=== PATIENT | female | born 1950 | race Caucasian/White ===

== ENCOUNTER 2016-06-13 15:45 | Inpatient (IN) | payer MEDICARE, MEDICAID ==
[2016-06-13] VITALS (18 sets, daily range): BP systolic 90–147; BP diastolic 51–71; PULSE 51–62; RESP 16; TEMP 95.7–96.6; O2SAT 35–100
[~2016-06-13] VITALS: Ht 154.9 cm; Wt 128.0 kg
[~2016-06-13 15:45] MED LIST: DOK100TA PO; DUONI NEB; HUMSS; LANTUS2P SC; META28.3 PO; MULT1TAB46 PO
[2016-06-13] MEDS ORDERED: VANCOMYCIN INJ 1,000 MG in SODIUM CHLOR 0.9% 250 ML INJ 250 ML IV STA (15:58)
[2016-06-13] MEDS ORDERED: AZTREONAM INJ 2,000 MG in SODIUM CHLORIDE 0.9% INJ 100 ML IV STA (15:58)
[2016-06-13] MEDS ORDERED: metroNIDAZOLE 500 MG INJ 100 ML IV STA (15:58)
[2016-06-13 16:21] LABS: BLOOD GAS BASE EXCESS -2.6 mmol/L (-2-2); BLOOD GAS CARBOXYHEMOGLOBIN 2.1 % (0-4); BLOOD GAS HCO3 24 mmol/L (22-26); BLOOD GAS METHEMOGLOBIN 0.8 % (0-2); BLOOD GAS O2 HGB SATURATION 96 % (90-100); BLOOD GAS OXYGEN CONTENT 10.6 Vol % (12.0-20.0); BLOOD GAS PCO2 57 mmHg (38-42); BLOOD GAS PO2 118 mmHG (61-120); BLOOD GAS TOTAL HGB 7.7 G/DL (12.0-16.0); TEMP CORR TO 98.6
--- NOTE | 2016-06-13 16:21 | RADRPT ---
EXAM DATE/TIME: 06/13/2016 16:03 [place] COMPARISON: No previous studies available for comparison. INDICATIONS : Short of breath. MEDICAL HISTORY : Congestive heart failure. SURGICAL HISTORY : None. ENCOUNTER: Initial ACUITY: 1 day PAIN SCORE: Non-responsive. LOCATION: Bilateral chest FINDINGS: There is an [id number] in place from the right subclavian approach. The cardiac silho uette is enlarged. The lungs demonstrate diffuse increased interstitial markings. In addition there is a more focal increased density in the left upper lung, left perihilar region, and inferior right u pper lobe. CONCLUSION: Cardiomegaly with diffuse increased interstitial markings likely representing edema. There is some focal consolidation or mass seen in the left upper lung, right upper lung, and left pe rihilar regions. The patient is scheduled for a CT pulmonary angiogram. Chris Colin MD on June 13, 2016 at 16:16 Board Certified Radiologist. This report was verified electronically.
[2016-06-13 16:22] LABS: CRITICAL VALUE YES; DRAW SITE RT BRACHIAL; LITER FLOW 4 L/M; NUMBER OF ARTERIAL PUNCTURES 1; OXYGEN DEVICE NASAL CANNULA; STAT YES
[2016-06-13 17:10] LABS: AUTOMATED NEUTROPHIL # 6.3 TH/MM3 (1.8-7.7); BASOPHIL # 0.1 TH/MM3 (0-0.2); BASOPHIL % 0.7 % (0.0-2.0); EOSINOPHIL # 0.2 TH/MM3 (0-0.4); EOSINOPHIL % 2.5 % (0.0-4.0); HEMATOCRIT 23.8 % (35.0-46.0); HEMO FLAGS DIFF FINAL; LYMPH % 13.9 % (9.0-44.0); LYMPHOCYTE # 1.2 TH/MM3 (1.0-4.8); MEAN CELL VOLUME 92.9 FL (80.0-100.0); MEAN CORPUSCULAR HGB CONC 33.3 % (32.0-36.0); MONO % 7.9 % (0.0-8.0); PLATELET COUNT 242 TH/MM3 (150-450); RED BLOOD COUNT 2.56 MIL/MM3 (4.00-5.30); RED CELL DISTRIBUTION WIDTH 20.1 % (11.6-17.2); WHITE BLOOD COUNT 8.4 TH/MM3 (4.0-11.0)
[2016-06-13 17:15] LABS: BACTERIA, URINE FEW /hpf; BLOOD, URINE MOD (NEG); GLUCOSE,URINE NEG (NEG); KETONE, URINE NEG (NEG); NITRITE,URINE NEG (NEG); PH, URINE 5.5 (5.0-8.5); SQUAMOUS EPITHELIAL CELL URINE 1 /hpf (0-5); URINE COLOR YELLOW (YELLW/STRAW)
[2016-06-13 17:16] LABS: APTT (PATIENT) 31.5 SEC (24.3-30.1); COMMENT (UR) CATH-CULTURE IND; CULTURE IF INDICATED CATH CULTURE IND; INTERNATIONAL NORMALIZED RATIO 1.1 RATIO; PROTHROMBIN TIME - PATIENT 11.9 SEC (9.8-11.6)
[2016-06-13 17:41] LABS: ANION GAP 6 MEQ/L (5-15); AST (GOT) 13 U/L (15-37); BICARBONATE 27.5 MEQ/L (21.0-32.0); BLOOD UREA NITROGEN 40 MG/DL (7-18); CHLORIDE 109 MEQ/L (98-107); GLOMERULAR FILTRATION RATE 24 ML/MIN (>89); POTASSIUM 6.1 MEQ/L (3.5-5.1); SODIUM (NA) 142 MEQ/L (136-145)
[2016-06-13 17:46] LABS: ALKALINE PHOSPHATASE 112 U/L (45-117); ALT (GPT) 11 U/L (10-53); TOTAL BILIRUBIN ADULT 0.2 MG/DL (0.2-1.0)
[2016-06-13] MEDS ORDERED: ALPR0.25 PO (17:56)
[2016-06-13] MEDS ORDERED: ALLO100T PO (17:56)
[2016-06-13] MEDS ORDERED: ASPI81TA5 PO (17:56)
[2016-06-13] MEDS ORDERED: BETH10TA2 PO (17:56)
[2016-06-13] MEDS ORDERED: CARV25TA PO (17:57)
[2016-06-13] MEDS ORDERED: CETI10 PO (17:57)
[2016-06-13] MEDS ORDERED: CALCIUM GLUCONATE 10% 1 GM/10 ML VIAL SLOW IVP ONE (18:00)
[2016-06-13] MEDS ORDERED: FERR325T PO (18:00)
[2016-06-13] MEDS ORDERED: DEXTROSE 50% IN WATER 50 ML VIAL(D50) IV PUSH ONE (18:00)
[2016-06-13] MEDS ORDERED: FLUC200T2 PO (18:00)
[2016-06-13] MEDS ORDERED: SODIUM BICARBONATE 8.4% SOLN 50 MEQ/50 ML VIAL SLOW IVP ONE (18:00)
[2016-06-13] MEDS ORDERED: IPRASOL INH (18:00)
[2016-06-13] MEDS ORDERED: FURO1TAB60 PO (18:02)
[2016-06-13] MEDS ORDERED: FLUO1TAB3 PO (18:02)
[2016-06-13 18:08] LABS: BLOOD GAS BASE EXCESS -2.2 mmol/L (-2-2); BLOOD GAS HCO3 24 mmol/L (22-26); BLOOD GAS METHEMOGLOBIN 0.6 % (0-2); BLOOD GAS O2 HGB SATURATION 97 % (90-100); BLOOD GAS OXYGEN CONTENT 11.3 Vol % (12.0-20.0); BLOOD GAS PCO2 58 mmHg (38-42); BLOOD GAS PO2 127 mmHG (61-120); BLOOD GAS TOTAL HGB 8.2 G/DL (12.0-16.0); CRITICAL VALUE YES; OXYGEN DEVICE BiPAP; TEMP CORR TO 98.6
[2016-06-13] MEDS ORDERED: GABA100C4 PO (18:08)
[2016-06-13] MEDS ORDERED: GLUC0.8I2 SQ (18:08)
[2016-06-13] MEDS ORDERED: HUMALOG SQ ×2 (18:08)
[2016-06-13 18:09] LABS: DRAW SITE RT RADIAL; FIO2 35 %; NUMBER OF ARTERIAL PUNCTURES 1; STAT YES; ULNAR PULSE PRESENT
[2016-06-13] MEDS ORDERED: INSULIN HUMAN REGULAR 1,000 UNITS/10 ML VIAL IV PUSH ONE (18:15)
[2016-06-13] MEDS ORDERED: ISOS30TA3 PO (18:21)
[2016-06-13] MEDS ORDERED: MELA1TAB PO (18:21)
[2016-06-13] MEDS ORDERED: POTA-245 PO (18:21)
[2016-06-13] MEDS ORDERED: MINO100 PO (18:21)
[2016-06-13] MEDS ORDERED: LANTUS2P SQ (18:21)
[2016-06-13] MEDS ORDERED: NYST1POW16 TOP (18:24)
[2016-06-13] MEDS ORDERED: MIRA33504 PO (18:24)
[2016-06-13] MEDS ORDERED: THERTAB17 PO (18:24)
[2016-06-13] MEDS ORDERED: DRIS50002 PO (18:28)
[2016-06-13] MEDS ORDERED: SUCR1TAB PO (18:28)
[2016-06-13] MEDS ORDERED: PANT40TA3 PO (18:28)
[2016-06-13] MEDS ORDERED: KETAMINE HCL 500 MG/5 ML VIAL IV PUSH ONE (18:30)
[2016-06-13] MEDS ORDERED: ROCURONIUM INJ 100 MG/10 ML VIAL IV ONE (18:30)
[2016-06-13] MEDS ORDERED: ROCURONIUM INJ 50 MG/5 ML VIAL ONE (18:46)
[2016-06-13] MEDS ORDERED: PROPOFOL 1000 MG/100 ML INJ 100 ML IV SCH (19:00)
--- NOTE | 2016-06-13 19:09 | PD ---
HPI Chief Complaint: Altered Mental Status Time Seen by Provider: 15:58 Travel History International Travel<30 days: No Contact w/Intl Traveler<30days: No Traveled to known affect area: No History of Present Illness HPI Patient is a 65-year-old female with History of breast/lung cancer, CHF, A. fib , renal dysfunction, and other long-standing history of multiple medical comorbidities to since the first of the year has been hospitalized at [facility] for the better part of 2 months. She was discharged from there to [facility] approximately one week ago. Over the course of the day today she apparently became more and more short of breath and altered. Has increasing edema to the upper and lower extremities and was reportedly given 40 mg of Lasix IM. Patient is lethargic and not able to provide history. Per facility patient is full code. Remainder of the history is limited. PFSH Past Medical History Cancer: Yes (LEFT BREAST ADENOCARCINOMA) Chemotherapy: Yes (LAST TREATMENT DEC 2013) Diabetes: Yes Patient Takes Glucophage: Yes Gastrointestinal Disorders: Yes (GASTROPARESIS) Genitourinary: Yes (RECURRENT UTI'S, URINARY RETENTION) Hypertension: Yes Radiation Therapy: No Past Surgical History Abdominal Surgery: Yes (GASTRIC BYPASS) Cholecystectomy: Yes Genitourinary Surgery: Yes (LITHOTRIPSY) Other Surgery: Yes (LEFT BREAST LUMPECTOMY, PORT A CATH PLACEMENT, LYMPHNODE BIOPSY.) Social History Alcohol Use: No Tobacco Use: No Substance Use: No Allergies-Medications (Allergen,Severity, Reaction): Coded Allergies: Percocet (Unverified Allergy, Severe, Nausea/Vomiting, 06/13/16) Codeine (Unverified Allergy, Mild, Nausea/Vomiting, 06/13/16) Lortab (Unverified Allergy, Mild, Nausea/Vomiting, 06/13/16) Bactrim (Unverified Allergy, Unknown, 06/13/16) Ciprofloxacin (Unverified Allergy, Unknown, 06/13/16) Hydrocodone (Unverified Allergy, Unknown, 06/13/16) Levaquin (Unverified Allergy, Unknown, 06/13/16) Penicillin (Unverified Allergy, Unknown, 06/13/16) Quinolones (Unverified Allergy, Unknown, 06/13/16) Sulfa (Unverified Allergy, Unknown, 06/13/16) Reported Meds & Prescriptions Reported Meds & Active Scripts Active Reported Drisdol (Ergocalciferol) 50,000 Unit Cap 50,000 Units PO WEEKLY ON SUNDAYS Sucralfate 1 Gm Tab 1 Gm PO ACHS on empty stomach Pantoprazole (Pantoprazole Sodium) 40 Mg Tab 40 Mg PO DAILY Nystatin Topical 100,000 Unit/Gm Pow 1 Applic TOP Q8HR PRN Thera-M (Multiple Vitamins W/ Minerals) 1 Tab 1 Tab PO DAILY Miralax Powder (Polyethylene Glycol 3350 Powder) 17 Gm Powd 17 Gm PO DAILY Mix and dissolve one measuring cap-ful (17 grams) in water or juice. Minocycline (Minocycline HCl) 100 Mg Cap 100 Mg PO BID Melatonin 1 Mg Tab 1 Mg PO HS PRN Lantus Inj (Insulin Glargine) 1,000 Unit/10 Ml Vial 50 Units SQ HS Klor-Con M20 (Potassium Chloride Microencaps) 20 Meq Tab 20 Meq PO DAILY Isosorbide Mononitrate ER (Isosorbide Mononitrate) 30 Mg Thomas 30 Mg PO DAILY Humalog Inj (Insulin Human Lispro) 1,000 Unit/10 Ml Vial 2-10 Units SQ ACHS If sugars 0-69,(0)units;give 120ml OJ & glucagom 1 mg im per protocol and recheck in one hour; sugars 70-149 = (0)150-199,(2)units; sugars 200-249,(4)units; sugars 250-299,(6)units;sugars 300-349,(8)units; sugars 350-399,(10)units; 400 + give 10 units and call Humalog Inj (Insulin Human Lispro) 1,000 Unit/10 Ml Vial 10 Units SQ TIDAC Max dose at bedtime:( )units; sugars< 70,(0)units; sugars 150-199,(1)unit; sugars 200-249,(3)units; sugars 250-299,(5)units; sugars 300-349,(7)units; sugars more than 349,(9)units. Glucagon Inj 1 Mg/Ml Inj 1 Mg SQ ONCE PRN Gabapentin 100 Mg Cap 200 Mg PO Q8HR Lasix (Furosemide) 40 Mg Tab 40 Mg PO DAILY Fluoxetine (Fluoxetine HCl) 20 Mg Tab 20 Mg PO DAILY Fluconazole 200 Mg Tab 200 Mg PO DAILY Ferrous Sulfate 325 Mg Tab 325 Mg PO BID Duoneb (Ipratropium-Albuterol Neb) 0.5-2.5 Mg/3 Ml Neb 1 Nebule INH Q8HR NEB PRN Cetirizine (Cetirizine HCl) 10 Mg Tab 10 Mg PO DAILY PRN Carvedilol 25 Mg Tab 25 Mg PO TID Bethanechol 10 Mg Tab 10 Mg PO DAILY Aspirin DR (Aspirin) 81 Mg Tabdr 81 Mg PO DAILY Alprazolam 0.25 Mg Tab 0.25 Mg PO Q6H Allopurinol 100 Mg Tab 100 Mg PO DAILY Review of Systems ROS Limitations: Clinical Condition, Altered Mental Status Physical Exam Exam Limitations: Clinical Condition, Altered Mental Status Narrative GENERAL: Super morbidly obese female in moderate respiratory distress SKIN: Warm and dry. Purplish you to the sacrum but no open wounds. Excoriations along the torso and extremities. HEAD: Normocephalic. EYES: Pupils equal and round. 3 mm. No scleral icterus. No injection or drainage. ENT: No nasal bleeding or discharge. Mucous membranes pink and moist. NECK: Supple, obese CARDIOVASCULAR: Bradycardic with heart rate in the 50s, regular rhythm. No murmur appreciated. RESPIRATORY: Moderate respiratory distress with tachypnea, poor respiratory effort and decreased breath sounds throughout. I'm only able to hear breath sounds in the left upper lobe of the lung GASTROINTESTINAL: Abdomen soft, super morbidly obese. Patient complains of left -sided tenderness to palpation of the abdomen. No rebound or guarding. Exam is limited due to morbid obesity MUSCULOSKELETAL: 2+ edema throughout, anasarca NEUROLOGICAL: Drowsy/lethargic. Patient needs constant physical/verbal stimulation in order to stay awake. Moves all extremities. Oriented 3 when awakened. Speech clear. PSYCHIATRIC: Deferred given mental status Data Data Last Documented VS Vital Signs Date Time Temp Pulse Resp B/P Pulse Ox O2 Delivery O2 Flow Rate FiO2 06/13/16 19:04 100 100 06/13/16 19:00 96.4 59 16 134/59 Ventilator 06/13/16 15:45 3 Orders Electrocardiogram (06/13/16 15:58) Complete Blood Count With Diff (06/13/16 15:58) Comprehensive Metabolic Panel (06/13/16 15:58) Prothrombin Time / Inr (Pt) (06/13/16 15:58) Act Partial Throm Time (Ptt) (06/13/16 15:58) Lactic Acid Sepsis Protocol (06/13/16 15:58) Lipase (06/13/16 15:58) Troponin I (06/13/16 15:58) Urinalysis - C+S If Indicated (06/13/16 15:58) Blood Culture (06/13/16 15:58) Chest, Single Ap (06/13/16 15:58) Arterial Blood Gas (Abg) (06/13/16 15:58) Blood Glucose (06/13/16 15:58) Ecg Monitoring (06/13/16 15:58) Iv Access Insert/Monitor (06/13/16 15:58) Oximetry (06/13/16 15:58) Oxygen Administration (06/13/16 15:58) Urinary Catheter Insert/Apply (06/13/16 15:58) Vancomycin Inj (Vancomycin Inj) (06/13/16 15:58) Aztreonam Inj (Azactam Inj) (06/13/16 15:58) Metronidazole 500 Mg Inj (Flagyl 500 Mg (06/13/16 15:58) Urine Culture (06/13/16 16:50) Ventilation & Perfusion Scan (06/13/16 17:46) Ct Abd/Pel W/O Iv Contrast (06/13/16 17:46) Arterial Blood Gas (Abg) (06/13/16 ) Potassium, Serum (K) (06/13/16 21:00) Calcium Gluconate Inj (Calcium Gluconate (06/13/16 18:00) Insulin Human Regular Inj (Novolin R Inj (06/13/16 18:15) Dextrose 50% In [place] (Vial) Inj (D50w (Vi (06/13/16 18:00) Sodium Bicarbonate 8.4% Inj (Sodium Bica (06/13/16 18:00) Ketamine Inj (Ketalar Inj) (06/13/16 18:30) Rocuronium Inj (Zemuron Inj) (06/13/16 18:30) Rocuronium Inj (Zemuron Inj) (06/13/16 18:46) Chest, Single Ap (06/13/16 18:51) Ng Gastric Tube Insert/Monitor (06/13/16 18:51) Restraints Non-Violent JAMES.Q3H (06/13/16 18:51) Propofol 1000 Mg/100 Ml Inj (Diprivan 10 (06/13/16 19:00) ^ Infusion (06/13/16 18:57) RASS (06/13/16 18:57) Neurological Rass Scale JAMES.Q2H (06/13/16 18:57) Admit Order (Ed Use Only) (06/13/16 19:15) Consult Palliative Care (06/13/16 ) Labs Laboratory Tests Test 06/13/16 06/13/16 06/13/16 16:13 16:50 17:58 Blood Gas Puncture Site RT BRACHIAL RT RADIAL Blood Gas Patient Temperature 98.6 98.6 Blood Gas HCO3 24 mmol/L 24 mmol/L Blood Gas Base Excess -2.6 mmol/L -2.2 mmol/L Blood Gas Oxygen Saturation 96 % 97 % Arterial Blood pH 7.24 7.25 Arterial Blood Partial 57 mmHg 58 mmHg Pressure CO2 Arterial Blood Partial 118 mmHG 127 mmHG Pressure O2 Arterial Blood Oxygen Content 10.6 Vol % 11.3 Vol % Arterial Blood 2.1 % 2.0 % Carboxyhemoglobin Arterial Blood Methemoglobin 0.8 % 0.6 % Blood Gas Hemoglobin 7.7 G/DL 8.2 G/DL Oxygen Delivery Device NASAL CANNULA BiPAP Blood Gas Liter Flow 4 L/M White Blood Count 8.4 TH/MM3 Red Blood Count 2.56 MIL/MM3 Hemoglobin 7.9 GM/DL Hematocrit 23.8 % Mean Corpuscular Volume 92.9 FL Mean Corpuscular Hemoglobin 31.0 PG Mean Corpuscular Hemoglobin 33.3 % Concent Red Cell Distribution Width 20.1 % Platelet Count 242 TH/MM3 Mean Platelet Volume 7.7 FL Neutrophils (%) (Auto) 75.0 % Lymphocytes (%) (Auto) 13.9 % Monocytes (%) (Auto) 7.9 % Eosinophils (%) (Auto) 2.5 % Basophils (%) (Auto) 0.7 % Neutrophils # (Auto) 6.3 TH/MM3 Lymphocytes # (Auto) 1.2 TH/MM3 Monocytes # (Auto) 0.7 TH/MM3 Eosinophils # (Auto) 0.2 TH/MM3 Basophils # (Auto) 0.1 TH/MM3 CBC Comment DIFF FINAL Differential Comment Prothrombin Time 11.9 SEC Prothromb Time International 1.1 RATIO Ratio Activated Partial 31.5 SEC Thromboplast Time Urine Color YELLOW Urine Turbidity CLOUDY Urine pH 5.5 Urine Specific [place] 1.012 Urine Protein 100 mg/dL Urine Glucose (UA) NEG mg/dL Urine Ketones NEG mg/dL Urine Occult Blood MOD Urine Nitrite NEG Urine Bilirubin NEG Urine Urobilinogen LESS THAN 2.0 MG/DL Urine Leukocyte Esterase LARGE Urine RBC 19 /hpf Urine WBC /hpf Urine WBC Clumps MANY Urine Squamous Epithelial 1 /hpf Cells Urine Bacteria FEW /hpf Microscopic Urinalysis Comment CATH-CULTURE IND Sodium Level 142 MEQ/L Potassium Level 6.1 MEQ/L Chloride Level 109 MEQ/L Carbon Dioxide Level 27.5 MEQ/L Anion Gap 6 MEQ/L Blood Urea Nitrogen 40 MG/DL Creatinine 2.07 MG/DL Estimat Glomerular Filtration 24 ML/MIN Rate Random Glucose 72 MG/DL Lactic Acid Level 0.5 mmol/L Calcium Level 8.2 MG/DL Total Bilirubin 0.2 MG/DL Aspartate Amino Transf 13 U/L (AST/SGOT) Alanine Aminotransferase 11 U/L (ALT/SGPT) Alkaline Phosphatase 112 U/L Troponin I LESS THAN 0.02 NG/ML Total Protein 6.8 GM/DL Albumin 2.0 GM/DL Lipase 77 U/L Blood Gas Ventilator Setting 12/5 Blood Gas Inspired Oxygen 35 % MDM Medical Decision Making Medical Screen Exam Complete: Yes Emergency Medical Condition: Yes Medical Record Reviewed: Yes Differential Diagnosis 65-year-old female with multiple underlying medical comorbidities here with altered mental status, respiratory distress. Differential includes acute hypercapnic, hypoxic respiratory failure, pneumonia, CHF exacerbation, pulmonary embolism, UTI, intra-abdominal pathology, sepsis, bacteremia, port infection, arrhythmia, ACS Narrative Course Patient placed on monitor, port accessed and blood obtained. Patient was placed on supplemental oxygen and ABG was obtained showing respiratory acidosis with pH 7.24, PCO2 57, bicarbonate 24, PO2 118. Patient was placed on BiPAP therapy for respiratory acidosis. Portable chest x-ray was obtained showing cardiomegaly with diffuse increased interstitial markings likely representing edema. Focal consolidation versus mass in the left upper lung, right upper lung , left perihilar regions. Known history of lung, breast cancer. Patient empirically treated with vancomycin, Zosyn, Azactam. Later we found out that she does have a history of ESBL. Given concerns for pulmonary edema she was not aggressively fluid resuscitated. Laboratory workup notable for hemoglobin 7.9, chronic for patient. BUN 40, creatinine 2.07 which is baseline for patient. Hyperkalemia 6.1. She was treated with calcium, insulin glucose and bicarbonate. Urine grossly positive for UTI. I would like to obtain a CT pulmonary angiogram but unfortunately her BUN and creatinine cannot tolerate this and therefore VQ scan was ordered. Results of this remain pending at the time this dictation. Given patient's left-sided abdominal tenderness a CT abdomen and pelvis was ordered. This too remains pending. After approximately 1.5 hours on BiPAP he ABG was repeated and is entirely unchanged. Her mental status has not improved. I spoke with patient's sister, who is her power of estate planning attorney. States that patient is full code and would want "everything done and less she is brain ". Patient was intubated by myself, please see procedure note. OG, Christianson were placed and postintubation chest x-ray obtained. Patient will be admitted to intensive care medicine, Dr. Gallardo with palliative care consult. Critical Care Narrative Aggregate critical care time was 80 minutes. Time to perform other separately billable procedures was not included in the critical care time. My time did not include minutes spent treating any other patients simultaneously or on activities that did not directly contribute to the patient's treatment. The services I provided to this patient were to treat and/or prevent clinically significant deterioration that could result in: Cardiopulmonary decompensation, , disability I provided critical care services requiring my management, as noted below: Chart data review, documentation time, medication orders and management, vital sign assessments/reviewing monitor data, ordering and reviewing lab tests, ordering and interpreting/reviewing x-rays and diagnostic studies, care of the patient and discussion of the patient with the admitting physicians. Procedures Procedure Narrative Risks and benefits discussed with patient sister, patient altered and not able to consent: INTUBATION: The patient was put in optimal position for the procedure. Rapid sequence intubation was initiated by me using 300 milligrams of ketamine IV. The patient was intubated with a 7-5 cuffed endotracheal tube. Tube placement was confirmed by visualization of the tube and balloon passing through the cords , capnometry and subsequent chest x-ray. Breath sounds were equal and well aerated bilaterally postintubation. No breath sounds over stomach. Patient tolerated procedure well. Post intubation once endotracheal tube was secured patient was given 150 mg rocuronium. Diagnosis Primary Impression: Hypercapnic respiratory failure Qualified Code: J96.22 - Acute on chronic respiratory failure with hypercapnia Additional Impressions: Urinary tract infection Qualified Code: N30.00 - Acute cystitis without hematuria Sepsis Qualified Code: A41.9 - Sepsis, due to unspecified organism Anemia Qualified Code: D64.9 - Anemia, unspecified type Renal insufficiency Hyperkalemia Morbid obesity with BMI of 60.0-69.9, adult Admitting Information Admitting Physician Requests: Admit Arlyn Petty MD Jun 13, 2016 19:09
--- NOTE | 2016-06-13 19:29 | HHI.HP ---
HPI Service Critical Care Medicine Primary Care Physician Marvin Nielson MD Admission Diagnosis acute respiratory failure, UTI, possible pneumonia Diagnosis: Travel History International Travel<30 Days: No Contact w/Intl Traveler <30 Da: No Traveled to Known Affected Are: No History of Present Illness 65-year-old female with past medical history of hypertension, diabetes , morbid obesity with obesity hypoventilation syndrome, COPD, chronic systolic heart failure, chronic kidney disease stage III, adenocarcinoma of breast metastatic to lung who presents to [facility] emergency department from [facility] with respiratory distress and lethargy. She was found to be in hypercapnic respiratory failure with pH 7.24/PaCO2 57/PA O2 of 118/bicarbonate 24 on 4 L nasal cannula. She was placed on BiPAP 12 over 5 with 35%. Repeat ABG demonstrated no significant improvement. Dr. Carl discussed with patient' s sister who stated patient was full code and so she was intubated in the emergency department with Grade III/IV view with Glidescope following sedation with ketamine and rocuronium. Chest x-ray demonstrated bilateral vascular congestion. There is also a right lower lobe opacity, right upper lobe opacity , and left upper lobe opacity. She was treated empirically in the emergency department with aztreonam, Flagyl, vancomycin. Urinalysis was remarkable for a UTI. She had a potassium of 6.1. She was treated with I called 50 mEq, calcium gluconate 2 g, insulin 10 units IV and dextrose. Apparently patient also had some left-sided abdominal pain for which Dr. Carl has ordered CT abdomen. VQ scan has also been ordered. Patient's sister states that April has a history of left breast adenocarcinoma which she underwent lumpectomy and lymph node resections. She states she underwent chemotherapy at that time which was poorly tolerated and that she was admitted after chemo every time because "all of her systems would shut down". She states that about 6-8 months ago she was found to have multiple lung mets. She states that chemotherapy was initiated but she was not able to tolerate and therefore she discontinued chemotherapy in February of 2016. She was under the care of Dr. Som Cam at [facility]. She states that for 2-3 years she has been having recurrent urinary tract infections. She states that she has been in and out of the hospital "every other week" in March 2016 due to recurrent urinary tract infections. There has been a history of MDRO and her chart indicates that she has a history of UTI positive for ESBL. Patient was reportedly was admitted to [facility] from April 02 to April 29. During this time she was treated for urinary tract infection. She also had altered mental status and respiratory failure requiring mechanical ventilation for approximately 4 days. She was discharged back to [facility] where she resided for 2-3 weeks until she was again hospitalized for CHF, pneumonia, urinary tract infection. She did not require mechanical ventilation on this admission. Her sister states she has been back at [facility] for about a week. Past Family Social History Allergies: Coded Allergies: Percocet (Unverified Allergy, Severe, Nausea/Vomiting, 06/13/16) Codeine (Unverified Allergy, Mild, Nausea/Vomiting, 06/13/16) Lortab (Unverified Allergy, Mild, Nausea/Vomiting, 06/13/16) Bactrim (Unverified Allergy, Unknown, 06/13/16) Ciprofloxacin (Unverified Allergy, Unknown, 06/13/16) Hydrocodone (Unverified Allergy, Unknown, 06/13/16) Levaquin (Unverified Allergy, Unknown, 06/13/16) Penicillin (Unverified Allergy, Unknown, 06/13/16) Quinolones (Unverified Allergy, Unknown, 06/13/16) Sulfa (Unverified Allergy, Unknown, 06/13/16) Past Medical History HTN COPD DM Diabetic peripheral neuropathy chronic kidney disease stage III/IV Obesity hypoventilation syndrome Morbid obesity Gout Paroxysmal atrial fibrillation Recurrent UTI Recurrent pneumonia h/o ESBL Anxiety DVT R peroneal vein 06/06/14 History of fall Dysphagia (noted on nectar thickened liquids diet according to note from 06/09/16 ) Chronic urinary incontinence Allergic rhinitis Left breast adenocarcinoma. Last chemotherapy February 2016 ? 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 CT brain negative. Unable to obtain MRI due to body habitus Past Surgical History Lithotripsy Gastric bypass Left breast lumpectomy and lymph node biopsy Open cholecystectomy Reported Medications Cetirizine 10 mg by mouth daily as needed for allergies Gabapentin 200 mg by mouth every 8 hours Fluoxetine 20 mg by mouth daily Nystatin every 8 hours when necessary rash Allopurinol 100 mg by mouth daily Fluconazole 200 mg by mouth daily Xanax 0.25 mg by mouth every 6 hours when necessary anxiety DuoNeb every 8 hours as needed for shortness of breath Coreg 25 mg by mouth 3 times a day MiraLAX 17 g by mouth daily Glucagon 1 mg subcutaneous as needed for hyperglycemia Lantus 50 units subcutaneous daily at bedtime Humalog 10 units subcutaneous to light 3 times a day Insulin sliding scale Ferrous sulfate 325 mg by mouth twice a day Lasix 40 mg by mouth daily Multivitamin one by mouth daily Isosorbide mononitrate ER 30 mg by mouth daily Aspirin 81 mg daily Melatonin 1 mg at bedtime Bethanechol 10 mg by mouth daily Carafate 1 g by mouth before meals at bedtime Pantoprazole 40 mg by mouth daily Potassium chloride 20 mEq by mouth daily Minocycline 100 mg by mouth twice a day for back serial infection Ergocalciferol 50,000 units by mouth weekly on Sunday Family History Father and mother both had CAD. Father age 60 of [place]. Mother in late 70s when it is believed she of a stroke. Social History Previously smoked about 2 years. Quit about 4 years ago. Rare EtOH use. Not . Sister Amparo Kathleen says she is patients healthcare surrogate. Her sister states She has resided in [facility] since May 2014 Physical Exam Vital Signs Vital Signs Date Time Temp Pulse Resp B/P Pulse Ox O2 Delivery O2 Flow Rate FiO2 06/13/16 19:04 100 100 06/13/16 19:00 96.4 59 16 134/59 100 Ventilator 100 06/13/16 18:50 96.6 61 16 90/54 100 Ventilator 100 06/13/16 18:45 96.6 62 16 95/51 100 BiPAP 35 06/13/16 18:00 96.4 58 16 132/71 100 BiPAP 35 06/13/16 17:45 96.3 06/13/16 17:15 96.3 57 16 122/58 100 BiPAP 35 06/13/16 16:49 96 BiPAP 35 06/13/16 16:49 97 35 06/13/16 15:45 97 Nasal Cannula 3 06/13/16 15:45 57 16 123/61 100 06/13/16 15:45 12 100 Nasal Cannula 3 Physical Exam Pulse 62 blood pressure 170/76 sats 100% on mechanical ventilation GENERAL: Morbidly obese female who is orotracheally intubated. She has just received sedation and paralysis in the emergency department SKIN: Warm and dry. There is skin break down inferior aspect of right side of pannus and iodoform gauze dressing has been applied there. HEAD: Atraumatic. Normocephalic. EYES: Right pupil 4 mm and reactive. Left pupil 3 mm and reactive.. No scleral icterus. No injection or drainage. ENT: No nasal bleeding or discharge. Mucous membranes pink and moist. NECK: Trachea midline. No noted JVD, but may be limited due to body habitus. CARDIOVASCULAR: Regular rate and rhythm, sinus rhythm on monitor with rate 60. No murmurs rubs or gallops. RESPIRATORY: On mechanical ventilation. Diminished breath sounds on the right. Clear to auscultation. GASTROINTESTINAL: Abdomen morbidly obese with large pannus. She has received sedation and paralytic in ED and therefore unable to assess tenderness currently. Bowel sounds are present. There is pitting abdominal wall edema throughout right flank. No crepitus, no erythema or warmth. Skin breakdown as per above. : Christianson in place. MUSCULOSKELETAL: Extremities without clubbing, cyanosis. There is 2+ edema BLE. NEUROLOGICAL: Sedated, has received paralytic rocuronium 150 mg IV in the ED. Pupils as per above. Laboratory Laboratory Tests Test 06/13/16 06/13/16 06/13/16 16:13 16:50 17:58 Blood Gas Puncture Site RT BRACHIAL RT RADIAL Blood Gas Patient Temperature 98.6 98.6 Blood Gas HCO3 24 24 Blood Gas Base Excess -2.6 -2.2 Blood Gas Oxygen Saturation 96 97 Arterial Blood pH 7.24 7.25 Arterial Blood Partial 57 58 Pressure CO2 Arterial Blood Partial 118 127 Pressure O2 Arterial Blood Oxygen Content 10.6 11.3 Arterial Blood 2.1 2.0 Carboxyhemoglobin Arterial Blood Methemoglobin 0.8 0.6 Blood Gas Hemoglobin 7.7 8.2 Oxygen Delivery Device NASAL CANNULA BiPAP Blood Gas Liter Flow 4 White Blood Count 8.4 Red Blood Count 2.56 Hemoglobin 7.9 Hematocrit 23.8 Mean Corpuscular Volume 92.9 Mean Corpuscular Hemoglobin 31.0 Mean Corpuscular Hemoglobin 33.3 Concent Red Cell Distribution Width 20.1 Platelet Count 242 Mean Platelet Volume 7.7 Neutrophils (%) (Auto) 75.0 Lymphocytes (%) (Auto) 13.9 Monocytes (%) (Auto) 7.9 Eosinophils (%) (Auto) 2.5 Basophils (%) (Auto) 0.7 Neutrophils # (Auto) 6.3 Lymphocytes # (Auto) 1.2 Monocytes # (Auto) 0.7 Eosinophils # (Auto) 0.2 Basophils # (Auto) 0.1 CBC Comment DIFF FINAL Differential Comment Prothrombin Time 11.9 Prothromb Time International 1.1 Ratio Activated Partial 31.5 Thromboplast Time Urine Color YELLOW Urine Turbidity CLOUDY Urine pH 5.5 Urine Specific [place] 1.012 Urine Protein 100 Urine Glucose (UA) NEG Urine Ketones NEG Urine Occult Blood MOD Urine Nitrite NEG Urine Bilirubin NEG Urine Urobilinogen LESS THAN 2.0 Urine Leukocyte Esterase LARGE Urine RBC 19 Urine WBC Urine WBC Clumps MANY Urine Squamous Epithelial 1 Cells Urine Bacteria FEW Microscopic Urinalysis Comment CATH-CULTURE IND Sodium Level 142 Potassium Level 6.1 Chloride Level 109 Carbon Dioxide Level 27.5 Anion Gap 6 Blood Urea Nitrogen 40 Creatinine 2.07 Estimat Glomerular Filtration 24 Rate Random Glucose 72 Lactic Acid Level 0.5 Calcium Level 8.2 Total Bilirubin 0.2 Aspartate Amino Transf 13 (AST/SGOT) Alanine Aminotransferase 11 (ALT/SGPT) Alkaline Phosphatase 112 Troponin I LESS THAN 0.02 Total Protein 6.8 Albumin 2.0 Lipase 77 Blood Gas Ventilator Setting 12/5 Blood Gas Inspired Oxygen 35 Date/Time Procedure Status Source Growth 06/13/16 16:55 Aerobic Blood Culture Received Blood Peripheral Pending 06/13/16 16:55 Anaerobic Blood Culture Received Blood Peripheral Pending 06/13/16 16:50 Urine Culture Received Urine Catheterized Urine Pending Result Diagram: 06/13/16 1650 06/13/16 1650 Assessment and Plan Assessment and Plan NEURO: Acute encephalopathy secondary to hypercapnia Peripheral neuropathy Anxiety Propofol for sedation. Daily sedation vacation Neurontin 100 mg every 8 hours (home dose 200 every 8) Hold SSRI for now. Hold xanax 0.25 mg po q6 hours prn anxiety. Continue melatonin 1 mg per tube qhs once she wakes up RESP: Acute hypercapnic and hypoxemic respiratory failure Obesity hypoventilation syndrome Lung metastases from breast cancer primary Intubated in ED with Glidescope with Grade III/IV Cormack Lehane. Follow-up VQ scan DuoNeb every 6 hours Albuterol every 2 hours as needed Received Solumedrol 125 mg IV in the ED. Lasix 40 mg IV x1 now to address pulmonary edema. Abx as per below CV: Hypertension Chronic systolic heart failure History of paroxysmal atrial fibrillation (not on chronic anticoagulation, currently in sinus rhythm) Obtain 2-D echo Troponin negative. Followup serial cardiac markers and EKG. Lactic acid normal Continue Coreg 25 mg by mouth 3 times a day with hold orders Continue aspirin 81 mg daily Lasix as per above. GI: Morbid obesity Moderate protein energy malnutrition Abdominal pain Orogastric tube in place to low intermittent wall suction. Reportedly had left-sided abdominal tenderness in the emergency department. CT abdomen and pelvis pending Continue multivitamin FEN/RENAL: Chronic kidney disease stage III Hyperkalemia Potassium 6.1 in the emergency department. Was treated with calcium, glucose, insulin, bicarbonate. Will repeat BMP. Lasix 40 mg IV now as per above. Will hold chronic potassium replacement Christianson in place. Monitor intake and output. Monitor electrolytes and replace as needed ID: HCAP vs post obstructive pneumonia Urinary tract infection Wound lower aspect of right pannus Covered empirically with aztreonam, Flagyl, vancomycin in the emergency department. It was later determined the patient has a history of UTI positive for ESBL. Continued on meropenem 1 g IV every 12 hours adjusted for creatinine clearance 40. Continue vancomycin with pharmacy dosing. Send sputum culture. Follow-up urine culture. Follow blood culture. Previously on minocycline 100 mg by mouth twice a day. Will obtain records from [facility]. Infectious disease consult Continue Diflucan 200 mg daily from long-term. Follow-up cultures. F/u CT abd/pelvis HEME: Adenocarcinoma left breast, multiple lung metastases Chronic iron deficiency anemia h/o nonocclusive DVT peroneal vein 06/06/14 Continue ferrous sulfate 325 mg twice a day F/u VQ and BLE u/s. ENDO: Type 2 diabetes mellitus with complications Medium dose insulin sliding scale at bedside glucose every 4 hours. Hold Lantus 50 units subcutaneous daily at bedtime PROPH: Protonix 40 mg IV daily for stress ulcer prophylaxis. Lovenox started empirically 150 units subcut pending workup for indeterminate VQ scan. ACCESS: Right chest port accessed. 18 gauge PIV's x2. Patient is full code. Palliative care medicine consult has been placed by ED physician. Patient's sister, Philomena Kathleen, states she is healthcare surrogate. She states that her sister does not have an advanced directive but had previously stated that she wished to be FULL CODE "unless she was in a vegetative state". Philomena Roberts asks me about her sister's prognosis. I discussed that she will likely be extubated and that it would be reasonable to expect her to survive this hospital stay. However, her recent clinical course suggests significant decline in her health and quality of life and that she is approaching end of life given metastatic lung cancer with poor tolerance to therapy, recurrent respiratory failure, recurrent MDRO UTI, multiple recent hospitalizations. She states she appreciates all healthcare providers being honest and tiara with her about her sister's condition. She is aware palliative care medicine has been consulted and that they will be contacting her over the coming days. Discussed with Dr. Arlyn Carl. Critical care time 60 minutes exclusive of separately billable procedures. Jolanta Gallardo MD Jun 13, 2016 19:29
--- NOTE | 2016-06-13 19:57 | RADRPT ---
EXAM DATE/TIME: 06/13/2016 19:23 [facility] COMPARISON: CHEST SINGLE AP, June 13, 2016, 16:03. INDICATIONS : Endotracheal tube placement. MEDICAL HISTORY : None given. SURGICAL HISTORY : Infuse a port placement. ENCOUNTER: Initial ACUITY: 1 day PAIN SCORE: Non-responsive. LOCATION: Bilateral chest FINDINGS: A single AP supine portable view of the chest was obtained and demonstrates interval placement of an endotracheal tube with the tip just above the level of the darrius. A nasogastric tube has been placed and is seen coursing through the esophagus. The distal tip is not well-visualized. There is dense co nsolidation now noted at the right lung base and right perihilar region. The left costophrenic angle is mildly blunted with hazy opacity. The patient is mildly rotated and the heart size appears enlarge d. There is hazy opacity also noted in the right upper lobe. There is a right subclavian implantable port catheter in place. CONCLUSION: 1. Interval intubation with the endotracheal tube tip just above the level the darrius. 2. Placement of nasogastric tube seen coursing through the esophagus. The distal tip is not well-visu alized. 3. Dense consolidation at the right lung base and right perihilar region. 4. Cardiomegaly and left effusion. 5. Suboptimal rotated exam. Adolfo Daniels MD on June 13, 2016 at 19:53 Board Certified Radiologist. This report was verified electronically.
[2016-06-13] MEDS ORDERED: GLUCAGON 1 MG/ML VIAL OTHER PRN (20:00)
[2016-06-13] MEDS ORDERED: SODIUM CHLORIDE 0.9% FLUSH 5 ML FLUSH IV FLUSH PRN (20:00)
[2016-06-13] MEDS ORDERED: MISCELLANEOUS NURSING INFORMATION XX SCH (20:00)
[2016-06-13] MEDS ORDERED: CHLORHEXIDINE GLUCONATE 2 % 1 PACK (2 CLOTHS) TOP PRN (20:00)
[2016-06-13] MEDS ORDERED: RESP: ALBUTEROL 2.5 MG/3 ML NEB (PRN) INH (20:00)
[2016-06-13] MEDS ORDERED: FUROSEMIDE 40 MG/4 ML VIAL IV PUSH ONE (20:15)
[2016-06-13] MEDS ORDERED: MISCELLANEOUS PHARMACY INFORMATION XX PRN (20:45)
[2016-06-13] MEDS ORDERED: ASP: Documented allergy to Penicillins or Cephalosporins XX PRN (20:45)
[2016-06-13] MEDS ORDERED: ASP: Documented ESBL, MDR A baumannii or P. aeruginosa XX PRN (20:45)
[2016-06-13] MEDS ORDERED: ASP: ID consult, note reason in consult order XX PRN (20:45)
--- NOTE | 2016-06-13 21:35 | RADRPT ---
EXAM DATE/TIME: 06/13/2016 20:49 [facility] COMPARISON: CHEST SINGLE AP, June 13, 2016, 16:03. CHEST SINGLE AP, June 13, 2016, 19:23. INDICATIONS : Respiratory distress. Deep venous thrombosis. DOSE: 8.5 mCi Tc99m MAA IV 0.85 mCi Tc99m DTPA aerosol MEDICAL HISTORY : Hypertension. Carcinoma, breast. Diabetes mellitus type 2. SURGICAL HISTORY : Cholecystectomy. Gastric bypass. Lumpectomy. ENCOUNTER: Initial ACUITY: 1 day PAIN SCALE: 0/10 LOCATION: Chest. TECHNIQUE: Following five minutes of tidal breathing of DTPA aerosol, planar images of the lungs were performed in eight projections. The patient was then injected with MAA, and eight-view perfusion scan was perf ormed. FINDINGS: There is a homogeneous pattern of aerosol delivery to the periphery of both lungs. There is a focal l arge ventilatory defect involving the right lung base. There is central deposition of the radiopharma ceutical. The perfusion lung scan demonstrates a mildly inhomogeneous pattern of uptake in both lungs. There is a large matched perfusion defect involving the right lung base corresponding to abnormal opacity at the right lung base seen on the chest x-ray exam. CONCLUSION: Indeterminant probability for pulmonary embolism with Large matched perfusion and ventilatory defect corresponding to radiographic abnormality in the right lung base. Adolfo Daniels MD on June 13, 2016 at 21:30 Board Certified Radiologist. This report was verified electronically.
[2016-06-13] MEDS: RESP: ALBUTEROL 2.5 MG/IPRATROPIUM 0.5 MG NEB (SCH) INH (21:38)
[2016-06-13] MEDS: PANTOPRAZOLE SODIUM 40 MG VIAL IV SCH (21:54)
[2016-06-13] MEDS: DOCUSATE SODIUM 100 MG/10 ML UDC TUBE SCH (21:55)
[2016-06-13] MEDS: SODIUM CHLORIDE 0.9% FLUSH 5 ML FLUSH IV FLUSH SCH (21:55)
[2016-06-13] MEDS ORDERED: MEROPENEM INJ 500 MG in SODIUM CHLORIDE 0.9% INJ 100 ML IV SCH (22:00)
[2016-06-13] MEDS ORDERED: HEPARIN SODIUM - SQ 10,000 UNITS/ML VIAL SQ SCH (22:00)
[2016-06-13 22:17] LABS: BLOOD GAS BASE EXCESS -0.3 mmol/L (-2-2); BLOOD GAS CARBOXYHEMOGLOBIN 1.8 % (0-4); BLOOD GAS HCO3 25 mmol/L (22-26); BLOOD GAS METHEMOGLOBIN 0.4 % (0-2); BLOOD GAS O2 HGB SATURATION 98 % (90-100); BLOOD GAS OXYGEN CONTENT 11.3 Vol % (12.0-20.0); BLOOD GAS PCO2 48 mmHg (38-42); BLOOD GAS PO2 324 mmHG (61-120); BLOOD GAS TOTAL HGB 7.6 G/DL (12.0-16.0); TEMP CORR TO 98.6
[2016-06-13 22:18] LABS: CRITICAL VALUE NO; DRAW SITE RT BRACHIAL; FIO2 100 %; NUMBER OF ARTERIAL PUNCTURES 1; OXYGEN DEVICE VENTILATOR; STAT YES; VENT SETTINGS AC/16/500/PEEP 5
[2016-06-14] VITALS (20 sets, daily range): BP systolic 116–167; BP diastolic 55–76; PULSE 52–74; RESP 18–22; TEMP 94.6–98.9; O2SAT 98–100
[2016-06-14] MEDS ORDERED: Vancomycin Consult Pharmacy 1 EA OTHER SCH
[2016-06-14] MEDS ORDERED: VANCOMYCIN 1,500 MG/NS 500 ML IV ONE ×2 (00:30)
--- NOTE | 2016-06-14 01:06 | RADRPT ---
EXAM DATE/TIME: 06/14/2016 00:05 [facility] COMPARISON: CHEST SINGLE AP, June 13, 2016, 19:23. INDICATIONS : Lethargic, general weakness with diffuse abdominal pain. ORAL CONTRAST: No oral contrast ingested. RADIATION DOSE: 30.78 CTDIvol (mGy) MEDICAL HISTORY : Diabetes mellitus type 2. Carcinoma, lung. Carcinoma, breast. SURGICAL HISTORY : Cholecystectomy. Gastric bypass. Lithotripsy. ENCOUNTER: Initial ACUITY: 1 day PAIN SCALE: Non-responsive LOCATION: Bilateral abdomen TECHNIQUE: Volumetric scanning of the abdomen and pelvis was performed. Using automated exposure control and ad justment of the mA and/or kV according to patient size, radiation dose was kept as low as reasonably achievable to obtain optimal diagnostic quality images. FINDINGS: LOWER LUNGS: Prominent right lower lung consolidation. Small bilateral pleural effusions. LIVER: Cholecystectomy clips. Liver grossly within normal limits. SPLEEN: 4.6 x 2.4 cm ovoid hypodensity in the anterior spleen. Spleen is within normal limits in size. Postsu rgical findings in the splenic hilum. PANCREAS: Within normal limits. KIDNEYS: Diffuse deformity and lobulation of the right kidney. Bilateral perinephric stranding right greater t leung left. Mild right hydronephrosis and hydroureter. No calculi identified. ADRENAL GLANDS: Within normal limits. VASCULAR: Abdominal aorta diameter within normal limits. BOWEL/MESENTERY: Postsurgical findings in the region of the stomach. No evidence of bowel dilatation. No free air or f ree fluid. Appendix not identified. ABDOMINAL WALL: Marked edema in the region of the right breast. Marked edema in the superficial soft tissues of the f lanks bilaterally indicating anasarca. No evidence of hernia. RETROPERITONEUM: Multiple mildly prominent para-aortic lymph nodes the largest measuring 2.1 x 1.6 cm and the left par a-aortic region on image #43. BLADDER: Diffuse urinary bladder wall thickening. REPRODUCTIVE: Within normal limits. INGUINAL: There is no lymphadenopathy or hernia. MUSCULOSKELETAL: Severe degenerative findings of the lower lumbar spine. CONCLUSION: 1. Right lower lung consolidation and bilateral pleural effusions. 2. Superficial soft tissue edema suggesting anasarca. 3. Perinephric stranding and diffuse urinary bladder wall thickening. Question urinary tract infectio n. Mild right hydronephrosis. No calculi identified. 4. Nonspecific oval 4.6 cm mass in the spleen. 5. Retroperitoneal lymphadenopathy. Dimitrios Mccartney MD on June 14, 2016 at 0:54 Board Certified Radiologist. This report was verified electronically.
[2016-06-14 01:09] LABS: BLOOD GAS BASE EXCESS -1.3 mmol/L (-2-2); BLOOD GAS HCO3 23 mmol/L (22-26); BLOOD GAS METHEMOGLOBIN 1.4 % (0-2); BLOOD GAS O2 HGB SATURATION 96 % (90-100); BLOOD GAS OXYGEN CONTENT 9.8 Vol % (12.0-20.0); BLOOD GAS PCO2 39 mmHg (38-42); BLOOD GAS PO2 138 mmHg (61-120); BLOOD GAS TOTAL HGB 7.1 G/DL (12.0-16.0); TEMP CORR TO 98.6
[2016-06-14 01:10] LABS: CRITICAL VALUE NO; OXYGEN DEVICE VENTILATOR
[2016-06-14 01:11] LABS: DRAW SITE RT BRACHIAL; FIO2 50 %; NUMBER OF ARTERIAL PUNCTURES 1; STAT YES; ULNAR PULSE PRESENT; VENT SETTINGS PRVC/AC
[2016-06-14] MEDS: DEXTROSE 50% IN WATER 50 ML VIAL(D50) IV PUSH PRN ×4 (01:20→06:35)
--- NOTE | 2016-06-14 01:28 | RADRPT ---
EXAM DATE/TIME: 06/14/2016 00:24 [facility] COMPARISON: No previous studies available for comparison. INDICATIONS : Bilateral leg swelling; thrombosis. MEDICAL HISTORY : Hypertension. Carcinoma, breast. Carcinoma, lung. Afib. CHF. Chemotherapy. Diabetic. SURGICAL HISTORY : Cholecystectomy.Mastectomy, left. Lithotripsy. Gastic bypass. ENCOUNTER: Initial ACUITY: 1 day PAIN SCORE: Non-responsive LOCATION: Bilateral leg. TECHNIQUE: Venous ultrasound of the left and right leg was performed from the inguinal ligament to the proximal calf. Real-time, color Doppler and spectral tracing, compression and augmentation techniques were us ed. FINDINGS: RIGHT LEG: There is normal compressibility of the deep venous system from the inguinal region to the proximal ca lf. No echogenic clot is seen in the lumen of the common femoral, femoral, popliteal, and posterior tibial veins. There is a normal response of the venous system to proximal and distal augmentation an d respiration. LEFT LEG: There is normal compressibility of the deep venous system from the inguinal region to the proximal ca lf. No echogenic clot is seen in the lumen of the common femoral, femoral, popliteal, and posterior tibial veins. There is a normal response of the venous system to proximal and distal augmentation an d respiration. CONCLUSION: No evidence of lower extremity DVT on the right or left. Dimitrios Mccartney MD on June 14, 2016 at 1:26 Board Certified Radiologist. This report was verified electronically.
[2016-06-14] MEDS: RESP: ALBUTEROL 2.5 MG/IPRATROPIUM 0.5 MG NEB (SCH) INH ×4 (02:13→21:15)
--- NOTE | 2016-06-14 03:10 | RADRPT ---
EXAM DATE/TIME: 06/14/2016 02:48 [facility] COMPARISON: No previous studies available for comparison. INDICATIONS : Altered mental status,low blood sugar. RADIATION DOSE: 51.55 CTDIvol (mGy) MEDICAL HISTORY : Hypertension. Gastroparesis. Carcinoma, breast. SURGICAL HISTORY : Cholecystectomy. Port placement ENCOUNTER: Initial ACUITY: 1 day PAIN SCALE: 0/10 LOCATION: cranial TECHNIQUE: Multiple contiguous axial images were obtained of the head. Using automated exposure control and adj ustment of the mA and/or kV according to patient size, radiation dose was kept as low as reasonably a chievable to obtain optimal diagnostic quality images. FINDINGS: CEREBRUM: The ventricles are normal for age. No evidence of midline shift, mass lesion, hemorrhage or acute in farction. No extra-axial fluid collections are seen. POSTERIOR FOSSA: The cerebellum and brainstem are intact. The 4th ventricle is midline. The cerebellopontine angle i s unremarkable. EXTRACRANIAL: Bilateral maxillary sinus and ethmoid sinus the coastal thickening. Air-fluid levels in the maxillary ethmoid sphenoid and frontal sinuses. SKULL: The calvaria is intact. No evidence of skull fracture. CONCLUSION: 1. No acute intracranial findings. 2. Pansinusitis with diffuse air fluid levels indicating acute sinusitis. Dimitrios Mccartney MD on June 14, 2016 at 3:06 Board Certified Radiologist. This report was verified electronically.
--- NOTE | 2016-06-14 03:20 | RADRPT ---
EXAM DATE/TIME: 06/14/2016 02:51 [facility] COMPARISON: CT ABDOMEN & PELVIS W/O CONTRAST, June 14, 2016, 0:05. CT BRAIN W/O CONTRAST, June 14, 2016, 2:48. INDICATIONS : Respiratory distress,evaluate for mass RADIATION DOSE: 23.09 CTDIvol (mGy) MEDICAL HISTORY : Hypertension. Gastroparesis. Diabetes mellitus type 2. Left breast Carcinoma SURGICAL HISTORY : Cholecystectomy. Port placement ENCOUNTER: Initial ACUITY: 1 day PAIN SCALE: 0/10 LOCATION: chest TECHNIQUE: Volumetric scanning of the chest was performed. Using automated exposure control and adjustment of t he mA and/or kV according to patient size, radiation dose was kept as low as reasonably achievable to obtain optimal diagnostic quality images. FINDINGS: LUNGS: Moderate sized area of pulmonary consolidation extensive air bronchograms on the at the dependent por tion of the right lower lung. Mild consolidation at the dependent portion of the left lung. Rounded c ontour of the consolidation in the left upper lung. 2 cm pulmonary nodule in the anterior left midlun g on image #22. 8mm nodule more posteriorly in the left midlung. PLEURAE: Small bilateral pleural effusions left greater than right. MEDIASTINUM: Endotracheal tube and nasogastric tube in place. 2.5 x 1.5 cm right paratracheal lymph node. Pulmonar y arteries are diffusely enlarged. Aorta is normal diameter. AXILLAE: Within normal limits. No lymphadenopathy. MUSCULOSKELETAL: Degenerative findings of the thoracic spine. MISCELLANEOUS: Abdomen is fully described on abdomen CT report. CONCLUSION: 1. Large area of right lower lung consolidation with air bronchograms. 2. Mild left lung consolidation versus atelectasis with rounded masslike anterior contour in the uppe r lung. 2 additional left-sided nodules are identified in the mid lung. 3. Small bilateral pleural effusions. 4. Enlarged right paratracheal lymph node. Dimitrios Mccartney MD on June 14, 2016 at 3:09 Board Certified Radiologist. This report was verified electronically.
[2016-06-14] MEDS: PROPOFOL 1000 MG/100 ML INJ 100 ML IV SCH ×5 (03:51→23:33)
[2016-06-14] MEDS: IMIPENEM/CILASTATIN INJ 250 MG in SODIUM CHLORIDE 0.9% INJ 100 ML IV SCH ×4 (03:51→20:59)
[2016-06-14] MEDS: CARVEDILOL 12.5 MG TAB PO SCH ×4 (03:51→17:24)
[2016-06-14] MEDS: CHLORHEXIDINE GLUCONATE 2 % 1 PACK (2 CLOTHS) TOP SCH (03:59)
[2016-06-14] MEDS ORDERED: INSULIN ASPART SUPPLEMENTAL SCALE SQ SCH ×2 (04:00)
[2016-06-14] MEDS ORDERED: ENOXAPARIN SODIUM 150 MG/ML SYRINGE SQ ONE ×2 (04:30)
[2016-06-14] MEDS: DEXTROSE 10% INJ 500 ML IV SCH ×2 (05:34→15:14)
[2016-06-14 05:39] LABS: AUTOMATED NEUTROPHIL # 5.5 TH/MM3 (1.8-7.7); BASOPHIL % 0.6 % (0.0-2.0); EOSINOPHIL # 0.2 TH/MM3 (0-0.4); EOSINOPHIL % 2.8 % (0.0-4.0); HEMO FLAGS DIFF FINAL; LYMPHOCYTE # 1.2 TH/MM3 (1.0-4.8); MEAN CELL VOLUME 91.7 FL (80.0-100.0); MEAN CORPUSCULAR HEMOGLOBIN 30.5 PG (27.0-34.0); MEAN CORPUSCULAR HGB CONC 33.2 % (32.0-36.0); MONO % 5.3 % (0.0-8.0); NEUT % 75.3 % (16.0-70.0); PLATELET COUNT 222 TH/MM3 (150-450); RED BLOOD COUNT 2.39 MIL/MM3 (4.00-5.30); RED CELL DISTRIBUTION WIDTH 20.2 % (11.6-17.2); WHITE BLOOD COUNT 7.3 TH/MM3 (4.0-11.0)
--- NOTE | 2016-06-14 05:52 | RADRPT ---
EXAM DATE/TIME: 06/14/2016 04:00 [facility] COMPARISON: CT THORAX W/O CONTRAST, June 14, 2016, 2:51. CHEST SINGLE AP, June 13, 2016, 19:23. INDICATIONS : Respiratory failure. MEDICAL HISTORY : None. SURGICAL HISTORY : None. ENCOUNTER: Subsequent ACUITY: 3 days PAIN SCORE: Non-responsive. LOCATION: Bilateral chest FINDINGS: Single AP view of the chest. Endotracheal tube, nasogastric tube, right sided [id number] remain in place. Right lower lung consolidation unchanged. Left pleural effusion and left lung consolidation v ersus atelectasis unchanged. No evidence of pneumothorax. CONCLUSION: Persistent bilateral pulmonary opacity with right lower lobe consolidation, left lower lung atelectas is versus consolidation and left pleural effusion. Dimitrios Mccartney MD on June 14, 2016 at 5:48 Board Certified Radiologist. This report was verified electronically.
[2016-06-14 05:57] LABS: ALKALINE PHOSPHATASE 96 U/L (45-117); ALT (GPT) 10 U/L (10-53); ANION GAP 8 MEQ/L (5-15); AST (GOT) 12 U/L (15-37); BICARBONATE 26.5 MEQ/L (21.0-32.0); BLOOD UREA NITROGEN 40 MG/DL (7-18); CHLORIDE 110 MEQ/L (98-107); GLOMERULAR FILTRATION RATE 26 ML/MIN (>89); MAGNESIUM 1.6 MG/DL (1.5-2.5); POTASSIUM 4.6 MEQ/L (3.5-5.1); SODIUM (NA) 144 MEQ/L (136-145); TOTAL BILIRUBIN ADULT 0.2 MG/DL (0.2-1.0)
[2016-06-14] MEDS: CHLORHEXIDINE 0.12% (ORAL KIT) 15 ML CUP MT SCH ×2 (08:46→21:00)
[2016-06-14] MEDS: PANTOPRAZOLE SODIUM 40 MG VIAL IV SCH (08:49)
[2016-06-14] MEDS: FLUCONAZOLE 200 MG TAB PO SCH (08:50)
[2016-06-14] MEDS: SODIUM CHLORIDE 0.9% FLUSH 5 ML FLUSH IV FLUSH SCH ×2 (08:50→20:59)
[2016-06-14] MEDS: POLYETHYLENE GLYCOL 17 GM PKG PO SCH (08:51)
[2016-06-14] MEDS: GABAPENTIN 250 MG/5 ML UDC TUBE SCH ×3 (08:52→17:23)
[2016-06-14] MEDS: MULTIVITAMINS/MINERALS THERAPEUTIC TAB PO SCH (08:52)
[2016-06-14] MEDS: BETHANECHOL CHL 10 MG TAB PO SCH (08:52)
[2016-06-14] MEDS: DOCUSATE SODIUM 100 MG/10 ML UDC TUBE SCH ×2 (08:52→20:59)
[2016-06-14] MEDS: ALLOPURINOL 100 MG TAB PO SCH (08:52)
[2016-06-14] MEDS ORDERED: ASPIRIN EC 81 MG TABEC PO SCH (09:00)
[2016-06-14] MEDS ORDERED: FERROUS SULFATE 325 MG (65 MG ELEMENTAL IRON) TAB PO SCH (09:00)
--- NOTE | 2016-06-14 11:07 | PD.CONS ---
Consult Service Palliative Care Consult Requested By Siddhartha Primary Care Physician Marvin Nielson MD / [facility] Reason for Consultation a. To assist with evaluation and management of symptoms including: dyspnea, pain, b. To assist medical decision maker(s) with: better understanding of current medical conditions; weighing benefits/burdens of medical treatment options; making medical treatment decisions. (Arabella Mcpherson) HPI History of Present Illness This is a 65-year-old female with past medical history of hypertension , diabetes, and super morbid obesity with obesity hypoventilation syndrome, COPD , systolic heart failure, CKD stage IV, as well as adenocarcinoma of the breast metastatic to the lung who presented to the emergency department on 06/13/16 from [facility] with respiratory distress and lethargy. She value failed BiPAP and was subsequently intubated. Urinalysis was remarkable for UTI. On admission she was found to be hyperkalemic nose treated accordingly. Chest x-ray identified. Bilateral vascular congestion with opacity in the right lower lobe , right upper lobe and left upper lobe. Antibiotics were initiated. She was also noted to have dense anasarca Patient has a history of left breast adenocarcinoma and underwent lumpectomy and lymph node resection. She underwent chemotherapy at the time, but poorly tolerated it. 6-8 months ago, she was found to have multiple lung metastasis. She again trialed chemotherapy but was unable to tolerate it and it was discontinued in February 2016. Patient was hospitalized at [facility] from April 02 through April 29. During this time she was treated for urinary tract infection. During this hospitalization, she had altered mental status as well as respiratory failure requiring mechanical ventilation for 4 days. She discharged back to [facility], but was rehospitalized 2 -3 weeks later for CHF, pneumonia, and UTI. At the time of this admission, she had been back at [facility] roughly 1 week. She has had multiple urinary tract infections in the past with history of MDRO / + ESBL. For the last 2-3 years, she has been having recurrent UTIs and has been in and out of the hospital. Patient is seen and examined at the bedside. She is slightly's sedated on Diprivan. However, she is able to make contact. She will attempt to talk and will nod yes or no to questions. She does not appear to be in any distress at this time. (Arabella Mcpherson) Review of Systems ROS Limitations: Clinical Condition, Intubated Constitutional: COMPLAINS OF: Generalized weakness Respiratory: COMPLAINS OF: Apneas, Shortness of breath Cardiovascular: COMPLAINS OF: Dyspnea on Exertion, Lower Extremity Edema, Orthopnea Gastrointestinal: DENIES: Abdominal pain, Constipation, Diarrhea Genitourinary: COMPLAINS OF: Dysuria Musculoskeletal: COMPLAINS OF: Joint pain, Muscle aches, Back pain Neurologic: COMPLAINS OF: Paresthesias Psychiatric: COMPLAINS OF: Anxiety, Confusion, Depression Other ROS: This patient is intubated and unable to provide any meaningful review of systems. Information is obtained through discussion with her sister will review clinical chart (Arabella Mcpherson) Past Family Social History Coded Allergies: Percocet (Unverified Allergy, Severe, Nausea/Vomiting, 06/13/16) Codeine (Unverified Allergy, Mild, Nausea/Vomiting, 06/13/16) Lortab (Unverified Allergy, Mild, Nausea/Vomiting, 06/13/16) Bactrim (Unverified Allergy, Unknown, 06/13/16) Ciprofloxacin (Unverified Allergy, Unknown, 06/13/16) Hydrocodone (Unverified Allergy, Unknown, 06/13/16) Levaquin (Unverified Allergy, Unknown, 06/13/16) Penicillin (Verified Allergy, Unknown, rash, 06/14/16) Has taken Keflex in past with no problem Quinolones (Unverified Allergy, Unknown, 06/13/16) Sulfa (Unverified Allergy, Unknown, 06/13/16) *MDRO Multi-Drug Resistant Organism (Verified Adverse Reaction, Unknown, ) MRSA (sputum)-06/14/16 Past Medical History HTN COPD DM Diabetic peripheral neuropathy chronic kidney disease stage III/IV Obesity hypoventilation syndrome Morbid obesity Gout Paroxysmal atrial fibrillation Recurrent UTI Recurrent pneumonia h/o ESBL Anxiety DVT R peroneal vein 06/06/14 History of fall Dysphagia (noted on nectar thickened liquids diet according to note from 06/09/16 ) Chronic urinary incontinence Allergic rhinitis Left breast adenocarcinoma. Last chemotherapy February 2016 ? 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 CT brain negative. Unable to obtain MRI due to body habitus Past Surgical History Lithotripsy Orly-en-Y Gastric bypass 20+years ago Left breast lumpectomy and lymph node biopsy Open cholecystectomy Reported Medications Reported Drisdol (Ergocalciferol) 50,000 Unit Cap 50,000 Units PO WEEKLY ON SUNDAYS Sucralfate 1 Gm Tab 1 Gm PO ACHS Pantoprazole (Pantoprazole Sodium) 40 Mg Tab 40 Mg PO DAILY Nystatin Topical 100,000 Unit/Gm Pow 1 Applic TOP Q8HR PRN Thera-M (Multiple Vitamins W/ Minerals) 1 Tab 1 Tab PO DAILY Miralax Powder (Polyethylene Glycol 3350 Powder) 17 Gm Powd 17 Gm PO DAILY Minocycline (Minocycline HCl) 100 Mg Cap 100 Mg PO BID Melatonin 1 Mg Tab 1 Mg PO HS PRN Lantus Inj (Insulin Glargine) 1,000 Unit/10 Ml Vial 50 Units SQ HS Klor-Con M20 (Potassium Chloride Microencaps) 20 Meq Tab 20 Meq PO DAILY Isosorbide Mononitrate ER (Isosorbide Mononitrate) 30 Mg Thomas 30 Mg PO DAILY Humalog Inj (Insulin Human Lispro) 1,000 Unit/10 Ml Vial 2-10 Units SQ ACHS If sugars 0-69,(0)units;give 120ml OJ & glucagom 1 mg im per protocol and recheck in one hour; sugars 70-149 = (0) 150-199,(2)units ; 200-249,(4)units; 250-299,(6)units; 300-349,(8)units; 350-399,(10)units; 400 + give 10 units and call Humalog Inj (Insulin Human Lispro) 1,000 Unit/10 Ml Vial 10 Units SQ TIDAC Max dose at bedtime:( )units; sugars< 70,(0)units; sugars 150-199,(1)unit; sugars 200-249,(3)units; sugars 250-299,(5)units; sugars 300-349,(7)units; sugars more than 349,(9)units. Glucagon Inj 1 Mg/Ml Inj 1 Mg SQ ONCE PRN Gabapentin 100 Mg Cap 200 Mg PO Q8HR Lasix (Furosemide) 40 Mg Tab 40 Mg PO DAILY Fluoxetine (Fluoxetine HCl) 20 Mg Tab 20 Mg PO DAILY Fluconazole 200 Mg Tab 200 Mg PO DAILY Ferrous Sulfate 325 Mg Tab 325 Mg PO BID Duoneb (Ipratropium-Albuterol Neb) 0.5-2.5 Mg/3 Ml Neb 1 Nebule INH Q8HR NEB PRN Cetirizine (Cetirizine HCl) 10 Mg Tab 10 Mg PO DAILY PRN Carvedilol 25 Mg Tab 25 Mg PO TID Bethanechol 10 Mg Tab 10 Mg PO DAILY Aspirin DR (Aspirin) 81 Mg Tabdr 81 Mg PO DAILY Alprazolam 0.25 Mg Tab 0.25 Mg PO Q6H Allopurinol 100 Mg Tab 100 Mg PO DAILY Current Medications Medications (Trade) Dose Ordered Sig/Libby Route Start Time Stop Time Status Last Admin (NS Flush) 2 ml UNSCH PRN IV FLUSH 06/13/16 20:00 (NS Flush) 2 ml BID IV FLUSH 06/13/16 21:00 06/14/16 08:50 (fentaNYL INJ) 50 mcg Q1H PRN IV PUSH 06/13/16 20:00 (Protonix Inj) 40 mg DAILY IV 06/13/16 20:00 06/14/16 08:49 (Zofran Inj) 4 mg Q6H PRN IV 06/13/16 20:00 (Colace Liq) 100 mg BID TUBE 06/13/16 21:00 06/14/16 08:52 Miscellaneous Information 1 Q361D XX 06/13/16 20:00 (Chlorhexidine 2% Cloth) 3 pack Taper DAILY@04 TOP 06/14/16 04:00 06/10/17 03:59 06/14/16 03:59 Chlorhexidine Gluconate 3 pack 3 pack UNSCH PRN TOP 06/13/16 20:00 (Diprivan 1000 Mg/100ml Inj) 100 ml @ 0 mls/hr TITRATE IV 06/13/16 20:00 06/14/16 05:33 (D50w (Vial) Inj) 25 ml UNSCH PRN IV PUSH 06/13/16 20:00 06/14/16 06:35 (Glucagon Inj) 1 mg UNSCH PRN OTHER 06/13/16 20:00 Chlorhexidine Gluconate 15 ml 15 ml BID@08,20 MT 06/14/16 08:00 06/14/16 08:46 Pharmacy Profile Note 0 ml @ 0 mls/hr UNSCH OTHER 06/14/16 00:00 (Primaxin Inj/NS Inj) 100 ml @ 200 mls/hr Q6H IV 06/14/16 04:00 06/14/16 03:51 (Coreg) 25 mg Q8H PO 06/14/16 00:45 06/14/16 08:48 (Neurontin Liq) 100 mg TID TUBE 06/14/16 09:00 06/14/16 08:52 (Zyloprim) 100 mg DAILY PO 06/14/16 09:00 06/14/16 08:52 (Urecholine) 10 mg DAILY PO 06/14/16 09:00 06/14/16 08:52 (Ferrous Sulfate) 325 mg BID PO 06/14/16 09:00 (Diflucan) 200 mg DAILY PO 06/14/16 09:00 06/14/16 08:50 (Theragran M Tab) 1 tab DAILY PO 06/14/16 09:00 06/14/16 08:52 (Mycostatin Powder) 1 applic Q8HR PRN TOP 06/14/16 00:45 (Miralax) 17 gm DAILY PO 06/14/16 09:00 06/14/16 08:51 Insulin Aspart 1 1 Q4H SQ 06/14/16 04:00 Hold (D10w Inj) 500 ml @ 50 mls/hr Q10H IV 06/14/16 04:30 06/14/16 05:34 Family History Father and mother both had CAD. Father age 60 of [place]. Mother in late 70s when it is believed she of a stroke. Substance Use Tobacco:Previously smoked about 2 years. Quit about 4 years ago Alcohol: Denies Prescription med abuse: Denies Illicits: Denies . Psychosocial History Never , no children. She has 4 surviving siblings, 1 has passed Fern her health care surrogate is the youngest in the family. 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 She has been a resident of the alf facility in the last 2 years Spiritual/Cultural Factors No yazidism affiliation (Arabella Mcpherson) Health Care Surrogate: Completed, but not made available Health Care Surrogate(s): Philomena Kathleen, sister, home phone [phone], cell phone [phone], lives in [facility]. States the document is at the trade mark attorney's office and will have it faxed to the fifth floor tomorrow Documented care wishes: Per her sister, April indicated last month that she wished to be a full code until "she was in a vegetative state." She had no prior conversations with her sister regarding hospice Family/friends goals: Philomena Velazquez would ideally like to be able to talk with her sister April regarding goals of care. However, at this point, patient is an intubated with propofol and comments she might make may not be reliable nor a true reflection of what she would want. At this point in time, there are no changes in goals of care Ethical and Legal Issues None evident (Arabella Mcpherson) Physical Exam Vital Signs Date Time Temp Pulse Resp B/P Pulse Ox O2 Delivery O2 Flow Rate FiO2 06/14/16 08:09 98 30 06/14/16 06:00 60 06/14/16 04:27 100 30 06/14/16 04:00 53 06/14/16 04:00 97.3 52 22 167/76 100 06/14/16 02:35 100 100 06/14/16 02:00 56 06/14/16 01:20 100 40 06/14/16 00:40 97.3 52 22 138/67 100 06/14/16 00:20 100 50 06/13/16 23:55 100 100 06/13/16 22:46 95.7 51 16 121/60 100 Auto-Vent 100 06/13/16 21:58 95.9 51 16 147/70 100 Ventilator 100 06/13/16 21:41 100 100 06/13/16 21:00 95.9 53 16 141/66 100 Ventilator 100 06/13/16 20:30 100 100 06/13/16 20:00 95.9 51 16 136/67 100 Ventilator 100 06/13/16 19:43 97 100 06/13/16 19:04 100 100 06/13/16 19:00 96.4 59 16 134/59 100 Ventilator 100 06/13/16 18:50 96.6 61 16 90/54 100 Ventilator 100 06/13/16 18:45 96.6 62 16 95/51 100 BiPAP 35 06/13/16 18:00 96.4 58 16 132/71 100 BiPAP 35 06/13/16 17:45 96.3 06/13/16 17:15 96.3 57 16 122/58 100 BiPAP 35 06/13/16 16:49 96 BiPAP 35 06/13/16 16:49 97 35 06/13/16 15:45 97 Nasal Cannula 3 06/13/16 15:45 97 Nasal Cannula 3.00 06/13/16 15:45 57 16 123/61 100 06/13/16 15:45 12 100 Nasal Cannula 3 06/13/16 06/14/16 19:00 07:00 Intake Total 428 ml Output Total 4250 ml Balance -3822 ml Intake IV Total 428 ml Output Urine Total 4250 ml # Voids 0 # Bowel Movements 0 Exam CONSTITUTIONAL/GENERAL: This is super morbidly obese woman, in no apparent distress. Lightly sedated with propofol. Will awake and will follow commands TUBES/LINES/DRAINS: PT and OT, Christianson, IV lines SKIN: No jaundice, rashes, or lesions. Ecchymoses on upper extremities. No wounds seen anteriorly. Skin temperature appropriate. Not diaphoretic. HEAD: Atraumatic. Normocephalic. EYES: Pupils equal and round and reactive. Extraocular motions intact. No scleral icterus. No injection or drainage. ENT: Hearing grossly normal. Nose without bleeding or purulent drainage. NECK: Trachea midline. Unable to assess JVD due to body habitus CARDIOVASCULAR: Regular rate and rhythm with murmurs. . Peripheral pulses symmetric. RESPIRATORY/CHEST: Symmetric, unlabored respirations on vent. Diminished breath sounds on right, otherwise clear. GASTROINTESTINAL: Abdomen obese, soft, large pannus, bowel sounds present. Pitting edema throughout abdominal wall and right flank GENITOURINARY: Without palpable bladder distension. Christianson catheter in place. MUSCULOSKELETAL: 2 plus edema from feet through thigh, . . No mottling or clubbing. LYMPHATICS: No palpable cervical or supraclavicular adenopathy. NEUROLOGICAL: Awake and lightly sedated, on propofol; follows commands PSYCHIATRIC: Unable to assess (Arabella Mcpherson) Diagnostic Tests Laboratory Laboratory Tests Test 06/13/16 06/13/16 06/13/16 06/13/16 16:13 16:50 17:58 20:25 Blood Gas Puncture Site RT BRACHIAL RT RADIAL RT BRACHIAL Blood Gas Patient Temperature 98.6 98.6 98.6 Blood Gas HCO3 24 mmol/L 24 mmol/L 25 mmol/L (22-26) (22-26) (22-26) Blood Gas Base Excess -2.6 mmol/L -2.2 mmol/L -0.3 mmol/L (-2-2) (-2-2) (-2-2) Blood Gas Oxygen Saturation 96 % (90-100) 97 % (90-100) 98 % (90-100) Arterial Blood pH 7.24 7.25 7.34 (7.380-7.420) (7.380-7.420) (7.380-7.420) Arterial Blood Partial 57 mmHg (38-42) 58 mmHg (38-42) 48 mmHg (38-42) Pressure CO2 Arterial Blood Partial 118 mmHG 127 mmHG 324 mmHG Pressure O2 (61-120) (61-120) (61-120) Arterial Blood Oxygen Content 10.6 Vol % 11.3 Vol % 11.3 Vol % (12.0-20.0) (12.0-20.0) (12.0-20.0) Arterial Blood 2.1 % (0-4) 2.0 % (0-4) 1.8 % (0-4) Carboxyhemoglobin Arterial Blood Methemoglobin 0.8 % (0-2) 0.6 % (0-2) 0.4 % (0-2) Blood Gas Hemoglobin 7.7 G/DL 8.2 G/DL 7.6 G/DL (12.0-16.0) (12.0-16.0) (12.0-16.0) Oxygen Delivery Device NASAL CANNULA BiPAP VENTILATOR Blood Gas Liter Flow 4 L/M White Blood Count 8.4 TH/MM3 (4.0-11.0) Red Blood Count 2.56 MIL/MM3 (4.00-5.30) Hemoglobin 7.9 GM/DL (11.6-15.3) Hematocrit 23.8 % (35.0-46.0) Mean Corpuscular Volume 92.9 FL (80.0-100.0) Mean Corpuscular Hemoglobin 31.0 PG (27.0-34.0) Mean Corpuscular Hemoglobin 33.3 % Concent (32.0-36.0) Red Cell Distribution Width 20.1 % (11.6-17.2) Platelet Count 242 TH/MM3 (150-450) Mean Platelet Volume 7.7 FL (7.0-11.0) Neutrophils (%) (Auto) 75.0 % (16.0-70.0) Lymphocytes (%) (Auto) 13.9 % (9.0-44.0) Monocytes (%) (Auto) 7.9 % (0.0-8.0) Eosinophils (%) (Auto) 2.5 % (0.0-4.0) Basophils (%) (Auto) 0.7 % (0.0-2.0) Neutrophils # (Auto) 6.3 TH/MM3 (1.8-7.7) Lymphocytes # (Auto) 1.2 TH/MM3 (1.0-4.8) Monocytes # (Auto) 0.7 TH/MM3 (0-0.9) Eosinophils # (Auto) 0.2 TH/MM3 (0-0.4) Basophils # (Auto) 0.1 TH/MM3 (0-0.2) CBC Comment DIFF FINAL Differential Comment Prothrombin Time 11.9 SEC (9.8-11.6) Prothromb Time International 1.1 RATIO Ratio Activated Partial 31.5 SEC Thromboplast Time (24.3-30.1) Urine Color YELLOW (YELLW/STRAW) Urine Turbidity CLOUDY (CLEAR) Urine pH 5.5 (5.0-8.5) Urine Specific Parker 1.012 (1.002-1.035) Urine Protein 100 mg/dL (NEG-TRACE) Urine Glucose (UA) NEG mg/dL (NEG) Urine Ketones NEG mg/dL (NEG) Urine Occult Blood MOD (NEG) Urine Nitrite NEG (NEG) Urine Bilirubin NEG (NEG) Urine Urobilinogen LESS THAN 2.0 MG/DL (LESS THAN 2.0) Urine Leukocyte Esterase LARGE (NEG) Urine RBC 19 /hpf (0-3) Urine WBC /hpf (0-5) Urine WBC Clumps MANY (NONE) Urine Squamous Epithelial 1 /hpf (0-5) Cells Urine Bacteria FEW /hpf (NONE) Microscopic Urinalysis Comment CATH-CULTURE IND Sodium Level 142 MEQ/L (136-145) Potassium Level 6.1 MEQ/L (3.5-5.1) Chloride Level 109 MEQ/L (98-107) Carbon Dioxide Level 27.5 MEQ/L (21.0-32.0) Anion Gap 6 MEQ/L (5-15) Blood Urea Nitrogen 40 MG/DL (7-18) Creatinine 2.07 MG/DL (0.50-1.00) Estimat Glomerular Filtration 24 ML/MIN (>89) Rate Random Glucose 72 MG/DL (74-106) Lactic Acid Level 0.5 mmol/L (0.4-2.0) Calcium Level 8.2 MG/DL (8.5-10.1) Total Bilirubin 0.2 MG/DL (0.2-1.0) Aspartate Amino Transf 13 U/L (15-37) (AST/SGOT) Alanine Aminotransferase 11 U/L (10-53) (ALT/SGPT) Alkaline Phosphatase 112 U/L (45-117) Troponin I LESS THAN 0.02 NG/ML (0.02-0.05) B-Type Natriuretic Peptide 272 PG/ML (0-100) Total Protein 6.8 GM/DL (6.4-8.2) Albumin 2.0 GM/DL (3.4-5.0) Lipase 77 U/L (73-393) Blood Gas Ventilator Setting 12/ AC/16/500/PEEP 5 Blood Gas Inspired Oxygen 35 % 100 % Test 06/13/16 06/14/16 06/14/16 06/14/16 21:45 00:30 01:00 01:49 Potassium Level 5.4 MEQ/L (3.5-5.1) Troponin I LESS THAN 0.02 NG/ML (0.02-0.05) Nasal Screen MRSA (PCR) NEGATIVE (NEGATIVE) Blood Gas Puncture Site RT BRACHIAL Blood Gas Patient Temperature 98.6 Blood Gas HCO3 23 mmol/L (22-26) Blood Gas Base Excess -1.3 mmol/L (-2-2) Blood Gas Oxygen Saturation 96 % (90-100) Arterial Blood pH 7.39 (7.380-7.420) Arterial Blood Partial 39 mmHg (38-42) Pressure CO2 Arterial Blood Partial 138 mmHg Pressure O2 (61-120) Arterial Blood Oxygen Content 9.8 Vol % (12.0-20.0) Arterial Blood 2.0 % (0-4) Carboxyhemoglobin Arterial Blood Methemoglobin 1.4 % (0-2) Blood Gas Hemoglobin 7.1 G/DL (12.0-16.0) Oxygen Delivery Device VENTILATOR Blood Gas Ventilator Setting [facility]/AC Blood Gas Inspired Oxygen 50 % D-Dimer Quantitative (PE/DVT) 6.95 MG/L FEU (0.00-0.50) Test 06/14/16 04:00 White Blood Count 7.3 TH/MM3 (4.0-11.0) Red Blood Count 2.39 MIL/MM3 (4.00-5.30) Hemoglobin 7.3 GM/DL (11.6-15.3) Hematocrit 22.0 % (35.0-46.0) Mean Corpuscular Volume 91.7 FL (80.0-100.0) Mean Corpuscular Hemoglobin 30.5 PG (27.0-34.0) Mean Corpuscular Hemoglobin 33.2 % Concent (32.0-36.0) Red Cell Distribution Width 20.2 % (11.6-17.2) Platelet Count 222 TH/MM3 (150-450) Mean Platelet Volume 8.1 FL (7.0-11.0) Neutrophils (%) (Auto) 75.3 % (16.0-70.0) Lymphocytes (%) (Auto) 16.0 % (9.0-44.0) Monocytes (%) (Auto) 5.3 % (0.0-8.0) Eosinophils (%) (Auto) 2.8 % (0.0-4.0) Basophils (%) (Auto) 0.6 % (0.0-2.0) Neutrophils # (Auto) 5.5 TH/MM3 (1.8-7.7) Lymphocytes # (Auto) 1.2 TH/MM3 (1.0-4.8) Monocytes # (Auto) 0.4 TH/MM3 (0-0.9) Eosinophils # (Auto) 0.2 TH/MM3 (0-0.4) Basophils # (Auto) 0.0 TH/MM3 (0-0.2) CBC Comment DIFF FINAL Differential Comment Sodium Level 144 MEQ/L (136-145) Potassium Level 4.6 MEQ/L (3.5-5.1) Chloride Level 110 MEQ/L (98-107) Carbon Dioxide Level 26.5 MEQ/L (21.0-32.0) Anion Gap 8 MEQ/L (5-15) Blood Urea Nitrogen 40 MG/DL (7-18) Creatinine 1.92 MG/DL (0.50-1.00) Estimat Glomerular Filtration 26 ML/MIN (>89) Rate Random Glucose 95 MG/DL (74-106) Calcium Level 8.4 MG/DL (8.5-10.1) Phosphorus Level 3.3 MG/DL (2.5-4.9) Magnesium Level 1.6 MG/DL (1.5-2.5) Total Bilirubin 0.2 MG/DL (0.2-1.0) Aspartate Amino Transf 12 U/L (15-37) (AST/SGOT) Alanine Aminotransferase 10 U/L (10-53) (ALT/SGPT) Alkaline Phosphatase 96 U/L (45-117) Troponin I LESS THAN 0.02 NG/ML (0.02-0.05) Total Protein 6.0 GM/DL (6.4-8.2) Albumin 1.8 GM/DL (3.4-5.0) (Arabella Mcpherson) Result Diagram: 06/14/16 0400 06/14/16 0400 Microbiology Microbiology Date/Time Procedure Status Source Growth 06/13/16 16:50 Aerobic Blood Culture Received Blood Peripheral Pending 06/13/16 16:50 Anaerobic Blood Culture Received Blood Peripheral Pending 06/13/16 16:50 Urine Culture Received Urine Catheterized Urine Pending 06/13/16 16:55 Aerobic Blood Culture Received Blood Peripheral Pending 06/13/16 16:55 Anaerobic Blood Culture Received Blood Peripheral Pending Imaging Last 72 hours Impressions Chest X-Ray 06/14/16 0600 Signed Impressions: Service Date/Time: Tuesday, June 14, 2016 04:00 - CONCLUSION: Persistent bilateral pulmonary opacity with right lower lobe consolidation, left lower lung atelectasis versus consolidation and left pleural effusion. Dimitrios Mccartney MD Head CT 06/14/16 0000 Signed Impressions: Service Date/Time: Tuesday, June 14, 2016 02:48 - CONCLUSION: 1. No acute intracranial findings. 2. Pansinusitis with diffuse air fluid levels indicating acute sinusitis. Dimitrios Mccartney MD Chest CT 06/14/16 0000 Signed Impressions: Service Date/Time: Tuesday, June 14, 2016 02:51 - CONCLUSION: 1. Large area of right lower lung consolidation with air bronchograms. 2. Mild left lung consolidation versus atelectasis with rounded masslike anterior contour in the upper lung. 2 additional left-sided nodules are identified in the mid lung. 3. Small bilateral pleural effusions. 4. Enlarged right paratracheal lymph node. Dimitrios Mccartney MD Chest X-Ray 06/13/16 [id number] Signed Impressions: Service Date/Time: Monday, June 13, 2016 19:23 - CONCLUSION: 1. Interval intubation with the endotracheal tube tip just above the level the darrius. 2. Placement of nasogastric tube seen coursing through the esophagus. The distal tip is not well-visualized. 3. Dense consolidation at the right lung base and right perihilar region. 4. Cardiomegaly and left effusion. 5. Suboptimal rotated exam. Adolfo Daniels MD Lung Scan-V Nuclear Medicine [id number] Signed Impressions: Service Date/Time: Monday, June 13, 2016 20:49 - CONCLUSION: Indeterminant probability for pulmonary embolism with Large matched perfusion and ventilatory defect corresponding to radiographic abnormality in the right lung base. Adolfo Daniels MD Abdomen/Pelvis CT [id number] Signed Impressions: Service Date/Time: Tuesday, June 14, 2016 00:05 - CONCLUSION: 1. Right lower lung consolidation and bilateral pleural effusions. 2. Superficial soft tissue edema suggesting anasarca. 3. Perinephric stranding and diffuse urinary bladder wall thickening. Question urinary tract infection. Mild right hydronephrosis. No calculi identified. 4. Nonspecific oval 4.6 cm mass in the spleen. 5. Retroperitoneal lymphadenopathy. Dimitrios Mcacrtney MD Chest X-Ray 06/13/16 [id number] Signed Impressions: Service Date/Time: Monday, June 13, 2016 16:03 - CONCLUSION: Cardiomegaly with diffuse increased interstitial markings likely representing edema. There is some focal consolidation or mass seen in the left upper lung, right upper lung, and left perihilar regions. The patient is scheduled for a CT pulmonary angiogram. Chris Colin MD Lower Extremity Ultrasound 06/13/16 0000 Signed Impressions: Service Date/Time: Tuesday, June 14, 2016 00:24 - CONCLUSION: No evidence of lower extremity DVT on the right or left. Dimitrios Mccartney MD Procedures Intubated, 06/13/2016 (Arabella Mcpherson) Patient/Family Conference Present at Family Conference: Philomena Kathleen, sister Family Conference Time (mins): 65 (4:10-5:15pm ) Family Conference Location: Consult Room Issues Discussed: * Palliative care role, purpose, approach * Additional medical, psychosocial, and spiritual history * Patients general health, functional status, and cognitive changes in the months leading up to the current hospitalization * Patient/family understanding of the current medical problems * Patient/family understanding of prognosis * Patients goals of care as best understood from advance directives and/or conversations and/or values * Current medical treatment options and benefits/burdens of those options * Likely scenarios comparing ongoing aggressive care with a transition to comfort measures only * Questions answered to the best of my ability * Palliative care contact information provided (Arabella Mcpherson) Assessment and Plan Disease Oriented Problem List: (1) Hypercapnic respiratory failure (2) Sepsis (3) Anemia (4) Urinary tract infection (5) Morbid obesity with BMI of 60.0-69.9, adult (6) Diabetes mellitus type 2, insulin dependent (7) Chronic renal disease, stage IV Symptom Scale: (1) Pain 0-10 Scale: Unable to quantify Comment: Multiple sources of pain/discomfort due to bedbound state, body habitus, clinical history (2) Dyspnea 0-10 Scale: Unable to quantify Comment: Currently intubated Pertinent Non-Medical Issues Psychosocial: Single female, no children, has been disabled for 2 years. Spiritual: No yazidism affiliation Legal: None identified at this time Ethical issues impacting care: Her sister reports that gabapentin will cause her thinking to be skewed. At that she does better and is of clearer mind without the gabapentin. She currently is lightly sedated on propofol. The opportunity for her to be able to direct her own plan of care would be best served with discontinuation of the gabapentin. Neuropathic pain can be managed to other resources. Important Contacts Philomena Kathleen, healthcare surrogate, sister, home phone [phone], cell phone [phone] Prognosis Prognosis is poor. 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 There is also question of abdominal metastasis with retro-peritoneal lymphadenopathy also identified on recent imaging. She essentially has been in the hospital since March of last year Code Status: Full Code Plan Decision Maker:Philomena Kathleen, sister, home phone [phone], cell phone [phone], Code Status: Full code Family Discussion: Patient's clinical history is reviewed. She has been is disabled since for the last 2 years and a resident of a [place] [facility]. She has had repeated hospital admissions due to recurrent urinary tract infections as well as respiratory distress. She has history of cancer of the breast with metastasis. She was unable to tolerate chemotherapy in 2 separate occasions. Her urinary tract infections have become resistant to many antibiotics. Her sister has noted an ongoing decline in her physical health over the last several months. Patient has expressed desire to be full code. "Until she is in a vegetative state." And has been no prior discussion of hospice. Discussed with Amparo that in light of her clinical state any hospitalization could easily be her last period the ability to wean her from the event becomes more challenging with each occurrence. Amparo is hopeful that she can talk with her sister to get guidance to her wishes. However, she may not be able to have that opportunity and will need to make a decision to the best of her ability with the information provided. Overall, her prognosis is greatly challenged. Symptoms: Dyspnea, pain Palliative care phone number provided - will follow during hospital stay. ( Arabella Mcpherson) Thank you for the opportunity to participate in the care of Ms. Vargas. (Arabella Mcpherson) Attestation To help prompt me to consider important information that might be impacting today's encounter and assessment, information from prior notes written by myself or my colleagues may have been "brought forward" into today's note. My signature on this note, however, is an attestation that I personally performed the exam, history, and/or decision-making noted today, and, unless otherwise indicated, the interactions with patient, family, and staff as well as the review of records all occurred today. I also attest that the listed assessment and stated plan reflect my best clinical judgment today based on the combination of historical information, prior notes, and today's exam/ interactions. When time spent is documented, it refers only to time spent today by the signer, or if indicated, combined time spent today by collaborating physician/nurse practitioner. (Arabella Mcpherson) Collaborating MD Comments Chart reviewed. Case discussed with palliative care PAINT STRIPPER. Above PAINT STRIPPER note reviewed and I concur. . (Marty Strickland MD) Arabella Mcpherson Jun 14, 2016 11:07 Marty Strickland MD Jun 21, 2016 12:26
--- NOTE | 2016-06-14 11:40 | HHI.CCPN ---
Subjective Remarks/Hospital Course 65-year-old female with past medical history of hypertension, diabetes , morbid obesity with obesity hypoventilation syndrome, COPD, chronic systolic heart failure, chronic kidney disease stage III, adenocarcinoma of breast metastatic to lung who presents to [facility] emergency department from [facility] with respiratory distress and lethargy. She was found to be in hypercapnic respiratory failure with pH 7.24/PaCO2 57/PA O2 of 118/bicarbonate 24 on 4 L nasal cannula. She was placed on BiPAP 12 over 5 with 35%. Repeat ABG demonstrated no significant improvement. Dr. Carl discussed with patient' s sister who stated patient was full code and so she was intubated in the emergency department with Grade III/IV view with Glidescope following sedation with ketamine and rocuronium. Chest x-ray demonstrated bilateral vascular congestion. There is also a right lower lobe opacity, right upper lobe opacity , and left upper lobe opacity. She was treated empirically in the emergency department with aztreonam, Flagyl, vancomycin. Urinalysis was remarkable for a UTI. She had a potassium of 6.1. She was treated with I called 50 mEq, calcium gluconate 2 g, insulin 10 units IV and dextrose. Apparently patient also had some left-sided abdominal pain for which Dr. Carl has ordered CT abdomen. VQ scan has also been ordered. Patient's sister states that April has a history of left breast adenocarcinoma which she underwent lumpectomy and lymph node resections. She states she underwent chemotherapy at that time which was poorly tolerated and that she was admitted after chemo every time because "all of her systems would shut down". She states that about 6-8 months ago she was found to have multiple lung mets. She states that chemotherapy was initiated but she was not able to tolerate and therefore she discontinued chemotherapy in February of 2016. She was under the care of Dr. Som Cam at [facility]. She states that for 2-3 years she has been having recurrent urinary tract infections. She states that she has been in and out of the hospital "every other week" in March 2016 due to recurrent urinary tract infections. There has been a history of MDRO and her chart indicates that she has a history of UTI positive for ESBL. Patient was reportedly was admitted to [facility] from April 02 to April 29. During this time she was treated for urinary tract infection. She also had altered mental status and respiratory failure requiring mechanical ventilation for approximately 4 days. She was discharged back to [facility] where she resided for 2-3 weeks until she was again hospitalized for CHF, pneumonia, urinary tract infection. She did not require mechanical ventilation on this admission. Her sister states she has been back at [facility] for about a week. Subjective: 06/14: Patient was noted to be hypoglycemic throughout the night and required D10 infusion. Patient is on hourly glucose monitoring. The sodium the patient was placed on Glucerna tube feeds, glucose levels have improved. The patient is currently on CPAP GCS 11 T denies pain. The patient was noted to have an indeterminate VQ scan and has been placed on therapeutic Lovenox twice a day. Plans for palliative care having consult to discuss with patient's family, goals of care. Objective Vital Signs Date Time Temp Pulse Resp B/P Pulse Ox O2 Delivery O2 Flow Rate FiO2 06/14/16 08:09 98 30 06/14/16 06:00 60 06/14/16 04:00 97.3 22 167/76 06/13/16 22:46 Auto-Vent 06/13/16 15:45 3 Intake and Output 06/13/16 06/13/16 06/14/16 08:00 16:00 00:00 Output Total 1500 ml Balance -1500 ml Result Diagram: 06/14/16 0400 06/14/16 0400 Other Results Laboratory Tests Test 06/13/16 06/13/16 06/13/16 06/14/16 16:13 17:58 20:25 01:00 Blood Gas Puncture Site RT BRACHIAL RT RADIAL RT BRACHIAL RT BRACHIAL Blood Gas Patient Temperature 98.6 98.6 98.6 98.6 Blood Gas HCO3 24 mmol/L 24 mmol/L 25 mmol/L 23 mmol/L (22-26) (22-26) (22-26) (22-26) Blood Gas Base Excess -2.6 mmol/L -2.2 mmol/L -0.3 mmol/L -1.3 mmol/L (-2-2) (-2-2) (-2-2) (-2-2) Blood Gas Oxygen Saturation 96 % (90-100) 97 % (90-100) 98 % (90-100) 96 % (90- 100) Arterial Blood pH 7.24 7.25 7.34 7.39 (7.380-7.420) (7.380-7.420) (7.380-7.420) (7.380-7.420) Arterial Blood Partial 57 mmHg (38-42) 58 mmHg (38-42) 48 mmHg (38-42) 39 mmHg ( 38-42) Pressure CO2 Arterial Blood Partial 118 mmHG 127 mmHG 324 mmHG 138 mmHg Pressure O2 (61-120) (61-120) (61-120) (61-120) Arterial Blood Oxygen Content 10.6 Vol % 11.3 Vol % 11.3 Vol % 9.8 Vol % (12.0-20.0) (12.0-20.0) (12.0-20.0) (12.0-20.0) Arterial Blood 2.1 % (0-4) 2.0 % (0-4) 1.8 % (0-4) 2.0 % (0-4) Carboxyhemoglobin Arterial Blood Methemoglobin 0.8 % (0-2) 0.6 % (0-2) 0.4 % (0-2) 1.4 % (0-2) Blood Gas Hemoglobin 7.7 G/DL 8.2 G/DL 7.6 G/DL 7.1 G/DL (12.0-16.0) (12.0-16.0) (12.0-16.0) (12.0-16.0) Oxygen Delivery Device NASAL CANNULA BiPAP VENTILATOR VENTILATOR Blood Gas Liter Flow 4 L/M Blood Gas Ventilator Setting 12/5 AC/16/500/PEEP PRVC/AC 5 Blood Gas Inspired Oxygen 35 % 100 % 50 % Imaging Last Impressions Chest X-Ray 06/14/16 0600 Signed Impressions: Service Date/Time: Tuesday, June 14, 2016 04:00 - CONCLUSION: Persistent bilateral pulmonary opacity with right lower lobe consolidation, left lower lung atelectasis versus consolidation and left pleural effusion. Dimitrios Mccartney MD Head CT 06/14/16 0000 Signed Impressions: Service Date/Time: Tuesday, June 14, 2016 02:48 - CONCLUSION: 1. No acute intracranial findings. 2. Pansinusitis with diffuse air fluid levels indicating acute sinusitis. Dimitrios Mccartney MD Chest CT 06/14/16 0000 Signed Impressions: Service Date/Time: Tuesday, June 14, 2016 02:51 - CONCLUSION: 1. Large area of right lower lung consolidation with air bronchograms. 2. Mild left lung consolidation versus atelectasis with rounded masslike anterior contour in the upper lung. 2 additional left-sided nodules are identified in the mid lung. 3. Small bilateral pleural effusions. 4. Enlarged right paratracheal lymph node. Dimitrios Mccartney MD Lung Scan-V Nuclear Medicine [id number]/13/[id number] Signed Impressions: Service Date/Time: Monday, June 13, 2016 20:49 - CONCLUSION: Indeterminant probability for pulmonary embolism with Large matched perfusion and ventilatory defect corresponding to radiographic abnormality in the right lung base. Adolfo Daniels MD Abdomen/Pelvis CT [id number]/13/161745 Signed Impressions: Service Date/Time: Tuesday, June 14, 2016 00:05 - CONCLUSION: 1. Right lower lung consolidation and bilateral pleural effusions. 2. Superficial soft tissue edema suggesting anasarca. 3. Perinephric stranding and diffuse urinary bladder wall thickening. Question urinary tract infection. Mild right hydronephrosis. No calculi identified. 4. Nonspecific oval 4.6 cm mass in the spleen. 5. Retroperitoneal lymphadenopathy. Dimitrios Mccartney MD Lower Extremity Ultrasound 06/13/16 0000 Signed Impressions: Service Date/Time: Tuesday, June 14, 2016 00:24 - CONCLUSION: No evidence of lower extremity DVT on the right or left. Dimitrios Mccartney MD Objective Remarks GENERAL: Morbidly obese female who is orotracheally intubated. Awake , responsive squeezing my hands SKIN: Warm and dry. Pannus reddened area right inferior HEAD: Atraumatic. Normocephalic. EYES: Pupils equal and reactive. No scleral icterus. No injection or drainage. ENT: No nasal bleeding or discharge. Mucous membranes pink and moist. NECK: Trachea midline. Unable to assess JVD, secondary to to body habitus. CARDIOVASCULAR: Regular rate and rhythm, sinus rhythm . No murmurs rubs or gallops. RESPIRATORY: On mechanical ventilation. Diminished breath sounds on the right. Clear to auscultation. GASTROINTESTINAL: Abdomen morbidly obese with large pannus. No tenderness to palpation. Bowel sounds are present. There is pitting abdominal wall edema throughout right flank. No crepitus, no erythema or warmth. Skin breakdown as per above. : Christianson in place. MUSCULOSKELETAL: Extremities without clubbing, cyanosis. There is 2+ edema BLE. NEUROLOGICAL: GCS 11 T, awake and responding to commands currently on CPAP. Urinary Catheter: Yes Christianson insert reason: Measure Accurate Output A/P Assessment and Plan NEURO: Acute encephalopathy secondary to hypercapnia Peripheral neuropathy Anxiety Propofol for sedation. Daily sedation vacation Neurontin 100 mg every 8 hours (home dose 200 every 8) Hold SSRI for now. Hold xanax 0.25 mg po q6 hours prn anxiety. Melatonin 1 mg per tube qhs RESP: Acute hypercapnic and hypoxemic respiratory failure Obesity hypoventilation syndrome Lung metastases from breast cancer primary Intubated in ED with Glidescope with Grade III/IV Cormack Lehane. 06/13 VQ scan-indeterminate, patient started on therapeutic Lovenox 06/14 DuoNeb every 6 hours CPAP trials as tolerated Albuterol every 2 hours as needed Received Solumedrol 125 mg IV in the ED. Abx as per below CV: Hypertension Chronic systolic heart failure History of paroxysmal atrial fibrillation (not on chronic anticoagulation, currently in sinus rhythm) F/U 2-D echo Troponin negative. Followup serial cardiac markers and EKG. Lactic acid normal Continue Coreg 25 mg by mouth 3 times a day with hold orders Continue aspirin 81 mg daily GI: Morbid obesity Moderate protein energy malnutrition Abdominal pain Orogastric tube in place to low intermittent wall suction. Reportedly had left-sided abdominal tenderness in the emergency department. CT abdomen and pelvis 06/13-anasarca abdomen, right lower lung consolidation, bilateral pleural effusions. Questionable UTI. Mild right hydronephrosis. Retroperitoneal lymphadenopathy. 6 cm mass in spleen. Continue multivitamin FEN/RENAL: Chronic kidney disease stage III Hyperkalemia-resolved Potassium 6.1 in ED 06/13. Was treated with calcium, glucose, insulin, bicarbonate. Potassium 4.6, continue to monitor Christianson in place. Monitor intake and output. Monitor electrolytes and replace as needed ID: HCAP vs post obstructive pneumonia Urinary tract infection Wound lower aspect of right pannus Covered empirically with aztreonam, Flagyl, vancomycin in the emergency department. It was later determined the patient has a history of UTI positive for ESBL. Continued on meropenem 1 g IV every 12 hours adjusted for creatinine clearance 40. Continue vancomycin with pharmacy dosing. F/U sputum culture, urine culture, blood culture. Previously on minocycline 100 mg by mouth twice a day. Will obtain records from [facility]. Infectious disease consult-appreciate recommendations Continue Diflucan 200 mg daily from [facility]. Follow-up cultures. HEME: Adenocarcinoma left breast, multiple lung metastases Chronic iron deficiency anemia h/o nonocclusive DVT peroneal vein 06/06/14 Continue ferrous sulfate 325 mg twice a day VQ indeterminate-therapeutic Lovenox initiated F/U B/L lower extremity ultrasound ENDO: Type 2 diabetes mellitus with complications Hypoglycemia Medium dose insulin sliding scale at bedside glucose every 4 hours. Hold Lantus 50 units subcutaneous daily at bedtime Currently on D10, will begin tube feedings, unstable every 6 hours glucose monitoring per ICU protocol PROPH: Protonix 40 mg IV daily for stress ulcer prophylaxis. Lovenox started empirically 150 units subcut pending workup for indeterminate VQ scan. ACCESS: Right chest port accessed. 18 gauge PIV's x2. This patient remains critically ill with one or more organ systems which are or may become a threat to life. I have spent in excess of 47 minutes discontinuously in the care and management of this patient. This time is exclusive of procedures, and includes, but is not limited to, evaluation of the patient, review of the medical record, discussions with family, consultants, nursing staff, or respiratory therapy, and documentation in the medical record. Patient is full code. Palliative care medicine consult has been placed by ED physician. Per Dr. Gallardo, the patient's sister, Philomena Kathleen, states she is healthcare surrogate. She states that her sister does not have an advanced directive but had previously stated that she wished to be FULL CODE "unless she was in a vegetative state". Philomena Roberts asks me about her sister's prognosis. I discussed that she will likely be extubated and that it would be reasonable to expect her to survive this hospital stay. However, her recent clinical course suggests significant decline in her health and quality of life and that she is approaching end of life given metastatic lung cancer with poor tolerance to therapy, recurrent respiratory failure, recurrent MDRO UTI, multiple recent hospitalizations. She states she appreciates all healthcare providers being honest and tiara with her about her sister's condition. She is aware palliative care medicine has been consulted and that they will be contacting her over the coming days. Discussed with Dr. Gallardo, and palliative care. Physician Madonna Santos MD Jun 14, 2016 11:40
--- NOTE | 2016-06-14 13:44 | PD.CONS ---
History of Present Illness Service Infectious disease Consult Requested By Dr Gallardo Reason for Consult Eval patient with UTI, Hx ESBL+ Primary Care Physician Marvin Nielson MD Diagnoses: History of Present Illness Patient seen and examined. Records reviewed. Patient is a 65 -year-old obese female, has been in a prison, brought into the hospital after she was noted to be very short of breath and was becoming lethargic. She required intubation in the emergency room. Her chest x -ray has shown consolidation in the right and some infiltrates in the left lung. Patient has known COPD, CHF, and has had chronic kidney disease. She apparently has had problem with UTI, and was at [facility] in April treated for gram-negative UTI. Mentioned that she had ESBL positive organism. We are currently awaiting records. Patient currently is intubated. She is afebrile. WBC is normal. Her urinalysis did show significant pyuria. She came in and did not have any Christianson catheter in place. He was inserted in the ED, and has very cloudy urine. Blood culture currently are negative, urine culture is negative. CT of the abdomen and pelvis was done from the consolidation. There is some mild right hydronephrosis but no stones seen. There was also mention of some mass in the spleen. Patient has multiple antibiotic allergies. Infectious disease consultation is requested to evaluate the patient. Review of Systems ROS Limitations: Clinical Condition, Intubated Past Family Social History Allergies: Coded Allergies: Percocet (Unverified Allergy, Severe, Nausea/Vomiting, 06/13/16) Codeine (Unverified Allergy, Mild, Nausea/Vomiting, 06/13/16) Lortab (Unverified Allergy, Mild, Nausea/Vomiting, 06/13/16) Bactrim (Unverified Allergy, Unknown, 06/13/16) Ciprofloxacin (Unverified Allergy, Unknown, 06/13/16) Hydrocodone (Unverified Allergy, Unknown, 06/13/16) Levaquin (Unverified Allergy, Unknown, 06/13/16) Penicillin (Unverified Allergy, Unknown, 06/13/16) Quinolones (Unverified Allergy, Unknown, 06/13/16) Sulfa (Unverified Allergy, Unknown, 06/13/16) Past Medical History HTN COPD DM Diabetic peripheral neuropathy chronic kidney disease stage III/IV Obesity hypoventilation syndrome Morbid obesity Gout Paroxysmal atrial fibrillation Recurrent UTI Recurrent pneumonia h/o ESBL Anxiety DVT R peroneal vein 06/06/14 History of fall Dysphagia (noted on nectar thickened liquids diet according to note from 06/09/16 ) Chronic urinary incontinence Allergic rhinitis Left breast adenocarcinoma. Last chemotherapy February 2016 ? 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 CT brain negative. Past Surgical History Lithotripsy Gastric bypass Left breast lumpectomy and lymph node biopsy Open cholecystectomy Active Ordered Medications Albuterol Allopurinol Urecholine Coreg Colace Fentanyl Ferrous sulfate Diflucan Neurontin Primaxin MVI Melatonin Zofran MiraLAX Protonix Social History Previously smoked about 2 years. Quit about 4 years ago. Rare EtOH use. Not . She has resided in [facility] since May 2014 Physical Exam Vital Signs Vital Signs Date Time Temp Pulse Resp B/P Pulse Ox O2 Delivery O2 Flow Rate FiO2 06/14/16 11:39 100 30 06/14/16 08:09 98 30 06/14/16 06:00 60 06/14/16 04:27 100 30 06/14/16 04:00 53 06/14/16 04:00 97.3 52 22 167/76 100 06/14/16 02:35 100 100 06/14/16 02:00 56 06/14/16 01:20 100 40 06/14/16 00:40 97.3 52 22 138/67 100 06/14/16 00:20 100 50 06/13/16 23:55 100 100 06/13/16 22:46 95.7 51 16 121/60 100 Auto-Vent 100 06/13/16 21:58 95.9 51 16 147/70 100 Ventilator 100 06/13/16 21:41 100 100 06/13/16 21:00 95.9 53 16 141/66 100 Ventilator 100 06/13/16 20:30 100 100 06/13/16 20:00 95.9 51 16 136/67 100 Ventilator 100 06/13/16 19:43 97 100 06/13/16 19:04 100 100 06/13/16 19:00 96.4 59 16 134/59 100 Ventilator 100 06/13/16 18:50 96.6 61 16 90/54 100 Ventilator 100 06/13/16 18:45 96.6 62 16 95/51 100 BiPAP 35 06/13/16 18:00 96.4 58 16 132/71 100 BiPAP 35 06/13/16 17:45 96.3 06/13/16 17:15 96.3 57 16 122/58 100 BiPAP 35 06/13/16 16:49 96 BiPAP 35 06/13/16 16:49 97 35 06/13/16 15:45 97 Nasal Cannula 3 06/13/16 15:45 97 Nasal Cannula 3.00 06/13/16 15:45 57 16 123/61 100 06/13/16 15:45 12 100 Nasal Cannula 3 Physical Exam GENERAL: This is a morbidly obese, well-developed female, awake and alert, on the vent, not in respiratory distress. SKIN: Cool and dry. No generalized rash or ecchymosis. HEAD: Atraumatic. Normocephalic. No temporal or scalp tenderness. EYES: Pupils equal round and reactive. No petechia or hemorrhage. Extraocular motions intact. No scleral icterus. No injection or drainage. ENT: Nose without bleeding, or purulent drainage. Endotracheal tube is in the mouth. Moist oral mucosa. NECK: Trachea midline. No JVD or lymphadenopathy. Supple, nontender, no meningeal signs. Short and obese. CARDIOVASCULAR: Regular rate and rhythm without murmurs, gallops, or rubs. RESPIRATORY: Equal breath sounds bilaterally. Has diffuse rhonchi. Has mild hal infection under both breasts GASTROINTESTINAL: Abdomen soft, obese , non-tender, nondistended. No guarding. Bowel sounds are present. Has large abdominal apron with no redness noted at the fold. MUSCULOSKELETAL: Extremities without clubbing, cyanosis, or edema. No joint tenderness, effusion, or edema noted. No calf tenderness. Negative Homans sign bilaterally. NEUROLOGICAL: Awake and alert. No Babinski. PSYCH: Unable to assess LINE: Port right upper chest with no evidence of infection : Christianson catheter in place, urine looks clear currently Laboratory Laboratory Tests Test 06/13/16 06/13/16 06/13/16 06/13/16 16:13 16:50 17:58 20:25 Blood Gas Puncture Site RT BRACHIAL RT RADIAL RT BRACHIAL Blood Gas Patient Temperature 98.6 98.6 98.6 Blood Gas HCO3 24 24 25 Blood Gas Base Excess -2.6 -2.2 -0.3 Blood Gas Oxygen Saturation 96 97 98 Arterial Blood pH 7.24 7.25 7.34 Arterial Blood Partial 57 58 48 Pressure CO2 Arterial Blood Partial 118 127 324 Pressure O2 Arterial Blood Oxygen Content 10.6 11.3 11.3 Arterial Blood 2.1 2.0 1.8 Carboxyhemoglobin Arterial Blood Methemoglobin 0.8 0.6 0.4 Blood Gas Hemoglobin 7.7 8.2 7.6 Oxygen Delivery Device NASAL CANNULA BiPAP VENTILATOR Blood Gas Liter Flow 4 White Blood Count 8.4 Red Blood Count 2.56 Hemoglobin 7.9 Hematocrit 23.8 Mean Corpuscular Volume 92.9 Mean Corpuscular Hemoglobin 31.0 Mean Corpuscular Hemoglobin 33.3 Concent Red Cell Distribution Width 20.1 Platelet Count 242 Mean Platelet Volume 7.7 Neutrophils (%) (Auto) 75.0 Lymphocytes (%) (Auto) 13.9 Monocytes (%) (Auto) 7.9 Eosinophils (%) (Auto) 2.5 Basophils (%) (Auto) 0.7 Neutrophils # (Auto) 6.3 Lymphocytes # (Auto) 1.2 Monocytes # (Auto) 0.7 Eosinophils # (Auto) 0.2 Basophils # (Auto) 0.1 CBC Comment DIFF FINAL Differential Comment Prothrombin Time 11.9 Prothromb Time International 1.1 Ratio Activated Partial 31.5 Thromboplast Time Urine Color YELLOW Urine Turbidity CLOUDY Urine pH 5.5 Urine Specific [place] 1.012 Urine Protein 100 Urine Glucose (UA) NEG Urine Ketones NEG Urine Occult Blood MOD Urine Nitrite NEG Urine Bilirubin NEG Urine Urobilinogen LESS THAN 2.0 Urine Leukocyte Esterase LARGE Urine RBC 19 Urine WBC Urine WBC Clumps MANY Urine Squamous Epithelial 1 Cells Urine Bacteria FEW Microscopic Urinalysis Comment CATH-CULTURE IND Sodium Level 142 Potassium Level 6.1 Chloride Level 109 Carbon Dioxide Level 27.5 Anion Gap 6 Blood Urea Nitrogen 40 Creatinine 2.07 Estimat Glomerular Filtration 24 Rate Random Glucose 72 Lactic Acid Level 0.5 Calcium Level 8.2 Total Bilirubin 0.2 Aspartate Amino Transf 13 (AST/SGOT) Alanine Aminotransferase 11 (ALT/SGPT) Alkaline Phosphatase 112 Troponin I LESS THAN 0.02 B-Type Natriuretic Peptide 272 Total Protein 6.8 Albumin 2.0 Lipase 77 Blood Gas Ventilator Setting 12/5 AC/16/500/PEEP 5 Blood Gas Inspired Oxygen 35 100 Test 06/13/16 06/14/16 06/14/16 06/14/16 21:45 00:30 01:00 01:49 Potassium Level 5.4 Troponin I LESS THAN 0.02 Nasal Screen MRSA (PCR) NEGATIVE Blood Gas Puncture Site RT BRACHIAL Blood Gas Patient Temperature 98.6 Blood Gas HCO3 23 Blood Gas Base Excess -1.3 Blood Gas Oxygen Saturation 96 Arterial Blood pH 7.39 Arterial Blood Partial 39 Pressure CO2 Arterial Blood Partial 138 Pressure O2 Arterial Blood Oxygen Content 9.8 Arterial Blood 2.0 Carboxyhemoglobin Arterial Blood Methemoglobin 1.4 Blood Gas Hemoglobin 7.1 Oxygen Delivery Device VENTILATOR Blood Gas Ventilator Setting PRVC/AC Blood Gas Inspired Oxygen 50 D-Dimer Quantitative (PE/DVT) 6.95 Test 06/14/16 04:00 White Blood Count 7.3 Red Blood Count 2.39 Hemoglobin 7.3 Hematocrit 22.0 Mean Corpuscular Volume 91.7 Mean Corpuscular Hemoglobin 30.5 Mean Corpuscular Hemoglobin 33.2 Concent Red Cell Distribution Width 20.2 Platelet Count 222 Mean Platelet Volume 8.1 Neutrophils (%) (Auto) 75.3 Lymphocytes (%) (Auto) 16.0 Monocytes (%) (Auto) 5.3 Eosinophils (%) (Auto) 2.8 Basophils (%) (Auto) 0.6 Neutrophils # (Auto) 5.5 Lymphocytes # (Auto) 1.2 Monocytes # (Auto) 0.4 Eosinophils # (Auto) 0.2 Basophils # (Auto) 0.0 CBC Comment DIFF FINAL Differential Comment Sodium Level 144 Potassium Level 4.6 Chloride Level 110 Carbon Dioxide Level 26.5 Anion Gap 8 Blood Urea Nitrogen 40 Creatinine 1.92 Estimat Glomerular Filtration 26 Rate Random Glucose 95 Calcium Level 8.4 Phosphorus Level 3.3 Magnesium Level 1.6 Total Bilirubin 0.2 Aspartate Amino Transf 12 (AST/SGOT) Alanine Aminotransferase 10 (ALT/SGPT) Alkaline Phosphatase 96 Troponin I LESS THAN 0.02 Total Protein 6.0 Albumin 1.8 Date/Time Procedure Status Source Growth 06/13/16 16:55 Aerobic Blood Culture - Preliminary Resulted Blood Peripheral NO GROWTH IN 1 DAY 06/13/16 16:55 Anaerobic Blood Culture - Preliminary Resulted Blood Peripheral NO GROWTH IN 1 DAY 06/13/16 16:50 Urine Culture - Preliminary Resulted Urine Catheterized Urine NO GROWTH IN 24 HOURS. Result Diagram: 06/14/16 0400 06/14/16 0400 Imaging RADIOLOGY STUDIES/FILMS REVIEWED Chest X-Ray 06/14/16 0600 Signed Impressions: Service Date/Time: Tuesday, June 14, 2016 04:00 - CONCLUSION: Persistent bilateral pulmonary opacity with right lower lobe consolidation, left lower lung atelectasis versus consolidation and left pleural effusion. Dimitrios Mccartney MD Head CT 06/14/16 Signed Impressions: Service Date/Time: Tuesday, June 14, 2016 02:48 - CONCLUSION: 1. No acute intracranial findings. 2. Pansinusitis with diffuse air fluid levels indicating acute sinusitis. Dimitrios Mccartney MD Chest CT 06/14/16 Signed Impressions: Service Date/Time: Tuesday, June 14, 2016 02:51 - CONCLUSION: 1. Large area of right lower lung consolidation with air bronchograms. 2. Mild left lung consolidation versus atelectasis with rounded masslike anterior contour in the upper lung. 2 additional left-sided nodules are identified in the mid lung. 3. Small bilateral pleural effusions. 4. Enlarged right paratracheal lymph node. Dimitrios Mccartney MD Lung Scan- Nuclear Medicine [id number] Signed Impressions: Service Date/Time: Monday, June 13, 2016 20:49 - CONCLUSION: Indeterminant probability for pulmonary embolism with Large matched perfusion and ventilatory defect corresponding to radiographic abnormality in the right lung base. Adolfo Daniels MD Abdomen/Pelvis CT [id number]/13/[id number] Signed Impressions: Service Date/Time: Tuesday, June 14, 2016 00:05 - CONCLUSION: 1. Right lower lung consolidation and bilateral pleural effusions. 2. Superficial soft tissue edema suggesting anasarca. 3. Perinephric stranding and diffuse urinary bladder wall thickening. Question urinary tract infection. Mild right hydronephrosis. No calculi identified. 4. Nonspecific oval 4.6 cm mass in the spleen. 5. Retroperitoneal lymphadenopathy. Dimitrios Mccartney MD Lower Extremity Ultrasound 06/13/16 Signed Impressions: Service Date/Time: Tuesday, June 14, 2016 00:24 - CONCLUSION: No evidence of lower extremity DVT on the right or left. Dimitrios Mccartney MD Assessment and Plan Assessment and Plan IMPRESSION Respiratory failure, HCAP UTI, prior Hx UTI and ESBL(+) infections Morbid obesity COPD, likely has KING Multiple Abx allergy - PCN - has taken Keflex without any problem CKD RECOMMENDATION Continue Meropenem Add Zyvox for HCAP, MRSA coverage Follow C/S Monitor progress Will determine course of Abx once workup is completed I will follow along with you Thank you for this consultation Discussed Condition With D/W Melody Sebastian MD Jun 14, 2016 13:44
[2016-06-14] MEDS: ENOXAPARIN SODIUM 150 MG/ML SYRINGE SQ SCH ×2 (14:39→23:34)
[2016-06-14] MEDS: LINEZOLID 600 MG PREMIX 300 ML IV SCH (14:41)
--- NOTE | 2016-06-14 17:18 | EC ---
Study Study Date:06/14/2016 STUDY CONCLUSIONS SUMMARY LEFT VENTRICLE: The cavity size was normal. Wall thickness was increased in a pattern of moderate LVH. Systolic function was normal. The estimated ejection fraction was 60%. Wall motion was normal; there were no regional wall motion abnormalities. If LV function is below 40, please consider prescribing an ACEI or ARB or document rationale for non-use. PROCEDURE DATA STUDY STATUS: Elective. Procedure: Transthoracic echocardiography. Image quality was good. Scanning was performed from the parasternal, apical, and subcostal acoustic windows. Study completion: The patient tolerated the procedure well. Transthoracic echocardiography. M-mode, complete 2D, complete spectral Doppler, and color Doppler. Height: Height: 61in. Weight: Weight: 323.3lb. Body mass index: BMI: 61.2kg/m^2. Body surface area: BSA: 2.32m^2. Patient status: Inpatient. CARDIAC ANATOMY LEFT VENTRICLE: The cavity size was normal. Wall thickness was increased in a pattern of moderate LVH. Systolic function was normal. The estimated ejection fraction was 60%. Wall motion was normal; there were no regional wall motion abnormalities. AORTIC VALVE: Trileaflet; normal thickness leaflets. Doppler: Transvalvular velocity was within the normal range. There was no stenosis. No regurgitation. Valve area: 3.4cm^2 (Vmax). Indexed valve area: 1.47cm^2/m^2 (Vmax). Peak gradient: 17mm Hg (S). AORTA: Aortic root: The aortic root was normal in size. MITRAL VALVE: Structurally normal valve. Doppler: Transvalvular velocity was within the normal range. There was no evidence for stenosis. Trace regurgitation. Valve area by pressure half-time: 2.65cm^2. Indexed valve area by pressure half-time: 1.14cm^2/m^2. Peak gradient: 7mm Hg (D). LEFT ATRIUM: The atrium was normal in size. RIGHT VENTRICLE: The cavity size was normal. Wall thickness was normal. PULMONIC VALVE: Doppler: Transvalvular velocity was within the normal range. There was no evidence for stenosis. No regurgitation. TRICUSPID VALVE: Structurally normal valve. Doppler: Transvalvular velocity was within the normal range. No regurgitation. PULMONARY ARTERY: The main pulmonary artery was normal-sized. Systolic pressure was within the normal range. RIGHT ATRIUM: The atrium was normal in size. PERICARDIUM: There was no pericardial effusion. SYSTEMIC VEINS: Inferior vena cava: The vessel was normal in size. Patient weight: 323.3lb _Ejection fraction:_ 65-75% _Fractional shortening:_ 32% up to 5Kg 5-11.5Kg 11.6-22.9Kg 23-45Kg 45-57Kg Aortic Root 7-13 <17 13-22 17-27 17-27 LA diam 6-13 <23 24-38 33-47 37-40 RVID 10-17 7-15 7-15 7-18 8-17 LVIDd 12-22 <32 24-38 33-47 37-40 LVPW 2-4 3-6 5-7 6-8 7-8 IVS 2-4 3-6 5-7 6-8 7-8 BASIC MEASUREMENTS ADULT NORMAL Left ventricle LV internal dimension, ED, chordal *37.5 mm 43-52 level, PLAX LV internal dimension, ES, chordal 26.2 mm 23-38 level, PLAX Fractional shortening, chordal level, 30 % >29 PLAX LV posterior wall thickness, ED 16.4 mm IVS/LVPW ratio, ED 0.99 <1.3 Ventricular septum Septal thickness, ED 16.3 mm Aortic valve Leaflet separation *14 mm 15-26 BASIC MEASUREMENTS ADULT NORMAL Aortic valve Leaflet separation *14 mm 15-26 Aorta Root diameter, ED 29 mm 20-37 DOPPLER MEASUREMENTS ADULT NORMAL Aortic valve Peak velocity, S 208 cm/s Peak gradient, S 17 mm Hg Valve area, Vmax 3.4 cm^2 Valve area index, Vmax 1.47 cm^2/m^2 Mitral valve Peak E-wave velocity 130 cm/s Peak A-wave velocity 131 cm/s Pressure half-time 83 ms Peak gradient, D 7 mm Hg Peak E/A ratio 1 Valve area, pressure half-time 2.65 cm^2 Valve area index, pressure half-time 1.14 cm^2/m^2 Pulmonic valve Peak velocity, S 102 cm/s LEGEND: Mean values are shown as u=mean value. Asterisk (*) romo values outside specified normal range. Prepared and signed by Lincoln Delatorre [id number]
--- NOTE | 2016-06-14 20:13 | EKG ---
Date Performed: 06/13/2016 Time Performed: 16:23:40 PTAGE: 65 years EKG: SINUS BRADYCARDIA BORDERLINE ECG NO PREVIOUS TRACING DOCTOR: Lincoln Delatorre Interpretating Date/Time 06/14/2016 20:13:14
[2016-06-14] MEDS ORDERED: DEXTROSE 50% IN WATER 50 ML VIAL(D50) IV PUSH PRN (20:15)
[2016-06-14] MEDS ORDERED: GLUCAGON 1 MG/ML VIAL OTHER PRN (20:15)
[2016-06-14] MEDS: INSULIN NovoLIN REGULAR SUPPLEMENTAL SCALE SQ SCH (20:59)
[2016-06-14] MEDS: MELATONIN 5 MG TAB PO SCH (20:59)
[2016-06-14] MEDS ORDERED: PILL SPLITTER OTHER PRN (21:00)
[2016-06-15] VITALS (20 sets, daily range): BP systolic 127–163; BP diastolic 58–71; PULSE 64–79; RESP 19–22; TEMP 98.4–98.9; O2SAT 97–100
[2016-06-15] MEDS: IMIPENEM/CILASTATIN INJ 250 MG in SODIUM CHLORIDE 0.9% INJ 100 ML IV SCH ×4 (03:25→22:34)
[2016-06-15] MEDS: LINEZOLID 600 MG PREMIX 300 ML IV SCH ×2 (03:25→14:18)
[2016-06-15] MEDS: PROPOFOL 1000 MG/100 ML INJ 100 ML IV SCH ×4 (03:25→19:08)
[2016-06-15] MEDS: RESP: ALBUTEROL 2.5 MG/IPRATROPIUM 0.5 MG NEB (SCH) INH ×4 (03:35→21:38)
[2016-06-15] MEDS: CHLORHEXIDINE GLUCONATE 2 % 1 PACK (2 CLOTHS) TOP SCH (04:00)
[2016-06-15 05:36] LABS: HEMATOCRIT 21.8 % (35.0-46.0); MEAN CELL VOLUME 91.9 FL (80.0-100.0); MEAN CORPUSCULAR HEMOGLOBIN 30.9 PG (27.0-34.0); MEAN CORPUSCULAR HGB CONC 33.6 % (32.0-36.0); PLATELET COUNT 254 TH/MM3 (150-450); RED BLOOD COUNT 2.38 MIL/MM3 (4.00-5.30); RED CELL DISTRIBUTION WIDTH 20.4 % (11.6-17.2); REVIEW FLAG FINAL; WHITE BLOOD COUNT 8.8 TH/MM3 (4.0-11.0)
--- NOTE | 2016-06-15 05:45 | RADRPT ---
EXAM DATE/TIME: 06/15/2016 03:49 [place] COMPARISON: CHEST SINGLE AP, June 14, 2016, 4:00. INDICATIONS : Shortness of breath, possible pulmonary disease. MEDICAL HISTORY : Hypertension. Diabetes mellitus type II. Carcinoma, breast. Gastroparesis SURGICAL HISTORY : Cholecystectomy. ENCOUNTER: Subsequent ACUITY: 3 days PAIN SCORE: Non-responsive. LOCATION: Bilateral chest FINDINGS: Single AP view of the chest. Endotracheal tube, nasogastric tube, right subclavian [id number] ayaka in in place. There is apparent looping of the nasogastric tube in the esophagus. The tip of the nasog astric tube is in the stomach. Severe bilateral pulmonary opacity with lower lung zone predominance, increased from the prior study. Small bilateral pleural effusions new. CONCLUSION: 1. Increased bilateral symmetric pulmonary opacity likely representing pulmonary edema. Pulmonary con solidation is seen bilaterally in the lower lobes. Masslike density again seen in the left upper lobe . 2. New bilateral pleural effusions. Dimitrios Mccartney MD on June 15, 2016 at 5:41 Board Certified Radiologist. This report was verified electronically.
[2016-06-15 06:02] LABS: BLOOD GAS CARBOXYHEMOGLOBIN 2.1 % (0-4); BLOOD GAS HCO3 23 mmol/L (22-26); BLOOD GAS METHEMOGLOBIN 1.2 % (0-2); BLOOD GAS O2 HGB SATURATION 95 % (90-100); BLOOD GAS OXYGEN CONTENT 12.9 Vol % (12.0-20.0); BLOOD GAS PCO2 36 mmHg (38-42); BLOOD GAS PO2 100 mmHg (61-120); BLOOD GAS TOTAL HGB 9.6 G/DL (12.0-16.0); CRITICAL VALUE NO; OXYGEN DEVICE VENTILATOR; TEMP CORR TO 98.6
[2016-06-15 06:03] LABS: DRAW SITE RT RADIAL; FIO2 30 %; NUMBER OF ARTERIAL PUNCTURES 1; STAT NO; ULNAR PULSE PRESENT; VENT SETTINGS PRVC/AC
[2016-06-15 06:11] LABS: BICARBONATE 25.9 MEQ/L (21.0-32.0); MAGNESIUM 1.5 MG/DL (1.5-2.5); POTASSIUM 4.9 MEQ/L (3.5-5.1)
[2016-06-15] MEDS: INSULIN NovoLIN REGULAR SUPPLEMENTAL SCALE SQ SCH ×4 (06:29→20:50)
[2016-06-15] MEDS: FERROUS SULFATE 300 MG /5ML UDC PO SCH ×2 (08:28→20:50)
[2016-06-15] MEDS: DOCUSATE SODIUM 100 MG/10 ML UDC TUBE SCH ×2 (08:28→20:50)
[2016-06-15] MEDS: CARVEDILOL 12.5 MG TAB PO SCH ×2 (08:29→16:16)
[2016-06-15] MEDS: BETHANECHOL CHL 10 MG TAB PO SCH (08:29)
[2016-06-15] MEDS: CHLORHEXIDINE 0.12% (ORAL KIT) 15 ML CUP MT SCH ×2 (08:29→20:49)
[2016-06-15] MEDS: MULTIVITAMINS/MINERALS THERAPEUTIC TAB PO SCH (08:29)
[2016-06-15] MEDS: FLUCONAZOLE 200 MG TAB PO SCH (08:29)
[2016-06-15] MEDS: PANTOPRAZOLE SODIUM 40 MG VIAL IV SCH (08:29)
[2016-06-15] MEDS: POLYETHYLENE GLYCOL 17 GM PKG PO SCH (08:29)
[2016-06-15] MEDS: NYSTATIN 100,000 U/GM PWD 15 GM BTL TOP PRN (08:29)
[2016-06-15] MEDS: ALLOPURINOL 100 MG TAB PO SCH (08:29)
[2016-06-15] MEDS: SODIUM CHLORIDE 0.9% FLUSH 5 ML FLUSH IV FLUSH SCH ×2 (08:43→20:49)
[2016-06-15] MEDS: ENOXAPARIN SODIUM 150 MG/ML SYRINGE SQ SCH (13:00)
--- NOTE | 2016-06-15 13:46 | HHI.IDPN ---
Subjective Subjective Remarks Notes reviewed Temps ok On the vent On CPAP since this morning UC yeast Sputum C/S pending BC negative CXR increased opacity Echo good LV function Antibiotics Primaxin Zyvox Past Medical History HTN COPD DM Diabetic peripheral neuropathy chronic kidney disease stage III/IV Obesity hypoventilation syndrome Morbid obesity Gout Paroxysmal atrial fibrillation Recurrent UTI Recurrent pneumonia h/o ESBL Anxiety DVT R peroneal vein 06/06/14 History of fall Dysphagia (noted on nectar thickened liquids diet according to note from 06/09/16 ) Chronic urinary incontinence Allergic rhinitis Left breast adenocarcinoma. Last chemotherapy February 2016 ? 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 CT brain negative. Past Surgical History Lithotripsy Gastric bypass Left breast lumpectomy and lymph node biopsy Open cholecystectomy Allergies: Coded Allergies: Percocet (Unverified Allergy, Severe, Nausea/Vomiting, 06/13/16) Codeine (Unverified Allergy, Mild, Nausea/Vomiting, 06/13/16) Lortab (Unverified Allergy, Mild, Nausea/Vomiting, 06/13/16) Bactrim (Unverified Allergy, Unknown, 06/13/16) Ciprofloxacin (Unverified Allergy, Unknown, 06/13/16) Hydrocodone (Unverified Allergy, Unknown, 06/13/16) Levaquin (Unverified Allergy, Unknown, 06/13/16) Penicillin (Verified Allergy, Unknown, rash, 06/14/16) Has taken Keflex in past with no problem Quinolones (Unverified Allergy, Unknown, 06/13/16) Sulfa (Unverified Allergy, Unknown, 06/13/16) Objective . Vital Signs Date Time Temp Pulse Resp B/P Pulse Ox O2 Delivery O2 Flow Rate FiO2 06/15/16 12:37 99 30 06/15/16 12:00 71 06/15/16 12:00 98.9 70 19 127/58 97 06/15/16 12:00 30 06/15/16 10:00 77 06/15/16 08:46 100 30 06/15/16 08:46 30 06/15/16 08:00 64 06/15/16 08:00 30 06/15/16 08:00 98.7 68 22 163/61 99 06/15/16 06:00 67 06/15/16 04:09 99 30 06/15/16 04:00 98.6 79 22 127/62 100 06/15/16 04:00 30 06/15/16 04:00 79 06/15/16 02:00 71 06/15/16 01:32 98 30 06/15/16 00:00 98.7 75 22 132/58 100 06/15/16 00:00 78 06/15/16 00:00 30 06/14/16 22:00 74 06/14/16 21:14 100 30 06/14/16 20:00 71 06/14/16 20:00 98.9 71 22 120/58 100 06/14/16 18:00 71 06/14/16 16:00 67 06/14/16 16:00 98.3 69 18 140/63 100 06/14/16 14:55 100 30 06/14/16 14:00 66 06/14/16 06/14/16 06/15/16 15:00 23:00 07:00 Intake Total 1487 ml 1035 ml 848 ml Output Total 800 ml 500 ml 650 ml Balance 687 ml 535 ml 198 ml Intake IV Total 1193 ml 693 ml 575 ml Tube Feeding 174 ml 242 ml 153 ml Other 120 ml 100 ml 120 ml Output Urine Total 800 ml 500 ml 650 ml # Bowel Movements 1 0 1 . Laboratory Tests Test 06/13/16 06/14/16 06/15/16 16:50 04:00 05:00 White Blood Count 8.4 TH/MM3 7.3 TH/MM3 8.8 TH/MM3 Red Blood Count 2.56 MIL/MM3 2.39 MIL/MM3 2.38 MIL/MM3 Hemoglobin 7.9 GM/DL 7.3 GM/DL 7.3 GM/DL Hematocrit 23.8 % 22.0 % 21.8 % Mean Corpuscular Volume 92.9 FL 91.7 FL 91.9 FL Mean Corpuscular Hemoglobin 31.0 PG 30.5 PG 30.9 PG Mean Corpuscular Hemoglobin 33.3 % 33.2 % 33.6 % Concent Red Cell Distribution Width 20.1 % 20.2 % 20.4 % Platelet Count 242 TH/MM3 222 TH/MM3 254 TH/MM3 Mean Platelet Volume 7.7 FL 8.1 FL 8.3 FL Neutrophils (%) (Auto) 75.0 % 75.3 % Lymphocytes (%) (Auto) 13.9 % 16.0 % Monocytes (%) (Auto) 7.9 % 5.3 % Eosinophils (%) (Auto) 2.5 % 2.8 % Basophils (%) (Auto) 0.7 % 0.6 % Neutrophils # (Auto) 6.3 TH/MM3 5.5 TH/MM3 Lymphocytes # (Auto) 1.2 TH/MM3 1.2 TH/MM3 Monocytes # (Auto) 0.7 TH/MM3 0.4 TH/MM3 Eosinophils # (Auto) 0.2 TH/MM3 0.2 TH/MM3 Basophils # (Auto) 0.1 TH/MM3 0.0 TH/MM3 CBC Comment DIFF FINAL DIFF FINAL Differential Comment Laboratory Tests Test 06/13/16 06/13/16 06/14/16 06/15/16 16:50 21:45 04:00 05:00 Sodium Level 142 MEQ/L 144 MEQ/L 143 MEQ/L Potassium Level 6.1 MEQ/L 5.4 MEQ/L 4.6 MEQ/L 4.9 MEQ/L Chloride Level 109 MEQ/L 110 MEQ/L 109 MEQ/L Carbon Dioxide Level 27.5 MEQ/L 26.5 MEQ/L 25.9 MEQ/L Anion Gap 6 MEQ/L 8 MEQ/L 8 MEQ/L Blood Urea Nitrogen 40 MG/DL 40 MG/DL 33 MG/DL Creatinine 2.07 MG/DL 1.92 MG/DL 1.82 MG/DL Estimat Glomerular Filtration 24 ML/MIN 26 ML/MIN 28 ML/MIN Rate Random Glucose 72 MG/DL 95 MG/DL 87 MG/DL Lactic Acid Level 0.5 mmol/L Calcium Level 8.2 MG/DL 8.4 MG/DL 8.1 MG/DL Total Bilirubin 0.2 MG/DL 0.2 MG/DL Aspartate Amino Transf 13 U/L 12 U/L (AST/SGOT) Alanine Aminotransferase 11 U/L 10 U/L (ALT/SGPT) Alkaline Phosphatase 112 U/L 96 U/L Troponin I LESS THAN 0.02 LESS THAN 0.02 LESS THAN 0.02 NG/ML NG/ML NG/ML B-Type Natriuretic Peptide 272 PG/ML Total Protein 6.8 GM/DL 6.0 GM/DL Albumin 2.0 GM/DL 1.8 GM/DL Lipase 77 U/L Phosphorus Level 3.3 MG/DL 2.8 MG/DL Magnesium Level 1.6 MG/DL 1.5 MG/DL Microbiology Date/Time Procedure Status Source Growth 06/13/16 16:50 Aerobic Blood Culture - Preliminary Resulted Blood Peripheral NO GROWTH IN 2 DAYS 06/13/16 16:50 Anaerobic Blood Culture - Preliminary Resulted Blood Peripheral NO GROWTH IN 2 DAYS 06/13/16 16:50 Urine Culture - Preliminary Resulted Urine Catheterized Urine Yeast-Id To Follow 06/13/16 16:55 Aerobic Blood Culture - Preliminary Resulted Blood Peripheral NO GROWTH IN 2 DAYS 06/13/16 16:55 Anaerobic Blood Culture - Preliminary Resulted Blood Peripheral NO GROWTH IN 2 DAYS 06/14/16 13:58 Gram Stain - Final Resulted Sputum Endotracheal 06/14/16 13:58 Sputum Culture - Preliminary Resulted Sputum Endotracheal IMMATURE GROWTH - REINCUBATE Imaging Last Impressions Chest X-Ray 06/15/16 0600 Signed Impressions: Service Date/Time: May 03:49 - CONCLUSION: 1. Increased bilateral symmetric pulmonary opacity likely representing pulmonary edema. Pulmonary consolidation is seen bilaterally in the lower lobes. Masslike density again seen in the left upper lobe. 2. New bilateral pleural effusions. Dimitrios Mccartney MD Head CT 06/14/16 0000 Signed Impressions: Service Date/Time: Tuesday, June 14, 2016 02:48 - CONCLUSION: 1. No acute intracranial findings. 2. Pansinusitis with diffuse air fluid levels indicating acute sinusitis. Dimitrios Mccartney MD Chest CT 06/14/16 0000 Signed Impressions: Service Date/Time: Tuesday, June 14, 2016 02:51 - CONCLUSION: 1. Large area of right lower lung consolidation with air bronchograms. 2. Mild left lung consolidation versus atelectasis with rounded masslike anterior contour in the upper lung. 2 additional left-sided nodules are identified in the mid lung. 3. Small bilateral pleural effusions. 4. Enlarged right paratracheal lymph node. Dimitrios Mccartney MD Lung Scan- Nuclear Medicine 06/13/166 Signed Impressions: Service Date/Time: Monday, June 13, 2016 20:49 - CONCLUSION: Indeterminant probability for pulmonary embolism with Large matched perfusion and ventilatory defect corresponding to radiographic abnormality in the right lung base. Adolfo Daniels MD Abdomen/Pelvis CT 06/13/166 Signed Impressions: Service Date/Time: Tuesday, June 14, 2016 00:05 - CONCLUSION: 1. Right lower lung consolidation and bilateral pleural effusions. 2. Superficial soft tissue edema suggesting anasarca. 3. Perinephric stranding and diffuse urinary bladder wall thickening. Question urinary tract infection. Mild right hydronephrosis. No calculi identified. 4. Nonspecific oval 4.6 cm mass in the spleen. 5. Retroperitoneal lymphadenopathy. Dimitrios Mccartney MD Lower Extremity Ultrasound 06/13/16 0000 Signed Impressions: Service Date/Time: Tuesday, June 14, 2016 00:24 - CONCLUSION: No evidence of lower extremity DVT on the right or left. Dimitrios Mccartney MD Physical Exam GENERAL: awake and alert, on CPAP, not in respiratory distress. SKIN: Cool and dry. No generalized rash or ecchymosis. HEENT: Pupils equal round and reactive. No scleral icterus. No injection or drainage. Endotracheal tube is in the mouth. NECK: Supple, nontender, no meningeal signs. Short and obese. CARDIOVASCULAR: Regular rate and rhythm without murmurs, gallops, or rubs. RESPIRATORY: Equal breath sounds bilaterally. Has diffuse rhonchi. Has mild hal infection under both breasts GASTROINTESTINAL: Abdomen soft, obese , non-tender, nondistended. No guarding. Bowel sounds are present. Has large abdominal apron with no redness noted at the fold. MUSCULOSKELETAL: Extremities without clubbing, cyanosis, or edema. No joint tenderness, effusion, or edema noted. No calf tenderness. Negative Homans sign bilaterally. NEUROLOGICAL: Awake and alert. No Babinski. PSYCH: Unable to assess LINE: Port right upper chest with no evidence of infection : Christianson catheter in place, urine looks clear currently Assessment & Plan Remarks IMPRESSION Respiratory failure, HCAP, with ?pulmonary edema UTI, prior Hx UTI and ESBL(+) infections - now has low colony count yeast Morbid obesity COPD, likely has KING Multiple Abx allergy - PCN - has taken Keflex without any problem CKD RECOMMENDATION Continue Meropenem Continue Zyvox for HCAP, MRSA coverage Follow C/S Monitor progress Weaning per CCM Melody Morales MD Jun 15, 2016 13:46
--- NOTE | 2016-06-15 14:38 | HHI.CCPN ---
Subjective Remarks/Hospital Course 65-year-old female with past medical history of hypertension, diabetes , morbid obesity with obesity hypoventilation syndrome, COPD, chronic systolic heart failure, chronic kidney disease stage III, adenocarcinoma of breast metastatic to lung who presents to [facility] emergency department from [facility] with respiratory distress and lethargy. She was found to be in hypercapnic respiratory failure with pH 7.24/PaCO2 57/PA O2 of 118/bicarbonate 24 on 4 L nasal cannula. She was placed on BiPAP 12 over 5 with 35%. Repeat ABG demonstrated no significant improvement. Dr. Carl discussed with patient' s sister who stated patient was full code and so she was intubated in the emergency department with Grade III/IV view with Glidescope following sedation with ketamine and rocuronium. Chest x-ray demonstrated bilateral vascular congestion. There is also a right lower lobe opacity, right upper lobe opacity , and left upper lobe opacity. She was treated empirically in the emergency department with aztreonam, Flagyl, vancomycin. Urinalysis was remarkable for a UTI. She had a potassium of 6.1. She was treated with I called 50 mEq, calcium gluconate 2 g, insulin 10 units IV and dextrose. Apparently patient also had some left-sided abdominal pain for which Dr. Carl has ordered CT abdomen. VQ scan has also been ordered. Patient's sister states that April has a history of left breast adenocarcinoma which she underwent lumpectomy and lymph node resections. She states she underwent chemotherapy at that time which was poorly tolerated and that she was admitted after chemo every time because "all of her systems would shut down". She states that about 6-8 months ago she was found to have multiple lung mets. She states that chemotherapy was initiated but she was not able to tolerate and therefore she discontinued chemotherapy in February of 2016. She was under the care of Dr. Som Cam at [facility]. She states that for 2-3 years she has been having recurrent urinary tract infections. She states that she has been in and out of the hospital "every other week" in March 2016 due to recurrent urinary tract infections. There has been a history of MDRO and her chart indicates that she has a history of UTI positive for ESBL. Patient was reportedly was admitted to [facility] from April 02 to April 29. During this time she was treated for urinary tract infection. She also had altered mental status and respiratory failure requiring mechanical ventilation for approximately 4 days. She was discharged back to [facility] where she resided for 2-3 weeks until she was again hospitalized for CHF, pneumonia, urinary tract infection. She did not require mechanical ventilation on this admission. Her sister states she has been back at [facility] for about a week. Subjective: 06/14: Patient was noted to be hypoglycemic throughout the night and required D10 infusion. Patient is on hourly glucose monitoring. The sodium the patient was placed on Glucerna tube feeds, glucose levels have improved. The patient is currently on CPAP GCS 11 T denies pain. The patient was noted to have an indeterminate VQ scan and has been placed on therapeutic Lovenox twice a day. Plans for palliative care having consult to discuss with patient's family, goals of care. 3:16: Afebrile. The patient tolerated CPAP trials approximately 15 minutes yesterday. Currently the patient is tolerating CPAP trials for greater than 2 hours. The patient is awake and responsive. Palliative care team met with family yesterday the patient and family would like aggressive measures to continue. The patient's tolerating tube feeds, D10 has been discontinued, her glucose levels have normalized. Objective Vital Signs Date Time Temp Pulse Resp B/P Pulse Ox O2 Delivery O2 Flow Rate FiO2 06/15/16 12:37 99 30 06/15/16 12:00 71 06/15/16 12:00 98.9 19 127/58 06/13/16 22:46 Auto-Vent 06/13/16 15:45 3 Intake and Output 06/14/16 06/14/16 06/15/16 08:00 16:00 00:00 Intake Total 428 ml 1487 ml 1035 ml Output Total 2750 ml 800 ml 500 ml Balance -2322 ml 687 ml 535 ml Result Diagram: 06/15/16 0500 06/15/16 0500 Other Results Laboratory Tests Test 06/15/16 05:49 Blood Gas Puncture Site RT RADIAL Blood Gas Patient Temperature 98.6 Blood Gas HCO3 23 mmol/L (22-26) Blood Gas Base Excess -1.0 mmol/L (-2-2) Blood Gas Oxygen Saturation 95 % (90-100) Arterial Blood pH 7.42 (7.380-7.420) Arterial Blood Partial 36 mmHg (38-42) Pressure CO2 Arterial Blood Partial 100 mmHg Pressure O2 (61-120) Arterial Blood Oxygen Content 12.9 Vol % (12.0-20.0) Arterial Blood 2.1 % (0-4) Carboxyhemoglobin Arterial Blood Methemoglobin 1.2 % (0-2) Blood Gas Hemoglobin 9.6 G/DL (12.0-16.0) Oxygen Delivery Device VENTILATOR Blood Gas Ventilator Setting PRVC/AC Blood Gas Inspired Oxygen 30 % Imaging Last Impressions Chest X-Ray 06/14/16 0600 Signed Impressions: Service Date/Time: Tuesday, June 14, 2016 04:00 - CONCLUSION: Persistent bilateral pulmonary opacity with right lower lobe consolidation, left lower lung atelectasis versus consolidation and left pleural effusion. Dimitrios Mccartney MD Head CT 06/14/16 0000 Signed Impressions: Service Date/Time: Tuesday, June 14, 2016 02:48 - CONCLUSION: 1. No acute intracranial findings. 2. Pansinusitis with diffuse air fluid levels indicating acute sinusitis. Dimitrios Mccartney MD Chest CT 06/14/16 0000 Signed Impressions: Service Date/Time: Tuesday, June 14, 2016 02:51 - CONCLUSION: 1. Large area of right lower lung consolidation with air bronchograms. 2. Mild left lung consolidation versus atelectasis with rounded masslike anterior contour in the upper lung. 2 additional left-sided nodules are identified in the mid lung. 3. Small bilateral pleural effusions. 4. Enlarged right paratracheal lymph node. Dimitrios Mccartney MD Lung Scan- Nuclear Medicine 06/13/16 1746 Signed Impressions: Service Date/Time: Monday, June 13, 2016 20:49 - CONCLUSION: Indeterminant probability for pulmonary embolism with Large matched perfusion and ventilatory defect corresponding to radiographic abnormality in the right lung base. Adolfo Daniels MD Abdomen/Pelvis CT 06/13/16 1746 Signed Impressions: Service Date/Time: Tuesday, June 14, 2016 00:05 - CONCLUSION: 1. Right lower lung consolidation and bilateral pleural effusions. 2. Superficial soft tissue edema suggesting anasarca. 3. Perinephric stranding and diffuse urinary bladder wall thickening. Question urinary tract infection. Mild right hydronephrosis. No calculi identified. 4. Nonspecific oval 4.6 cm mass in the spleen. 5. Retroperitoneal lymphadenopathy. Dimitrios Mccartney MD Lower Extremity Ultrasound 06/13/16 0000 Signed Impressions: Service Date/Time: Tuesday, June 14, 2016 00:24 - CONCLUSION: No evidence of lower extremity DVT on the right or left. Dimitrios Mccartney MD Objective Remarks GENERAL: Morbidly obese female who is orotracheally intubated. Awake , responsive squeezing my hands SKIN: Warm and dry. Pannus reddened area right inferior HEAD: Atraumatic. Normocephalic. EYES: Pupils equal and reactive. No scleral icterus. No injection or drainage. ENT: No nasal bleeding or discharge. Mucous membranes pink and moist. NECK: Trachea midline. Unable to assess JVD, secondary to to body habitus. CARDIOVASCULAR: Regular rate and rhythm, sinus rhythm . No murmurs rubs or gallops. RESPIRATORY: On mechanical ventilation. Diminished breath sounds on the right. Clear to auscultation. GASTROINTESTINAL: Abdomen morbidly obese with large pannus. No tenderness to palpation. Bowel sounds are present. There is pitting abdominal wall edema throughout right flank. No crepitus, no erythema or warmth. Skin breakdown as per above. : Christianson in place. MUSCULOSKELETAL: Extremities without clubbing, cyanosis. There is 2+ edema BLE. NEUROLOGICAL: GCS 11 T, awake and responding to commands currently on CPAP. Urinary Catheter: Yes Christianson insert reason: Measure Accurate Output Date of Insertion: Jun 13, 2016 A/P Assessment and Plan NEURO: Acute encephalopathy secondary to hypercapnia Peripheral neuropathy Anxiety Propofol for sedation. Daily sedation vacation Neurontin 100 mg every 8 hours (home dose 200 every 8) SSRI on hold Hold xanax 0.25 mg po q6 hours prn anxiety. Melatonin 2.5 mg per tube qhs RESP: Acute hypercapnic and hypoxemic respiratory failure Obesity hypoventilation syndrome Lung metastases from breast cancer primary Intubated in ED with Glidescope with Grade III/IV Cormack Lehane. 06/13 VQ scan-indeterminate, patient started on therapeutic Lovenox 06/14 DuoNeb every 6 hours CPAP trials as tolerated Albuterol every 2 hours as needed 06/13 Solumedrol 125 mg IV in the ED. Abx as per below CV: Hypertension Chronic systolic heart failure History of paroxysmal atrial fibrillation (not on chronic anticoagulation, currently in sinus rhythm) 06/14 2-D echo-ejection fraction 60%, no RWMA Troponin negative. Lactic acid normal Continue Coreg 25 mg by mouth 3 times a day with hold orders Continue aspirin 81 mg daily GI: Morbid obesity Moderate protein energy malnutrition Abdominal pain Orogastric tube in place tube feeds at goal Glucerna 1.5 at 55 cc/hour Reportedly had left-sided abdominal tenderness in the emergency department. CT abdomen and pelvis 06/13-anasarca abdomen, right lower lung consolidation, bilateral pleural effusions. Questionable UTI. Mild right hydronephrosis. Retroperitoneal lymphadenopathy. 6 cm mass in spleen. Continue multivitamin FEN/RENAL: Chronic kidney disease stage III Hyperkalemia-resolved Potassium 6.1 in ED 06/13. Treatment included calcium, glucose, insulin, bicarbonate. Continue to monitor BMP Christianson in place. Monitor intake and output. Monitor electrolytes and replace as needed ID: HCAP vs post obstructive pneumonia Urinary tract infection Wound lower aspect of right pannus Covered empirically with aztreonam, Flagyl, vancomycin in the emergency department. It was later determined the patient has a history of UTI positive for ESBL. Continued on meropenem 1 g IV every 12 hours adjusted for creatinine clearance 40. Continue vancomycin with pharmacy dosing. F/U sputum culture, urine culture, blood culture. Previously on minocycline 100 mg by mouth twice a day. Awaiting records from [facility]. Infectious disease consult-follow up recommendation Continue Diflucan 200 mg daily from half-way. 06/14 Urine culture- yeast HEME: Adenocarcinoma left breast, multiple lung metastases Chronic iron deficiency anemia h/o nonocclusive DVT peroneal vein 06/06/14 Continue ferrous sulfate 325 mg twice a day VQ indeterminate-therapeutic Lovenox initiated B/L lower extremity ultrasound -negative ENDO: Type 2 diabetes mellitus with complications Hypoglycemia Medium dose insulin sliding scale at bedside glucose every 4 hours. Hold Lantus 50 units subcutaneous daily at bedtime Glucose monitoring per ICU protocol PROPH: Protonix 40 mg IV daily for stress ulcer prophylaxis. Lovenox started empirically 150 units BID ACCESS: Right chest port accessed. 18 gauge PIV's x2. This patient remains critically ill with one or more organ systems which are or may become a threat to life. I have spent in excess of 45 minutes discontinuously in the care and management of this patient. This time is exclusive of procedures, and includes, but is not limited to, evaluation of the patient, review of the medical record, discussions with family, consultants, nursing staff, or respiratory therapy, and documentation in the medical record. Palliative care medicine is on board. Family and patient requests aggressive treatment measures be continued at this time. Physician Madonna Santos MD Jun 15, 2016 14:38
--- NOTE | 2016-06-15 18:17 | HHI.HCPN ---
Reason for visit a. To assist with evaluation and management of symptoms including: dyspnea, pain, b. To assist medical decision maker(s) with: better understanding of current medical conditions; weighing benefits/burdens of medical treatment options; making medical treatment decisions. (Arabella Mcpherson) Subjective/Interval History Ms. Vargas is seen today. She remains on CPAP with ET tube. She opens her eyes to call of name. However, she is clearly more sedated today than when I saw her yesterday afternoon. She is unable to follow commands for me, nor shake her head to questions. Chest x-ray today identified increasing bilateral pulmonary opacity representing pulmonary edema as well as pulmonary consolidation in the bilateral lower lobes. There are also new bilateral pleural effusions. She remains with a low hemoglobin of 7.3, and iron supplementation has been started. Renal function is stable. D-dimer came back at 6.95. She is also noted to have dense anasarca. Today, her sister did provide for DURABLE POWER OF MIS DIRECTOR over healthcare. He was placed in the chart (Arabella Mcpherson) Advance Directives Health Care Surrogate: Copy in medical record (Arabella Mcpherson) Advance Directive Specifics Health Care Surrogate(s): Philomena Kathleen, sister, home phone [phone], cell phone [phone], lives in [facility]. Documented care wishes: Per her sister, April indicated last month that she wished to be a full code until "she was in a vegetative state." She had no prior conversations with her sister regarding hospice (Arabella Mcpherson) Objective Vital Signs Date Time Temp Pulse Resp B/P Pulse Ox O2 Delivery O2 Flow Rate FiO2 06/15/16 16:00 30 06/15/16 16:00 98.4 71 22 163/71 100 06/15/16 16:00 71 06/15/16 15:39 100 30 06/15/16 14:00 69 06/15/16 12:37 99 30 06/15/16 12:00 71 06/15/16 12:00 98.9 70 19 127/58 97 06/15/16 12:00 30 06/15/16 10:00 77 06/15/16 08:46 100 30 06/15/16 08:46 30 06/15/16 08:00 64 06/15/16 08:00 30 06/15/16 08:00 98.7 68 22 163/61 99 06/15/16 06:00 67 06/15/16 04:09 99 30 06/15/16 04:00 98.6 79 22 127/62 100 06/15/16 04:00 30 06/15/16 04:00 79 06/15/16 02:00 71 06/15/16 01:32 98 30 06/15/16 00:00 98.7 75 22 132/58 100 06/15/16 00:00 78 06/15/16 00:00 30 06/14/16 22:00 74 06/14/16 21:14 100 30 06/14/16 20:00 71 06/14/16 20:00 98.9 71 22 120/58 100 Intake & Output 06/15/16 06/15/16 07:00 19:00 Intake Total 1883 ml 1104 ml Output Total 1150 ml 550 ml Balance 733 ml 554 ml Intake IV Total 1268 ml 487 ml Tube Feeding 395 ml 377 ml Other 220 ml 240 ml Output Urine Total 1150 ml 550 ml # Bowel Movements 1 3 Physical Exam CONSTITUTIONAL/GENERAL: This is super morbidly obese woman, in no apparent distress. Lightly sedated with propofol. Will awake and will follow commands TUBES/LINES/DRAINS: ET and OT, Christianson, IV lines SKIN: No jaundice, rashes, or lesions. Ecchymoses on upper extremities. No wounds seen anteriorly. Skin temperature appropriate. Not diaphoretic. HEAD: Atraumatic. Normocephalic. EYES: Pupils equal and round and reactive. Extraocular motions intact. No scleral icterus. No injection or drainage. ENT: Hearing grossly normal. Nose without bleeding or purulent drainage. NECK: Trachea midline. Unable to assess JVD due to body habitus CARDIOVASCULAR: Regular rate and rhythm with murmurs. . Peripheral pulses symmetric. RESPIRATORY/CHEST: Symmetric, unlabored respirations on vent. Diminished breath sounds on right, otherwise clear. GASTROINTESTINAL: Abdomen obese, soft, large pannus, bowel sounds present. Pitting edema throughout abdominal wall and right flank GENITOURINARY: Without palpable bladder distension. Christianson catheter in place. MUSCULOSKELETAL: 2 plus edema from feet through thigh, . . No mottling or clubbing. LYMPHATICS: No palpable cervical or supraclavicular adenopathy. NEUROLOGICAL: Awake and lightly sedated, on propofol; follows commands PSYCHIATRIC: Unable to assess (Arabella Mcpherson) Diagnostic Tests Laboratory Laboratory Tests Test 06/13/16 06/13/16 06/13/16 06/13/16 16:13 16:50 17:58 20:25 Blood Gas Puncture Site RT BRACHIAL RT RADIAL RT BRACHIAL Blood Gas Patient Temperature 98.6 98.6 98.6 Blood Gas HCO3 24 mmol/L 24 mmol/L 25 mmol/L (22-26) (22-26) (22-26) Blood Gas Base Excess -2.6 mmol/L -2.2 mmol/L -0.3 mmol/L (-2-2) (-2-2) (-2-2) Blood Gas Oxygen Saturation 96 % (90-100) 97 % (90-100) 98 % (90-100) Arterial Blood pH 7.24 7.25 7.34 (7.380-7.420) (7.380-7.420) (7.380-7.420) Arterial Blood Partial 57 mmHg (38-42) 58 mmHg (38-42) 48 mmHg (38-42) Pressure CO2 Arterial Blood Partial 118 mmHG 127 mmHG 324 mmHG Pressure O2 (61-120) (61-120) (61-120) Arterial Blood Oxygen Content 10.6 Vol % 11.3 Vol % 11.3 Vol % (12.0-20.0) (12.0-20.0) (12.0-20.0) Arterial Blood 2.1 % (0-4) 2.0 % (0-4) 1.8 % (0-4) Carboxyhemoglobin Arterial Blood Methemoglobin 0.8 % (0-2) 0.6 % (0-2) 0.4 % (0-2) Blood Gas Hemoglobin 7.7 G/DL 8.2 G/DL 7.6 G/DL (12.0-16.0) (12.0-16.0) (12.0-16.0) Oxygen Delivery Device NASAL CANNULA BiPAP VENTILATOR Blood Gas Liter Flow 4 L/M White Blood Count 8.4 TH/MM3 (4.0-11.0) Red Blood Count 2.56 MIL/MM3 (4.00-5.30) Hemoglobin 7.9 GM/DL (11.6-15.3) Hematocrit 23.8 % (35.0-46.0) Mean Corpuscular Volume 92.9 FL (80.0-100.0) Mean Corpuscular Hemoglobin 31.0 PG (27.0-34.0) Mean Corpuscular Hemoglobin 33.3 % Concent (32.0-36.0) Red Cell Distribution Width 20.1 % (11.6-17.2) Platelet Count 242 TH/MM3 (150-450) Mean Platelet Volume 7.7 FL (7.0-11.0) Neutrophils (%) (Auto) 75.0 % (16.0-70.0) Lymphocytes (%) (Auto) 13.9 % (9.0-44.0) Monocytes (%) (Auto) 7.9 % (0.0-8.0) Eosinophils (%) (Auto) 2.5 % (0.0-4.0) Basophils (%) (Auto) 0.7 % (0.0-2.0) Neutrophils # (Auto) 6.3 TH/MM3 (1.8-7.7) Lymphocytes # (Auto) 1.2 TH/MM3 (1.0-4.8) Monocytes # (Auto) 0.7 TH/MM3 (0-0.9) Eosinophils # (Auto) 0.2 TH/MM3 (0-0.4) Basophils # (Auto) 0.1 TH/MM3 (0-0.2) CBC Comment DIFF FINAL Differential Comment Prothrombin Time 11.9 SEC (9.8-11.6) Prothromb Time International 1.1 RATIO Ratio Activated Partial 31.5 SEC Thromboplast Time (24.3-30.1) Urine Color YELLOW (YELLW/STRAW) Urine Turbidity CLOUDY (CLEAR) Urine pH 5.5 (5.0-8.5) Urine Specific [place] 1.012 (1.002-1.035) Urine Protein 100 mg/dL (NEG-TRACE) Urine Glucose (UA) NEG mg/dL (NEG) Urine Ketones NEG mg/dL (NEG) Urine Occult Blood MOD (NEG) Urine Nitrite NEG (NEG) Urine Bilirubin NEG (NEG) Urine Urobilinogen LESS THAN 2.0 MG/DL (LESS THAN 2.0) Urine Leukocyte Esterase LARGE (NEG) Urine RBC 19 /hpf (0-3) Urine WBC /hpf (0-5) Urine WBC Clumps MANY (NONE) Urine Squamous Epithelial 1 /hpf (0-5) Cells Urine Bacteria FEW /hpf (NONE) Microscopic Urinalysis Comment CATH-CULTURE IND Sodium Level 142 MEQ/L (136-145) Potassium Level 6.1 MEQ/L (3.5-5.1) Chloride Level 109 MEQ/L (98-107) Carbon Dioxide Level 27.5 MEQ/L (21.0-32.0) Anion Gap 6 MEQ/L (5-15) Blood Urea Nitrogen 40 MG/DL (7-18) Creatinine 2.07 MG/DL (0.50-1.00) Estimat Glomerular Filtration 24 ML/MIN (>89) Rate Random Glucose 72 MG/DL (74-106) Lactic Acid Level 0.5 mmol/L (0.4-2.0) Calcium Level 8.2 MG/DL (8.5-10.1) Total Bilirubin 0.2 MG/DL (0.2-1.0) Aspartate Amino Transf 13 U/L (15-37) (AST/SGOT) Alanine Aminotransferase 11 U/L (10-53) (ALT/SGPT) Alkaline Phosphatase 112 U/L (45-117) Troponin I LESS THAN 0.02 NG/ML (0.02-0.05) B-Type Natriuretic Peptide 272 PG/ML (0-100) Total Protein 6.8 GM/DL (6.4-8.2) Albumin 2.0 GM/DL (3.4-5.0) Lipase 77 U/L (73-393) Blood Gas Ventilator Setting 12 AC/16/500/PEEP 5 Blood Gas Inspired Oxygen 35 % 100 % Test 06/13/16 06/14/16 06/14/16 06/14/16 21:45 00:30 01:00 01:49 Potassium Level 5.4 MEQ/L (3.5-5.1) Troponin I LESS THAN 0.02 NG/ML (0.02-0.05) Nasal Screen MRSA (PCR) NEGATIVE (NEGATIVE) Blood Gas Puncture Site RT BRACHIAL Blood Gas Patient Temperature 98.6 Blood Gas HCO3 23 mmol/L (22-26) Blood Gas Base Excess -1.3 mmol/L (-2-2) Blood Gas Oxygen Saturation 96 % (90-100) Arterial Blood pH 7.39 (7.380-7.420) Arterial Blood Partial 39 mmHg (38-42) Pressure CO2 Arterial Blood Partial 138 mmHg Pressure O2 (61-120) Arterial Blood Oxygen Content 9.8 Vol % (12.0-20.0) Arterial Blood 2.0 % (0-4) Carboxyhemoglobin Arterial Blood Methemoglobin 1.4 % (0-2) Blood Gas Hemoglobin 7.1 G/DL (12.0-16.0) Oxygen Delivery Device VENTILATOR Blood Gas Ventilator Setting PRVC/AC Blood Gas Inspired Oxygen 50 % D-Dimer Quantitative (PE/DVT) 6.95 MG/L FEU (0.00-0.50) Test 06/14/16 06/15/16 06/15/16 04:00 05:00 05:49 White Blood Count 7.3 TH/MM3 8.8 TH/MM3 (4.0-11.0) (4.0-11.0) Red Blood Count 2.39 MIL/MM3 2.38 MIL/MM3 (4.00-5.30) (4.00-5.30) Hemoglobin 7.3 GM/DL 7.3 GM/DL (11.6-15.3) (11.6-15.3) Hematocrit 22.0 % 21.8 % (35.0-46.0) (35.0-46.0) Mean Corpuscular Volume 91.7 FL 91.9 FL (80.0-100.0) (80.0-100.0) Mean Corpuscular Hemoglobin 30.5 PG 30.9 PG (27.0-34.0) (27.0-34.0) Mean Corpuscular Hemoglobin 33.2 % 33.6 % Concent (32.0-36.0) (32.0-36.0) Red Cell Distribution Width 20.2 % 20.4 % (11.6-17.2) (11.6-17.2) Platelet Count 222 TH/MM3 254 TH/MM3 (150-450) (150-450) Mean Platelet Volume 8.1 FL 8.3 FL (7.0-11.0) (7.0-11.0) Neutrophils (%) (Auto) 75.3 % (16.0-70.0) Lymphocytes (%) (Auto) 16.0 % (9.0-44.0) Monocytes (%) (Auto) 5.3 % (0.0-8.0) Eosinophils (%) (Auto) 2.8 % (0.0-4.0) Basophils (%) (Auto) 0.6 % (0.0-2.0) Neutrophils # (Auto) 5.5 TH/MM3 (1.8-7.7) Lymphocytes # (Auto) 1.2 TH/MM3 (1.0-4.8) Monocytes # (Auto) 0.4 TH/MM3 (0-0.9) Eosinophils # (Auto) 0.2 TH/MM3 (0-0.4) Basophils # (Auto) 0.0 TH/MM3 (0-0.2) CBC Comment DIFF FINAL Differential Comment Sodium Level 144 MEQ/L 143 MEQ/L (136-145) (136-145) Potassium Level 4.6 MEQ/L 4.9 MEQ/L (3.5-5.1) (3.5-5.1) Chloride Level 110 MEQ/L 109 MEQ/L (98-107) (98-107) Carbon Dioxide Level 26.5 MEQ/L 25.9 MEQ/L (21.0-32.0) (21.0-32.0) Anion Gap 8 MEQ/L (5-15) 8 MEQ/L (5-15) Blood Urea Nitrogen 40 MG/DL (7-18) 33 MG/DL (7-18) Creatinine 1.92 MG/DL 1.82 MG/DL (0.50-1.00) (0.50-1.00) Estimat Glomerular Filtration 26 ML/MIN (>89) 28 ML/MIN (>89) Rate Random Glucose 95 MG/DL 87 MG/DL (74-106) (74-106) Calcium Level 8.4 MG/DL 8.1 MG/DL (8.5-10.1) (8.5-10.1) Phosphorus Level 3.3 MG/DL 2.8 MG/DL (2.5-4.9) (2.5-4.9) Magnesium Level 1.6 MG/DL 1.5 MG/DL (1.5-2.5) (1.5-2.5) Total Bilirubin 0.2 MG/DL (0.2-1.0) Aspartate Amino Transf 12 U/L (15-37) (AST/SGOT) Alanine Aminotransferase 10 U/L (10-53) (ALT/SGPT) Alkaline Phosphatase 96 U/L (45-117) Troponin I LESS THAN 0.02 NG/ML (0.02-0.05) Total Protein 6.0 GM/DL (6.4-8.2) Albumin 1.8 GM/DL (3.4-5.0) Random Vancomycin Level 18.2 COMMENT Blood Gas Puncture Site RT RADIAL Blood Gas Patient Temperature 98.6 Blood Gas HCO3 23 mmol/L (22-26) Blood Gas Base Excess -1.0 mmol/L (-2-2) Blood Gas Oxygen Saturation 95 % (90-100) Arterial Blood pH 7.42 (7.380-7.420) Arterial Blood Partial 36 mmHg (38-42) Pressure CO2 Arterial Blood Partial 100 mmHg Pressure O2 (61-120) Arterial Blood Oxygen Content 12.9 Vol % (12.0-20.0) Arterial Blood 2.1 % (0-4) Carboxyhemoglobin Arterial Blood Methemoglobin 1.2 % (0-2) Blood Gas Hemoglobin 9.6 G/DL (12.0-16.0) Oxygen Delivery Device VENTILATOR Blood Gas Ventilator Setting PRVC/AC Blood Gas Inspired Oxygen 30 % (Arabella Mcpherson) Result Diagram: 06/15/16 0500 06/15/16 0500 Microbiology Microbiology Date/Time Procedure Status Source Growth 06/13/16 16:50 Aerobic Blood Culture - Preliminary Resulted Blood Peripheral NO GROWTH IN 2 DAYS 06/13/16 16:50 Anaerobic Blood Culture - Preliminary Resulted Blood Peripheral NO GROWTH IN 2 DAYS 06/13/16 16:50 Urine Culture - Preliminary Resulted Urine Catheterized Urine Yeast-Id To Follow 06/13/16 16:55 Aerobic Blood Culture - Preliminary Resulted Blood Peripheral NO GROWTH IN 2 DAYS 06/13/16 16:55 Anaerobic Blood Culture - Preliminary Resulted Blood Peripheral NO GROWTH IN 2 DAYS 06/14/16 13:58 Gram Stain - Final Resulted Sputum Endotracheal 06/14/16 13:58 Sputum Culture - Preliminary Resulted Sputum Endotracheal IMMATURE GROWTH - REINCUBATE Imaging Last 72 hours Impressions Chest X-Ray 06/15/16 0600 Signed Impressions: Service Date/Time: May 03:49 - CONCLUSION: 1. Increased bilateral symmetric pulmonary opacity likely representing pulmonary edema. Pulmonary consolidation is seen bilaterally in the lower lobes. Masslike density again seen in the left upper lobe. 2. New bilateral pleural effusions. Dimitrios Mccartney MD Chest X-Ray 06/14/16 0600 Signed Impressions: Service Date/Time: Tuesday, June 14, 2016 04:00 - CONCLUSION: Persistent bilateral pulmonary opacity with right lower lobe consolidation, left lower lung atelectasis versus consolidation and left pleural effusion. Dimitrios Mccartney MD Head CT 06/14/16 0000 Signed Impressions: Service Date/Time: Tuesday, June 14, 2016 02:48 - CONCLUSION: 1. No acute intracranial findings. 2. Pansinusitis with diffuse air fluid levels indicating acute sinusitis. Dimitrios Mccartney MD Chest CT 06/14/16 0000 Signed Impressions: Service Date/Time: Tuesday, June 14, 2016 02:51 - CONCLUSION: 1. Large area of right lower lung consolidation with air bronchograms. 2. Mild left lung consolidation versus atelectasis with rounded masslike anterior contour in the upper lung. 2 additional left-sided nodules are identified in the mid lung. 3. Small bilateral pleural effusions. 4. Enlarged right paratracheal lymph node. Dimitrios Mccartney MD Chest X-Ray 06/13/16 1851 Signed Impressions: Service Date/Time: Monday, June 13, 2016 19:23 - CONCLUSION: 1. Interval intubation with the endotracheal tube tip just above the level the darrius. 2. Placement of nasogastric tube seen coursing through the esophagus. The distal tip is not well-visualized. 3. Dense consolidation at the right lung base and right perihilar region. 4. Cardiomegaly and left effusion. 5. Suboptimal rotated exam. Adolfo Daniels MD Lung Scan-V Nuclear Medicine 06/13/16 0239 Signed Impressions: Service Date/Time: Monday, June 13, 2016 20:49 - CONCLUSION: Indeterminant probability for pulmonary embolism with Large matched perfusion and ventilatory defect corresponding to radiographic abnormality in the right lung base. Adolfo Daniels MD Abdomen/Pelvis CT 06/13/16 1746 Signed Impressions: Service Date/Time: Tuesday, June 14, 2016 00:05 - CONCLUSION: 1. Right lower lung consolidation and bilateral pleural effusions. 2. Superficial soft tissue edema suggesting anasarca. 3. Perinephric stranding and diffuse urinary bladder wall thickening. Question urinary tract infection. Mild right hydronephrosis. No calculi identified. 4. Nonspecific oval 4.6 cm mass in the spleen. 5. Retroperitoneal lymphadenopathy. Dimitrios Mccartney MD Chest X-Ray 06/13/16 1558 Signed Impressions: Service Date/Time: Monday, June 13, 2016 16:03 - CONCLUSION: Cardiomegaly with diffuse increased interstitial markings likely representing edema. There is some focal consolidation or mass seen in the left upper lung, right upper lung, and left perihilar regions. The patient is scheduled for a CT pulmonary angiogram. Chris Colin MD Lower Extremity Ultrasound 06/13/16 0000 Signed Impressions: Service Date/Time: Tuesday, June 14, 2016 00:24 - CONCLUSION: No evidence of lower extremity DVT on the right or left. Dimitrios Mccartney MD Procedures Intubated, 06/13/2016 (Arabella Mcpherson) Assessment and Plan Disease Oriented Problem List: (1) Hypercapnic respiratory failure (2) Sepsis (3) Anemia (4) Urinary tract infection (5) Morbid obesity with BMI of 60.0-69.9, adult (6) Diabetes mellitus type 2, insulin dependent (7) Chronic renal disease, stage IV Symptom Scale: (1) Pain 0-10 Scale: Unable to quantify Comment: Multiple sources of pain/discomfort due to bedbound state, body habitus, clinical history (2) Dyspnea 0-10 Scale: Unable to quantify Comment: Currently intubated Pertinent Non-Medical Issues Psychosocial: Single female, no children, has been disabled for 2 years. Spiritual: No congregational affiliation Legal: None identified at this time Ethical issues impacting care: Her sister reports that gabapentin will cause her thinking to be skewed. At that she does better and is of clearer mind without the gabapentin. Gabapentin has been discontinued that in the event she is able to provide direction into her care. She would have an opportunity Important Contacts Philomena Kathleen, healthcare surrogate, sister, home phone [phone], cell phone [phone] Prognosis Prognosis is poor. 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 There is also question of abdominal metastasis with retro-peritoneal lymphadenopathy also identified on recent imaging. She essentially has been in the hospital since March of last year Code Status: Full Code Plan Decision Maker:Philomena Kathleen, sister, home phone [phone], cell phone [phone], Code Status: Full code Family Discussion: On 06/15/15 Patient's clinical history is reviewed. She has been is disabled since for the last 2 years and a resident [facility]. She has had repeated hospital admissions due to recurrent urinary tract infections as well as respiratory distress. She has history of cancer of the breast with metastasis. She was unable to tolerate chemotherapy in 2 separate occasions. Her urinary tract infections have become resistant to many antibiotics. Her sister has noted an ongoing decline in her physical health over the last several months. Patient has expressed desire to be full code. "Until she is in a vegetative state." And has been no prior discussion of hospice. Discussed with Amparo that in light of her clinical state any hospitalization could easily be her last period the ability to wean her from the event becomes more challenging with each occurrence. Amparo is hopeful that she can talk with her sister to get guidance to her wishes. However, she may not be able to have that opportunity and will need to make a decision to the best of her ability with the information provided. Overall, her prognosis is greatly challenged. Symptoms: Dyspnea, pain Palliative care phone number provided - will follow during hospital stay. ( Arabella Mcpherson) Attestation To help prompt me to consider important information that might be impacting today's encounter and assessment, information from prior notes written by myself or my colleagues may have been "brought forward" into today's note. My signature on this note, however, is an attestation that I personally performed the exam, history, and/or decision-making noted today, and, unless otherwise indicated, the interactions with patient, family, and staff as well as the review of records all occurred today. I also attest that the listed assessment and stated plan reflect my best clinical judgment today based on the combination of historical information, prior notes, and today's exam/ interactions. When time spent is documented, it refers only to time spent today by the signer, or if indicated, combined time spent today by collaborating physician/nurse practitioner. (Arabella Mcpherson) Collaborating MD Comments Chart reviewed. Cased discussed with palliative care RESORT KEEPER. Above RESORT KEEPER note reviewed and I concur. . (Marty Strickland MD) Arabella Mcpherson Jun 15, 2016 18:17 Marty Strickland MD August 28, 2016 13:23
[2016-06-15] MEDS: MELATONIN 5 MG TAB PO SCH (20:49)
[2016-06-16] VITALS (21 sets, daily range): BP systolic 118–137; BP diastolic 56–63; PULSE 63–80; RESP 19–24; TEMP 98.4–99.4; O2SAT 97–100
[2016-06-16] MEDS: ENOXAPARIN SODIUM 150 MG/ML SYRINGE SQ SCH ×2 (01:00→13:54)
[2016-06-16] MEDS: CARVEDILOL 12.5 MG TAB PO SCH ×3 (01:36→16:27)
[2016-06-16] MEDS: LINEZOLID 600 MG PREMIX 300 ML IV SCH ×2 (02:24→14:03)
[2016-06-16] MEDS: PROPOFOL 1000 MG/100 ML INJ 100 ML IV SCH ×6 (02:24→21:02)
[2016-06-16] MEDS: RESP: ALBUTEROL 2.5 MG/IPRATROPIUM 0.5 MG NEB (SCH) INH ×4 (03:57→19:52)
[2016-06-16] MEDS: CHLORHEXIDINE GLUCONATE 2 % 1 PACK (2 CLOTHS) TOP SCH (04:00)
[2016-06-16] MEDS: IMIPENEM/CILASTATIN INJ 250 MG in SODIUM CHLORIDE 0.9% INJ 100 ML IV SCH ×4 (05:05→21:02)
[2016-06-16] MEDS: INSULIN NovoLIN REGULAR SUPPLEMENTAL SCALE SQ SCH ×4 (06:24→20:14)
[2016-06-16] MEDS: PANTOPRAZOLE SODIUM 40 MG VIAL IV SCH (08:57)
[2016-06-16] MEDS: DOCUSATE SODIUM 100 MG/10 ML UDC TUBE SCH (08:58)
[2016-06-16] MEDS: MULTIVITAMINS/MINERALS THERAPEUTIC TAB PO SCH (08:58)
[2016-06-16] MEDS: FERROUS SULFATE 300 MG /5ML UDC PO SCH ×2 (08:58→20:14)
[2016-06-16] MEDS: FLUCONAZOLE 200 MG TAB PO SCH (08:58)
[2016-06-16] MEDS: NYSTATIN 100,000 U/GM PWD 15 GM BTL TOP PRN (08:58)
[2016-06-16] MEDS: ALLOPURINOL 100 MG TAB PO SCH (08:58)
[2016-06-16] MEDS: BETHANECHOL CHL 10 MG TAB PO SCH (08:59)
[2016-06-16] MEDS: POLYETHYLENE GLYCOL 17 GM PKG PO SCH (08:59)
[2016-06-16] MEDS: CHLORHEXIDINE 0.12% (ORAL KIT) 15 ML CUP MT SCH ×2 (08:59→20:13)
[2016-06-16] MEDS: SODIUM CHLORIDE 0.9% FLUSH 5 ML FLUSH IV FLUSH SCH ×2 (08:59→20:13)
--- NOTE | 2016-06-16 10:25 | HHI.IDPN ---
Subjective Subjective Remarks Notes reviewed Temps ok On the vent On CPAP since this morning UC yeast Sputum C/S pending BC negative CXR increased opacity Echo good LV function Antibiotics Primaxin Zyvox Past Medical History HTN COPD DM Diabetic peripheral neuropathy chronic kidney disease stage III/IV Obesity hypoventilation syndrome Morbid obesity Gout Paroxysmal atrial fibrillation Recurrent UTI Recurrent pneumonia h/o ESBL Anxiety DVT R peroneal vein 06/06/14 History of fall Dysphagia (noted on nectar thickened liquids diet according to note from 06/09/16 ) Chronic urinary incontinence Allergic rhinitis Left breast adenocarcinoma. Last chemotherapy February 2016 ? 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 CT brain negative. Past Surgical History Lithotripsy Gastric bypass Left breast lumpectomy and lymph node biopsy Open cholecystectomy Allergies: Coded Allergies: Percocet (Unverified Allergy, Severe, Nausea/Vomiting, 06/13/16) Codeine (Unverified Allergy, Mild, Nausea/Vomiting, 06/13/16) Lortab (Unverified Allergy, Mild, Nausea/Vomiting, 06/13/16) Bactrim (Unverified Allergy, Unknown, 06/13/16) Ciprofloxacin (Unverified Allergy, Unknown, 06/13/16) Hydrocodone (Unverified Allergy, Unknown, 06/13/16) Levaquin (Unverified Allergy, Unknown, 06/13/16) Penicillin (Verified Allergy, Unknown, rash, 06/14/16) Has taken Keflex in past with no problem Quinolones (Unverified Allergy, Unknown, 06/13/16) Sulfa (Unverified Allergy, Unknown, 06/13/16) Objective . Vital Signs Date Time Temp Pulse Resp B/P Pulse Ox O2 Delivery O2 Flow Rate FiO2 06/16/16 08:20 100 30 06/16/16 07:00 30 06/16/16 06:00 65 06/16/16 04:12 100 30 06/16/16 04:00 65 06/16/16 04:00 30 06/16/16 04:00 98.7 65 22 127/60 99 06/16/16 02:00 67 06/16/16 01:12 100 30 06/16/16 00:00 30 06/16/16 00:00 98.4 63 22 118/56 99 06/16/16 00:00 63 3/16/17 23:13 100 30 06/15/16 22:00 69 06/15/16 21:38 99 30 06/15/16 20:00 68 06/15/16 20:00 30 06/15/16 20:00 98.6 68 22 136/63 99 06/15/16 19:40 100 30 06/15/16 18:00 66 06/15/16 16:00 30 06/15/16 16:00 98.4 71 22 163/71 100 06/15/16 16:00 71 06/15/16 15:39 100 30 06/15/16 14:00 69 06/15/16 12:37 99 30 06/15/16 12:00 71 06/15/16 12:00 98.9 70 19 127/58 97 06/15/16 12:00 30 06/15/16 06/15/16 06/16/16 15:00 23:00 07:00 Intake Total 1104 ml 1277 ml 1206 ml Output Total 550 ml 1600 ml 975 ml Balance 554 ml -323 ml 231 ml Intake IV Total 487 ml 631 ml 745 ml Tube Feeding 377 ml 526 ml 341 ml Other 240 ml 120 ml 120 ml Output Urine Total 550 ml 1100 ml 675 ml Stool Total 500 ml 300 ml # Bowel Movements 3 . Laboratory Tests Test 06/15/16 05:00 White Blood Count 8.8 TH/MM3 Red Blood Count 2.38 MIL/MM3 Hemoglobin 7.3 GM/DL Hematocrit 21.8 % Mean Corpuscular Volume 91.9 FL Mean Corpuscular Hemoglobin 30.9 PG Mean Corpuscular Hemoglobin 33.6 % Concent Red Cell Distribution Width 20.4 % Platelet Count 254 TH/MM3 Mean Platelet Volume 8.3 FL Laboratory Tests Test 06/15/16 05:00 Sodium Level 143 MEQ/L Potassium Level 4.9 MEQ/L Chloride Level 109 MEQ/L Carbon Dioxide Level 25.9 MEQ/L Anion Gap 8 MEQ/L Blood Urea Nitrogen 33 MG/DL Creatinine 1.82 MG/DL Estimat Glomerular Filtration 28 ML/MIN Rate Random Glucose 87 MG/DL Calcium Level 8.1 MG/DL Phosphorus Level 2.8 MG/DL Magnesium Level 1.5 MG/DL Microbiology Date/Time Procedure Status Source Growth 06/13/16 16:50 Aerobic Blood Culture - Preliminary Resulted Blood Peripheral NO GROWTH IN 2 DAYS 06/13/16 16:50 Anaerobic Blood Culture - Preliminary Resulted Blood Peripheral NO GROWTH IN 2 DAYS 06/13/16 16:50 Urine Culture - Final Complete Urine Catheterized Urine Halima Glabrata 06/13/16 16:55 Aerobic Blood Culture - Preliminary Resulted Blood Peripheral NO GROWTH IN 2 DAYS 06/13/16 16:55 Anaerobic Blood Culture - Preliminary Resulted Blood Peripheral NO GROWTH IN 2 DAYS 06/14/16 13:58 Gram Stain - Final Resulted Sputum Endotracheal 06/14/16 13:58 Sputum Culture - Preliminary Resulted Sputum Endotracheal IMMATURE GROWTH - REINCUBATE Imaging Last Impressions Chest X-Ray 06/15/16 0600 Signed Impressions: Service Date/Time: May 03:49 - CONCLUSION: 1. Increased bilateral symmetric pulmonary opacity likely representing pulmonary edema. Pulmonary consolidation is seen bilaterally in the lower lobes. Masslike density again seen in the left upper lobe. 2. New bilateral pleural effusions. Dimitrios Mccartney MD Head CT 06/14/16 0000 Signed Impressions: Service Date/Time: Tuesday, June 14, 2016 02:48 - CONCLUSION: 1. No acute intracranial findings. 2. Pansinusitis with diffuse air fluid levels indicating acute sinusitis. Dimitrios Mccartney MD Chest CT 06/14/16 0000 Signed Impressions: Service Date/Time: Tuesday, June 14, 2016 02:51 - CONCLUSION: 1. Large area of right lower lung consolidation with air bronchograms. 2. Mild left lung consolidation versus atelectasis with rounded masslike anterior contour in the upper lung. 2 additional left-sided nodules are identified in the mid lung. 3. Small bilateral pleural effusions. 4. Enlarged right paratracheal lymph node. Dimitrios Mccartney MD Lung Scan- Nuclear Medicine [id number] Signed Impressions: Service Date/Time: Monday, June 13, 2016 20:49 - CONCLUSION: Indeterminant probability for pulmonary embolism with Large matched perfusion and ventilatory defect corresponding to radiographic abnormality in the right lung base. Adolfo Daniels MD Abdomen/Pelvis CT [id number] Signed Impressions: Service Date/Time: Tuesday, June 14, 2016 00:05 - CONCLUSION: 1. Right lower lung consolidation and bilateral pleural effusions. 2. Superficial soft tissue edema suggesting anasarca. 3. Perinephric stranding and diffuse urinary bladder wall thickening. Question urinary tract infection. Mild right hydronephrosis. No calculi identified. 4. Nonspecific oval 4.6 cm mass in the spleen. 5. Retroperitoneal lymphadenopathy. Dimitrios Mccartney MD Lower Extremity Ultrasound 06/13/16 0000 Signed Impressions: Service Date/Time: Tuesday, June 14, 2016 00:24 - CONCLUSION: No evidence of lower extremity DVT on the right or left. Dimitrios Mccartney MD Physical Exam GENERAL: sedated, on CPAP, not in respiratory distress. SKIN: Cool and dry. No generalized rash or ecchymosis. HEENT: Pupils equal round and reactive. No scleral icterus. No injection or drainage. Endotracheal tube is in the mouth. NECK: Supple, nontender, no meningeal signs. Short and obese. CARDIOVASCULAR: Regular rate and rhythm without murmurs, gallops, or rubs. RESPIRATORY: Decreased BS at bases GASTROINTESTINAL: Abdomen soft, obese , non-tender, nondistended. No guarding. Bowel sounds are present. Has large abdominal apron with no redness noted at the fold. MUSCULOSKELETAL: Extremities without clubbing, cyanosis, or edema. or edema noted. No calf tenderness. NEUROLOGICAL: Awake and alert. No Babinski. PSYCH: Unable to assess LINE: Port right upper chest with no evidence of infection : Christianson catheter in place, urine looks clear currently Assessment & Plan Remarks IMPRESSION Respiratory failure, HCAP, with ?pulmonary edema UTI, prior Hx UTI and ESBL(+) infections - now has low colony count yeast Morbid obesity COPD, likely has KING Multiple Abx allergy - PCN - has taken Keflex without any problem CKD RECOMMENDATION Continue Primaxin Continue Zyvox for HCAP, MRSA coverage Follow C/S, deescalate once C/S finalized Repeat UA and C/S Monitor progress Weaning per CCM D/W Melody Sebastian MD Jun 16, 2016 10:25
[2016-06-16 11:46] LABS: BACTERIA, URINE FEW /hpf; BLOOD, URINE SMALL (NEG); COMMENT (UR) CATH-CULTURE IND; CULTURE IF INDICATED CATH CULTURE IND; GLUCOSE,URINE TRACE mg/dL (NEG); KETONE, URINE NEG (NEG); MUCUS URINE FEW /lpf (OCC); NITRITE,URINE NEG (NEG); PH, URINE 6.5 (5.0-8.5); SQUAMOUS EPITHELIAL CELL URINE 4 /hpf (0-5); TRANSITIONAL EPI CELLS, URINE 1 /hpf; URINE COLOR LIGHT-YELLOW (YELLW/STRAW)
[2016-06-16 12:55] LABS: BICARBONATE 27.3 MEQ/L (21.0-32.0); POTASSIUM 4.6 MEQ/L (3.5-5.1)
[2016-06-16] MEDS ORDERED: FUROSEMIDE 40 MG/4 ML VIAL IV PUSH ONE (14:45)
--- NOTE | 2016-06-16 15:46 | HHI.HCPN ---
Reason for visit a. To assist with evaluation and management of symptoms including: dyspnea, pain, b. To assist medical decision maker(s) with: better understanding of current medical conditions; weighing benefits/burdens of medical treatment options; making medical treatment decisions. (Arabella Mcpherson) Subjective/Interval History Ms Vargas is sleeping more deeply on sedation today. She does not awaken to call of name or touch. She appears comfortable. She remains on CPAP/ PRVC-AC with adequate saturation. She remains on tube feeding as well. She appears to be less edematous today with good urinary output. Vital signs are stable with no evidence of temperature abnormalities. Renal function appears to be slightly improving. Also noted that albumin level is low (1.8) based on labs of 06/14/16. She continues on antibiotics. Urine was positive for Halima and sputum is now positive for MRSA. Urine culture is pending. She notes allergies to multiple antibiotics in the past has had an issue MDRO / +ESBL. (Arabella Mcpherson) Advance Directives Health Care Surrogate: Copy in medical record (Arabella Mcpherson) Advance Directive Specifics Health Care Surrogate(s): Philomena Kathleen, sister, home phone [phone], cell phone [phone], lives in [facility]. Documented care wishes: Per her sister, April indicated last month that she wished to be a full code until "she was in a vegetative state." She had no prior conversations with her sister regarding hospice (Arabella Mcpherson) Objective Vital Signs Date Time Temp Pulse Resp B/P Pulse Ox O2 Delivery O2 Flow Rate FiO2 06/16/16 14:13 66 06/16/16 12:50 97 30 06/16/16 12:00 98.9 71 24 129/60 100 06/16/16 12:00 71 06/16/16 12:00 30 06/16/16 11:43 100 30 06/16/16 10:00 80 06/16/16 08:20 100 30 06/16/16 08:00 98.4 69 19 127/59 99 06/16/16 08:00 69 06/16/16 08:00 30 06/16/16 07:00 30 06/16/16 06:00 65 06/16/16 04:12 100 30 06/16/16 04:00 65 06/16/16 04:00 30 06/16/16 04:00 98.7 65 22 127/60 99 06/16/16 02:00 67 06/16/16 01:12 100 30 06/16/16 00:00 30 06/16/16 00:00 98.4 63 22 118/56 99 06/16/16 00:00 63 06/15/16 23:13 100 30 06/15/16 22:00 69 06/15/16 21:38 99 30 06/15/16 20:00 68 06/15/16 20:00 30 06/15/16 20:00 98.6 68 22 136/63 99 06/15/16 19:40 100 30 06/15/16 18:00 66 06/15/16 16:00 30 06/15/16 16:00 98.4 71 22 163/71 100 06/15/16 16:00 71 06/15/16 15:39 100 30 Intake & Output 06/16/16 06/16/16 07:00 19:00 Intake Total 2483 ml Output Total 2575 ml Balance -92 ml Intake IV Total 1376 ml Tube Feeding 867 ml Other 240 ml Output Urine Total 1775 ml Stool Total 800 ml Physical Exam CONSTITUTIONAL/GENERAL: This is super morbidly obese woman, in no apparent distress. Lightly sedated with propofol. Does not awaken time of my visit TUBES/LINES/DRAINS: ET and OT, Christianson, IV lines SKIN: No jaundice, rashes, or lesions. Ecchymoses on upper extremities. No wounds seen anteriorly. Skin temperature appropriate. Not diaphoretic. HEAD: Atraumatic. Normocephalic. EYES: Eyes closed, did not force open ENT: Unable to assess hearing Nose without bleeding or purulent drainage. NECK: Trachea midline. Unable to assess JVD due to body habitus CARDIOVASCULAR: Regular rate and rhythm with murmurs. . Peripheral pulses symmetric. RESPIRATORY/CHEST: Symmetric, unlabored respirations on vent. Diminished breath sounds on right, otherwise clear. GASTROINTESTINAL: Abdomen obese, soft, large pannus, bowel sounds present. Pitting edema throughout abdominal wall and right flank GENITOURINARY: Without palpable bladder distension. Christianson catheter in place. MUSCULOSKELETAL: 2 plus edema from feet through thigh, . . No mottling or clubbing. LYMPHATICS: No palpable cervical or supraclavicular adenopathy. NEUROLOGICAL: Does not awaken today sedated on propofol PSYCHIATRIC: Unable to assess (Arabella Mcpherson) Diagnostic Tests Laboratory Laboratory Tests Test 06/13/16 06/13/16 06/13/16 06/13/16 16:13 16:50 17:58 20:25 Blood Gas Puncture Site RT BRACHIAL RT RADIAL RT BRACHIAL Blood Gas Patient Temperature 98.6 98.6 98.6 Blood Gas HCO3 24 mmol/L 24 mmol/L 25 mmol/L (22-26) (22-26) (22-26) Blood Gas Base Excess -2.6 mmol/L -2.2 mmol/L -0.3 mmol/L (-2-2) (-2-2) (-2-2) Blood Gas Oxygen Saturation 96 % (90-100) 97 % (90-100) 98 % (90-100) Arterial Blood pH 7.24 7.25 7.34 (7.380-7.420) (7.380-7.420) (7.380-7.420) Arterial Blood Partial 57 mmHg (38-42) 58 mmHg (38-42) 48 mmHg (38-42) Pressure CO2 Arterial Blood Partial 118 mmHG 127 mmHG 324 mmHG Pressure O2 (61-120) (61-120) (61-120) Arterial Blood Oxygen Content 10.6 Vol % 11.3 Vol % 11.3 Vol % (12.0-20.0) (12.0-20.0) (12.0-20.0) Arterial Blood 2.1 % (0-4) 2.0 % (0-4) 1.8 % (0-4) Carboxyhemoglobin Arterial Blood Methemoglobin 0.8 % (0-2) 0.6 % (0-2) 0.4 % (0-2) Blood Gas Hemoglobin 7.7 G/DL 8.2 G/DL 7.6 G/DL (12.0-16.0) (12.0-16.0) (12.0-16.0) Oxygen Delivery Device NASAL CANNULA BiPAP VENTILATOR Blood Gas Liter Flow 4 L/M White Blood Count 8.4 TH/MM3 (4.0-11.0) Red Blood Count 2.56 MIL/MM3 (4.00-5.30) Hemoglobin 7.9 GM/DL (11.6-15.3) Hematocrit 23.8 % (35.0-46.0) Mean Corpuscular Volume 92.9 FL (80.0-100.0) Mean Corpuscular Hemoglobin 31.0 PG (27.0-34.0) Mean Corpuscular Hemoglobin 33.3 % Concent (32.0-36.0) Red Cell Distribution Width 20.1 % (11.6-17.2) Platelet Count 242 TH/MM3 (150-450) Mean Platelet Volume 7.7 FL (7.0-11.0) Neutrophils (%) (Auto) 75.0 % (16.0-70.0) Lymphocytes (%) (Auto) 13.9 % (9.0-44.0) Monocytes (%) (Auto) 7.9 % (0.0-8.0) Eosinophils (%) (Auto) 2.5 % (0.0-4.0) Basophils (%) (Auto) 0.7 % (0.0-2.0) Neutrophils # (Auto) 6.3 TH/MM3 (1.8-7.7) Lymphocytes # (Auto) 1.2 TH/MM3 (1.0-4.8) Monocytes # (Auto) 0.7 TH/MM3 (0-0.9) Eosinophils # (Auto) 0.2 TH/MM3 (0-0.4) Basophils # (Auto) 0.1 TH/MM3 (0-0.2) CBC Comment DIFF FINAL Differential Comment Prothrombin Time 11.9 SEC (9.8-11.6) Prothromb Time International 1.1 RATIO Ratio Activated Partial 31.5 SEC Thromboplast Time (24.3-30.1) Urine Color YELLOW (YELLW/STRAW) Urine Turbidity CLOUDY (CLEAR) Urine pH 5.5 (5.0-8.5) Urine Specific [place] 1.012 (1.002-1.035) Urine Protein 100 mg/dL (NEG-TRACE) Urine Glucose (UA) NEG mg/dL (NEG) Urine Ketones NEG mg/dL (NEG) Urine Occult Blood MOD (NEG) Urine Nitrite NEG (NEG) Urine Bilirubin NEG (NEG) Urine Urobilinogen LESS THAN 2.0 MG/DL (LESS THAN 2.0) Urine Leukocyte Esterase LARGE (NEG) Urine RBC 19 /hpf (0-3) Urine WBC /hpf (0-5) Urine WBC Clumps MANY (NONE) Urine Squamous Epithelial 1 /hpf (0-5) Cells Urine Bacteria FEW /hpf (NONE) Microscopic Urinalysis Comment CATH-CULTURE IND Sodium Level 142 MEQ/L (136-145) Potassium Level 6.1 MEQ/L (3.5-5.1) Chloride Level 109 MEQ/L (98-107) Carbon Dioxide Level 27.5 MEQ/L (21.0-32.0) Anion Gap 6 MEQ/L (5-15) Blood Urea Nitrogen 40 MG/DL (7-18) Creatinine 2.07 MG/DL (0.50-1.00) Estimat Glomerular Filtration 24 ML/MIN (>89) Rate Random Glucose 72 MG/DL (74-106) Lactic Acid Level 0.5 mmol/L (0.4-2.0) Calcium Level 8.2 MG/DL (8.5-10.1) Total Bilirubin 0.2 MG/DL (0.2-1.0) Aspartate Amino Transf 13 U/L (15-37) (AST/SGOT) Alanine Aminotransferase 11 U/L (10-53) (ALT/SGPT) Alkaline Phosphatase 112 U/L (45-117) Troponin I LESS THAN 0.02 NG/ML (0.02-0.05) B-Type Natriuretic Peptide 272 PG/ML (0-100) Total Protein 6.8 GM/DL (6.4-8.2) Albumin 2.0 GM/DL (3.4-5.0) Lipase 77 U/L (73-393) Blood Gas Ventilator Setting 12 AC/16/500/PEEP 5 Blood Gas Inspired Oxygen 35 % 100 % Test 06/13/16 06/14/16 06/14/16 06/14/16 21:45 00:30 01:00 01:49 Potassium Level 5.4 MEQ/L (3.5-5.1) Troponin I LESS THAN 0.02 NG/ML (0.02-0.05) Nasal Screen MRSA (PCR) NEGATIVE (NEGATIVE) Blood Gas Puncture Site RT BRACHIAL Blood Gas Patient Temperature 98.6 Blood Gas HCO3 23 mmol/L (22-26) Blood Gas Base Excess -1.3 mmol/L (-2-2) Blood Gas Oxygen Saturation 96 % (90-100) Arterial Blood pH 7.39 (7.380-7.420) Arterial Blood Partial 39 mmHg (38-42) Pressure CO2 Arterial Blood Partial 138 mmHg Pressure O2 (61-120) Arterial Blood Oxygen Content 9.8 Vol % (12.0-20.0) Arterial Blood 2.0 % (0-4) Carboxyhemoglobin Arterial Blood Methemoglobin 1.4 % (0-2) Blood Gas Hemoglobin 7.1 G/DL (12.0-16.0) Oxygen Delivery Device VENTILATOR Blood Gas Ventilator Setting PRVC/AC Blood Gas Inspired Oxygen 50 % D-Dimer Quantitative (PE/DVT) 6.95 MG/L FEU (0.00-0.50) Test 06/14/16 06/15/16 06/15/16 06/16/16 04:00 05:00 05:49 10:30 White Blood Count 7.3 TH/MM3 8.8 TH/MM3 (4.0-11.0) (4.0-11.0) Red Blood Count 2.39 MIL/MM3 2.38 MIL/MM3 (4.00-5.30) (4.00-5.30) Hemoglobin 7.3 GM/DL 7.3 GM/DL (11.6-15.3) (11.6-15.3) Hematocrit 22.0 % 21.8 % (35.0-46.0) (35.0-46.0) Mean Corpuscular Volume 91.7 FL 91.9 FL (80.0-100.0) (80.0-100.0) Mean Corpuscular Hemoglobin 30.5 PG 30.9 PG (27.0-34.0) (27.0-34.0) Mean Corpuscular Hemoglobin 33.2 % 33.6 % Concent (32.0-36.0) (32.0-36.0) Red Cell Distribution Width 20.2 % 20.4 % (11.6-17.2) (11.6-17.2) Platelet Count 222 TH/MM3 254 TH/MM3 (150-450) (150-450) Mean Platelet Volume 8.1 FL 8.3 FL (7.0-11.0) (7.0-11.0) Neutrophils (%) (Auto) 75.3 % (16.0-70.0) Lymphocytes (%) (Auto) 16.0 % (9.0-44.0) Monocytes (%) (Auto) 5.3 % (0.0-8.0) Eosinophils (%) (Auto) 2.8 % (0.0-4.0) Basophils (%) (Auto) 0.6 % (0.0-2.0) Neutrophils # (Auto) 5.5 TH/MM3 (1.8-7.7) Lymphocytes # (Auto) 1.2 TH/MM3 (1.0-4.8) Monocytes # (Auto) 0.4 TH/MM3 (0-0.9) Eosinophils # (Auto) 0.2 TH/MM3 (0-0.4) Basophils # (Auto) 0.0 TH/MM3 (0-0.2) CBC Comment DIFF FINAL Differential Comment Sodium Level 144 MEQ/L 143 MEQ/L (136-145) (136-145) Potassium Level 4.6 MEQ/L 4.9 MEQ/L (3.5-5.1) (3.5-5.1) Chloride Level 110 MEQ/L 109 MEQ/L (98-107) (98-107) Carbon Dioxide Level 26.5 MEQ/L 25.9 MEQ/L (21.0-32.0) (21.0-32.0) Anion Gap 8 MEQ/L (5-15) 8 MEQ/L (5-15) Blood Urea Nitrogen 40 MG/DL (7-18) 33 MG/DL (7-18) Creatinine 1.92 MG/DL 1.82 MG/DL (0.50-1.00) (0.50-1.00) Estimat Glomerular Filtration 26 ML/MIN (>89) 28 ML/MIN (>89) Rate Random Glucose 95 MG/DL 87 MG/DL (74-106) (74-106) Calcium Level 8.4 MG/DL 8.1 MG/DL (8.5-10.1) (8.5-10.1) Phosphorus Level 3.3 MG/DL 2.8 MG/DL (2.5-4.9) (2.5-4.9) Magnesium Level 1.6 MG/DL 1.5 MG/DL (1.5-2.5) (1.5-2.5) Total Bilirubin 0.2 MG/DL (0.2-1.0) Aspartate Amino Transf 12 U/L (15-37) (AST/SGOT) Alanine Aminotransferase 10 U/L (10-53) (ALT/SGPT) Alkaline Phosphatase 96 U/L (45-117) Troponin I LESS THAN 0.02 NG/ML (0.02-0.05) Total Protein 6.0 GM/DL (6.4-8.2) Albumin 1.8 GM/DL (3.4-5.0) Random Vancomycin Level 18.2 COMMENT Blood Gas Puncture Site RT RADIAL Blood Gas Patient Temperature 98.6 Blood Gas HCO3 23 mmol/L (22-26) Blood Gas Base Excess -1.0 mmol/L (-2-2) Blood Gas Oxygen Saturation 95 % (90-100) Arterial Blood pH 7.42 (7.380-7.420) Arterial Blood Partial 36 mmHg (38-42) Pressure CO2 Arterial Blood Partial 100 mmHg Pressure O2 (61-120) Arterial Blood Oxygen Content 12.9 Vol % (12.0-20.0) Arterial Blood 2.1 % (0-4) Carboxyhemoglobin Arterial Blood Methemoglobin 1.2 % (0-2) Blood Gas Hemoglobin 9.6 G/DL (12.0-16.0) Oxygen Delivery Device VENTILATOR Blood Gas Ventilator Setting PRVC/AC Blood Gas Inspired Oxygen 30 % Urine Color LIGHT-YELLOW (YELLW/STRAW) Urine Turbidity HAZY (CLEAR) Urine pH 6.5 (5.0-8.5) Urine Specific [place] 1.010 (1.002-1.035) Urine Protein 100 mg/dL (NEG-TRACE) Urine Glucose (UA) TRACE mg/dL (NEG) Urine Ketones NEG mg/dL (NEG) Urine Occult Blood SMALL (NEG) Urine Nitrite NEG (NEG) Urine Bilirubin NEG (NEG) Urine Urobilinogen 2.0 MG/DL (LESS THAN 2.0) Urine Leukocyte Esterase LARGE (NEG) Urine RBC 10 /hpf (0-3) Urine WBC /hpf (0-5) Urine WBC Clumps MOD (NONE) Urine Squamous Epithelial 4 /hpf (0-5) Cells Urine Transitional Epithelial 1 /hpf (NONE) Cells Urine Bacteria FEW /hpf (NONE) Urine Mucus FEW /lpf (OCC) Microscopic Urinalysis Comment CATH-CULTURE IND Test 06/16/16 12:20 Sodium Level 144 MEQ/L (136-145) Potassium Level 4.6 MEQ/L (3.5-5.1) Chloride Level 110 MEQ/L (98-107) Carbon Dioxide Level 27.3 MEQ/L (21.0-32.0) Anion Gap 7 MEQ/L (5-15) Blood Urea Nitrogen 29 MG/DL (7-18) Creatinine 1.59 MG/DL (0.50-1.00) Estimat Glomerular Filtration 33 ML/MIN (>89) Rate Random Glucose 162 MG/DL (74-106) Calcium Level 7.8 MG/DL (8.5-10.1) Phosphorus Level 2.8 MG/DL (2.5-4.9) (Arabella Mcpherson) Result Diagram: 06/15/16 0500 06/16/16 1220 Microbiology Microbiology Date/Time Procedure Status Source Growth 06/13/16 16:50 Aerobic Blood Culture - Preliminary Resulted Blood Peripheral NO GROWTH IN 3 DAYS 06/13/16 16:50 Anaerobic Blood Culture - Preliminary Resulted Blood Peripheral NO GROWTH IN 3 DAYS 06/13/16 16:50 Urine Culture - Final Complete Urine Catheterized Urine Halima [place] 06/13/16 16:55 Aerobic Blood Culture - Preliminary Resulted Blood Peripheral NO GROWTH IN 3 DAYS 06/13/16 16:55 Anaerobic Blood Culture - Preliminary Resulted Blood Peripheral NO GROWTH IN 3 DAYS 06/14/16 13:58 Gram Stain - Final Complete Sputum Endotracheal 06/14/16 13:58 Sputum Culture - Final Complete S. Aureus Mrsa 06/16/16 10:30 Urine Culture Received Urine Catheterized Urine Pending Imaging Last 72 hours Impressions Chest X-Ray 06/15/16 0600 Signed Impressions: Service Date/Time: May 03:49 - CONCLUSION: 1. Increased bilateral symmetric pulmonary opacity likely representing pulmonary edema. Pulmonary consolidation is seen bilaterally in the lower lobes. Masslike density again seen in the left upper lobe. 2. New bilateral pleural effusions. Dimitrios Mccartney MD Chest X-Ray 06/14/16 0600 Signed Impressions: Service Date/Time: Tuesday, June 14, 2016 04:00 - CONCLUSION: Persistent bilateral pulmonary opacity with right lower lobe consolidation, left lower lung atelectasis versus consolidation and left pleural effusion. Dimitrios Mccartney MD Head CT 06/14/16 0000 Signed Impressions: Service Date/Time: Tuesday, June 14, 2016 02:48 - CONCLUSION: 1. No acute intracranial findings. 2. Pansinusitis with diffuse air fluid levels indicating acute sinusitis. Dimitrios Mccartney MD Chest CT 06/14/16 0000 Signed Impressions: Service Date/Time: Tuesday, June 14, 2016 02:51 - CONCLUSION: 1. Large area of right lower lung consolidation with air bronchograms. 2. Mild left lung consolidation versus atelectasis with rounded masslike anterior contour in the upper lung. 2 additional left-sided nodules are identified in the mid lung. 3. Small bilateral pleural effusions. 4. Enlarged right paratracheal lymph node. Dimitrios Mccartney MD Chest X-Ray 06/13/16 1851 Signed Impressions: Service Date/Time: Monday, June 13, 2016 19:23 - CONCLUSION: 1. Interval intubation with the endotracheal tube tip just above the level the darrius. 2. Placement of nasogastric tube seen coursing through the esophagus. The distal tip is not well-visualized. 3. Dense consolidation at the right lung base and right perihilar region. 4. Cardiomegaly and left effusion. 5. Suboptimal rotated exam. Adolfo Daniels MD Lung Scan-V Nuclear Medicine 06/13/16 1746 Signed Impressions: Service Date/Time: Monday, June 13, 2016 20:49 - CONCLUSION: Indeterminant probability for pulmonary embolism with Large matched perfusion and ventilatory defect corresponding to radiographic abnormality in the right lung base. Adolfo Daniels MD Abdomen/Pelvis CT 06/13/16 4234 Signed Impressions: Service Date/Time: Tuesday, June 14, 2016 00:05 - CONCLUSION: 1. Right lower lung consolidation and bilateral pleural effusions. 2. Superficial soft tissue edema suggesting anasarca. 3. Perinephric stranding and diffuse urinary bladder wall thickening. Question urinary tract infection. Mild right hydronephrosis. No calculi identified. 4. Nonspecific oval 4.6 cm mass in the spleen. 5. Retroperitoneal lymphadenopathy. Dimitrios Mccartney MD Chest X-Ray 06/13/16 1558 Signed Impressions: Service Date/Time: Monday, June 13, 2016 16:03 - CONCLUSION: Cardiomegaly with diffuse increased interstitial markings likely representing edema. There is some focal consolidation or mass seen in the left upper lung, right upper lung, and left perihilar regions. The patient is scheduled for a CT pulmonary angiogram. Chris Colin MD Procedures Intubated, 06/13/2016 (Arabella Mcpherson) Assessment and Plan Disease Oriented Problem List: (1) Hypercapnic respiratory failure (2) Sepsis (3) Anemia (4) Urinary tract infection (5) Morbid obesity with BMI of 60.0-69.9, adult (6) Diabetes mellitus type 2, insulin dependent (7) Chronic renal disease, stage IV Symptom Scale: (1) Pain 0-10 Scale: Unable to quantify Comment: Multiple sources of pain/discomfort due to bedbound state, body habitus, clinical history (2) Dyspnea 0-10 Scale: Unable to quantify Comment: Currently intubated Pertinent Non-Medical Issues Psychosocial: Single female, no children, has been disabled for 2 years. Spiritual: No baptism affiliation Legal: None identified at this time Ethical issues impacting care: Her sister reports that gabapentin will cause her thinking to be skewed. At that she does better and is of clearer mind without the gabapentin. Gabapentin has been discontinued that in the event she is able to provide direction into her care, she would have the opportunity Important Contacts Philomena Kathleen, healthcare surrogate, sister, home phone [phone], cell phone [phone] Prognosis Prognosis is poor. 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 There is also question of abdominal metastasis with retro-peritoneal lymphadenopathy also identified on recent imaging. She essentially has been in the hospital since March of last year Code Status: Full Code Plan Decision Maker:Philomena [place], sister, home phone [phone], cell phone [phone], Code Status: Full code Family Discussion: On 06/15/15 Patient's clinical history is reviewed. She has been is disabled since for the last 2 years and a resident [facility]. She has had repeated hospital admissions due to recurrent urinary tract infections as well as respiratory distress. She has history of cancer of the breast with metastasis. She was unable to tolerate chemotherapy in 2 separate occasions. Her urinary tract infections have become resistant to many antibiotics. Her sister has noted an ongoing decline in her physical health over the last several months. Patient has expressed desire to be full code. "Until she is in a vegetative state." And there has been no prior discussion of hospice. Discussed with Amparo that in light of her clinical state any hospitalization could easily be her last. The ability to wean her from the event becomes more challenging with each occurrence. Amparo is hopeful that she can talk with her sister to get guidance to her wishes. However, she may not be able to have that opportunity and will need to make a decision to the best of her ability with the information provided. Overall, her prognosis is greatly challenged. Symptoms: Dyspnea, pain Palliative care phone number provided - will follow during hospital stay. ( Arabella Mcpherson) Attestation To help prompt me to consider important information that might be impacting today's encounter and assessment, information from prior notes written by myself or my colleagues may have been "brought forward" into today's note. My signature on this note, however, is an attestation that I personally performed the exam, history, and/or decision-making noted today, and, unless otherwise indicated, the interactions with patient, family, and staff as well as the review of records all occurred today. I also attest that the listed assessment and stated plan reflect my best clinical judgment today based on the combination of historical information, prior notes, and today's exam/ interactions. When time spent is documented, it refers only to time spent today by the signer, or if indicated, combined time spent today by collaborating physician/nurse practitioner. (Arabella Mcpherson) Collaborating MD Comments Chart reviewed. Cased discussed with palliative care CARD FOLDER. Above CARD FOLDER note reviewed and I concur. . (Marty Strickland MD) Arabella Mcpherson Jun 16, 2016 15:45 Marty Strickland MD August 28, 2016 13:32
--- NOTE | 2016-06-16 16:02 | HHI.CCPN ---
Subjective Remarks/Hospital Course 65-year-old female with past medical history of hypertension, diabetes , morbid obesity with obesity hypoventilation syndrome, COPD, chronic systolic heart failure, chronic kidney disease stage III, adenocarcinoma of breast metastatic to lung who presents to [facility] emergency department from [facility] with respiratory distress and lethargy. She was found to be in hypercapnic respiratory failure with pH 7.24/PaCO2 57/PA O2 of 118/bicarbonate 24 on 4 L nasal cannula. She was placed on BiPAP 12 over 5 with 35%. Repeat ABG demonstrated no significant improvement. Dr. Carl discussed with patient' s sister who stated patient was full code and so she was intubated in the emergency department with Grade III/IV view with Glidescope following sedation with ketamine and rocuronium. Chest x-ray demonstrated bilateral vascular congestion. There is also a right lower lobe opacity, right upper lobe opacity , and left upper lobe opacity. She was treated empirically in the emergency department with aztreonam, Flagyl, vancomycin. Urinalysis was remarkable for a UTI. She had a potassium of 6.1. She was treated with I called 50 mEq, calcium gluconate 2 g, insulin 10 units IV and dextrose. Apparently patient also had some left-sided abdominal pain for which Dr. Carl has ordered CT abdomen. VQ scan has also been ordered. Patient's sister states that April has a history of left breast adenocarcinoma which she underwent lumpectomy and lymph node resections. She states she underwent chemotherapy at that time which was poorly tolerated and that she was admitted after chemo every time because "all of her systems would shut down". She states that about 6-8 months ago she was found to have multiple lung mets. She states that chemotherapy was initiated but she was not able to tolerate and therefore she discontinued chemotherapy in February of 2016. She was under the care of Dr. Som Cam at [facility]. She states that for 2-3 years she has been having recurrent urinary tract infections. She states that she has been in and out of the hospital "every other week" in March 2016 due to recurrent urinary tract infections. There has been a history of MDRO and her chart indicates that she has a history of UTI positive for ESBL. Patient was reportedly was admitted to [facility] from April 02 to April 29. During this time she was treated for urinary tract infection. She also had altered mental status and respiratory failure requiring mechanical ventilation for approximately 4 days. She was discharged back to [facility] where she resided for 2-3 weeks until she was again hospitalized for CHF, pneumonia, urinary tract infection. She did not require mechanical ventilation on this admission. Her sister states she has been back at [facility] for about a week. Subjective: 06/14: Patient was noted to be hypoglycemic throughout the night and required D10 infusion. Patient is on hourly glucose monitoring. The sodium the patient was placed on Glucerna tube feeds, glucose levels have improved. The patient is currently on CPAP GCS 11 T denies pain. The patient was noted to have an indeterminate VQ scan and has been placed on therapeutic Lovenox twice a day. Plans for palliative care having consult to discuss with patient's family, goals of care. 06/15: Afebrile. The patient tolerated CPAP trials approximately 15 minutes yesterday. Currently the patient is tolerating CPAP trials for greater than 2 hours. The patient is awake and responsive. Palliative care team met with family yesterday the patient and family would like aggressive measures to continue. The patient's tolerating tube feeds, D10 has been discontinued, her glucose levels have normalized. 06/16: Afebrile. GCS 11T, interacting with sister and family yesterday. Patient was noted to have voluminous bowel movements all bowel regimen is on hold, fecal incontinence apparatus applied. Peripheral edema noted , Lasix 40 mg IV 1 dose. ID consulted, Dr. Morales repeat urine culture obtained today. Objective Vital Signs Date Time Temp Pulse Resp B/P Pulse Ox O2 Delivery O2 Flow Rate FiO2 06/16/16 14:13 66 06/16/16 12:50 97 30 06/16/16 12:00 98.9 24 129/60 06/13/16 22:46 Auto-Vent 06/13/16 15:45 3 Intake and Output 06/15/16 06/15/16 06/16/16 08:00 16:00 00:00 Intake Total 848 ml 1104 ml 1277 ml Output Total 650 ml 550 ml 1600 ml Balance 198 ml 554 ml -323 ml Result Diagram: 06/15/16 0500 06/16/16 1220 Other Results Microbiology Date/Time Procedure Status Source Growth 06/13/16 16:50 Urine Culture - Final Complete Urine Catheterized Urine Halima Glabrata 06/14/16 13:58 Gram Stain - Final Complete Sputum Endotracheal 06/14/16 13:58 Sputum Culture - Final Complete S. Aureus Mrsa Imaging Last Impressions Chest X-Ray 06/14/16 0600 Signed Impressions: Service Date/Time: Tuesday, June 14, 2016 04:00 - CONCLUSION: Persistent bilateral pulmonary opacity with right lower lobe consolidation, left lower lung atelectasis versus consolidation and left pleural effusion. Dimitrios Mccartney MD Head CT 06/14/16 0000 Signed Impressions: Service Date/Time: Tuesday, June 14, 2016 02:48 - CONCLUSION: 1. No acute intracranial findings. 2. Pansinusitis with diffuse air fluid levels indicating acute sinusitis. Dimitrios Mccartney MD Chest CT 06/14/16 0000 Signed Impressions: Service Date/Time: Tuesday, June 14, 2016 02:51 - CONCLUSION: 1. Large area of right lower lung consolidation with air bronchograms. 2. Mild left lung consolidation versus atelectasis with rounded masslike anterior contour in the upper lung. 2 additional left-sided nodules are identified in the mid lung. 3. Small bilateral pleural effusions. 4. Enlarged right paratracheal lymph node. Dimitrios Mccartney MD Lung Scan- Nuclear Medicine [id number]/13/[id number] Signed Impressions: Service Date/Time: Monday, June 13, 2016 20:49 - CONCLUSION: Indeterminant probability for pulmonary embolism with Large matched perfusion and ventilatory defect corresponding to radiographic abnormality in the right lung base. Adolfo Daniels MD Abdomen/Pelvis CT [id number]/13/[id number] Signed Impressions: Service Date/Time: Tuesday, June 14, 2016 00:05 - CONCLUSION: 1. Right lower lung consolidation and bilateral pleural effusions. 2. Superficial soft tissue edema suggesting anasarca. 3. Perinephric stranding and diffuse urinary bladder wall thickening. Question urinary tract infection. Mild right hydronephrosis. No calculi identified. 4. Nonspecific oval 4.6 cm mass in the spleen. 5. Retroperitoneal lymphadenopathy. Dimitrios Mccartney MD Lower Extremity Ultrasound 06/13/16 0000 Signed Impressions: Service Date/Time: Tuesday, June 14, 2016 00:24 - CONCLUSION: No evidence of lower extremity DVT on the right or left. Dimitrios Mccartney MD Objective Remarks GENERAL: Morbidly obese female who is orotracheally intubated. Awake , and alert responding to yes and no questions SKIN: Warm and dry. Intertriginous areas with fungal excoriation - breasts, groin and pannus HEAD: Atraumatic. Normocephalic. EYES: Pupils equal and reactive. No scleral icterus. No injection or drainage. ENT: No nasal bleeding or discharge. Mucous membranes pink and moist. NECK: Trachea midline. Unable to assess JVD, secondary to to body habitus. CARDIOVASCULAR: Regular rate and rhythm, sinus rhythm . No murmurs rubs or gallops. RESPIRATORY: On mechanical ventilation. Diminished breath sounds on the right. Clear to auscultation. GASTROINTESTINAL: Abdomen morbidly obese with large pannus. No tenderness to palpation. Bowel sounds are present. There is pitting abdominal wall edema throughout right flank. No crepitus, no erythema or warmth. Skin breakdown as per above. : Christianson in place. MUSCULOSKELETAL: Extremities without clubbing, cyanosis. There is 2+ edema BLE. NEUROLOGICAL: GCS 11 T, awake and responding to commands currently on CPAP. Date of Insertion: Jun 13, 2016 A/P Assessment and Plan NEURO: Acute encephalopathy secondary to hypercapnia Peripheral neuropathy Anxiety Propofol for sedation. Daily sedation vacation Neurontin 100 mg every 8 hours (home dose 200 every 8) SSRI on hold Hold xanax 0.25 mg po q6 hours prn anxiety. Melatonin 2.5 mg per tube qhs RESP: Acute hypercapnic and hypoxemic respiratory failure Obesity hypoventilation syndrome Lung metastases from breast cancer primary Intubated in ED with Glidescope with Grade III/IV Cormack Lehane. 06/13 VQ scan-indeterminate, patient started on therapeutic Lovenox 06/14 DuoNeb every 6 hours CPAP trials as tolerated Albuterol every 2 hours as needed 06/13 Solumedrol 125 mg IV in the ED. Abx as per below CV: Hypertension Chronic systolic heart failure History of paroxysmal atrial fibrillation (not on chronic anticoagulation, currently in sinus rhythm) 06/14 2-D echo-ejection fraction 60%, no RWMA Troponin negative. Lactic acid normal Continue Coreg 25 mg by mouth 3 times a day with hold orders Continue aspirin 81 mg daily GI: Morbid obesity Moderate protein energy malnutrition Abdominal pain Orogastric tube in place tube feeds at goal Glucerna 1.5 at 55 cc/hour Reportedly had left-sided abdominal tenderness in the emergency department. CT abdomen and pelvis 06/13-anasarca abdomen, right lower lung consolidation, bilateral pleural effusions. Questionable UTI. Mild right hydronephrosis. Retroperitoneal lymphadenopathy. 6 cm mass in spleen. Continue multivitamin FEN/RENAL: Chronic kidney disease stage III Hyperkalemia-resolved Potassium 6.1 in ED 06/13. Treatment included calcium, glucose, insulin, bicarbonate. Continue to monitor BMP Christianson in place. Monitor intake and output. Monitor electrolytes and replace as needed ID: HCAP vs post obstructive pneumonia Urinary tract infection Wound lower aspect of right pannus Covered empirically with aztreonam, Flagyl, vancomycin in the emergency department. It was later determined the patient has a history of UTI positive for ESBL. Continued on meropenem 1 g IV every 12 hours adjusted for creatinine clearance 40. Continue vancomycin with pharmacy dosing. F/U sputum culture, urine culture, blood culture. Previously on minocycline 100 mg by mouth twice a day. Awaiting records from [facility]. Infectious disease consult-follow up recommendation Continue Diflucan 200 mg daily from detention. 06/14 Urine culture- yeast HEME: Adenocarcinoma left breast, multiple lung metastases Chronic iron deficiency anemia h/o nonocclusive DVT peroneal vein 06/06/14 Continue ferrous sulfate 325 mg twice a day VQ indeterminate-therapeutic Lovenox initiated B/L lower extremity ultrasound -negative ENDO: Type 2 diabetes mellitus with complications Hypoglycemia Medium dose insulin sliding scale at bedside glucose every 4 hours. Hold Lantus 50 units subcutaneous daily at bedtime Glucose monitoring per ICU protocol PROPH: Protonix 40 mg IV daily for stress ulcer prophylaxis. Lovenox started empirically 150 units BID ACCESS: Right chest port accessed. 18 gauge PIV's x 2. This patient remains critically ill with one or more organ systems which are or may become a threat to life. I have spent in excess of 35 minutes discontinuously in the care and management of this patient. This time is exclusive of procedures, and includes, but is not limited to, evaluation of the patient, review of the medical record, discussions with family, consultants, nursing staff, or respiratory therapy, and documentation in the medical record. Palliative care medicine is on board. Family and patient requests aggressive treatment measures be continued at this time. Physician Madonna Santos MD Jun 16, 2016 16:02
[2016-06-16] MEDS: GABAPENTIN 250 MG/5 ML UDC TUBE SCH (18:00)
[2016-06-16] MEDS: FUROSEMIDE 20 MG/2 ML VIAL IV PUSH SCH (20:13)
[2016-06-16] MEDS: MELATONIN 5 MG TAB PO SCH (20:13)
[2016-06-16] MEDS: POTASSIUM CHLORIDE 25 MEQ EFFERVESCENT TAB PO SCH (20:14)
[2016-06-16] MEDS ORDERED: FUROSEMIDE 20 MG/2 ML VIAL IV PUSH SCH (21:00)
[2016-06-17] VITALS (17 sets, daily range): BP systolic 136–159; BP diastolic 60–69; PULSE 63–81; RESP 21–27; TEMP 99–99.7; O2SAT 94–100
[2016-06-17] MEDS: CARVEDILOL 12.5 MG TAB PO SCH ×4 (00:10→23:38)
[2016-06-17] MEDS: ENOXAPARIN SODIUM 150 MG/ML SYRINGE SQ SCH ×2 (00:10→12:20)
[2016-06-17] MEDS: PROPOFOL 1000 MG/100 ML INJ 100 ML IV SCH ×7 (00:10→20:11)
[2016-06-17] MEDS: RESP: ALBUTEROL 2.5 MG/IPRATROPIUM 0.5 MG NEB (SCH) INH ×4 (02:44→19:53)
[2016-06-17] MEDS: IMIPENEM/CILASTATIN INJ 250 MG in SODIUM CHLORIDE 0.9% INJ 100 ML IV SCH ×2 (03:07→10:27)
[2016-06-17] MEDS: CHLORHEXIDINE GLUCONATE 2 % 1 PACK (2 CLOTHS) TOP SCH (03:07)
[2016-06-17] MEDS: LINEZOLID 600 MG PREMIX 300 ML IV SCH ×2 (03:07→14:01)
[2016-06-17 03:51] LABS: HEMATOCRIT 23.1 % (35.0-46.0); MEAN CORPUSCULAR HGB CONC 33.4 % (32.0-36.0); PLATELET COUNT 244 TH/MM3 (150-450); RED BLOOD COUNT 2.49 MIL/MM3 (4.00-5.30); RED CELL DISTRIBUTION WIDTH 20.8 % (11.6-17.2); WHITE BLOOD COUNT 9.5 TH/MM3 (4.0-11.0)
[2016-06-17 03:57] LABS: REVIEW FLAG FINAL
[2016-06-17 04:07] LABS: BICARBONATE 26.8 MEQ/L (21.0-32.0); MAGNESIUM 1.6 MG/DL (1.5-2.5); POTASSIUM 4.8 MEQ/L (3.5-5.1)
[2016-06-17 05:16] LABS: BLOOD GAS BASE EXCESS 0.1 mmol/L (-2-2); BLOOD GAS CARBOXYHEMOGLOBIN 2.2 % (0-4); BLOOD GAS HCO3 24 mmol/L (22-26); BLOOD GAS METHEMOGLOBIN 1.5 % (0-2); BLOOD GAS O2 HGB SATURATION 93 % (90-100); BLOOD GAS OXYGEN CONTENT 10.7 Vol % (12.0-20.0); BLOOD GAS PCO2 40 mmHg (38-42); BLOOD GAS PO2 88 mmHg (61-120); TEMP CORR TO 98.6
[2016-06-17 05:17] LABS: CRITICAL VALUE NO; OXYGEN DEVICE VENTILATOR; VENT SETTINGS PRVC/AC
[2016-06-17 05:18] LABS: DRAW SITE RT RADIAL; FIO2 30 %; NUMBER OF ARTERIAL PUNCTURES 1; STAT NO; ULNAR PULSE Y
[2016-06-17] MEDS: INSULIN NovoLIN REGULAR SUPPLEMENTAL SCALE SQ SCH ×4 (06:21→20:10)
[2016-06-17] MEDS: CHLORHEXIDINE 0.12% (ORAL KIT) 15 ML CUP MT SCH ×2 (08:07→20:09)
[2016-06-17] MEDS: POLYETHYLENE GLYCOL 17 GM PKG PO SCH (09:00)
[2016-06-17] MEDS: PANTOPRAZOLE SODIUM 40 MG VIAL IV SCH (09:06)
[2016-06-17] MEDS: BETHANECHOL CHL 10 MG TAB PO SCH (09:07)
[2016-06-17] MEDS: GABAPENTIN 250 MG/5 ML UDC TUBE SCH ×3 (09:07→17:28)
[2016-06-17] MEDS: ALLOPURINOL 100 MG TAB PO SCH (09:07)
[2016-06-17] MEDS: FLUCONAZOLE 200 MG TAB PO SCH (09:07)
[2016-06-17] MEDS: MULTIVITAMINS/MINERALS THERAPEUTIC TAB PO SCH (09:07)
[2016-06-17] MEDS: FERROUS SULFATE 300 MG /5ML UDC PO SCH ×2 (09:07→20:09)
[2016-06-17] MEDS: FUROSEMIDE 20 MG/2 ML VIAL IV PUSH SCH ×2 (09:08→20:10)
[2016-06-17] MEDS: SODIUM CHLORIDE 0.9% FLUSH 5 ML FLUSH IV FLUSH SCH ×2 (09:09→20:09)
[2016-06-17] MEDS: POTASSIUM CHLORIDE 25 MEQ EFFERVESCENT TAB PO SCH ×2 (09:10→20:10)
[2016-06-17] MEDS: NYSTATIN 100,000 U/GM PWD 15 GM BTL TOP PRN (10:42)
--- NOTE | 2016-06-17 13:52 | HHI.IDPN ---
Subjective Subjective Remarks Notes reviewed Temps ok On the vent UC C glabrata Repeat UC neg so far Sputum with MRSA BC negative CXR increased opacity Echo good LV function Antibiotics Primaxin Zyvox Past Medical History HTN COPD DM Diabetic peripheral neuropathy chronic kidney disease stage III/IV Obesity hypoventilation syndrome Morbid obesity Gout Paroxysmal atrial fibrillation Recurrent UTI Recurrent pneumonia h/o ESBL Anxiety DVT R peroneal vein 06/06/14 History of fall Dysphagia (noted on nectar thickened liquids diet according to note from 06/09/16 ) Chronic urinary incontinence Allergic rhinitis Left breast adenocarcinoma. Last chemotherapy February 2016 ? 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 CT brain negative. Past Surgical History Lithotripsy Gastric bypass Left breast lumpectomy and lymph node biopsy Open cholecystectomy Allergies: Coded Allergies: Percocet (Unverified Allergy, Severe, Nausea/Vomiting, 06/13/16) Codeine (Unverified Allergy, Mild, Nausea/Vomiting, 06/13/16) Lortab (Unverified Allergy, Mild, Nausea/Vomiting, 06/13/16) Bactrim (Unverified Allergy, Unknown, 06/13/16) Ciprofloxacin (Unverified Allergy, Unknown, 06/13/16) Hydrocodone (Unverified Allergy, Unknown, 06/13/16) Levaquin (Unverified Allergy, Unknown, 06/13/16) Penicillin (Verified Allergy, Unknown, rash, 06/14/16) Has taken Keflex in past with no problem Quinolones (Unverified Allergy, Unknown, 06/13/16) Sulfa (Unverified Allergy, Unknown, 06/13/16) Objective . Vital Signs Date Time Temp Pulse Resp B/P Pulse Ox O2 Delivery O2 Flow Rate FiO2 06/17/16 12:08 30 06/17/16 12:00 72 06/17/16 12:00 99.5 75 27 146/65 99 06/17/16 11:30 97 30 06/17/16 10:04 80 06/17/16 08:10 99 30 06/17/16 08:00 76 06/17/16 08:00 30 06/17/16 08:00 99.3 76 23 136/63 99 06/17/16 06:00 78 06/17/16 04:24 98 30 06/17/16 04:00 81 06/17/16 04:00 30 06/17/16 04:00 99.4 81 26 155/67 94 06/17/16 02:00 72 06/17/16 00:55 98 30 06/17/16 00:00 30 06/17/16 00:00 67 06/17/16 00:00 99.7 67 22 137/60 99 06/16/16 22:07 100 30 06/16/16 22:00 77 06/16/16 20:00 71 06/16/16 20:00 30 06/16/16 20:00 99.4 71 22 136/63 100 06/16/16 19:55 99 30 06/16/16 18:08 79 06/16/16 16:20 75 06/16/16 16:13 100 30 06/16/16 16:00 98.5 71 22 137/63 100 06/16/16 16:00 30 06/16/16 14:13 66 06/16/16 06/16/16 06/17/16 15:00 23:00 07:00 Intake Total 1048 ml 1202 ml 1275 ml Output Total 1400 ml 3175 ml 1550 ml Balance -352 ml -1973 ml -275 ml Intake IV Total 409 ml 593 ml 726 ml Tube Feeding 399 ml 409 ml 449 ml Other 240 ml 200 ml 100 ml Output Urine Total 825 ml 2975 ml 1550 ml Stool Total 575 ml 200 ml # Bowel Movements 2 . Laboratory Tests Test 06/17/16 03:06 White Blood Count 9.5 TH/MM3 Red Blood Count 2.49 MIL/MM3 Hemoglobin 7.7 GM/DL Hematocrit 23.1 % Mean Corpuscular Volume 93.0 FL Mean Corpuscular Hemoglobin 31.0 PG Mean Corpuscular Hemoglobin 33.4 % Concent Red Cell Distribution Width 20.8 % Platelet Count 244 TH/MM3 Mean Platelet Volume 8.4 FL Laboratory Tests Test 06/16/16 06/17/16 12:20 03:06 Sodium Level 144 MEQ/L 142 MEQ/L Potassium Level 4.6 MEQ/L 4.8 MEQ/L Chloride Level 110 MEQ/L 107 MEQ/L Carbon Dioxide Level 27.3 MEQ/L 26.8 MEQ/L Anion Gap 7 MEQ/L 8 MEQ/L Blood Urea Nitrogen 29 MG/DL 28 MG/DL Creatinine 1.59 MG/DL 1.59 MG/DL Estimat Glomerular Filtration 33 ML/MIN 33 ML/MIN Rate Random Glucose 162 MG/DL 179 MG/DL Calcium Level 7.8 MG/DL 7.9 MG/DL Phosphorus Level 2.8 MG/DL 2.5 MG/DL Magnesium Level 1.6 MG/DL Microbiology Date/Time Procedure Status Source Growth 06/14/16 13:58 Gram Stain - Final Complete Sputum Endotracheal 06/14/16 13:58 Sputum Culture - Final Complete S. Aureus Mrsa 06/16/16 10:30 Urine Culture - Preliminary Resulted Urine Catheterized Urine NO GROWTH IN 24 HOURS. Imaging Last Impressions Chest X-Ray 06/15/16 0600 Signed Impressions: Service Date/Time: May 03:49 - CONCLUSION: 1. Increased bilateral symmetric pulmonary opacity likely representing pulmonary edema. Pulmonary consolidation is seen bilaterally in the lower lobes. Masslike density again seen in the left upper lobe. 2. New bilateral pleural effusions. Dimitrios Mccartney MD Head CT 06/14/16 0000 Signed Impressions: Service Date/Time: Tuesday, June 14, 2016 02:48 - CONCLUSION: 1. No acute intracranial findings. 2. Pansinusitis with diffuse air fluid levels indicating acute sinusitis. Dimitrios Mccartney MD Chest CT 06/14/16 0000 Signed Impressions: Service Date/Time: Tuesday, June 14, 2016 02:51 - CONCLUSION: 1. Large area of right lower lung consolidation with air bronchograms. 2. Mild left lung consolidation versus atelectasis with rounded masslike anterior contour in the upper lung. 2 additional left-sided nodules are identified in the mid lung. 3. Small bilateral pleural effusions. 4. Enlarged right paratracheal lymph node. Dimitrios Mccartney MD Lung Scan- Nuclear Medicine [id number]/13/161745 Signed Impressions: Service Date/Time: Monday, June 13, 2016 20:49 - CONCLUSION: Indeterminant probability for pulmonary embolism with Large matched perfusion and ventilatory defect corresponding to radiographic abnormality in the right lung base. Adolfo Daniels MD Abdomen/Pelvis CT 06/13/161745 Signed Impressions: Service Date/Time: Tuesday, June 14, 2016 00:05 - CONCLUSION: 1. Right lower lung consolidation and bilateral pleural effusions. 2. Superficial soft tissue edema suggesting anasarca. 3. Perinephric stranding and diffuse urinary bladder wall thickening. Question urinary tract infection. Mild right hydronephrosis. No calculi identified. 4. Nonspecific oval 4.6 cm mass in the spleen. 5. Retroperitoneal lymphadenopathy. Dimitrios Mccartney MD Lower Extremity Ultrasound 06/13/16 0000 Signed Impressions: Service Date/Time: Tuesday, June 14, 2016 00:24 - CONCLUSION: No evidence of lower extremity DVT on the right or left. Dimitrios Mccartney MD Physical Exam GENERAL: Restless, not in respiratory distress. SKIN: Cool and dry. No generalized rash or ecchymosis. HEENT: [place] conjunctiva. No scleral icterus. No injection or drainage. Endotracheal tube is in the mouth. NECK: Supple, nontender, no meningeal signs. Short and obese. CARDIOVASCULAR: Regular rate and rhythm without murmurs, gallops, or rubs. RESPIRATORY: Decreased BS at bases GASTROINTESTINAL: Abdomen soft, obese , non-tender, nondistended. No guarding. Bowel sounds are present. MUSCULOSKELETAL: Extremities without clubbing, cyanosis, or edema. or edema noted. No calf tenderness. NEUROLOGICAL: Awake and alert. No Babinski. PSYCH: Unable to assess LINE: Port right upper chest with no evidence of infection : Christianson catheter in place, urine looks clear currently Assessment & Plan Remarks IMPRESSION Respiratory failure, HCAP, with ?pulmonary edema MRSA PNA UTI, prior Hx UTI and ESBL(+) infections - now has low colony count yeast Morbid obesity COPD, likely has KING Multiple Abx allergy - PCN - has taken Keflex without any problem CKD RECOMMENDATION Stop Primaxin Continue Zyvox for HCAP, MRSA coverage Continue Diflucan Follow C/S Monitor progress Weaning per CCM D/W Melody Sebastian MD Jun 17, 2016 13:52
--- NOTE | 2016-06-17 16:22 | HHI.CCPN ---
Subjective Remarks/Hospital Course 65-year-old female with past medical history of hypertension, diabetes , morbid obesity with obesity hypoventilation syndrome, COPD, chronic systolic heart failure, chronic kidney disease stage III, adenocarcinoma of breast metastatic to lung who presents to [facility] emergency department from [facility] with respiratory distress and lethargy. She was found to be in hypercapnic respiratory failure with pH 7.24/PaCO2 57/PA O2 of 118/bicarbonate 24 on 4 L nasal cannula. She was placed on BiPAP 12 over 5 with 35%. Repeat ABG demonstrated no significant improvement. Dr. Carl discussed with patient' s sister who stated patient was full code and so she was intubated in the emergency department with Grade III/IV view with Glidescope following sedation with ketamine and rocuronium. Chest x-ray demonstrated bilateral vascular congestion. There is also a right lower lobe opacity, right upper lobe opacity , and left upper lobe opacity. She was treated empirically in the emergency department with aztreonam, Flagyl, vancomycin. Urinalysis was remarkable for a UTI. She had a potassium of 6.1. She was treated with I called 50 mEq, calcium gluconate 2 g, insulin 10 units IV and dextrose. Apparently patient also had some left-sided abdominal pain for which Dr. Carl has ordered CT abdomen. VQ scan has also been ordered. Patient's sister states that April has a history of left breast adenocarcinoma which she underwent lumpectomy and lymph node resections. She states she underwent chemotherapy at that time which was poorly tolerated and that she was admitted after chemo every time because "all of her systems would shut down". She states that about 6-8 months ago she was found to have multiple lung mets. She states that chemotherapy was initiated but she was not able to tolerate and therefore she discontinued chemotherapy in February of 2016. She was under the care of Dr. Som Cam at [facility]. She states that for 2-3 years she has been having recurrent urinary tract infections. She states that she has been in and out of the hospital "every other week" in March 2016 due to recurrent urinary tract infections. There has been a history of MDRO and her chart indicates that she has a history of UTI positive for ESBL. Patient was reportedly was admitted to [facility] from April 02 to April 29. During this time she was treated for urinary tract infection. She also had altered mental status and respiratory failure requiring mechanical ventilation for approximately 4 days. She was discharged back to [facility] where she resided for 2-3 weeks until she was again hospitalized for CHF, pneumonia, urinary tract infection. She did not require mechanical ventilation on this admission. Her sister states she has been back at [facility] for about a week. Subjective: 06/14: Patient was noted to be hypoglycemic throughout the night and required D10 infusion. Patient is on hourly glucose monitoring. The sodium the patient was placed on Glucerna tube feeds, glucose levels have improved. The patient is currently on CPAP GCS 11 T denies pain. The patient was noted to have an indeterminate VQ scan and has been placed on therapeutic Lovenox twice a day. Plans for palliative care having consult to discuss with patient's family, goals of care. 06/15: Afebrile. The patient tolerated CPAP trials approximately 15 minutes yesterday. Currently the patient is tolerating CPAP trials for greater than 2 hours. The patient is awake and responsive. Palliative care team met with family yesterday the patient and family would like aggressive measures to continue. The patient's tolerating tube feeds, D10 has been discontinued, her glucose levels have normalized. 06/16: Afebrile. GCS 11T, interacting with sister and family yesterday. Patient was noted to have voluminous bowel movements all bowel regimen is on hold, fecal incontinence apparatus applied. Peripheral edema noted , Lasix 40 mg IV 1 dose. ID consulted, Dr. Morales repeat urine culture obtained today. 06/17: CPAP trials last approximately 3-1/2 hours today. Sputum culture revealed MRSA. The patient denies any pain. GCS 11 T. Objective Vital Signs Date Time Temp Pulse Resp B/P Pulse Ox O2 Delivery O2 Flow Rate FiO2 06/17/16 15:12 99 30 06/17/16 14:00 75 06/17/16 12:00 99.5 27 146/65 06/13/16 22:46 Auto-Vent 06/13/16 15:45 3 Intake and Output 06/16/16 06/16/16 06/17/16 08:00 16:00 00:00 Intake Total 1206 ml 1048 ml 1202 ml Output Total 975 ml 1400 ml 3175 ml Balance 231 ml -352 ml -1973 ml Result Diagram: 06/17/16 0306 06/17/16 0306 Other Results Laboratory Tests Test 06/17/16 05:05 Blood Gas Puncture Site RT RADIAL Blood Gas Patient Temperature 98.6 Blood Gas HCO3 24 mmol/L (22-26) Blood Gas Base Excess 0.1 mmol/L (-2-2) Blood Gas Oxygen Saturation 93 % (90-100) Arterial Blood pH 7.40 (7.380-7.420) Arterial Blood Partial 40 mmHg (38-42) Pressure CO2 Arterial Blood Partial 88 mmHg Pressure O2 (61-120) Arterial Blood Oxygen Content 10.7 Vol % (12.0-20.0) Arterial Blood 2.2 % (0-4) Carboxyhemoglobin Arterial Blood Methemoglobin 1.5 % (0-2) Blood Gas Hemoglobin 8.0 G/DL (12.0-16.0) Oxygen Delivery Device VENTILATOR Blood Gas Ventilator Setting PRVC/AC Blood Gas Inspired Oxygen 30 % Imaging Last Impressions Chest X-Ray 06/14/16 0600 Signed Impressions: Service Date/Time: Tuesday, June 14, 2016 04:00 - CONCLUSION: Persistent bilateral pulmonary opacity with right lower lobe consolidation, left lower lung atelectasis versus consolidation and left pleural effusion. Dimitrios Mccartney MD Head CT 06/14/16 0000 Signed Impressions: Service Date/Time: Tuesday, June 14, 2016 02:48 - CONCLUSION: 1. No acute intracranial findings. 2. Pansinusitis with diffuse air fluid levels indicating acute sinusitis. Dimitrios Mccartney MD Chest CT 06/14/16 0000 Signed Impressions: Service Date/Time: Tuesday, June 14, 2016 02:51 - CONCLUSION: 1. Large area of right lower lung consolidation with air bronchograms. 2. Mild left lung consolidation versus atelectasis with rounded masslike anterior contour in the upper lung. 2 additional left-sided nodules are identified in the mid lung. 3. Small bilateral pleural effusions. 4. Enlarged right paratracheal lymph node. Dimitrios Mccartney MD Lung Scan-V Nuclear Medicine 06/13/166 Signed Impressions: Service Date/Time: Monday, June 13, 2016 20:49 - CONCLUSION: Indeterminant probability for pulmonary embolism with Large matched perfusion and ventilatory defect corresponding to radiographic abnormality in the right lung base. Adolfo Daniels MD Abdomen/Pelvis CT [id number]/13/[id number] Signed Impressions: Service Date/Time: Tuesday, June 14, 2016 00:05 - CONCLUSION: 1. Right lower lung consolidation and bilateral pleural effusions. 2. Superficial soft tissue edema suggesting anasarca. 3. Perinephric stranding and diffuse urinary bladder wall thickening. Question urinary tract infection. Mild right hydronephrosis. No calculi identified. 4. Nonspecific oval 4.6 cm mass in the spleen. 5. Retroperitoneal lymphadenopathy. Dimitrios Mccartney MD Lower Extremity Ultrasound 06/13/16 0000 Signed Impressions: Service Date/Time: Tuesday, June 14, 2016 00:24 - CONCLUSION: No evidence of lower extremity DVT on the right or left. Dimitrios Mccartney MD Objective Remarks GENERAL: Morbidly obese female who is orotracheally intubated. Awake , and alert responding to yes and no questions SKIN: Warm and dry. Intertriginous areas with fungal excoriation - breasts, groin and pannus HEAD: Atraumatic. Normocephalic. EYES: Pupils equal and reactive. No scleral icterus. No injection or drainage. ENT: No nasal bleeding or discharge. Mucous membranes pink and moist. NECK: Trachea midline. Unable to assess JVD, secondary to to body habitus. CARDIOVASCULAR: Regular rate and rhythm, sinus rhythm . No murmurs rubs or gallops. RESPIRATORY: On mechanical ventilation. Diminished breath sounds on the right. Clear to auscultation. GASTROINTESTINAL: Abdomen morbidly obese with large pannus. No tenderness to palpation. Bowel sounds are present. There is pitting abdominal wall edema . No crepitus, no erythema or warmth. Skin breakdown as per above. : Christianson in place. MUSCULOSKELETAL: Extremities without clubbing, cyanosis. There is 2+ edema BLE. NEUROLOGICAL: GCS 11 T, awake and responding to commands currently on CPAP. Date of Insertion: Jun 13, 2016 A/P Assessment and Plan NEURO: Acute encephalopathy secondary to hypercapnia Peripheral neuropathy Anxiety Propofol for sedation. Daily sedation vacation Neurontin 100 mg every 8 hours (home dose 200 every 8) SSRI on hold Hold xanax 0.25 mg po q6 hours prn anxiety. Melatonin 2.5 mg per tube qhs RESP: Acute hypercapnic and hypoxemic respiratory failure Obesity hypoventilation syndrome Lung metastases from breast cancer primary MRSA Intubated in ED with Glidescope with Grade III/IV Cormack Lehane. 06/13 VQ scan-indeterminate, patient started on therapeutic Lovenox 06/14 DuoNeb every 6 hours CPAP trials as tolerated Albuterol every 2 hours as needed 06/13 Solumedrol 125 mg IV in the ED. Abx as per below CV: Hypertension Chronic systolic heart failure History of paroxysmal atrial fibrillation (not on chronic anticoagulation, currently in sinus rhythm) 06/14 2-D echo-ejection fraction 60%, no RWMA Troponin negative. Lactic acid normal Continue Coreg 25 mg by mouth 3 times a day with parameter orders Continue aspirin 81 mg daily GI: Morbid obesity Moderate protein energy malnutrition Abdominal pain Orogastric tube in place tube feeds at goal Glucerna 1.5 at 55 cc/hour Reportedly had left-sided abdominal tenderness in the emergency department. CT abdomen and pelvis 06/13-anasarca abdomen, right lower lung consolidation, bilateral pleural effusions. Questionable UTI. Mild right hydronephrosis. Retroperitoneal lymphadenopathy. 6 cm mass in spleen. Continue multivitamin FEN/RENAL: Chronic kidney disease stage III Hyperkalemia-resolved Potassium 6.1 in ED 06/13. Treatment included calcium, glucose, insulin, bicarbonate. Continue to monitor BMP Christianson in place. Monitor intake and output. Monitor electrolytes and replace as needed ID: HCAP vs post obstructive pneumonia Urinary tract infection Wound lower aspect of right pannus Covered empirically with aztreonam, Flagyl, vancomycin in the emergency department. It was later determined the patient has a history of UTI positive for ESBL F/U sputum culture, urine culture, blood culture. Previously on minocycline 100 mg by mouth twice a day. Awaiting records from [facility]. Infectious disease consulted- Multiple allergies Continue Diflucan 200 mg daily from [facility]. 06/14 Urine culture- yeast Repeat urine culture pending HEME: Adenocarcinoma left breast, multiple lung metastases Chronic iron deficiency anemia h/o nonocclusive DVT peroneal vein 06/06/14 Continue ferrous sulfate 325 mg twice a day VQ indeterminate-therapeutic Lovenox initiated 06/13-B/L lower extremity ultrasound -negative ENDO: Type 2 diabetes mellitus with complications Hypoglycemia Medium dose insulin sliding scale at bedside glucose every 4 hours. Hold Lantus 50 units subcutaneous daily at bedtime Glucose monitoring per ICU protocol PROPH: Protonix 40 mg IV daily for stress ulcer prophylaxis. Lovenox started empirically 150 BID ACCESS: Right chest port accessed. 18 gauge PIV's x 2. This patient remains critically ill with one or more organ systems which are or may become a threat to life. I have spent in excess of 30 minutes discontinuously in the care and management of this patient. This time is exclusive of procedures, and includes, but is not limited to, evaluation of the patient, review of the medical record, discussions with family, consultants, nursing staff, or respiratory therapy, and documentation in the medical record. Palliative care medicine is on board. Family and patient requests aggressive treatment measures be continued. Provided medical update to sister Ms. Kathleen at bedside. Physician Madonna Santos MD Jun 17, 2016 16:22
[2016-06-17] MEDS: MELATONIN 5 MG TAB PO SCH (20:10)
[2016-06-18] VITALS (19 sets, daily range): BP systolic 137–167; BP diastolic 61–72; PULSE 63–79; RESP 22–27; TEMP 98.7–99.7; O2SAT 96–100
[2016-06-18] MEDS: ENOXAPARIN SODIUM 150 MG/ML SYRINGE SQ SCH ×2 (00:34→14:04)
[2016-06-18] MEDS: LINEZOLID 600 MG PREMIX 300 ML IV SCH ×2 (01:07→14:04)
[2016-06-18] MEDS: PROPOFOL 1000 MG/100 ML INJ 100 ML IV SCH ×6 (01:08→22:06)
[2016-06-18] MEDS: CHLORHEXIDINE GLUCONATE 2 % 1 PACK (2 CLOTHS) TOP SCH ×2 (03:41→23:43)
--- NOTE | 2016-06-18 05:24 | RADRPT ---
EXAM DATE/TIME: 06/18/2016 03:18 [place] COMPARISON: CHEST SINGLE AP, June 15, 2016, 3:49. INDICATIONS : Shortness of breath, possible pulmonary disease. MEDICAL HISTORY : Hypertension. Diabetes mellitus type II. Carcinoma, breast. SURGICAL HISTORY : Cholecystectomy. ENCOUNTER: Subsequent ACUITY: 4 - 6 days PAIN SCORE: Non-responsive. LOCATION: Bilateral chest FINDINGS: A single view of the chest demonstrates endotracheal tube tip in satisfactory position. NG enters sto mach. Right [id number] in superior vena cava. Bilateral mostly basilar airspace consolidation with probable trace pleural fluid unchanged from June 15. CONCLUSION: Stable basilar airspace disease compared with June 15. Endotracheal tube, nasogastric tube in satisf actory position. Christiano Martin MD on June 18, 2016 at 5:21 Board Certified Radiologist. This report was verified electronically.
[2016-06-18] MEDS: INSULIN NovoLIN REGULAR SUPPLEMENTAL SCALE SQ SCH ×4 (05:41→20:07)
[2016-06-18 06:43] LABS: AUTOMATED NEUTROPHIL # 6.2 TH/MM3 (1.8-7.7); BASOPHIL # 0.1 TH/MM3 (0-0.2); BASOPHIL % 0.6 % (0.0-2.0); EOSINOPHIL # 0.4 TH/MM3 (0-0.4); EOSINOPHIL % 4.2 % (0.0-4.0); HEMATOCRIT 23.7 % (35.0-46.0); HEMO FLAGS DIFF FINAL; LYMPH % 17.8 % (9.0-44.0); LYMPHOCYTE # 1.6 TH/MM3 (1.0-4.8); MEAN CELL VOLUME 92.6 FL (80.0-100.0); MEAN CORPUSCULAR HEMOGLOBIN 30.6 PG (27.0-34.0); MEAN CORPUSCULAR HGB CONC 33.1 % (32.0-36.0); MONO % 6.9 % (0.0-8.0); NEUT % 70.5 % (16.0-70.0); PLATELET COUNT 246 TH/MM3 (150-450); RED BLOOD COUNT 2.56 MIL/MM3 (4.00-5.30); RED CELL DISTRIBUTION WIDTH 20.4 % (11.6-17.2); WHITE BLOOD COUNT 8.8 TH/MM3 (4.0-11.0)
[2016-06-18 07:06] LABS: BICARBONATE 25.9 MEQ/L (21.0-32.0); MAGNESIUM 1.6 MG/DL (1.5-2.5)
[2016-06-18] MEDS: CARVEDILOL 12.5 MG TAB PO SCH ×2 (08:51→16:38)
[2016-06-18] MEDS: PANTOPRAZOLE SODIUM 40 MG VIAL IV SCH (08:52)
[2016-06-18] MEDS: MULTIVITAMINS/MINERALS THERAPEUTIC TAB PO SCH (08:52)
[2016-06-18] MEDS: FUROSEMIDE 20 MG/2 ML VIAL IV PUSH SCH ×2 (08:52→20:06)
[2016-06-18] MEDS: POLYETHYLENE GLYCOL 17 GM PKG PO SCH (08:52)
[2016-06-18] MEDS: POTASSIUM CHLORIDE 25 MEQ EFFERVESCENT TAB PO SCH (08:52)
[2016-06-18] MEDS: FERROUS SULFATE 300 MG /5ML UDC PO SCH ×2 (08:53→20:06)
[2016-06-18] MEDS: GABAPENTIN 250 MG/5 ML UDC TUBE SCH ×3 (08:54→17:54)
[2016-06-18] MEDS: FLUCONAZOLE 200 MG TAB PO SCH (08:54)
[2016-06-18] MEDS: BETHANECHOL CHL 10 MG TAB PO SCH (08:54)
[2016-06-18] MEDS: ALLOPURINOL 100 MG TAB PO SCH (08:54)
[2016-06-18] MEDS: SODIUM CHLORIDE 0.9% FLUSH 5 ML FLUSH IV FLUSH SCH ×2 (08:54→20:08)
[2016-06-18] MEDS: CHLORHEXIDINE 0.12% (ORAL KIT) 15 ML CUP MT SCH ×2 (09:04→20:06)
--- NOTE | 2016-06-18 09:22 | HHI.IDPN ---
Subjective Subjective Remarks Notes reviewed D/W RN On CPAP this morning Did 4 hours CPAP yesterday Has a lot of oral secretions Temps ok Repeat UC neg so far CXR today stable infiltrates/opacities Antibiotics Zyvox Diflucan Lines Port Past Medical History HTN COPD DM Diabetic peripheral neuropathy chronic kidney disease stage III/IV Obesity hypoventilation syndrome Morbid obesity Gout Paroxysmal atrial fibrillation Recurrent UTI Recurrent pneumonia h/o ESBL Anxiety DVT R peroneal vein 06/06/14 History of fall Dysphagia (noted on nectar thickened liquids diet according to note from 06/09/16 ) Chronic urinary incontinence Allergic rhinitis Left breast adenocarcinoma. Last chemotherapy February 2016 ? 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 CT brain negative. Past Surgical History Lithotripsy Gastric bypass Left breast lumpectomy and lymph node biopsy Open cholecystectomy Allergies: Coded Allergies: Percocet (Unverified Allergy, Severe, Nausea/Vomiting, 06/13/16) Codeine (Unverified Allergy, Mild, Nausea/Vomiting, 06/13/16) Lortab (Unverified Allergy, Mild, Nausea/Vomiting, 06/13/16) Bactrim (Unverified Allergy, Unknown, 06/13/16) Ciprofloxacin (Unverified Allergy, Unknown, 06/13/16) Hydrocodone (Unverified Allergy, Unknown, 06/13/16) Levaquin (Unverified Allergy, Unknown, 06/13/16) Penicillin (Verified Allergy, Unknown, rash, 06/14/16) Has taken Keflex in past with no problem Quinolones (Unverified Allergy, Unknown, 06/13/16) Sulfa (Unverified Allergy, Unknown, 06/13/16) Objective . Vital Signs Date Time Temp Pulse Resp B/P Pulse Ox O2 Delivery O2 Flow Rate FiO2 06/18/16 08:44 97 30 06/18/16 06:00 66 06/18/16 04:03 98 30 06/18/16 04:00 99.5 72 22 137/61 97 06/18/16 04:00 30 06/18/16 04:00 72 06/18/16 02:00 65 06/18/16 00:50 98 30 06/18/16 00:00 99.1 63 22 167/72 97 06/18/16 00:00 63 06/18/16 00:00 30 06/17/16 22:00 64 06/17/16 20:00 30 06/17/16 20:00 63 06/17/16 20:00 100 30 06/17/16 20:00 99.0 63 22 145/69 98 06/17/16 18:02 64 06/17/16 16:00 71 06/17/16 16:00 99.0 71 21 159/67 98 06/17/16 16:00 30 06/17/16 15:12 99 30 06/17/16 14:00 75 06/17/16 12:08 30 06/17/16 12:00 72 06/17/16 12:00 99.5 75 27 146/65 99 06/17/16 11:30 97 30 06/17/16 10:04 80 06/17/16 06/17/16 06/18/16 15:00 23:00 07:00 Intake Total 547 ml 588 ml 868 ml Output Total 1325 ml 1280 ml 1400 ml Balance -778 ml -692 ml -532 ml Intake IV Total 170 ml 344 ml 458 ml Tube Feeding 311 ml 244 ml 410 ml Other 66 ml Output Urine Total 1325 ml 1230 ml 1300 ml Stool Total 50 ml 100 ml # Bowel Movements 2 . Laboratory Tests Test 06/17/16 06/18/16 03:06 06:10 White Blood Count 9.5 TH/MM3 8.8 TH/MM3 Red Blood Count 2.49 MIL/MM3 2.56 MIL/MM3 Hemoglobin 7.7 GM/DL 7.8 GM/DL Hematocrit 23.1 % 23.7 % Mean Corpuscular Volume 93.0 FL 92.6 FL Mean Corpuscular Hemoglobin 31.0 PG 30.6 PG Mean Corpuscular Hemoglobin 33.4 % 33.1 % Concent Red Cell Distribution Width 20.8 % 20.4 % Platelet Count 244 TH/MM3 246 TH/MM3 Mean Platelet Volume 8.4 FL 8.5 FL Neutrophils (%) (Auto) 70.5 % Lymphocytes (%) (Auto) 17.8 % Monocytes (%) (Auto) 6.9 % Eosinophils (%) (Auto) 4.2 % Basophils (%) (Auto) 0.6 % Neutrophils # (Auto) 6.2 TH/MM3 Lymphocytes # (Auto) 1.6 TH/MM3 Monocytes # (Auto) 0.6 TH/MM3 Eosinophils # (Auto) 0.4 TH/MM3 Basophils # (Auto) 0.1 TH/MM3 CBC Comment DIFF FINAL Differential Comment Laboratory Tests Test 06/16/16 06/17/16 06/18/16 12:20 03:06 06:10 Sodium Level 144 MEQ/L 142 MEQ/L 143 MEQ/L Potassium Level 4.6 MEQ/L 4.8 MEQ/L 5.0 MEQ/L Chloride Level 110 MEQ/L 107 MEQ/L 107 MEQ/L Carbon Dioxide Level 27.3 MEQ/L 26.8 MEQ/L 25.9 MEQ/L Anion Gap 7 MEQ/L 8 MEQ/L 10 MEQ/L Blood Urea Nitrogen 29 MG/DL 28 MG/DL 28 MG/DL Creatinine 1.59 MG/DL 1.59 MG/DL 1.59 MG/DL Estimat Glomerular Filtration 33 ML/MIN 33 ML/MIN 33 ML/MIN Rate Random Glucose 162 MG/DL 179 MG/DL 156 MG/DL Calcium Level 7.8 MG/DL 7.9 MG/DL 8.2 MG/DL Phosphorus Level 2.8 MG/DL 2.5 MG/DL 2.7 MG/DL Magnesium Level 1.6 MG/DL 1.6 MG/DL Microbiology Date/Time Procedure Status Source Growth 06/16/16 10:30 Urine Culture - Preliminary Resulted Urine Catheterized Urine NO GROWTH IN 24 HOURS. Imaging Last Impressions Chest X-Ray 06/15/16 0600 Signed Impressions: Service Date/Time: May 03:49 - CONCLUSION: 1. Increased bilateral symmetric pulmonary opacity likely representing pulmonary edema. Pulmonary consolidation is seen bilaterally in the lower lobes. Masslike density again seen in the left upper lobe. 2. New bilateral pleural effusions. Dimitrios Mccartney MD Head CT 06/14/16 0000 Signed Impressions: Service Date/Time: Tuesday, June 14, 2016 02:48 - CONCLUSION: 1. No acute intracranial findings. 2. Pansinusitis with diffuse air fluid levels indicating acute sinusitis. Dimitrios Mccartney MD Chest CT 06/14/16 0000 Signed Impressions: Service Date/Time: Tuesday, June 14, 2016 02:51 - CONCLUSION: 1. Large area of right lower lung consolidation with air bronchograms. 2. Mild left lung consolidation versus atelectasis with rounded masslike anterior contour in the upper lung. 2 additional left-sided nodules are identified in the mid lung. 3. Small bilateral pleural effusions. 4. Enlarged right paratracheal lymph node. Dimitrios Mccartney MD Lung Scan-VQ Nuclear Medicine [id number]/13/[id number] Signed Impressions: Service Date/Time: Monday, June 13, 2016 20:49 - CONCLUSION: Indeterminant probability for pulmonary embolism with Large matched perfusion and ventilatory defect corresponding to radiographic abnormality in the right lung base. Adolfo Daniels MD Abdomen/Pelvis CT [id number]/13/[id number] Signed Impressions: Service Date/Time: Tuesday, June 14, 2016 00:05 - CONCLUSION: 1. Right lower lung consolidation and bilateral pleural effusions. 2. Superficial soft tissue edema suggesting anasarca. 3. Perinephric stranding and diffuse urinary bladder wall thickening. Question urinary tract infection. Mild right hydronephrosis. No calculi identified. 4. Nonspecific oval 4.6 cm mass in the spleen. 5. Retroperitoneal lymphadenopathy. Dimitrios Mccartney MD Lower Extremity Ultrasound 06/13/16 0000 Signed Impressions: Service Date/Time: Tuesday, June 14, 2016 00:24 - CONCLUSION: No evidence of lower extremity DVT on the right or left. Dimitrios Mccartney MD Physical Exam GENERAL: Awake, on CPAP, not in distress SKIN: Cool and dry. No generalized rash or ecchymosis. HEENT: Petros conjunctiva. No scleral icterus. No injection or drainage. Endotracheal tube is in the mouth. NECK: Supple, nontender, short and obese. CARDIOVASCULAR: Regular rate and rhythm without murmurs, gallops, or rubs. RESPIRATORY: Decreased BS at bases GASTROINTESTINAL: Abdomen soft, obese , non-tender, nondistended. No guarding. Bowel sounds are present. MUSCULOSKELETAL: Extremities without clubbing, cyanosis, or edema. or edema noted. No calf tenderness. NEUROLOGICAL: Awake and alert. No Babinski. PSYCH: Unable to assess LINE: Port right upper chest with no evidence of infection : Christianson catheter in place, urine looks clear currently Assessment & Plan Remarks IMPRESSION Respiratory failure, HCAP, with ?pulmonary edema MRSA PNA UTI, prior Hx UTI and ESBL(+) infections - now has low colony count yeast Morbid obesity COPD, likely has KING Multiple Abx allergy - PCN - has taken Keflex without any problem CKD RECOMMENDATION Continue Zyvox for HCAP, MRSA coverage - follow CBC Continue Diflucan Follow C/S Monitor progress Weaning per CCM D/W Melody Sebastian MD Jun 18, 2016 09:21
--- NOTE | 2016-06-18 15:03 | HHI.CCPN ---
Subjective Remarks/Hospital Course 65-year-old female with past medical history of hypertension, diabetes , morbid obesity with obesity hypoventilation syndrome, COPD, chronic systolic heart failure, chronic kidney disease stage III, adenocarcinoma of breast metastatic to lung who presents to [facility] emergency department from [facility] with respiratory distress and lethargy. She was found to be in hypercapnic respiratory failure with pH 7.24/PaCO2 57/PA O2 of 118/bicarbonate 24 on 4 L nasal cannula. She was placed on BiPAP 12 over 5 with 35%. Repeat ABG demonstrated no significant improvement. Dr. Carl discussed with patient' s sister who stated patient was full code and so she was intubated in the emergency department with Grade III/IV view with Glidescope following sedation with ketamine and rocuronium. Chest x-ray demonstrated bilateral vascular congestion. There is also a right lower lobe opacity, right upper lobe opacity , and left upper lobe opacity. She was treated empirically in the emergency department with aztreonam, Flagyl, vancomycin. Urinalysis was remarkable for a UTI. She had a potassium of 6.1. She was treated with I called 50 mEq, calcium gluconate 2 g, insulin 10 units IV and dextrose. Apparently patient also had some left-sided abdominal pain for which Dr. Carl has ordered CT abdomen. VQ scan has also been ordered. Patient's sister states that April has a history of left breast adenocarcinoma which she underwent lumpectomy and lymph node resections. She states she underwent chemotherapy at that time which was poorly tolerated and that she was admitted after chemo every time because "all of her systems would shut down". She states that about 6-8 months ago she was found to have multiple lung mets. She states that chemotherapy was initiated but she was not able to tolerate and therefore she discontinued chemotherapy in February of 2016. She was under the care of Dr. Som Cam at [facility]. She states that for 2-3 years she has been having recurrent urinary tract infections. She states that she has been in and out of the hospital "every other week" in March 2016 due to recurrent urinary tract infections. There has been a history of MDRO and her chart indicates that she has a history of UTI positive for ESBL. Patient was reportedly was admitted to [facility] from April 02 to April 29. During this time she was treated for urinary tract infection. She also had altered mental status and respiratory failure requiring mechanical ventilation for approximately 4 days. She was discharged back to [facility] where she resided for 2-3 weeks until she was again hospitalized for CHF, pneumonia, urinary tract infection. She did not require mechanical ventilation on this admission. Her sister states she has been back at [facility] for about a week. Subjective: 06/14: Patient was noted to be hypoglycemic throughout the night and required D10 infusion. Patient is on hourly glucose monitoring. The sodium the patient was placed on Glucerna tube feeds, glucose levels have improved. The patient is currently on CPAP GCS 11 T denies pain. The patient was noted to have an indeterminate VQ scan and has been placed on therapeutic Lovenox twice a day. Plans for palliative care having consult to discuss with patient's family, goals of care. 06/15: Afebrile. The patient tolerated CPAP trials approximately 15 minutes yesterday. Currently the patient is tolerating CPAP trials for greater than 2 hours. The patient is awake and responsive. Palliative care team met with family yesterday the patient and family would like aggressive measures to continue. The patient's tolerating tube feeds, D10 has been discontinued, her glucose levels have normalized. 06/16: Afebrile. GCS 11T, interacting with sister and family yesterday. Patient was noted to have voluminous bowel movements all bowel regimen is on hold, fecal incontinence apparatus applied. Peripheral edema noted , Lasix 40 mg IV 1 dose. ID consulted, Dr. Morales repeat urine culture obtained today. 06/17: CPAP trials last approximately 3-1/2 hours today. Sputum culture revealed MRSA. The patient denies any pain. GCS 11 T. 06/18: Afebrile. Sputum culture returned back MRSA. Patient to use on Zyvox. Dignashield placed for voluminous diarrhea. C. difficile PCR obtained. Patient remains GCS 11 T with CPAP trials lasting 3-4 hours daily. Discussion with sister Miss Patel regarding possible tracheostomy in the near future. Creatinine stabilized at 1.59, patient baseline. Objective Vital Signs Date Time Temp Pulse Resp B/P Pulse Ox O2 Delivery O2 Flow Rate FiO2 06/18/16 12:00 99.7 74 27 137/61 97 06/18/16 11:36 30 Intake and Output 06/17/16 06/17/16 06/18/16 08:00 16:00 00:00 Intake Total 1275 ml 547 ml 588 ml Output Total 1550 ml 1325 ml 1280 ml Balance -275 ml -778 ml -692 ml Result Diagram: 06/18/16 0610 06/18/16 0610 Imaging Last Impressions Chest X-Ray 06/14/16 0600 Signed Impressions: Service Date/Time: Tuesday, June 14, 2016 04:00 - CONCLUSION: Persistent bilateral pulmonary opacity with right lower lobe consolidation, left lower lung atelectasis versus consolidation and left pleural effusion. Dimitrios Mccartney MD Head CT 06/14/16 0000 Signed Impressions: Service Date/Time: Tuesday, June 14, 2016 02:48 - CONCLUSION: 1. No acute intracranial findings. 2. Pansinusitis with diffuse air fluid levels indicating acute sinusitis. Dimitrios Mccartney MD Chest CT 06/14/16 Signed Impressions: Service Date/Time: Tuesday, June 14, 2016 02:51 - CONCLUSION: 1. Large area of right lower lung consolidation with air bronchograms. 2. Mild left lung consolidation versus atelectasis with rounded masslike anterior contour in the upper lung. 2 additional left-sided nodules are identified in the mid lung. 3. Small bilateral pleural effusions. 4. Enlarged right paratracheal lymph node. Dimitrios Mccartney MD Lung Scan- Nuclear Medicine [id number] Signed Impressions: Service Date/Time: Monday, June 13, 2016 20:49 - CONCLUSION: Indeterminant probability for pulmonary embolism with Large matched perfusion and ventilatory defect corresponding to radiographic abnormality in the right lung base. Adolfo Daniels MD Abdomen/Pelvis CT 06/13/16 174 Signed Impressions: Service Date/Time: Tuesday, June 14, 2016 00:05 - CONCLUSION: 1. Right lower lung consolidation and bilateral pleural effusions. 2. Superficial soft tissue edema suggesting anasarca. 3. Perinephric stranding and diffuse urinary bladder wall thickening. Question urinary tract infection. Mild right hydronephrosis. No calculi identified. 4. Nonspecific oval 4.6 cm mass in the spleen. 5. Retroperitoneal lymphadenopathy. Dimitrios Mccartney MD Lower Extremity Ultrasound 06/13/16 Signed Impressions: Service Date/Time: Tuesday, June 14, 2016 00:24 - CONCLUSION: No evidence of lower extremity DVT on the right or left. Dimitrios Mccartney MD Objective Remarks GENERAL: Morbidly obese female who is orotracheally intubated. Awake , and alert responding to yes and no questions SKIN: Warm and dry. Intertriginous areas with fungal excoriation - breasts, groin and pannus HEAD: Atraumatic. Normocephalic. EYES: Pupils equal and reactive. No scleral icterus. No injection or drainage. ENT: No nasal bleeding or discharge. Mucous membranes pink and moist. NECK: Trachea midline. Unable to assess JVD, secondary to to body habitus. CARDIOVASCULAR: Regular rate and rhythm, sinus rhythm . No murmurs rubs or gallops. RESPIRATORY: On mechanical ventilation. Diminished breath sounds on the right. Clear to auscultation. GASTROINTESTINAL: Abdomen morbidly obese with large pannus. No tenderness to palpation. Bowel sounds are present. There is pitting abdominal wall edema . No crepitus, no erythema or warmth. Skin breakdown as per above. : Christianson in place. MUSCULOSKELETAL: Extremities without clubbing, cyanosis. There is 2+ edema BLE. NEUROLOGICAL: GCS 11 T, awake and responding to commands currently on CPAP. Date of Insertion: Jun 13, 2016 A/P Assessment and Plan NEURO: Acute encephalopathy secondary to hypercapnia Peripheral neuropathy Anxiety Propofol for sedation. Daily sedation vacation Neurontin 100 mg every 8 hours (home dose 200 every 8), controlling pain adequately SSRI on hold Hold Xanax 0.25 mg po q6 hours prn anxiety Melatonin 2.5 mg per tube qhs RESP: Acute hypercapnic and hypoxemic respiratory failure Obesity hypoventilation syndrome Lung metastases from breast cancer primary MRSA Intubated in ED with Glidescope with Grade III/IV Cormack Lehane. 06/13 VQ scan-indeterminate, patient started on therapeutic Lovenox 06/14 DuoNeb every 6 hours scheduled CPAP trials as tolerated Albuterol every 2 hours as needed 06/13 Solumedrol 125 mg IV in the ED. Abx as per below CV: Hypertension Chronic systolic heart failure History of paroxysmal atrial fibrillation (not on chronic anticoagulation, currently in sinus rhythm) 06/14 2-D echo-ejection fraction 60%, no RWMA Troponin negative. Lactic acid normal Continue Coreg 25 mg by mouth 3 times a day will resume today, systolic blood pressure 150's Continue aspirin 81 mg daily GI: Morbid obesity Moderate protein energy malnutrition Abdominal pain Orogastric tube in place tube feeds at goal Glucerna 1.5 at 55 cc/hour Reportedly had left-sided abdominal tenderness in the emergency department. CT abdomen and pelvis 06/13-anasarca abdomen, right lower lung consolidation, bilateral pleural effusions. Questionable UTI. Mild right hydronephrosis. Retroperitoneal lymphadenopathy. 6 cm mass in spleen. Continue multivitamin FEN/RENAL: Chronic kidney disease stage III Hyperkalemia-resolved Potassium 6.1 in ED 06/13. Treatment included calcium, glucose, insulin, bicarbonate. Continue to monitor BMP Christianson in place. Monitor intake and output. Monitor electrolytes and replace as needed ID: HCAP vs post obstructive pneumonia Urinary tract infection Wound lower aspect of right pannus Covered empirically with aztreonam, Flagyl, vancomycin in the emergency department. It was later determined the patient has a history of UTI positive for ESBL Sputum culture-MRSA Blood culture-NGTD Previously on minocycline 100 mg by mouth twice a day. Records from [facility], obtained. Infectious disease consulted- Multiple allergies Continue Diflucan 200 mg daily from assisted 06/14 Urine culture- yeast Repeat urine culture -yeast HEME: Adenocarcinoma left breast, multiple lung metastases Chronic iron deficiency anemia h/o nonocclusive DVT peroneal vein 06/06/14 Continue ferrous sulfate 325 mg twice a day VQ indeterminate-therapeutic Lovenox initiated 150 BID 06/13-B/L lower extremity ultrasound -negative ENDO: Type 2 diabetes mellitus with complications Hypoglycemia Medium dose insulin sliding scale at bedside glucose every 4 hours. Hold Lantus 50 units subcutaneous daily at bedtime Glucose monitoring per ICU protocol PROPH: Protonix 40 mg IV daily for stress ulcer prophylaxis. Lovenox started empirically 150 BID ACCESS: Right chest port accessed. 18 gauge PIV's x 2. This patient remains critically ill with one or more organ systems which are or may become a threat to life. I have spent in excess of 32 minutes discontinuously in the care and management of this patient. This time is exclusive of procedures, and includes, but is not limited to, evaluation of the patient, review of the medical record, discussions with family, consultants, nursing staff, or respiratory therapy, and documentation in the medical record. Palliative care medicine is on board. Ms. Kathleen has been informed of the possibility of a tracheostomy in the next 10 days, followed by a PEG placement if we are unable to extubate the patient. Ms. Kathleen is requesting a meeting with palliative care and her sister early this week to discuss goals of care. Patient and family are unsure at this point as they would like to proceed with tracheostomy and PEG placement if there is an inability to extubate. Provided medical update to sister Ms. Kathleen by [phone] (cell) . PSYCHOLOGIST PERSONNEL update at bedside. Physician Madonna Santos MD Jun 18, 2016 15:03
[2016-06-18] MEDS: MAGNESIUM SULFAT 1 GM PREMIX 100 ML x2 bags IV SCH ×2 (16:36→17:51)
[2016-06-18] MEDS: MELATONIN 5 MG TAB PO SCH (20:07)
[2016-06-18 21:16] LABS: C. DIFF EPI 027 PRESUMPTIVE NEGATIVE (NEGATIVE); C. DIFF TOXIN PCR NEGATIVE (NEGATIVE)
[2016-06-19] VITALS (18 sets, daily range): BP systolic 140–171; BP diastolic 64–74; PULSE 65–89; RESP 22–26; TEMP 98.9–99.5; O2SAT 96–100
[2016-06-19] MEDS: CARVEDILOL 12.5 MG TAB PO SCH ×3 (00:06→15:21)
[2016-06-19] MEDS: ENOXAPARIN SODIUM 150 MG/ML SYRINGE SQ SCH ×2 (00:07→13:00)
[2016-06-19] MEDS: LINEZOLID 600 MG PREMIX 300 ML IV SCH ×2 (00:07→15:12)
[2016-06-19] MEDS: PROPOFOL 1000 MG/100 ML INJ 100 ML IV SCH (03:39)
--- NOTE | 2016-06-19 04:52 | RADRPT ---
EXAM DATE/TIME: 06/19/2016 03:39 [place] COMPARISON: CHEST SINGLE AP, June 18, 2016, 3:18. INDICATIONS : Shortness of breath, possible pulmonary disease. MEDICAL HISTORY : Hypertension. Diabetes mellitus type II. Carcinoma, breast. SURGICAL HISTORY : Cholecystectomy. ENCOUNTER: Subsequent ACUITY: 1 week PAIN SCORE: Non-responsive. LOCATION: Bilateral chest FINDINGS: There is cardiomegaly, elevation of right hemidiaphragm again noted. Patchy left lower lobe airspace disease is stable. Endotracheal tube and NG tube as well as EKG leads are noted. Right portacatheter noted. CONCLUSION: No significant change has occurred. Doni Mccarty MD on June 19, 2016 at 4:49 Board Certified Radiologist. This report was verified electronically.
[2016-06-19] MEDS: INSULIN NovoLIN REGULAR SUPPLEMENTAL SCALE SQ SCH ×4 (06:05→20:05)
[2016-06-19 06:52] LABS: HEMATOCRIT 24.6 % (35.0-46.0); MEAN CELL VOLUME 94.3 FL (80.0-100.0); MEAN CORPUSCULAR HEMOGLOBIN 30.6 PG (27.0-34.0); MEAN CORPUSCULAR HGB CONC 32.4 % (32.0-36.0); PLATELET COUNT 266 TH/MM3 (150-450); RED BLOOD COUNT 2.61 MIL/MM3 (4.00-5.30); RED CELL DISTRIBUTION WIDTH 20.9 % (11.6-17.2); REVIEW FLAG FINAL
[2016-06-19 07:08] LABS: BICARBONATE 25.4 MEQ/L (21.0-32.0)
[2016-06-19 07:10] LABS: POTASSIUM 5.5 MEQ/L (3.5-5.1)
[2016-06-19] MEDS: CHLORHEXIDINE 0.12% (ORAL KIT) 15 ML CUP MT SCH ×2 (08:00→20:04)
[2016-06-19] MEDS: PANTOPRAZOLE SODIUM 40 MG VIAL IV SCH (08:36)
[2016-06-19] MEDS: FUROSEMIDE 20 MG/2 ML VIAL IV PUSH SCH ×2 (08:36→20:04)
[2016-06-19] MEDS: POLYETHYLENE GLYCOL 17 GM PKG PO SCH (08:37)
[2016-06-19] MEDS: SODIUM CHLORIDE 0.9% FLUSH 5 ML FLUSH IV FLUSH SCH ×2 (08:37→20:04)
[2016-06-19] MEDS: GABAPENTIN 250 MG/5 ML UDC TUBE SCH ×3 (08:37→18:02)
[2016-06-19] MEDS: BETHANECHOL CHL 10 MG TAB PO SCH (08:37)
[2016-06-19] MEDS: FLUCONAZOLE 200 MG TAB PO SCH (08:37)
[2016-06-19] MEDS: FERROUS SULFATE 300 MG /5ML UDC PO SCH ×2 (08:37→20:04)
[2016-06-19] MEDS: ALLOPURINOL 100 MG TAB PO SCH (08:37)
[2016-06-19] MEDS: MULTIVITAMINS/MINERALS THERAPEUTIC TAB PO SCH (08:37)
--- NOTE | 2016-06-19 09:16 | HHI.IDPN ---
Subjective Subjective Remarks Notes reviewed Doing CPAP trials CCM notes reviewed Trach being discussed Temps ok Antibiotics Zyvox Diflucan Lines [place] Past Medical History HTN COPD DM Diabetic peripheral neuropathy chronic kidney disease stage III/IV Obesity hypoventilation syndrome Morbid obesity Gout Paroxysmal atrial fibrillation Recurrent UTI Recurrent pneumonia h/o ESBL Anxiety DVT R peroneal vein 06/06/14 History of fall Dysphagia (noted on nectar thickened liquids diet according to note from 06/09/16 ) Chronic urinary incontinence Allergic rhinitis Left breast adenocarcinoma. Last chemotherapy February 2016 ? 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 CT brain negative. Past Surgical History Lithotripsy Gastric bypass Left breast lumpectomy and lymph node biopsy Open cholecystectomy Allergies: Coded Allergies: Percocet (Unverified Allergy, Severe, Nausea/Vomiting, 06/13/16) Codeine (Unverified Allergy, Mild, Nausea/Vomiting, 06/13/16) Lortab (Unverified Allergy, Mild, Nausea/Vomiting, 06/13/16) Bactrim (Unverified Allergy, Unknown, 06/13/16) Ciprofloxacin (Unverified Allergy, Unknown, 06/13/16) Hydrocodone (Unverified Allergy, Unknown, 06/13/16) Levaquin (Unverified Allergy, Unknown, 06/13/16) Penicillin (Verified Allergy, Unknown, rash, 06/14/16) Has taken Keflex in past with no problem Quinolones (Unverified Allergy, Unknown, 06/13/16) Sulfa (Unverified Allergy, Unknown, 06/13/16) *MDRO Multi-Drug Resistant Organism (Verified Adverse Reaction, Unknown, ) MRSA (sputum)-06/14/16 Objective . Vital Signs Date Time Temp Pulse Resp B/P Pulse Ox O2 Delivery O2 Flow Rate FiO2 06/19/16 08:23 30 06/19/16 08:23 96 30 06/19/16 06:00 72 06/19/16 04:02 98 30 06/19/16 04:00 30 06/19/16 04:00 99.1 74 22 157/65 97 06/19/16 04:00 74 06/19/16 02:00 65 06/19/16 00:00 69 06/19/16 00:00 99.0 69 22 153/64 96 06/19/16 00:00 30 06/18/16 23:27 96 30 06/18/16 22:00 66 06/18/16 20:00 30 06/18/16 20:00 99.2 72 22 155/65 97 06/18/16 20:00 72 06/18/16 19:57 100 30 06/18/16 18:00 75 06/18/16 16:00 30 06/18/16 16:00 75 06/18/16 16:00 98.7 79 26 161/70 96 06/18/16 15:27 97 30 06/18/16 14:00 75 06/18/16 12:00 99.7 74 27 137/61 97 06/18/16 12:00 74 06/18/16 11:36 97 30 06/18/16 10:00 75 06/18/16 09:45 30 06/18/16 06/18/16 06/19/16 15:00 23:00 07:00 Intake Total 925 ml 675 ml 769 ml Output Total 2200 ml 1100 ml 1500 ml Balance -1275 ml -425 ml -731 ml Intake IV Total 205 ml 220 ml 410 ml Tube Feeding 470 ml 455 ml 359 ml Other 250 ml Output Urine Total 1600 ml 800 ml 1150 ml Stool Total 600 ml 300 ml 350 ml . Laboratory Tests Test 06/18/16 06/19/16 06:10 06:00 White Blood Count 8.8 TH/MM3 10.0 TH/MM3 Red Blood Count 2.56 MIL/MM3 2.61 MIL/MM3 Hemoglobin 7.8 GM/DL 8.0 GM/DL Hematocrit 23.7 % 24.6 % Mean Corpuscular Volume 92.6 FL 94.3 FL Mean Corpuscular Hemoglobin 30.6 PG 30.6 PG Mean Corpuscular Hemoglobin 33.1 % 32.4 % Concent Red Cell Distribution Width 20.4 % 20.9 % Platelet Count 246 TH/MM3 266 TH/MM3 Mean Platelet Volume 8.5 FL 8.8 FL Neutrophils (%) (Auto) 70.5 % Lymphocytes (%) (Auto) 17.8 % Monocytes (%) (Auto) 6.9 % Eosinophils (%) (Auto) 4.2 % Basophils (%) (Auto) 0.6 % Neutrophils # (Auto) 6.2 TH/MM3 Lymphocytes # (Auto) 1.6 TH/MM3 Monocytes # (Auto) 0.6 TH/MM3 Eosinophils # (Auto) 0.4 TH/MM3 Basophils # (Auto) 0.1 TH/MM3 CBC Comment DIFF FINAL Differential Comment Laboratory Tests Test 06/18/16 06/19/16 06:10 06:00 Sodium Level 143 MEQ/L 141 MEQ/L Potassium Level 5.0 MEQ/L 5.5 MEQ/L Chloride Level 107 MEQ/L 106 MEQ/L Carbon Dioxide Level 25.9 MEQ/L 25.4 MEQ/L Anion Gap 10 MEQ/L 10 MEQ/L Blood Urea Nitrogen 28 MG/DL 28 MG/DL Creatinine 1.59 MG/DL 1.71 MG/DL Estimat Glomerular Filtration 33 ML/MIN 30 ML/MIN Rate Random Glucose 156 MG/DL 175 MG/DL Calcium Level 8.2 MG/DL 8.3 MG/DL Phosphorus Level 2.7 MG/DL 3.2 MG/DL Magnesium Level 1.6 MG/DL 2.0 MG/DL Microbiology Date/Time Procedure Status Source Growth 06/16/16 10:30 Urine Culture - Preliminary Resulted Urine Catheterized Urine Yeast-Id To Follow Imaging Last Impressions Chest X-Ray 06/15/16 0600 Signed Impressions: Service Date/Time: May 03:49 - CONCLUSION: 1. Increased bilateral symmetric pulmonary opacity likely representing pulmonary edema. Pulmonary consolidation is seen bilaterally in the lower lobes. Masslike density again seen in the left upper lobe. 2. New bilateral pleural effusions. Dimitrios Mccartney MD Head CT 06/14/16 0000 Signed Impressions: Service Date/Time: Tuesday, June 14, 2016 02:48 - CONCLUSION: 1. No acute intracranial findings. 2. Pansinusitis with diffuse air fluid levels indicating acute sinusitis. Dimitrios Mccartney MD Chest CT 06/14/16 0000 Signed Impressions: Service Date/Time: Tuesday, June 14, 2016 02:51 - CONCLUSION: 1. Large area of right lower lung consolidation with air bronchograms. 2. Mild left lung consolidation versus atelectasis with rounded masslike anterior contour in the upper lung. 2 additional left-sided nodules are identified in the mid lung. 3. Small bilateral pleural effusions. 4. Enlarged right paratracheal lymph node. Dimitrios Mccartney MD Lung Scan- Nuclear Medicine [id number]/1745 Signed Impressions: Service Date/Time: Monday, June 13, 2016 20:49 - CONCLUSION: Indeterminant probability for pulmonary embolism with Large matched perfusion and ventilatory defect corresponding to radiographic abnormality in the right lung base. Adolfo Daniels MD Abdomen/Pelvis CT [id number] Signed Impressions: Service Date/Time: Tuesday, June 14, 2016 00:05 - CONCLUSION: 1. Right lower lung consolidation and bilateral pleural effusions. 2. Superficial soft tissue edema suggesting anasarca. 3. Perinephric stranding and diffuse urinary bladder wall thickening. Question urinary tract infection. Mild right hydronephrosis. No calculi identified. 4. Nonspecific oval 4.6 cm mass in the spleen. 5. Retroperitoneal lymphadenopathy. Dimitrios Mccartney MD Lower Extremity Ultrasound 06/13/16 0000 Signed Impressions: Service Date/Time: Tuesday, June 14, 2016 00:24 - CONCLUSION: No evidence of lower extremity DVT on the right or left. Dimitrios Mccartney MD Physical Exam GENERAL: Awake, on CPAP, not in distress SKIN: Cool and dry. No generalized rash HEENT: [place] conjunctiva. No scleral icterus. Endotracheal tube is in the mouth. NECK: Supple, nontender, short and obese. CARDIOVASCULAR: Regular rate and rhythm without murmurs, gallops, or rubs. RESPIRATORY: Decreased BS at bases GASTROINTESTINAL: Abdomen soft, obese , non-tender, nondistended. No guarding. Bowel sounds are present. MUSCULOSKELETAL: Extremities without clubbing, cyanosis, or edema. or edema noted. No calf tenderness. NEUROLOGICAL: Awake and alert. No Babinski. LINE: Port right upper chest with no evidence of infection : Christianson catheter in place, urine looks clear currently Assessment & Plan Remarks IMPRESSION Respiratory failure, HCAP, with ?pulmonary edema MRSA PNA UTI, prior Hx UTI and ESBL(+) infections - now has low colony count yeast Morbid obesity COPD, likely has KING Multiple Abx allergy - PCN - has taken Keflex without any problem CKD Candiduria RECOMMENDATION Continue Zyvox for HCAP, MRSA coverage - follow CBC Continue Diflucan, increase dose Monitor progress Weaning per CCM Melody Morales MD Jun 19, 2016 09:16
[2016-06-19] MEDS ORDERED: FLUCONAZOLE 200 MG TAB PO ONE (09:30)
--- NOTE | 2016-06-19 09:52 | HHI.CCPN ---
Subjective Remarks/Hospital Course 65-year-old female with past medical history of hypertension, diabetes , morbid obesity with obesity hypoventilation syndrome, COPD, chronic systolic heart failure, chronic kidney disease stage III, adenocarcinoma of breast metastatic to lung who presents to [facility] emergency department from [facility] with respiratory distress and lethargy. She was found to be in hypercapnic respiratory failure with pH 7.24/PaCO2 57/PA O2 of 118/bicarbonate 24 on 4 L nasal cannula. She was placed on BiPAP 12 over 5 with 35%. Repeat ABG demonstrated no significant improvement. Dr. Carl discussed with patient' s sister who stated patient was full code and so she was intubated in the emergency department with Grade III/IV view with Glidescope following sedation with ketamine and rocuronium. Chest x-ray demonstrated bilateral vascular congestion. There is also a right lower lobe opacity, right upper lobe opacity , and left upper lobe opacity. She was treated empirically in the emergency department with aztreonam, Flagyl, vancomycin. Urinalysis was remarkable for a UTI. She had a potassium of 6.1. She was treated with I called 50 mEq, calcium gluconate 2 g, insulin 10 units IV and dextrose. Apparently patient also had some left-sided abdominal pain for which Dr. Carl has ordered CT abdomen. VQ scan has also been ordered. Patient's sister states that April has a history of left breast adenocarcinoma which she underwent lumpectomy and lymph node resections. She states she underwent chemotherapy at that time which was poorly tolerated and that she was admitted after chemo every time because "all of her systems would shut down". She states that about 6-8 months ago she was found to have multiple lung mets. She states that chemotherapy was initiated but she was not able to tolerate and therefore she discontinued chemotherapy in February of 2016. She was under the care of Dr. Som Cam at [facility]. She states that for 2-3 years she has been having recurrent urinary tract infections. She states that she has been in and out of the hospital "every other week" in March 2016 due to recurrent urinary tract infections. There has been a history of MDRO and her chart indicates that she has a history of UTI positive for ESBL. Patient was reportedly was admitted to [facility] from April 02 to April 29. During this time she was treated for urinary tract infection. She also had altered mental status and respiratory failure requiring mechanical ventilation for approximately 4 days. She was discharged back to [facility] where she resided for 2-3 weeks until she was again hospitalized for CHF, pneumonia, urinary tract infection. She did not require mechanical ventilation on this admission. Her sister states she has been back at [facility] for about a week. Subjective: 06/14: Patient was noted to be hypoglycemic throughout the night and required D10 infusion. Patient is on hourly glucose monitoring. The sodium the patient was placed on Glucerna tube feeds, glucose levels have improved. The patient is currently on CPAP GCS 11 T denies pain. The patient was noted to have an indeterminate VQ scan and has been placed on therapeutic Lovenox twice a day. Plans for palliative care having consult to discuss with patient's family, goals of care. 06/15: Afebrile. The patient tolerated CPAP trials approximately 15 minutes yesterday. Currently the patient is tolerating CPAP trials for greater than 2 hours. The patient is awake and responsive. Palliative care team met with family yesterday the patient and family would like aggressive measures to continue. The patient's tolerating tube feeds, D10 has been discontinued, her glucose levels have normalized. 06/16: Afebrile. GCS 11T, interacting with sister and family yesterday. Patient was noted to have voluminous bowel movements all bowel regimen is on hold, fecal incontinence apparatus applied. Peripheral edema noted , Lasix 40 mg IV 1 dose. ID consulted, Dr. Morales repeat urine culture obtained today. 06/17: CPAP trials last approximately 3-1/2 hours today. Sputum culture revealed MRSA. The patient denies any pain. GCS 11 T. 06/18: Afebrile. Sputum culture returned back MRSA. Patient to use on Zyvox. Dignashield placed for voluminous diarrhea. C. difficile PCR obtained. Patient remains GCS 11 T with CPAP trials lasting 3-4 hours daily. Discussion with sister Miss Patel regarding possible tracheostomy in the near future. Creatinine stabilized at 1.59, patient baseline. 06/19: Patient is on 20 mcg/KG per minute of propofol. I suspect one is open she is not following commands for me. C. difficile checked yesterday was negative. Chest x-ray done shows persistent left lower lobe consolidation Objective Vital Signs Date Time Temp Pulse Resp B/P Pulse Ox O2 Delivery O2 Flow Rate FiO2 3/20/17 08:23 30 06/19/16 08:23 96 06/19/16 06:00 72 06/19/16 04:00 99.1 22 157/65 Intake and Output 06/18/16 06/18/16 06/19/16 08:00 16:00 00:00 Intake Total 868 ml 925 ml 675 ml Output Total 1400 ml 2200 ml 1100 ml Balance -532 ml -1275 ml -425 ml Result Diagram: 06/19/16 0600 06/19/16 06 Imaging Last Impressions Chest X-Ray 06/14/16599 Signed Impressions: Service Date/Time: Tuesday, June 14, 2016 04:00 - CONCLUSION: Persistent bilateral pulmonary opacity with right lower lobe consolidation, left lower lung atelectasis versus consolidation and left pleural effusion. Dimitrios Mccartney MD Head CT 06/14/16 0000 Signed Impressions: Service Date/Time: Tuesday, June 14, 2016 02:48 - CONCLUSION: 1. No acute intracranial findings. 2. Pansinusitis with diffuse air fluid levels indicating acute sinusitis. Dimitrios Mccartney MD Chest CT 06/14/16 0000 Signed Impressions: Service Date/Time: Tuesday, June 14, 2016 02:51 - CONCLUSION: 1. Large area of right lower lung consolidation with air bronchograms. 2. Mild left lung consolidation versus atelectasis with rounded masslike anterior contour in the upper lung. 2 additional left-sided nodules are identified in the mid lung. 3. Small bilateral pleural effusions. 4. Enlarged right paratracheal lymph node. Dimitrios Mccartney MD Lung Scan- Nuclear Medicine 06/13/16 1746 Signed Impressions: Service Date/Time: Monday, June 13, 2016 20:49 - CONCLUSION: Indeterminant probability for pulmonary embolism with Large matched perfusion and ventilatory defect corresponding to radiographic abnormality in the right lung base. Adolfo Daniels MD Abdomen/Pelvis CT 06/13/16 1746 Signed Impressions: Service Date/Time: Tuesday, June 14, 2016 00:05 - CONCLUSION: 1. Right lower lung consolidation and bilateral pleural effusions. 2. Superficial soft tissue edema suggesting anasarca. 3. Perinephric stranding and diffuse urinary bladder wall thickening. Question urinary tract infection. Mild right hydronephrosis. No calculi identified. 4. Nonspecific oval 4.6 cm mass in the spleen. 5. Retroperitoneal lymphadenopathy. Dimitrios Mccartney MD Lower Extremity Ultrasound 06/13/16 0000 Signed Impressions: Service Date/Time: Tuesday, June 14, 2016 00:24 - CONCLUSION: No evidence of lower extremity DVT on the right or left. Dimitrios Mccartney MD Objective Remarks GENERAL: Morbidly obese female who is orotracheally intubated. Awake SKIN: Warm and dry. Intertriginous areas with fungal excoriation - breasts, groin and pannus HEAD: Atraumatic. Normocephalic. EYES: Pupils equal and reactive. No scleral icterus. No injection or drainage. ENT: No nasal bleeding or discharge. Mucous membranes pink and moist. NECK: Trachea midline. Unable to assess JVD, secondary to to body habitus. CARDIOVASCULAR: Regular rate and rhythm, sinus rhythm . No murmurs rubs or gallops. RESPIRATORY: On mechanical ventilation. Diminished breath sounds in bilateral bases. Clear to auscultation. GASTROINTESTINAL: Abdomen morbidly obese with large pannus. No tenderness to palpation. Bowel sounds are present. There is pitting abdominal wall edema . No crepitus, no erythema or warmth. Skin breakdown as per above. : Christianson in place. MUSCULOSKELETAL: Extremities without clubbing, cyanosis. There is 2+ edema BLE. NEUROLOGICAL: GCS 11 T, awake and not responding to commands for me currently on CPAP. Date of Insertion: Jun 13, 2016 A/P Assessment and Plan NEURO: Acute encephalopathy secondary to hypercapnia and sepsis Peripheral neuropathy Anxiety Propofol for sedation. Daily sedation vacation Neurontin 100 mg every 8 hours (home dose 200 every 8), controlling pain adequately SSRI on hold Hold Xanax 0.25 mg po q6 hours prn anxiety Melatonin 2.5 mg per tube qhs RESP: Acute hypercapnic and hypoxemic respiratory failure Obesity hypoventilation syndrome Lung metastases from breast cancer primary MRSA pneumonia Intubated in ED with Glidescope with Grade III/IV Cormack Lehane. 06/13 VQ scan-indeterminate, patient started on therapeutic Lovenox 06/14 DuoNeb every 6 hours scheduled CPAP trials as tolerated Albuterol every 2 hours as needed 06/13 Solumedrol 125 mg IV in the ED. Abx as per below CV: Hypertension Chronic systolic heart failure History of paroxysmal atrial fibrillation (not on chronic anticoagulation, currently in sinus rhythm) 06/14 2-D echo-ejection fraction 60%, no RWMA Troponin negative. Lactic acid normal Continue Coreg 25 mg by mouth 3 times a day will resume today, systolic blood pressure 150's Continue aspirin 81 mg daily GI: Morbid obesity Moderate protein energy malnutrition Abdominal pain Orogastric tube in place tube feeds at goal Glucerna 1.5 at 55 cc/hour Reportedly had left-sided abdominal tenderness in the emergency department. CT abdomen and pelvis 06/13-anasarca abdomen, right lower lung consolidation, bilateral pleural effusions. Halima UTI. Mild right hydronephrosis. Retroperitoneal lymphadenopathy. 6 cm mass in spleen. Continue multivitamin FEN/RENAL: Chronic kidney disease stage III Hyperkalemia-resolved Potassium 6.1 in ED 06/13. Treatment included calcium, glucose, insulin, bicarbonate. Continue to monitor BMP Christianson in place. Monitor intake and output. Monitor electrolytes and replace as needed ID: HCAP vs post obstructive pneumonia, sputum MRSA Follow Urinary tract infection Wound lower aspect of right pannus Continue Zyvox and Diflucan Sputum culture-MRSA Blood culture-NGTD Previously on minocycline 100 mg by mouth twice a day. Records from [facility], obtained. Infectious disease consulted- Multiple allergies 06/14 Urine culture- yeast Repeat urine culture -yeast HEME: Adenocarcinoma left breast, multiple lung metastases Chronic iron deficiency anemia h/o nonocclusive DVT peroneal vein 06/06/14 Continue ferrous sulfate 325 mg twice a day VQ indeterminate-therapeutic Lovenox initiated 150 BID 06/13-B/L lower extremity ultrasound -negative ENDO: Type 2 diabetes mellitus with complications Hypoglycemia Medium dose insulin sliding scale at bedside glucose every 4 hours. Hold Lantus 50 units subcutaneous daily at bedtime Glucose monitoring per ICU protocol PROPH: Protonix 40 mg IV daily for stress ulcer prophylaxis. Lovenox started empirically 150 BID, start coumadin 06/19/16 and pharmacy to dose ACCESS: Right chest port accessed. 18 gauge PIV's x 2. This patient remains critically ill with one or more organ systems which are or may become a threat to life. I have spent in excess of 32 minutes discontinuously in the care and management of this patient. This time is exclusive of procedures, and includes, but is not limited to, evaluation of the patient, review of the medical record, discussions with family, consultants, nursing staff, or respiratory therapy, and documentation in the medical record. Palliative care medicine is on board. Ms. Kathleen has been informed of the possibility of a tracheostomy in the next 10 days, followed by a PEG placement if we are unable to extubate the patient. Ms. Kathleen is requesting a meeting with palliative care and her sister early this week to discuss goals of care. Patient and family are unsure at this point as they would like to proceed with tracheostomy and PEG placement if there is an inability to extubate. Provided medical update to sister Ms. Kathleen by [phone] (cell) . [employer] update at bedside. Mark Perez MD Jun 19, 2016 09:52
[2016-06-19 11:35] LABS: PROTHROMBIN TIME - PATIENT 10.9 SEC (9.8-11.6)
[2016-06-19 12:00] LABS: BLOOD GAS CARBOXYHEMOGLOBIN 2.3 % (0-4); BLOOD GAS HCO3 26 mmol/L (22-26); BLOOD GAS METHEMOGLOBIN 1.3 % (0-2); BLOOD GAS O2 HGB SATURATION 93 % (90-100); BLOOD GAS PCO2 44 mmHg (38-42); BLOOD GAS PO2 89 mmHg (61-120); BLOOD GAS TOTAL HGB 8.3 G/DL (12.0-16.0); TEMP CORR TO 98.6
[2016-06-19 12:01] LABS: CRITICAL VALUE NO; DRAW SITE LT RADIAL; FIO2 35 %; NUMBER OF ARTERIAL PUNCTURES 1; OXYGEN DEVICE VENTILATOR; STAT NO; ULNAR PULSE Y; VENT SETTINGS EPAP 5 IPAP5
--- NOTE | 2016-06-19 14:05 | HHI.HCPN ---
Reason for visit a. To assist with evaluation and management of symptoms including: dyspnea, pain, b. To assist medical decision maker(s) with: better understanding of current medical conditions; weighing benefits/burdens of medical treatment options; making medical treatment decisions. (Arabella Mcpherson) Subjective/Interval History Ms Vargas is currently off propofol. She has her eyes open but she is otherwise not responding to me this morning. She remains on CPAP with good saturation. Trials are being attempted with the hope for extubation tomorrow. Labs indicate renal function stable with a slight improvement in her creatinine at this time. She remains on antibiotics for sepsis. Urine was positive for Halima and sputum is now positive for MRSA. She notes allergies to multiple antibiotics in the past has had an issue MDRO / +ESBL. Edema has improved considerably since last week. I spoke with her sister, Philomena Roberts, to update her status. Plans for extubation tomorrow. She is concerned that if she fails she would need to be reintubated. Discussed DNR/DNI status. She is unable to make that decsion at this time. Her sister indicates she will be in 5 PM today. She requests a pulmonology consult in light of her multiple issues : Breast Cancer w mets to lungs, obesity related hypoventilation syndrome, multiple hospitalizations. (Arabella Mcpherson) Advance Directives Health Care Surrogate: Copy in medical record (Arabella Mcpherson) Advance Directive Specifics Health Care Surrogate(s): Philomena Kathleen, sister, home phone [phone], cell phone [phone], lives in [facility]. Documented care wishes: Per her sister, April indicated last month that she wished to be a full code until "she was in a vegetative state." She had no prior conversations with her sister regarding hospice (Arabella Mcpherson) Objective Vital Signs Date Time Temp Pulse Resp B/P Pulse Ox O2 Delivery O2 Flow Rate FiO2 06/19/16 11:43 98 35 06/19/16 08:23 30 06/19/16 08:23 96 30 06/19/16 08:00 76 06/19/16 06:00 72 06/19/16 04:02 98 30 06/19/16 04:00 30 06/19/16 04:00 99.1 74 22 157/65 97 06/19/16 04:00 74 06/19/16 02:00 65 06/19/16 00:00 69 06/19/16 00:00 99.0 69 22 153/64 96 06/19/16 00:00 30 06/18/16 23:27 96 30 06/18/16 22:00 66 06/18/16 20:00 30 06/18/16 20:00 99.2 72 22 155/65 97 06/18/16 20:00 72 06/18/16 19:57 100 30 06/18/16 18:00 75 06/18/16 16:00 30 06/18/16 16:00 75 06/18/16 16:00 98.7 79 26 161/70 96 06/18/16 15:27 97 30 06/18/16 14:00 75 Intake & Output 06/19/16 06/19/16 07:00 19:00 Intake Total 1444 ml Output Total 2600 ml Balance -1156 ml Intake IV Total 630 ml Tube Feeding 814 ml Output Urine Total 1950 ml Stool Total 650 ml Physical Exam CONSTITUTIONAL/GENERAL: This is super morbidly obese woman, in no apparent distress. Off propofol, eyes open, not engaging with me TUBES/LINES/DRAINS: ET and OT, Christianson, IV lines, rectal tube SKIN: No jaundice, rashes, or lesions. Ecchymoses on upper extremities. No wounds seen anteriorly. Skin temperature appropriate. Not diaphoretic. HEAD: Atraumatic. Normocephalic. EYES: Eyes open. Tracking ENT: Hearing appears adequate , Nose without bleeding or purulent drainage. NECK: Trachea midline. Unable to assess JVD due to body habitus CARDIOVASCULAR: Regular rate and rhythm with murmurs. . Peripheral pulses symmetric. RESPIRATORY/CHEST: Symmetric, unlabored respirations on vent. Diminished breath sounds on right, otherwise clear. GASTROINTESTINAL: Abdomen obese, soft, large pannus, bowel sounds present. Soft edema throughout abdominal wall and right flank GENITOURINARY: Without palpable bladder distension. Christianson catheter in place. MUSCULOSKELETAL: 2 plus edema from feet through thigh, . . No mottling or clubbing. LYMPHATICS: No palpable cervical or supraclavicular adenopathy. NEUROLOGICAL: Not on propofol at this time. Not engaging with me nor following commands time of my visit PSYCHIATRIC: Unable to assess (Arabella Mcpherson) Diagnostic Tests Laboratory Laboratory Tests Test 06/17/16 06/17/16 06/18/16 06/18/16 03:06 05:05 06:10 16:50 White Blood Count 9.5 TH/MM3 8.8 TH/MM3 (4.0-11.0) (4.0-11.0) Red Blood Count 2.49 MIL/MM3 2.56 MIL/MM3 (4.00-5.30) (4.00-5.30) Hemoglobin 7.7 GM/DL 7.8 GM/DL (11.6-15.3) (11.6-15.3) Hematocrit 23.1 % 23.7 % (35.0-46.0) (35.0-46.0) Mean Corpuscular Volume 93.0 FL 92.6 FL (80.0-100.0) (80.0-100.0) Mean Corpuscular Hemoglobin 31.0 PG 30.6 PG (27.0-34.0) (27.0-34.0) Mean Corpuscular Hemoglobin 33.4 % 33.1 % Concent (32.0-36.0) (32.0-36.0) Red Cell Distribution Width 20.8 % 20.4 % (11.6-17.2) (11.6-17.2) Platelet Count 244 TH/MM3 246 TH/MM3 (150-450) (150-450) Mean Platelet Volume 8.4 FL 8.5 FL (7.0-11.0) (7.0-11.0) Sodium Level 142 MEQ/L 143 MEQ/L (136-145) (136-145) Potassium Level 4.8 MEQ/L 5.0 MEQ/L (3.5-5.1) (3.5-5.1) Chloride Level 107 MEQ/L 107 MEQ/L (98-107) (98-107) Carbon Dioxide Level 26.8 MEQ/L 25.9 MEQ/L (21.0-32.0) (21.0-32.0) Anion Gap 8 MEQ/L (5-15) 10 MEQ/L (5-15) Blood Urea Nitrogen 28 MG/DL (7-18) 28 MG/DL (7-18) Creatinine 1.59 MG/DL 1.59 MG/DL (0.50-1.00) (0.50-1.00) Estimat Glomerular Filtration 33 ML/MIN (>89) 33 ML/MIN (>89) Rate Random Glucose 179 MG/DL 156 MG/DL (74-106) (74-106) Calcium Level 7.9 MG/DL 8.2 MG/DL (8.5-10.1) (8.5-10.1) Phosphorus Level 2.5 MG/DL 2.7 MG/DL (2.5-4.9) (2.5-4.9) Magnesium Level 1.6 MG/DL 1.6 MG/DL (1.5-2.5) (1.5-2.5) Blood Gas Puncture Site RT RADIAL Blood Gas Patient Temperature 98.6 Blood Gas HCO3 24 mmol/L (22-26) Blood Gas Base Excess 0.1 mmol/L (-2-2) Blood Gas Oxygen Saturation 93 % (90-100) Arterial Blood pH 7.40 (7.380-7.420) Arterial Blood Partial 40 mmHg (38-42) Pressure CO2 Arterial Blood Partial 88 mmHg Pressure O2 (61-120) Arterial Blood Oxygen Content 10.7 Vol % (12.0-20.0) Arterial Blood 2.2 % (0-4) Carboxyhemoglobin Arterial Blood Methemoglobin 1.5 % (0-2) Blood Gas Hemoglobin 8.0 G/DL (12.0-16.0) Oxygen Delivery Device VENTILATOR Blood Gas Ventilator Setting PRVC/AC Blood Gas Inspired Oxygen 30 % Neutrophils (%) (Auto) 70.5 % (16.0-70.0) Lymphocytes (%) (Auto) 17.8 % (9.0-44.0) Monocytes (%) (Auto) 6.9 % (0.0-8.0) Eosinophils (%) (Auto) 4.2 % (0.0-4.0) Basophils (%) (Auto) 0.6 % (0.0-2.0) Neutrophils # (Auto) 6.2 TH/MM3 (1.8-7.7) Lymphocytes # (Auto) 1.6 TH/MM3 (1.0-4.8) Monocytes # (Auto) 0.6 TH/MM3 (0-0.9) Eosinophils # (Auto) 0.4 TH/MM3 (0-0.4) Basophils # (Auto) 0.1 TH/MM3 (0-0.2) CBC Comment DIFF FINAL Differential Comment Stool C. difficile Toxin (PCR) NEGATIVE (NEGATIVE) Stl C. difficile Toxin PRESUMPTIVE Epiderm 027 NEGATIVE (NEGATIVE) Test 06/19/16 06/19/16 06/19/16 06:00 11:11 11:55 White Blood Count 10.0 TH/MM3 (4.0-11.0) Red Blood Count 2.61 MIL/MM3 (4.00-5.30) Hemoglobin 8.0 GM/DL (11.6-15.3) Hematocrit 24.6 % (35.0-46.0) Mean Corpuscular Volume 94.3 FL (80.0-100.0) Mean Corpuscular Hemoglobin 30.6 PG (27.0-34.0) Mean Corpuscular Hemoglobin 32.4 % Concent (32.0-36.0) Red Cell Distribution Width 20.9 % (11.6-17.2) Platelet Count 266 TH/MM3 (150-450) Mean Platelet Volume 8.8 FL (7.0-11.0) Sodium Level 141 MEQ/L (136-145) Potassium Level 5.5 MEQ/L (3.5-5.1) Chloride Level 106 MEQ/L (98-107) Carbon Dioxide Level 25.4 MEQ/L (21.0-32.0) Anion Gap 10 MEQ/L (5-15) Blood Urea Nitrogen 28 MG/DL (7-18) Creatinine 1.71 MG/DL (0.50-1.00) Estimat Glomerular Filtration 30 ML/MIN (>89) Rate Random Glucose 175 MG/DL (74-106) Calcium Level 8.3 MG/DL (8.5-10.1) Phosphorus Level 3.2 MG/DL (2.5-4.9) Magnesium Level 2.0 MG/DL (1.5-2.5) Prothrombin Time 10.9 SEC (9.8-11.6) Prothromb Time International 1.0 RATIO Ratio Blood Gas Puncture Site LT RADIAL Blood Gas Patient Temperature 98.6 Blood Gas HCO3 26 mmol/L (22-26) Blood Gas Base Excess 1.0 mmol/L (-2-2) Blood Gas Oxygen Saturation 93 % (90-100) Arterial Blood pH 7.38 (7.380-7.420) Arterial Blood Partial 44 mmHg (38-42) Pressure CO2 Arterial Blood Partial 89 mmHg Pressure O2 (61-120) Arterial Blood Oxygen Content 11.0 Vol % (12.0-20.0) Arterial Blood 2.3 % (0-4) Carboxyhemoglobin Arterial Blood Methemoglobin 1.3 % (0-2) Blood Gas Hemoglobin 8.3 G/DL (12.0-16.0) Oxygen Delivery Device VENTILATOR Blood Gas Ventilator Setting EPAP 5 IPAP5 Blood Gas Inspired Oxygen 35 % (Arabella Mcpherson) Result Diagram: 06/19/16 0600 06/19/16 0600 Microbiology 06/14/16sputumMRSA 06/13/16urineCandida Imaging Last 72 hours Impressions Chest X-Ray 06/19/16 06 Signed Impressions: Service Date/Time: Sunday, June 19, 2016 03:39 - CONCLUSION: No significant change has occurred. Doni Mccarty MD Chest X-Ray 06/18/16 06 Signed Impressions: Service Date/Time: Saturday, June 18, 2016 03:18 - CONCLUSION: Stable basilar airspace disease compared with June 15. Endotracheal tube, nasogastric tube in satisfactory position. Christiano Martin MD Procedures Intubated, 06/13/2016 (Arabella Mcpherson) Assessment and Plan Disease Oriented Problem List: (1) Hypercapnic respiratory failure Comment: Remains on CPAP at this time. We'll attempt extubation on 06/20/16 (2) Sepsis Comment: Remains on antibiotics (3) Anemia Comment: stable (4) Morbid obesity with BMI of 60.0-69.9, adult (5) Diabetes mellitus type 2, insulin dependent (6) Chronic renal disease, stage IV Comment: improving Symptom Scale: (1) Pain 0-10 Scale: Unable to quantify Comment: Multiple sources of pain/discomfort due to bedbound state, body habitus, clinical history (2) Dyspnea 0-10 Scale: Unable to quantify Comment: Currently intubated Pertinent Non-Medical Issues Psychosocial: Single female, no children, has been disabled for 2 years. Spiritual: No moravian affiliation Legal: None identified at this time Ethical issues impacting care: Her sister reports that gabapentin will cause her thinking to be skewed. At that she does better and is of clearer mind without the gabapentin. Gabapentin has been discontinued that in the event she is able to provide direction into her care, she would have the opportunity Important Contacts Philomena Kathleen, healthcare surrogate, sister, home phone [phone], cell phone [phone] Prognosis Prognosis is poor. 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 There is also question of abdominal metastasis with retro-peritoneal lymphadenopathy also identified on recent imaging. She essentially has been in the hospital since March of last year Code Status: Full Code Plan Decision Maker:Philomena Kathleen, sister, home phone [phone], cell phone [phone], Code Status: Full code Family Discussion: She has been is disabled since for the last 2 years and a resident of a [facility]. She has had repeated hospital admissions due to recurrent urinary tract infections as well as respiratory distress. She has history of cancer of the breast with metastasis and unable to tolerate chemotherapy x 2 occasions. Her UTI's are resistant to many antibiotics. Ongoing decline in her physical health over the last several months. Patient has expressed desire to be full code..."Until she is in a vegetative state." No prior discussion of hospice. 06/19/16 - Hope to extubate tomorrow, but may fail - of she fails she would likely need a Trach and PEG. Malcolm indicates that she would not want that. Asks for a Pulmonary Consult. Malcolm is wanting to make the best decision with the best information Symptoms: Dyspnea, pain Palliative care phone number provided - will follow during hospital stay. ( Arabella Mcpherson) Attestation To help prompt me to consider important information that might be impacting today's encounter and assessment, information from prior notes written by myself or my colleagues may have been "brought forward" into today's note. My signature on this note, however, is an attestation that I personally performed the exam, history, and/or decision-making noted today, and, unless otherwise indicated, the interactions with patient, family, and staff as well as the review of records all occurred today. I also attest that the listed assessment and stated plan reflect my best clinical judgment today based on the combination of historical information, prior notes, and today's exam/ interactions. When time spent is documented, it refers only to time spent today by the signer, or if indicated, combined time spent today by collaborating physician/nurse practitioner. (Arabella Mcpherson) Collaborating MD Comments Chart reviewed. Cased discussed with palliative care BREASTER. Above BREASTER note reviewed and I concur. . (Marty Strickland MD) Arabella Mcpherson Jun 19, 2016 14:04 Marty Strickland MD August 28, 2016 14:21
[2016-06-19] MEDS ORDERED: WARFARIN SOD 3 MG TAB PO SCH (16:00)
[2016-06-19] MEDS: MELATONIN 5 MG TAB PO SCH (20:04)
--- NOTE | 2016-06-19 22:31 | MB ---
cc: MIKALA LUJAN DATE OF CONSULTATION 06/19/[address] Jolanta Gallardo. REASON FOR CONSULTATION Pulmonary management. HISTORY OF THE PRESENT ILLNESS Ms. 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 She has history of CA of the breast and mets to the lung and the lymph nodes. She underwent lumpectomy. The patient follows with Dr. Som Cam at [facility] She was given treatment with chemotherapy and she got sick and could not tolerate the treatment. However, the patient has been in the detention for the last two years. She was brought to the hospital with worsening of shortness of breath. She had respiratory acidosis and she is intubated. Her sister is at the bedside. She tells me that the patient was able to walk with help of walker a few months ago but currently she is more or less bedridden. She opens her eyes, follows commands. Today she was put on CPAP which she tolerated about 8 hours and then she was tired out and put back on the ventilator. LABORATORY DATA Workup includes WBC count 10.0, hemoglobin 8, hematocrit 24.6. MCV 94, platelet count 266. Sodium 141, potassium 5.5, chloride 106, CO2 25, BUN 28, creatinine 1.71. Blood gas on 35% BiPap pH 7.3, PCO2 44, PO2 89. IMAGING CT scan of the chest shows large area of right lower lobe consolidation with air bronchogram, mild left lung consolidation, left lung nodules and small bilateral pleural effusion. PAST MEDICAL HISTORY 1. Significant for a history of CA of the breast status post lumpectomy and chemotherapy. 2. Lung metastasis. 3. History of multiple UTIs. MEDICATIONS She is currently takin. Diflucan 400 milligrams daily. 2. Coumadin 3 mg a day. 3. Lasix 20 mg q.12-hour. 4. Neurontin 100 milligrams three times a day. 5. Ferrous sulfate 300 milligrams twice a day. 6. Melatonin 2.5 milligrams at night time. 7. Allopurinol 100 milligrams daily. 8. Zyvox q.12h. 9. Bethanechol 10 milligrams daily. ALLERGIES SHE IS ALLERGIC TO CEFTIN, CIPROFLOXACIN, CODEINE, HYDROCODONE, LEVAQUIN, LORTAB, PENICILLIN, PERCOCET, QUINOLONES. SOCIAL HISTORY She is single. 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 She has two sisters. No children. REVIEW OF SYSTEMS The patient has been in the detention for two years. She is more or less bedridden now. No seizure, stroke or epilepsy. No DVT or pulmonary embolism. PHYSICAL EXAMINATION GENERAL: Obese female on ventilator, assist control at 14, FIO2 30%. VITAL SIGNS: Blood pressure 148/68, heart rate 72, respirations 18, temperature 98.9. HEENT: Pupils are equal and reactive to light. Oral mucosa, nasal mucosa normal. NECK: Supple. JVP not raised. CHEST: Air entry equal bilaterally. Has a few scattered rales. CARDIOVASCULAR: S1, S2 normal. ABDOMEN: Benign. EXTREMITIES: No edema. CENTRAL NERVOUS SYSTEM: The patient is awake, follows commands. IMPRESSION 1. Ventilator dependent respiratory failure. 2. Pleural effusion. 3. Lung nodules. 4. History of cancer of the breast and metastatic disease to the lung. 5. Hypercapnic respiratory failure. 6. MRSA pneumonia. 7. Hypertension. 8. Chronic systolic congestive heart failure. 9. History of paroxysmal atrial fibrillation. PLAN I discussed with the patient, her sister at the bedside who is her POA. We will try C-PAP again and if she tolerates it she will be extubated. The sister does understand that if she gets worse she may need to be reintubated. She is not sure whether she would want to the extent of tracheostomy. Continue present antibiotic, aerosol treatment. She is on Coumadin. Monitor INR. Further treatment will depend on the course in the hospital. Thank you Dr. Gallardo for this consultation. MD RUTH Franz/ELZBIETA /6:22 PM /10:04 PM PRABHA
[2016-06-19] MEDS: CHLORHEXIDINE GLUCONATE 2 % 1 PACK (2 CLOTHS) TOP SCH (22:51)
[2016-06-20] VITALS (20 sets, daily range): BP systolic 148–164; BP diastolic 69–82; PULSE 67–85; RESP 14–22; TEMP 99.1–99.3; O2SAT 95–100
[2016-06-20] MEDS: PROPOFOL 1000 MG/100 ML INJ 100 ML IV SCH ×2 (00:51→01:01)
[2016-06-20] MEDS: CARVEDILOL 12.5 MG TAB PO SCH ×2 (00:52→08:26)
[2016-06-20] MEDS: ENOXAPARIN SODIUM 150 MG/ML SYRINGE SQ SCH ×3 (00:52→23:09)
[2016-06-20] MEDS: LINEZOLID 600 MG PREMIX 300 ML IV SCH ×2 (00:52→12:51)
[2016-06-20] MEDS: INSULIN NovoLIN REGULAR SUPPLEMENTAL SCALE SQ SCH ×4 (05:20→20:52)
--- NOTE | 2016-06-20 05:52 | RADRPT ---
EXAM DATE/TIME: 06/20/2016 05:02 [facility] COMPARISON: CHEST SINGLE AP, June 19, 2016, 3:39. INDICATIONS : Respiratory disease. MEDICAL HISTORY : Hypertension. Diabetes mellitus type II. Carcinoma, breast. SURGICAL HISTORY : Cholecystectomy. ENCOUNTER: Subsequent ACUITY: 1 week PAIN SCORE: Non-responsive. LOCATION: Bilateral chest FINDINGS: Shallow lung volumes, cardiomegaly, patchy consolidation in the left lower lobe and a left effusion s uspected. Endotracheal tube, NG tube, right-sided portacatheter noted. There is a nodular opacity ove rlying the left lung apex as before. CONCLUSION: No significant change has occurred. Doni Mccarty MD on June 20, 2016 at 5:49 Board Certified Radiologist. This report was verified electronically.
[2016-06-20 06:21] LABS: AUTOMATED NEUTROPHIL # 6.2 TH/MM3 (1.8-7.7); BASOPHIL # 0.1 TH/MM3 (0-0.2); BASOPHIL % 0.8 % (0.0-2.0); EOSINOPHIL # 0.5 TH/MM3 (0-0.4); EOSINOPHIL % 4.9 % (0.0-4.0); HEMATOCRIT 25.7 % (35.0-46.0); LYMPHOCYTE # 1.8 TH/MM3 (1.0-4.8); MEAN CELL VOLUME 93.8 FL (80.0-100.0); MEAN CORPUSCULAR HEMOGLOBIN 31.1 PG (27.0-34.0); MEAN CORPUSCULAR HGB CONC 33.2 % (32.0-36.0); NEUT % 66.3 % (16.0-70.0); PLATELET COUNT 302 TH/MM3 (150-450); RED BLOOD COUNT 2.74 MIL/MM3 (4.00-5.30); RED CELL DISTRIBUTION WIDTH 20.6 % (11.6-17.2); WHITE BLOOD COUNT 9.4 TH/MM3 (4.0-11.0)
[2016-06-20 06:23] LABS: HEMO FLAGS AUTO DIFF
[2016-06-20 06:33] LABS: PROTHROMBIN TIME - PATIENT 10.8 SEC (9.8-11.6)
[2016-06-20 07:07] LABS: PLATELET ESTIMATE SMEAR NORMAL (NORMAL); PLATELET MORPHOLOGY NORMAL (NORMAL); SCAN/DIFF AUTO DIFF CONFIRMED
[2016-06-20 07:25] LABS: ALKALINE PHOSPHATASE 100 U/L (45-117); ALT (GPT) 9 U/L (10-53); ANION GAP 10 MEQ/L (5-15); AST (GOT) 12 U/L (15-37); BICARBONATE 28.3 MEQ/L (21.0-32.0); BLOOD UREA NITROGEN 29 MG/DL (7-18); CHLORIDE 103 MEQ/L (98-107); GLOMERULAR FILTRATION RATE 28 ML/MIN (>89); POTASSIUM 4.5 MEQ/L (3.5-5.1); SODIUM (NA) 141 MEQ/L (136-145); TOTAL BILIRUBIN ADULT 0.2 MG/DL (0.2-1.0)
[2016-06-20] MEDS: CHLORHEXIDINE 0.12% (ORAL KIT) 15 ML CUP MT SCH ×2 (08:00→20:00)
[2016-06-20] MEDS ORDERED: FUROSEMIDE 20 MG/2 ML VIAL IV PUSH ONE (08:00)
--- NOTE | 2016-06-20 08:01 | HHI.CCPN ---
Subjective Remarks/Hospital Course 65-year-old female with past medical history of hypertension, diabetes , morbid obesity with obesity hypoventilation syndrome, COPD, chronic systolic heart failure, chronic kidney disease stage III, adenocarcinoma of breast metastatic to lung who presents to [facility] emergency department from [facility] with respiratory distress and lethargy. She was found to be in hypercapnic respiratory failure with pH 7.24/PaCO2 57/PA O2 of 118/bicarbonate 24 on 4 L nasal cannula. She was placed on BiPAP 12 over 5 with 35%. Repeat ABG demonstrated no significant improvement. Dr. Carl discussed with patient' s sister who stated patient was full code and so she was intubated in the emergency department with Grade III/IV view with Glidescope following sedation with ketamine and rocuronium. Chest x-ray demonstrated bilateral vascular congestion. There is also a right lower lobe opacity, right upper lobe opacity , and left upper lobe opacity. She was treated empirically in the emergency department with aztreonam, Flagyl, vancomycin. Urinalysis was remarkable for a UTI. She had a potassium of 6.1. She was treated with I called 50 mEq, calcium gluconate 2 g, insulin 10 units IV and dextrose. Apparently patient also had some left-sided abdominal pain for which Dr. Carl has ordered CT abdomen. VQ scan has also been ordered. Patient's sister states that April has a history of left breast adenocarcinoma which she underwent lumpectomy and lymph node resections. She states she underwent chemotherapy at that time which was poorly tolerated and that she was admitted after chemo every time because "all of her systems would shut down". She states that about 6-8 months ago she was found to have multiple lung mets. She states that chemotherapy was initiated but she was not able to tolerate and therefore she discontinued chemotherapy in February of 2016. She was under the care of Dr. Som Cam at [facility]. She states that for 2-3 years she has been having recurrent urinary tract infections. She states that she has been in and out of the hospital "every other week" in March 2016 due to recurrent urinary tract infections. There has been a history of MDRO and her chart indicates that she has a history of UTI positive for ESBL. Patient was reportedly was admitted to [facility] from April 02 to April 29. During this time she was treated for urinary tract infection. She also had altered mental status and respiratory failure requiring mechanical ventilation for approximately 4 days. She was discharged back to [facility] where she resided for 2-3 weeks until she was again hospitalized for CHF, pneumonia, urinary tract infection. She did not require mechanical ventilation on this admission. Her sister states she has been back at [facility] for about a week. Subjective: 06/14: Patient was noted to be hypoglycemic throughout the night and required D10 infusion. Patient is on hourly glucose monitoring. The sodium the patient was placed on Glucerna tube feeds, glucose levels have improved. The patient is currently on CPAP GCS 11 T denies pain. The patient was noted to have an indeterminate VQ scan and has been placed on therapeutic Lovenox twice a day. Plans for palliative care having consult to discuss with patient's family, goals of care. 06/15: Afebrile. The patient tolerated CPAP trials approximately 15 minutes yesterday. Currently the patient is tolerating CPAP trials for greater than 2 hours. The patient is awake and responsive. Palliative care team met with family yesterday the patient and family would like aggressive measures to continue. The patient's tolerating tube feeds, D10 has been discontinued, her glucose levels have normalized. 06/16: Afebrile. GCS 11T, interacting with sister and family yesterday. Patient was noted to have voluminous bowel movements all bowel regimen is on hold, fecal incontinence apparatus applied. Peripheral edema noted , Lasix 40 mg IV 1 dose. ID consulted, Dr. Morales repeat urine culture obtained today. 06/17: CPAP trials last approximately 3-1/2 hours today. Sputum culture revealed MRSA. The patient denies any pain. GCS 11 T. 06/18: Afebrile. Sputum culture returned back MRSA. Patient to use on Zyvox. Dignashield placed for voluminous diarrhea. C. difficile PCR obtained. Patient remains GCS 11 T with CPAP trials lasting 3-4 hours daily. Discussion with sister Miss Patel regarding possible tracheostomy in the near future. Creatinine stabilized at 1.59, patient baseline. 06/19: Patient is on 20 mcg/KG per minute of propofol. I suspect one is open she is not following commands for me. C. difficile checked yesterday was negative. Chest x-ray done shows persistent left lower lobe consolidation 06/20: Remains awake alert, tracks but not following commands. Tolerating CPAP. [place] status did not permit extubation yesterday. CXR unchanged Objective Vital Signs Date Time Temp Pulse Resp B/P Pulse Ox O2 Delivery O2 Flow Rate FiO2 06/20/16 07:33 98 30 06/20/16 06:00 70 06/20/16 04:00 99.1 22 152/77 Intake and Output 06/19/16 06/19/16 06/20/16 08:00 16:00 00:00 Intake Total 769 ml 900 ml 583 ml Output Total 1500 ml 2150 ml 1100 ml Balance -731 ml -1250 ml -517 ml Result Diagram: 06/20/16 0600 06/20/16 0600 Other Results Laboratory Tests Test 06/19/16 11:55 Blood Gas Puncture Site LT RADIAL Blood Gas Patient Temperature 98.6 Blood Gas HCO3 26 mmol/L (22-26) Blood Gas Base Excess 1.0 mmol/L (-2-2) Blood Gas Oxygen Saturation 93 % (90-100) Arterial Blood pH 7.38 (7.380-7.420) Arterial Blood Partial 44 mmHg (38-42) Pressure CO2 Arterial Blood Partial 89 mmHg Pressure O2 (61-120) Arterial Blood Oxygen Content 11.0 Vol % (12.0-20.0) Arterial Blood 2.3 % (0-4) Carboxyhemoglobin Arterial Blood Methemoglobin 1.3 % (0-2) Blood Gas Hemoglobin 8.3 G/DL (12.0-16.0) Oxygen Delivery Device VENTILATOR Blood Gas Ventilator Setting EPAP 5 IPAP5 Blood Gas Inspired Oxygen 35 % Imaging Last Impressions Chest X-Ray 06/14/16 0600 Signed Impressions: Service Date/Time: Tuesday, June 14, 2016 04:00 - CONCLUSION: Persistent bilateral pulmonary opacity with right lower lobe consolidation, left lower lung atelectasis versus consolidation and left pleural effusion. Dimitrios Mccartney MD Head CT 06/14/16 0000 Signed Impressions: Service Date/Time: Tuesday, June 14, 2016 02:48 - CONCLUSION: 1. No acute intracranial findings. 2. Pansinusitis with diffuse air fluid levels indicating acute sinusitis. Dimitrios Mccartney MD Chest CT 06/14/16 0000 Signed Impressions: Service Date/Time: Tuesday, June 14, 2016 02:51 - CONCLUSION: 1. Large area of right lower lung consolidation with air bronchograms. 2. Mild left lung consolidation versus atelectasis with rounded masslike anterior contour in the upper lung. 2 additional left-sided nodules are identified in the mid lung. 3. Small bilateral pleural effusions. 4. Enlarged right paratracheal lymph node. Dimitrios Mccartney MD Lung Scan-VQ Nuclear Medicine [id number] Signed Impressions: Service Date/Time: Monday, June 13, 2016 20:49 - CONCLUSION: Indeterminant probability for pulmonary embolism with Large matched perfusion and ventilatory defect corresponding to radiographic abnormality in the right lung base. Adolfo Daniels MD Abdomen/Pelvis CT [id number] Signed Impressions: Service Date/Time: Tuesday, June 14, 2016 00:05 - CONCLUSION: 1. Right lower lung consolidation and bilateral pleural effusions. 2. Superficial soft tissue edema suggesting anasarca. 3. Perinephric stranding and diffuse urinary bladder wall thickening. Question urinary tract infection. Mild right hydronephrosis. No calculi identified. 4. Nonspecific oval 4.6 cm mass in the spleen. 5. Retroperitoneal lymphadenopathy. Dimitrios Mccartney MD Lower Extremity Ultrasound 06/13/16 0000 Signed Impressions: Service Date/Time: Tuesday, June 14, 2016 00:24 - CONCLUSION: No evidence of lower extremity DVT on the right or left. Dimitrios Mccartney MD Objective Remarks GENERAL: Morbidly obese female who is orotracheally intubated. Awake SKIN: Warm and dry. Intertriginous areas with fungal excoriation - breasts, groin and pannus HEAD: Atraumatic. Normocephalic. EYES: Pupils equal and reactive. No scleral icterus. No injection or drainage. ENT: No nasal bleeding or discharge. Mucous membranes pink and moist. Orotracheally intubated NECK: Trachea midline. Unable to assess JVD, secondary to to body habitus. CARDIOVASCULAR: Regular rate and rhythm, sinus rhythm . No murmurs rubs or gallops. RESPIRATORY: On mechanical ventilation. Diminished breath sounds in bilateral bases. GASTROINTESTINAL: Abdomen morbidly obese with large pannus. No tenderness to palpation. Bowel sounds are present. There is pitting abdominal wall edema . : Christianson in place. MUSCULOSKELETAL: Extremities without clubbing, cyanosis. There is 2+ edema BLE. NEUROLOGICAL: GCS 11 T, awake and not responding to commands for me but tracks with eyes Urinary Catheter: Yes Assessment to: Continue Date of Insertion: Jun 13, 2016 A/P Assessment and Plan NEURO: Acute encephalopathy secondary to hypercapnia and sepsis Peripheral neuropathy Anxiety Propofol for sedation. Daily sedation vacation Neurontin 100 mg every 8 hours (home dose 200 every 8), controlling pain adequately-Hold as Neurontin as this has caused depressed mental status in the past SSRI on hold. Hold Xanax 0.25 mg po q6 hours prn anxiety Hold Melatonin 2.5 mg per tube qhs RESP: Acute hypercapnic and hypoxemic respiratory failure Obesity hypoventilation syndrome Lung metastases from breast cancer primary MRSA pneumonia Intubated in ED with Glidescope with Grade III/IV [place]. 06/13 VQ scan-indeterminate, patient started on therapeutic Lovenox 06/14 DuoNeb every 6 hours scheduled CPAP trials as tolerated, possible extubation today if mental status improves Albuterol every [address] on scheduled DuoNeb 06/13 Solumedrol 125 mg IV in the ED. Abx as per below CV: Hypertension Chronic systolic heart failure History of paroxysmal atrial fibrillation (not on chronic anticoagulation, currently in sinus rhythm) 06/14 2-D echo-ejection fraction 60%, no RWMA Troponin negative. Continue Coreg 25 mg by mouth 3 times a day will resume today, systolic blood pressure 150's Continue aspirin 81 mg daily GI: Morbid obesity Moderate protein energy malnutrition Abdominal pain Orogastric tube in place tube feeds at goal Glucerna 1.5 at 55 cc/hour-hold for possible extubation Reportedly had left-sided abdominal tenderness in the emergency department. CT abdomen and pelvis 06/13-anasarca abdomen, right lower lung consolidation, bilateral pleural effusions. Mild right hydronephrosis. Retroperitoneal lymphadenopathy. 6 cm mass in spleen. Continue multivitamin FEN/RENAL: Chronic kidney disease stage III Hyperkalemia-resolved Potassium 6.1 in ED 06/13. Treatment included calcium, glucose, insulin, bicarbonate. Continue to monitor BMP Christianson in place. Monitor intake and output. Monitor electrolytes and replace as needed On lasix 20 mg BID, Give additional 20 mg IV Lasix ID: HCAP vs post obstructive pneumonia, sputum MRSA Follow Urinary tract infection Wound lower aspect of right pannus Continue Zyvox and Diflucan (High dose) Sputum culture-MRSA Blood culture-NGTD Previously on minocycline 100 mg by mouth twice a day. Records from [facility], obtained. Infectious disease consulted- Multiple allergies 06/14 Urine culture- C [place] Repeat urine culture 06/16 -C [place] HEME: Adenocarcinoma left breast, multiple lung metastases Chronic iron deficiency anemia h/o nonocclusive DVT peroneal vein 06/06/14 Continue ferrous sulfate 325 mg twice a day VQ indeterminate-therapeutic Lovenox initiated 150 BID 06/13-B/L lower extremity ultrasound -negative ENDO: Type 2 diabetes mellitus with complications Hypoglycemia Medium dose insulin sliding scale at bedside glucose every 4 hours. Hold Lantus 50 units subcutaneous daily at bedtime Glucose monitoring per ICU protocol PROPH: Protonix 40 mg IV daily for stress ulcer prophylaxis. Lovenox started empirically 150 BID, start coumadin 06/19/16 and pharmacy to dose ACCESS: Right chest port accessed. 18 gauge PIV's x 2. This patient remains critically ill with one or more organ systems which are or may become a threat to life. I have spent in excess of 32 minutes discontinuously in the care and management of this patient. This time is exclusive of procedures, and includes, but is not limited to, evaluation of the patient, review of the medical record, discussions with family, consultants, nursing staff, or respiratory therapy, and documentation in the medical record. Palliative care medicine is on board. Ms. Kathleen has been informed of the possibility of a tracheostomy in the next 10 days, followed by a PEG placement if we are unable to extubate the patient. Palliative care following. Patient and family are unsure at this point as they would like to proceed with tracheostomy and PEG placement if there is an inability to extubate. Ms. Kathleen by [phone] (cell). Mark Perez MD Jun 20, 2016 08:01
[2016-06-20] MEDS: ALLOPURINOL 100 MG TAB PO SCH (08:26)
[2016-06-20] MEDS: POLYETHYLENE GLYCOL 17 GM PKG PO SCH (08:26)
[2016-06-20] MEDS: BETHANECHOL CHL 10 MG TAB PO SCH (08:26)
[2016-06-20] MEDS: FLUCONAZOLE 200 MG TAB PO SCH (08:26)
[2016-06-20] MEDS: MULTIVITAMINS/MINERALS THERAPEUTIC TAB PO SCH (08:26)
[2016-06-20] MEDS: PANTOPRAZOLE SODIUM 40 MG VIAL IV SCH (08:27)
[2016-06-20] MEDS: FERROUS SULFATE 300 MG /5ML UDC PO SCH ×2 (08:28→20:52)
[2016-06-20] MEDS: SODIUM CHLORIDE 0.9% FLUSH 5 ML FLUSH IV FLUSH SCH ×2 (08:28→20:52)
[2016-06-20] MEDS: FUROSEMIDE 20 MG/2 ML VIAL IV PUSH SCH ×2 (08:28→20:52)
--- NOTE | 2016-06-20 09:28 | HHI.IDPN ---
Subjective Subjective Remarks Notes reviewed Doing CPAP trials CCM notes reviewed Temps ok Not SOB Antibiotics Zyvox Diflucan Lines [place] Past Medical History HTN COPD DM Diabetic peripheral neuropathy chronic kidney disease stage III/IV Obesity hypoventilation syndrome Morbid obesity Gout Paroxysmal atrial fibrillation Recurrent UTI Recurrent pneumonia h/o ESBL Anxiety DVT R peroneal vein 06/06/14 History of fall Dysphagia (noted on nectar thickened liquids diet according to note from 06/09/16 ) Chronic urinary incontinence Allergic rhinitis Left breast adenocarcinoma. Last chemotherapy February 2016 ? 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 CT brain negative. Past Surgical History Lithotripsy Gastric bypass Left breast lumpectomy and lymph node biopsy Open cholecystectomy Allergies: Coded Allergies: Percocet (Unverified Allergy, Severe, Nausea/Vomiting, 06/13/16) Codeine (Unverified Allergy, Mild, Nausea/Vomiting, 06/13/16) Lortab (Unverified Allergy, Mild, Nausea/Vomiting, 06/13/16) Bactrim (Unverified Allergy, Unknown, 06/13/16) Ciprofloxacin (Unverified Allergy, Unknown, 06/13/16) Hydrocodone (Unverified Allergy, Unknown, 06/13/16) Levaquin (Unverified Allergy, Unknown, 06/13/16) Penicillin (Verified Allergy, Unknown, rash, 06/14/16) Has taken Keflex in past with no problem Quinolones (Unverified Allergy, Unknown, 06/13/16) Sulfa (Unverified Allergy, Unknown, 06/13/16) *MDRO Multi-Drug Resistant Organism (Verified Adverse Reaction, Unknown, ) MRSA (sputum)-06/14/16 Objective . Vital Signs Date Time Temp Pulse Resp B/P Pulse Ox O2 Delivery O2 Flow Rate FiO2 06/20/16 07:33 98 30 06/20/16 07:00 30 06/20/16 06:00 70 06/20/16 04:00 73 06/20/16 04:00 30 06/20/16 04:00 99.1 73 22 152/77 96 06/20/16 03:33 97 30 06/20/16 02:00 67 06/20/16 01:05 99 30 06/20/16 00:00 30 06/20/16 00:00 68 06/20/16 00:00 99.2 68 22 159/71 97 06/19/16 22:16 97 30 06/19/16 22:00 67 06/19/16 20:00 30 06/19/16 20:00 99.5 69 22 140/67 98 06/19/16 20:00 69 06/19/16 19:46 100 30 06/19/16 18:00 81 06/19/16 16:00 98.9 81 26 171/74 99 06/19/16 16:00 30 06/19/16 16:00 87 06/19/16 15:51 97 30 06/19/16 14:00 89 06/19/16 12:00 99.1 89 26 144/71 98 06/19/16 12:00 83 06/19/16 12:00 30 06/19/16 11:43 98 35 06/19/16 10:00 83 06/19/16 06/19/16 06/20/16 15:00 23:00 07:00 Intake Total 900 ml 583 ml 784 ml Output Total 2150 ml 1100 ml 1600 ml Balance -1250 ml -517 ml -816 ml Intake IV Total 402 ml 133 ml 399 ml Tube Feeding 498 ml 450 ml 385 ml Output Urine Total 1950 ml 800 ml 1300 ml Stool Total 200 ml 300 ml 300 ml . Laboratory Tests Test 06/19/16 06/20/16 06:00 06:00 White Blood Count 10.0 TH/MM3 9.4 TH/MM3 Red Blood Count 2.61 MIL/MM3 2.74 MIL/MM3 Hemoglobin 8.0 GM/DL 8.5 GM/DL Hematocrit 24.6 % 25.7 % Mean Corpuscular Volume 94.3 FL 93.8 FL Mean Corpuscular Hemoglobin 30.6 PG 31.1 PG Mean Corpuscular Hemoglobin 32.4 % 33.2 % Concent Red Cell Distribution Width 20.9 % 20.6 % Platelet Count 266 TH/MM3 302 TH/MM3 Mean Platelet Volume 8.8 FL 8.2 FL Neutrophils (%) (Auto) 66.3 % Lymphocytes (%) (Auto) 19.0 % Monocytes (%) (Auto) 9.0 % Eosinophils (%) (Auto) 4.9 % Basophils (%) (Auto) 0.8 % Neutrophils # (Auto) 6.2 TH/MM3 Lymphocytes # (Auto) 1.8 TH/MM3 Monocytes # (Auto) 0.8 TH/MM3 Eosinophils # (Auto) 0.5 TH/MM3 Basophils # (Auto) 0.1 TH/MM3 CBC Comment AUTO DIFF Differential Comment AUTO DIFF CONFIRMED Platelet Estimate NORMAL Platelet Morphology Comment NORMAL Laboratory Tests Test 06/19/16 06/20/16 06:00 06:00 Sodium Level 141 MEQ/L 141 MEQ/L Potassium Level 5.5 MEQ/L 4.5 MEQ/L Chloride Level 106 MEQ/L 103 MEQ/L Carbon Dioxide Level 25.4 MEQ/L 28.3 MEQ/L Anion Gap 10 MEQ/L 10 MEQ/L Blood Urea Nitrogen 28 MG/DL 29 MG/DL Creatinine 1.71 MG/DL 1.84 MG/DL Estimat Glomerular Filtration 30 ML/MIN 28 ML/MIN Rate Random Glucose 175 MG/DL 185 MG/DL Calcium Level 8.3 MG/DL 8.5 MG/DL Phosphorus Level 3.2 MG/DL Magnesium Level 2.0 MG/DL 2.0 MG/DL Total Bilirubin 0.2 MG/DL Aspartate Amino Transf 12 U/L (AST/SGOT) Alanine Aminotransferase 9 U/L (ALT/SGPT) Alkaline Phosphatase 100 U/L Total Protein 7.0 GM/DL Albumin 2.0 GM/DL Imaging Chest X-Ray 06/20/16599 Signed Impressions: Service Date/Time: Monday, June 20, 2016 05:02 - CONCLUSION: No significant change has occurred. Doni Mccarty MD Chest X-Ray 06/19/16599 Signed Impressions: Service Date/Time: Sunday, June 19, 2016 03:39 - CONCLUSION: No significant change has occurred. Doni Mccarty MD Chest X-Ray [id number]/[id number] Signed Impressions: Service Date/Time: Saturday, June 18, 2016 03:18 - CONCLUSION: Stable basilar airspace disease compared with June 15. Endotracheal tube, nasogastric tube in satisfactory position. Christiano Martin MD Last Impressions Chest X-Ray 06/15/16599 Signed Impressions: Service Date/Time: May 03:49 - CONCLUSION: 1. Increased bilateral symmetric pulmonary opacity likely representing pulmonary edema. Pulmonary consolidation is seen bilaterally in the lower lobes. Masslike density again seen in the left upper lobe. 2. New bilateral pleural effusions. Dimitrios Mccartney MD Head CT 06/14/16 Signed Impressions: Service Date/Time: Tuesday, June 14, 2016 02:48 - CONCLUSION: 1. No acute intracranial findings. 2. Pansinusitis with diffuse air fluid levels indicating acute sinusitis. Dimitrios Mccartney MD Chest CT 06/14/16 Signed Impressions: Service Date/Time: Tuesday, June 14, 2016 02:51 - CONCLUSION: 1. Large area of right lower lung consolidation with air bronchograms. 2. Mild left lung consolidation versus atelectasis with rounded masslike anterior contour in the upper lung. 2 additional left-sided nodules are identified in the mid lung. 3. Small bilateral pleural effusions. 4. Enlarged right paratracheal lymph node. Dimitrios Mccartney MD Lung Scan-V Nuclear Medicine [id number]/13/[id number] Signed Impressions: Service Date/Time: Monday, June 13, 2016 20:49 - CONCLUSION: Indeterminant probability for pulmonary embolism with Large matched perfusion and ventilatory defect corresponding to radiographic abnormality in the right lung base. Adolfo Daniels MD Abdomen/Pelvis CT [id number]/13/[id number] Signed Impressions: Service Date/Time: Tuesday, June 14, 2016 00:05 - CONCLUSION: 1. Right lower lung consolidation and bilateral pleural effusions. 2. Superficial soft tissue edema suggesting anasarca. 3. Perinephric stranding and diffuse urinary bladder wall thickening. Question urinary tract infection. Mild right hydronephrosis. No calculi identified. 4. Nonspecific oval 4.6 cm mass in the spleen. 5. Retroperitoneal lymphadenopathy. Dimitrios Mccartney MD Lower Extremity Ultrasound 06/13/16 Signed Impressions: Service Date/Time: Tuesday, June 14, 2016 00:24 - CONCLUSION: No evidence of lower extremity DVT on the right or left. Dimitrios Mccartney MD Physical Exam GENERAL: Awake, on CPAP, not in distress SKIN: Cool and dry. No generalized rash HEENT: [place] conjunctiva. No scleral icterus. Endotracheal tube is in the mouth. NECK: Supple, nontender, short and obese. CARDIOVASCULAR: Regular rate and rhythm without murmurs, gallops, or rubs. RESPIRATORY: Decreased BS at bases GASTROINTESTINAL: Abdomen soft, obese , non-tender, nondistended. No guarding. Bowel sounds are present. MUSCULOSKELETAL: Extremities without clubbing, cyanosis, or edema. or edema noted. No calf tenderness. NEUROLOGICAL: Awake and alert. No Babinski. LINE: Port right upper chest with no evidence of infection : Christianson catheter in place, urine looks clear currently Assessment & Plan Remarks IMPRESSION Respiratory failure, HCAP, with ?pulmonary edema MRSA PNA UTI, prior Hx UTI and ESBL(+) infections - now has low colony count yeast Morbid obesity COPD, likely has KING Multiple Abx allergy - PCN - has taken Keflex without any problem CKD Candiduria RECOMMENDATION Continue Zyvox for HCAP, MRSA coverage - follow CBC - if stable, possibly D/C after dose tomorrow Continue Diflucan Monitor progress Weaning per CCM Melody Morales MD Jun 20, 2016 09:27
[2016-06-20] MEDS: RESP: ALBUTEROL 2.5 MG/IPRATROPIUM 0.5 MG NEB (SCH) NEB ×3 (09:36→21:28)
--- NOTE | 2016-06-20 11:43 | HHI.HCPN ---
Reason for visit a. To assist with evaluation and management of symptoms including: dyspnea, pain, b. To assist medical decision maker(s) with: better understanding of current medical conditions; weighing benefits/burdens of medical treatment options; making medical treatment decisions. (Arabella Mcpherson) Subjective/Interval History Ms Vargas remains off propofol. She is more awake today and able to nod yes / no to some questions. Plans are to extubate by RN. She is currently on CPAP. Pulmonary consult placed per family request - Has yet to eval patient. She remains on antibiotics for sepsis. Urine was positive for Halima and sputum is now positive for MRSA. She notes allergies to multiple antibiotics in the past has had an issue MDRO / +ESBL. Edema has improved considerably since last week. Sister is decision maker - discussed w her yesterday the planned extubation - However, she is at risk for pulmonary failure again during this hospitalization. Attempted to clarify goals of care as she remains a FULL CODE. Discussed possibility of reintubation and then probable Trach. Sister feels a trach and PEG is too extreme and she would not want that. Ideally she would like her sister to be able to direct her own care. (Arabella Mcphreson) Advance Directives Health Care Surrogate: Copy in medical record (Arabella Mcpherson) Advance Directive Specifics Health Care Surrogate(s): Philomena Kathleen, sister, home phone [phone], cell phone [phone], lives in [facility]. Documented care wishes: Per her sister, April indicated last month that she wished to be a full code until "she was in a vegetative state." She had no prior conversations with her sister regarding hospice (Arabella Mcpherson) Objective Vital Signs Date Time Temp Pulse Resp B/P Pulse Ox O2 Delivery O2 Flow Rate FiO2 06/20/16 10:00 78 06/20/16 08:00 74 06/20/16 08:00 30 06/20/16 07:33 98 30 06/20/16 07:00 30 06/20/16 06:00 70 06/20/16 04:00 73 06/20/16 04:00 30 06/20/16 04:00 99.1 73 22 152/77 96 06/20/16 03:33 97 30 06/20/16 02:00 67 06/20/16 01:05 99 30 06/20/16 00:00 30 06/20/16 00:00 68 06/20/16 00:00 99.2 68 22 159/71 97 06/19/16 22:16 97 30 06/19/16 22:00 67 06/19/16 20:00 30 06/19/16 20:00 99.5 69 22 140/67 98 06/19/16 20:00 69 06/19/16 19:46 100 30 06/19/16 18:00 81 06/19/16 16:00 98.9 81 26 171/74 99 06/19/16 16:00 30 06/19/16 16:00 87 06/19/16 15:51 97 30 06/19/16 14:00 89 06/19/16 12:00 99.1 89 26 144/71 98 06/19/16 12:00 83 06/19/16 12:00 30 06/19/16 11:43 98 35 Intake & Output 06/20/16 06/20/16 07:00 19:00 Intake Total 1367 ml Output Total 2700 ml Balance -1333 ml Intake IV Total 532 ml Tube Feeding 835 ml Output Urine Total 2100 ml Stool Total 600 ml Physical Exam CONSTITUTIONAL/GENERAL: This is super morbidly obese woman, in no apparent distress. Off propofol, eyes open, not engaging with me TUBES/LINES/DRAINS: ET and OT, Christianson, IV lines, rectal tube SKIN: No jaundice, rashes, or lesions. Ecchymoses on upper extremities. No wounds seen anteriorly. Skin temperature appropriate. Not diaphoretic. HEAD: Atraumatic. Normocephalic. EYES: Eyes open. Tracking ENT: Hearing appears adequate , Nose without bleeding or purulent drainage. NECK: Trachea midline. Unable to assess JVD due to body habitus CARDIOVASCULAR: Regular rate and rhythm with murmurs. . Peripheral pulses symmetric. RESPIRATORY/CHEST: Symmetric, unlabored respirations on vent. Diminished breath sounds on right, otherwise clear. GASTROINTESTINAL: Abdomen obese, soft, large pannus, bowel sounds present. Soft edema throughout abdominal wall and right flank GENITOURINARY: Without palpable bladder distension. Christianson catheter in place. MUSCULOSKELETAL: 2 plus edema from feet through thigh, . . No mottling or clubbing. LYMPHATICS: No palpable cervical or supraclavicular adenopathy. NEUROLOGICAL: Not on propofol at this time. Not engaging with me nor following commands time of my visit PSYCHIATRIC: Unable to assess (Arabella Mcpherson) Diagnostic Tests Laboratory Laboratory Tests Test 06/18/16 06/18/16 06/19/16 06/19/16 06:10 16:50 06:00 11:11 White Blood Count 8.8 TH/MM3 10.0 TH/MM3 (4.0-11.0) (4.0-11.0) Red Blood Count 2.56 MIL/MM3 2.61 MIL/MM3 (4.00-5.30) (4.00-5.30) Hemoglobin 7.8 GM/DL 8.0 GM/DL (11.6-15.3) (11.6-15.3) Hematocrit 23.7 % 24.6 % (35.0-46.0) (35.0-46.0) Mean Corpuscular Volume 92.6 FL 94.3 FL (80.0-100.0) (80.0-100.0) Mean Corpuscular Hemoglobin 30.6 PG 30.6 PG (27.0-34.0) (27.0-34.0) Mean Corpuscular Hemoglobin 33.1 % 32.4 % Concent (32.0-36.0) (32.0-36.0) Red Cell Distribution Width 20.4 % 20.9 % (11.6-17.2) (11.6-17.2) Platelet Count 246 TH/MM3 266 TH/MM3 (150-450) (150-450) Mean Platelet Volume 8.5 FL 8.8 FL (7.0-11.0) (7.0-11.0) Neutrophils (%) (Auto) 70.5 % (16.0-70.0) Lymphocytes (%) (Auto) 17.8 % (9.0-44.0) Monocytes (%) (Auto) 6.9 % (0.0-8.0) Eosinophils (%) (Auto) 4.2 % (0.0-4.0) Basophils (%) (Auto) 0.6 % (0.0-2.0) Neutrophils # (Auto) 6.2 TH/MM3 (1.8-7.7) Lymphocytes # (Auto) 1.6 TH/MM3 (1.0-4.8) Monocytes # (Auto) 0.6 TH/MM3 (0-0.9) Eosinophils # (Auto) 0.4 TH/MM3 (0-0.4) Basophils # (Auto) 0.1 TH/MM3 (0-0.2) CBC Comment DIFF FINAL Differential Comment Sodium Level 143 MEQ/L 141 MEQ/L (136-145) (136-145) Potassium Level 5.0 MEQ/L 5.5 MEQ/L (3.5-5.1) (3.5-5.1) Chloride Level 107 MEQ/L 106 MEQ/L (98-107) (98-107) Carbon Dioxide Level 25.9 MEQ/L 25.4 MEQ/L (21.0-32.0) (21.0-32.0) Anion Gap 10 MEQ/L (5-15) 10 MEQ/L (5-15) Blood Urea Nitrogen 28 MG/DL (7-18) 28 MG/DL (7-18) Creatinine 1.59 MG/DL 1.71 MG/DL (0.50-1.00) (0.50-1.00) Estimat Glomerular Filtration 33 ML/MIN (>89) 30 ML/MIN (>89) Rate Random Glucose 156 MG/DL 175 MG/DL (74-106) (74-106) Calcium Level 8.2 MG/DL 8.3 MG/DL (8.5-10.1) (8.5-10.1) Phosphorus Level 2.7 MG/DL 3.2 MG/DL (2.5-4.9) (2.5-4.9) Magnesium Level 1.6 MG/DL 2.0 MG/DL (1.5-2.5) (1.5-2.5) Stool C. difficile Toxin (PCR) NEGATIVE (NEGATIVE) Stl C. difficile Toxin PRESUMPTIVE Epiderm 027 NEGATIVE (NEGATIVE) Prothrombin Time 10.9 SEC (9.8-11.6) Prothromb Time International 1.0 RATIO Ratio Test 06/19/16 06/20/16 11:55 06:00 Blood Gas Puncture Site LT RADIAL Blood Gas Patient Temperature 98.6 Blood Gas HCO3 26 mmol/L (22-26) Blood Gas Base Excess 1.0 mmol/L (-2-2) Blood Gas Oxygen Saturation 93 % (90-100) Arterial Blood pH 7.38 (7.380-7.420) Arterial Blood Partial 44 mmHg (38-42) Pressure CO2 Arterial Blood Partial 89 mmHg Pressure O2 (61-120) Arterial Blood Oxygen Content 11.0 Vol % (12.0-20.0) Arterial Blood 2.3 % (0-4) Carboxyhemoglobin Arterial Blood Methemoglobin 1.3 % (0-2) Blood Gas Hemoglobin 8.3 G/DL (12.0-16.0) Oxygen Delivery Device VENTILATOR Blood Gas Ventilator Setting EPAP 5 IPAP5 Blood Gas Inspired Oxygen 35 % White Blood Count 9.4 TH/MM3 (4.0-11.0) Red Blood Count 2.74 MIL/MM3 (4.00-5.30) Hemoglobin 8.5 GM/DL (11.6-15.3) Hematocrit 25.7 % (35.0-46.0) Mean Corpuscular Volume 93.8 FL (80.0-100.0) Mean Corpuscular Hemoglobin 31.1 PG (27.0-34.0) Mean Corpuscular Hemoglobin 33.2 % Concent (32.0-36.0) Red Cell Distribution Width 20.6 % (11.6-17.2) Platelet Count 302 TH/MM3 (150-450) Mean Platelet Volume 8.2 FL (7.0-11.0) Neutrophils (%) (Auto) 66.3 % (16.0-70.0) Lymphocytes (%) (Auto) 19.0 % (9.0-44.0) Monocytes (%) (Auto) 9.0 % (0.0-8.0) Eosinophils (%) (Auto) 4.9 % (0.0-4.0) Basophils (%) (Auto) 0.8 % (0.0-2.0) Neutrophils # (Auto) 6.2 TH/MM3 (1.8-7.7) Lymphocytes # (Auto) 1.8 TH/MM3 (1.0-4.8) Monocytes # (Auto) 0.8 TH/MM3 (0-0.9) Eosinophils # (Auto) 0.5 TH/MM3 (0-0.4) Basophils # (Auto) 0.1 TH/MM3 (0-0.2) CBC Comment AUTO DIFF Differential Comment AUTO DIFF CONFIRMED Platelet Estimate NORMAL (NORMAL) Platelet Morphology Comment NORMAL (NORMAL) Prothrombin Time 10.8 SEC (9.8-11.6) Prothromb Time International 1.0 RATIO Ratio Sodium Level 141 MEQ/L (136-145) Potassium Level 4.5 MEQ/L (3.5-5.1) Chloride Level 103 MEQ/L (98-107) Carbon Dioxide Level 28.3 MEQ/L (21.0-32.0) Anion Gap 10 MEQ/L (5-15) Blood Urea Nitrogen 29 MG/DL (7-18) Creatinine 1.84 MG/DL (0.50-1.00) Estimat Glomerular Filtration 28 ML/MIN (>89) Rate Random Glucose 185 MG/DL (74-106) Calcium Level 8.5 MG/DL (8.5-10.1) Magnesium Level 2.0 MG/DL (1.5-2.5) Total Bilirubin 0.2 MG/DL (0.2-1.0) Aspartate Amino Transf 12 U/L (15-37) (AST/SGOT) Alanine Aminotransferase 9 U/L (10-53) (ALT/SGPT) Alkaline Phosphatase 100 U/L (45-117) Total Protein 7.0 GM/DL (6.4-8.2) Albumin 2.0 GM/DL (3.4-5.0) (Arabella Mcpherson) Result Diagram: 06/20/1659906/20/16599 Imaging Last 72 hours Impressions Chest X-Ray 06/20/16599 Signed Impressions: Service Date/Time: Monday, June 20, 2016 05:02 - CONCLUSION: No significant change has occurred. Doni Mccarty MD Chest X-Ray 06/19/16599 Signed Impressions: Service Date/Time: Sunday, June 19, 2016 03:39 - CONCLUSION: No significant change has occurred. Doni Mccarty MD Chest X-Ray 06/18/16599 Signed Impressions: Service Date/Time: Saturday, June 18, 2016 03:18 - CONCLUSION: Stable basilar airspace disease compared with March 16. Endotracheal tube, nasogastric tube in satisfactory position. Christiano Martin MD Procedures Intubated, 06/13/2016 (Arabella Mcpherson) Assessment and Plan Disease Oriented Problem List: (1) Hypercapnic respiratory failure Comment: Remains on CPAP at this time. We'll attempt extubation on 06/20/16 (2) Sepsis Comment: Remains on antibiotics (3) Anemia Comment: stable (4) Morbid obesity with BMI of 60.0-69.9, adult (5) Diabetes mellitus type 2, insulin dependent (6) Chronic renal disease, stage IV Comment: improving Symptom Scale: (1) Pain 0-10 Scale: Unable to quantify Comment: Multiple sources of pain/discomfort due to bedbound state, body habitus, clinical history (2) Dyspnea 0-10 Scale: Unable to quantify Comment: Currently intubated Pertinent Non-Medical Issues Psychosocial: Single female, no children, has been disabled for 2 years. Spiritual: No latter-day affiliation Legal: None identified at this time Ethical issues impacting care: Her sister reports that gabapentin will cause her thinking to be skewed. At that she does better and is of clearer mind without the gabapentin. Gabapentin has been discontinued that in the event she is able to provide direction into her care, she would have the opportunity Important Contacts Philomena Kathleen, healthcare surrogate, sister, home phone [phone], cell phone [phone] Prognosis Prognosis is poor. 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 There is also question of abdominal metastasis with retro-peritoneal lymphadenopathy also identified on recent imaging. She essentially has been in the hospital since March of last year Code Status: Full Code Plan Decision Maker:Philomena Kathleen, sister, home phone [phone], cell phone [phone], Code Status: Full code Family Discussion: She has been is disabled since for the last 2 years and a resident of a [facility]. She has had repeated hospital admissions due to recurrent urinary tract infections as well as respiratory distress. She has history of cancer of the breast with metastasis and unable to tolerate chemotherapy x 2 occasions. Her UTI's are resistant to many antibiotics. Ongoing decline in her physical health over the last several months. Patient has expressed desire to be full code..."Until she is in a vegetative state." No prior discussion of hospice. 06/19/16 - Hope to extubate tomorrow, but may fail - of she fails she would likely need a Trach and PEG. Malcolm indicates that she would not want that. Asks for a Pulmonary Consult. Malcolm is wanting to make the best decision with the best information Symptoms: Dyspnea, pain Palliative care phone number provided - will follow during hospital stay. ( Arabella Mcpherson) Attestation To help prompt me to consider important information that might be impacting today's encounter and assessment, information from prior notes written by myself or my colleagues may have been "brought forward" into today's note. My signature on this note, however, is an attestation that I personally performed the exam, history, and/or decision-making noted today, and, unless otherwise indicated, the interactions with patient, family, and staff as well as the review of records all occurred today. I also attest that the listed assessment and stated plan reflect my best clinical judgment today based on the combination of historical information, prior notes, and today's exam/ interactions. When time spent is documented, it refers only to time spent today by the signer, or if indicated, combined time spent today by collaborating physician/nurse practitioner. (Arabella Mcpherson) Collaborating MD Comments Chart reviewed. Cased discussed with palliative care FAMILY COURT COUNSELLOR. Above FAMILY COURT COUNSELLOR note reviewed and I concur. . (Marty Strickland MD) Arabella Mcpherson Jun 20, 2016 11:42 Marty Strickland MD August 28, 2016 14:26
[2016-06-20 12:02] LABS: BLOOD GAS BASE EXCESS 2.7 mmol/L (-2-2); BLOOD GAS CARBOXYHEMOGLOBIN 1.8 % (0-4); BLOOD GAS HCO3 27 mmol/L (22-26); BLOOD GAS METHEMOGLOBIN 1.1 % (0-2); BLOOD GAS O2 HGB SATURATION 95 % (90-100); BLOOD GAS OXYGEN CONTENT 23.5 Vol % (12.0-20.0); BLOOD GAS PCO2 45 mmHg (38-42); BLOOD GAS PO2 112 mmHg (61-120); BLOOD GAS TOTAL HGB 17.5 G/DL (12.0-16.0); TEMP CORR TO 98.6
[2016-06-20 12:03] LABS: CRITICAL VALUE NO; DRAW SITE RT RADIAL; FIO2 30 %; NUMBER OF ARTERIAL PUNCTURES 2; OXYGEN DEVICE VENTILATOR; STAT NO; ULNAR PULSE PRESENT
[2016-06-20] MEDS: ONDANSETRON HCL 4 MG/2 ML VIAL IV PRN ×2 (12:51→23:15)
[2016-06-20] MEDS ORDERED: WARFARIN SOD 1 MG TAB PO SCH (16:00)
[2016-06-20] MEDS ORDERED: KETOROLAC TROMETHAMINE 30 MG/ML (IVP) VIAL IV PUSH ONE (16:45)
--- NOTE | 2016-06-20 17:08 | HHI.HCPN ---
Ms. Vargas is seen this afternoon with her sister, Philomena Roberts at the bedside. She was extubated earlier this afternoon. She is now on 2 L nasal cannula. She is awake, although having a difficult time talking. Philomena Roberts wanted to take the opportunity to talk about goals of care. Reviewed with her the rigors of having been intubated over the last couple of weeks. Reviewed her clinical medical history including her metastatic breast cancer. As well as her recurrent hospital admissions for heart failure and respiratory failure. Reviewed with her the options of DNR status: CPR and intubation. Also discussed the likelihood of a tracheostomy placement in the future if she was unable to be weaned off of ventilator in the future. She clearly shook her head no and that she did not want to have a tracheostomy. Asked her to consider her quality of life. Her sister would stop intermittently and ask the patient if she understood what I was talking about and the meaning behind it. April would shake her head yes. Presented to both April and Fern that at this time she would meet criteria for hospice seeking comfort measures onlyno hospitalizations. That her symptoms would be treated and she'll be kept comfortable. April was unable to provide any response at this time. Suggested that these are topics for her to consider and think about and that we could revisit them again tomorrow once she may be more rested. (Arabella Mcpherson) . Chart reviewed. Cased discussed with palliative care BATCH MAKER. Above BATCH MAKER note reviewed and I concur. . (Marty Strickland MD) Arabella Mcpherson Jun 20, 2016 17:08 Marty Strickland MD August 28, 2016 14:32
--- NOTE | 2016-06-20 19:11 | HHI.PR ---
Subjective Remarks 65 YO Obese Wf with RF, s/p extubation, metastatic Breast ca,Pulm odema,Pn,AF Extubated awake, looks around Sister at BS Sat 92-97 % on NC Objective Vital Signs Vital Signs Date Time Temp Pulse Resp B/P Pulse Ox O2 Delivery O2 Flow Rate FiO2 06/20/16 14:00 77 06/20/16 13:20 99.2 77 22 151/82 96 06/20/16 12:20 100 Venturi Mask 6 50 06/20/16 12:20 99 Venturi Mask 6.00 50 06/20/16 12:00 30 06/20/16 12:00 80 06/20/16 11:55 99 30 06/20/16 10:00 78 06/20/16 08:00 74 06/20/16 08:00 30 06/20/16 08:00 99.3 71 22 148/81 95 06/20/16 07:33 98 30 06/20/16 07:00 Venturi Mask 50 30 06/20/16 06:00 70 06/20/16 04:00 73 06/20/16 04:00 30 06/20/16 04:00 99.1 73 22 152/77 96 06/20/16 03:33 97 30 06/20/16 02:00 67 06/20/16 01:05 99 30 06/20/16 00:00 30 06/20/16 00:00 68 06/20/16 00:00 99.2 68 22 159/71 97 06/19/16 22:16 97 30 06/19/16 22:00 67 06/19/16 20:00 30 06/19/16 20:00 99.5 69 22 140/67 98 06/19/16 20:00 69 06/19/16 19:46 100 30 I/O 06/19/16 06/19/16 06/19/16 06/20/16 06/20/16 06/20/16 07:00 15:00 23:00 07:00 15:00 23:00 Intake Total 769 ml 900 ml 583 ml 784 ml 320 ml Output Total 1500 ml 2150 ml 1100 ml 1600 ml 2200 ml Balance -731 ml -1250 ml -517 ml -816 ml -1880 ml Intake IV Total 410 ml 402 ml 133 ml 399 ml 320 ml Tube Feeding 359 ml 498 ml 450 ml 385 ml Output Urine Total 1150 ml 1950 ml 800 ml 1300 ml 2000 ml Stool Total 350 ml 200 ml 300 ml 300 ml 200 ml Result Diagram: 06/20/1659906/20/16599 Objective Remarks GENERAL: Obese female, mild sob SKIN: Warm and dry. HEAD: Normocephalic. EYES: No scleral icterus. No injection or drainage. NECK: Supple, trachea midline. No JVD or lymphadenopathy. CARDIOVASCULAR: Regular rate and rhythm without murmurs, gallops, or rubs. RESPIRATORY: Breath sounds equal bilaterally. No accessory muscle use. GASTROINTESTINAL: Abdomen soft, non-tender, nondistended. MUSCULOSKELETAL: No cyanosis, ++ edema. BACK: Nontender without obvious deformity. No CVA tenderness. A/P Assessment and Plan Resp failure, s/p extubation Pulm odema MRSA Pn Metastatic Breast ca Lung nodules AF Pleural effusion PLAN: DW Sister at BS Cont Abx Zyvox and Diflucan Diurease Lovenox and Coumadin Kurtis Giordano MD Jun 20, 2016 19:10
[2016-06-20] MEDS: CHLORHEXIDINE GLUCONATE 2 % 1 PACK (2 CLOTHS) TOP SCH (19:48)
[2016-06-20] MEDS: methylPREDNISolone SOD SUCC 40 MG/1 ML VIAL IV SCH (23:09)
[2016-06-21] VITALS (16 sets, daily range): BP systolic 145–181; BP diastolic 71–79; PULSE 75–91; RESP 15–22; TEMP 98.4–99.4; O2SAT 95–100
[2016-06-21] MEDS: LINEZOLID 600 MG PREMIX 300 ML IV SCH ×2 (01:04→14:31)
[2016-06-21] MEDS: RESP: ALBUTEROL 2.5 MG/IPRATROPIUM 0.5 MG NEB (SCH) NEB ×4 (02:49→21:17)
[2016-06-21] MEDS: methylPREDNISolone SOD SUCC 40 MG/1 ML VIAL IV SCH ×3 (04:38→17:53)
[2016-06-21] MEDS: INSULIN NovoLIN REGULAR SUPPLEMENTAL SCALE SQ SCH ×4 (05:08→20:44)
[2016-06-21 06:58] LABS: AUTOMATED NEUTROPHIL # 7.4 TH/MM3 (1.8-7.7); BASOPHIL # 0.1 TH/MM3 (0-0.2); BASOPHIL % 0.6 % (0.0-2.0); EOSINOPHIL % 0.1 % (0.0-4.0); HEMATOCRIT 27.5 % (35.0-46.0); LYMPH % 9.6 % (9.0-44.0); LYMPHOCYTE # 0.8 TH/MM3 (1.0-4.8); MEAN CELL VOLUME 94.9 FL (80.0-100.0); MEAN CORPUSCULAR HEMOGLOBIN 29.8 PG (27.0-34.0); MEAN CORPUSCULAR HGB CONC 31.4 % (32.0-36.0); MONO % 1.2 % (0.0-8.0); NEUT % 88.5 % (16.0-70.0); PLATELET COUNT 276 TH/MM3 (150-450); PROTHROMBIN TIME - PATIENT 10.9 SEC (9.8-11.6); RED BLOOD COUNT 2.89 MIL/MM3 (4.00-5.30); RED CELL DISTRIBUTION WIDTH 20.8 % (11.6-17.2); WHITE BLOOD COUNT 8.3 TH/MM3 (4.0-11.0)
[2016-06-21 07:06] LABS: HEMO FLAGS AUTO DIFF
--- NOTE | 2016-06-21 07:14 | PQ ---
Physician Query Response Document PATIENT: SHAKIR BEST : 1950 ADMIT DATE: 06/13/2016 7:16 PM DISCH DATE: RESPONDING PROVIDER #: [email or web address] QUERY TEXT: Sepsis Query Based on your medical judgement, can you further clarify the followin. Sepsis (SIRS due to an infection) - PLEASE INDICATE, IF POSSIBLE, ORGANISM RESPONSIBLE FOR SEPSIS DX 2. Severe Sepsis (Sepsis with Organ Dysfunction) 3. A localized Infection only 4. Another condition - please specify 5. Unable to determine - please explain. Depending on your selection above, please indicate one of the below if applicable: - Sepsis was present on Admission - Sepsis developed after admission The patient's Clinical Indicators include: 06/13/16 Admission Diagnosis acute respiratory failure, UTI, possible pneumonia PER 06/17/16 INFECTIOUS DISEASE PROGRESS NOTES - UC C glabrata Repeat UC neg so far Sputum with MRSA BC negative IMPRESSION Respiratory failure, HCAP, with ?pulmonary edema MRSA PNA UTI, prior Hx UTI and ESBL(+) infection - now has low colony count yeast PER 06/19/16 CRITICAL CARE PROGRESS NOTES - Acute encephalopathy secondary to hypercapnia and sepsis Query created by: Nicolette Jensen on 06/20/2016 10:10 AM RESPONSE TEXT: Sepsis due to MRSA pneumonia Electronically signed by: Mark Perez MD 06/21/2016 7:09 AM
[2016-06-21 07:15] LABS: BICARBONATE 30.1 MEQ/L (21.0-32.0)
--- NOTE | 2016-06-21 08:14 | HHI.CCPN ---
Subjective Remarks/Hospital Course 65-year-old female with past medical history of hypertension, diabetes , morbid obesity with obesity hypoventilation syndrome, COPD, chronic systolic heart failure, chronic kidney disease stage III, adenocarcinoma of breast metastatic to lung who presents to [facility] emergency department from [facility] with respiratory distress and lethargy. She was found to be in hypercapnic respiratory failure with pH 7.24/PaCO2 57/PA O2 of 118/bicarbonate 24 on 4 L nasal cannula. She was placed on BiPAP 12 over 5 with 35%. Repeat ABG demonstrated no significant improvement. Dr. Carl discussed with patient' s sister who stated patient was full code and so she was intubated in the emergency department with Grade III/IV view with Glidescope following sedation with ketamine and rocuronium. Chest x-ray demonstrated bilateral vascular congestion. There is also a right lower lobe opacity, right upper lobe opacity , and left upper lobe opacity. She was treated empirically in the emergency department with aztreonam, Flagyl, vancomycin. Urinalysis was remarkable for a UTI. She had a potassium of 6.1. She was treated with I called 50 mEq, calcium gluconate 2 g, insulin 10 units IV and dextrose. Apparently patient also had some left-sided abdominal pain for which Dr. Carl has ordered CT abdomen. VQ scan has also been ordered. Patient's sister states that April has a history of left breast adenocarcinoma which she underwent lumpectomy and lymph node resections. She states she underwent chemotherapy at that time which was poorly tolerated and that she was admitted after chemo every time because "all of her systems would shut down". She states that about 6-8 months ago she was found to have multiple lung mets. She states that chemotherapy was initiated but she was not able to tolerate and therefore she discontinued chemotherapy in February of 2016. She was under the care of Dr. Som Cam at [facility]. She states that for 2-3 years she has been having recurrent urinary tract infections. She states that she has been in and out of the hospital "every other week" in March 2016 due to recurrent urinary tract infections. There has been a history of MDRO and her chart indicates that she has a history of UTI positive for ESBL. Patient was reportedly was admitted to [facility] from April 02 to April 29. During this time she was treated for urinary tract infection. She also had altered mental status and respiratory failure requiring mechanical ventilation for approximately 4 days. She was discharged back to [facility] where she resided for 2-3 weeks until she was again hospitalized for CHF, pneumonia, urinary tract infection. She did not require mechanical ventilation on this admission. Her sister states she has been back at [facility] for about a week. Subjective: 06/14: Patient was noted to be hypoglycemic throughout the night and required D10 infusion. Patient is on hourly glucose monitoring. The sodium the patient was placed on Glucerna tube feeds, glucose levels have improved. The patient is currently on CPAP GCS 11 T denies pain. The patient was noted to have an indeterminate VQ scan and has been placed on therapeutic Lovenox twice a day. Plans for palliative care having consult to discuss with patient's family, goals of care. 06/15: Afebrile. The patient tolerated CPAP trials approximately 15 minutes yesterday. Currently the patient is tolerating CPAP trials for greater than 2 hours. The patient is awake and responsive. Palliative care team met with family yesterday the patient and family would like aggressive measures to continue. The patient's tolerating tube feeds, D10 has been discontinued, her glucose levels have normalized. 06/16: Afebrile. GCS 11T, interacting with sister and family yesterday. Patient was noted to have voluminous bowel movements all bowel regimen is on hold, fecal incontinence apparatus applied. Peripheral edema noted , Lasix 40 mg IV 1 dose. ID consulted, Dr. Morales repeat urine culture obtained today. 06/17: CPAP trials last approximately 3-1/2 hours today. Sputum culture revealed MRSA. The patient denies any pain. GCS 11 T. 06/18: Afebrile. Sputum culture returned back MRSA. Patient to use on Zyvox. Dignashield placed for voluminous diarrhea. C. difficile PCR obtained. Patient remains GCS 11 T with CPAP trials lasting 3-4 hours daily. Discussion with sister Miss Patel regarding possible tracheostomy in the near future. Creatinine stabilized at 1.59, patient baseline. 06/19: Patient is on 20 mcg/KG per minute of propofol. I suspect one is open she is not following commands for me. C. difficile checked yesterday was negative. Chest x-ray done shows persistent left lower lobe consolidation 06/20: Remains awake alert, tracks but not following commands. Tolerating CPAP. [place] status did not permit extubation yesterday. CXR unchanged 06/21: Extubated yesterday tolerating well. Patient is more communicative alert oriented. With oxygen saturation on nasal cannula. Chest x-ray shows slight improvement in the left lower lobe infiltrate Objective Vital Signs Date Time Temp Pulse Resp B/P Pulse Ox O2 Delivery O2 Flow Rate FiO2 06/21/16 06:00 84 06/21/16 04:10 100 35 06/21/16 04:00 99.2 18 160/79 06/20/16 21:30 Nasal Cannula 2.00 Intake and Output 06/20/16 06/20/16 06/21/16 08:00 16:00 00:00 Intake Total 784 ml 320 ml 40 ml Output Total 1600 ml 2200 ml 1300 ml Balance -816 ml -1880 ml -1260 ml Result Diagram: 06/21/16 0600 06/21/16 0600 Other Results Laboratory Tests Test 06/20/16 11:51 Blood Gas Puncture Site RT RADIAL Blood Gas Patient Temperature 98.6 Blood Gas HCO3 27 mmol/L (22-26) Blood Gas Base Excess 2.7 mmol/L (-2-2) Blood Gas Oxygen Saturation 95 % (90-100) Arterial Blood pH 7.40 (7.380-7.420) Arterial Blood Partial 45 mmHg (38-42) Pressure CO2 Arterial Blood Partial 112 mmHg Pressure O2 (61-120) Arterial Blood Oxygen Content 23.5 Vol % (12.0-20.0) Arterial Blood 1.8 % (0-4) Carboxyhemoglobin Arterial Blood Methemoglobin 1.1 % (0-2) Blood Gas Hemoglobin 17.5 G/DL (12.0-16.0) Oxygen Delivery Device VENTILATOR Blood Gas Ventilator Setting CPAP 5/7/30% Blood Gas Inspired Oxygen 30 % Imaging Last Impressions Chest X-Ray 06/14/16 0600 Signed Impressions: Service Date/Time: Tuesday, June 14, 2016 04:00 - CONCLUSION: Persistent bilateral pulmonary opacity with right lower lobe consolidation, left lower lung atelectasis versus consolidation and left pleural effusion. Dimitrios Mccartney MD Head CT 06/14/16 0000 Signed Impressions: Service Date/Time: Tuesday, June 14, 2016 02:48 - CONCLUSION: 1. No acute intracranial findings. 2. Pansinusitis with diffuse air fluid levels indicating acute sinusitis. Dimitrios Mccartney MD Chest CT 06/14/16 0000 Signed Impressions: Service Date/Time: Tuesday, June 14, 2016 02:51 - CONCLUSION: 1. Large area of right lower lung consolidation with air bronchograms. 2. Mild left lung consolidation versus atelectasis with rounded masslike anterior contour in the upper lung. 2 additional left-sided nodules are identified in the mid lung. 3. Small bilateral pleural effusions. 4. Enlarged right paratracheal lymph node. Dimitrios Mccartney MD Lung Scan-V Nuclear Medicine [id number] Signed Impressions: Service Date/Time: Monday, June 13, 2016 20:49 - CONCLUSION: Indeterminant probability for pulmonary embolism with Large matched perfusion and ventilatory defect corresponding to radiographic abnormality in the right lung base. Adolfo Daniels MD Abdomen/Pelvis CT [id number] Signed Impressions: Service Date/Time: Tuesday, June 14, 2016 00:05 - CONCLUSION: 1. Right lower lung consolidation and bilateral pleural effusions. 2. Superficial soft tissue edema suggesting anasarca. 3. Perinephric stranding and diffuse urinary bladder wall thickening. Question urinary tract infection. Mild right hydronephrosis. No calculi identified. 4. Nonspecific oval 4.6 cm mass in the spleen. 5. Retroperitoneal lymphadenopathy. Dimitrios Mccartney MD Lower Extremity Ultrasound 06/13/16 0000 Signed Impressions: Service Date/Time: Tuesday, June 14, 2016 00:24 - CONCLUSION: No evidence of lower extremity DVT on the right or left. Dimitrios Mccartney MD Objective Remarks GENERAL: Morbidly obese female who is on nasal cannula SKIN: Warm and dry. Intertriginous areas with fungal excoriation - breasts, groin and pannus HEAD: Atraumatic. Normocephalic. EYES: Pupils equal and reactive. No scleral icterus. No injection or drainage. ENT: No nasal bleeding or discharge. Mucous membranes pink and moist. NECK: Trachea midline. Unable to assess JVD, secondary to to body habitus. CARDIOVASCULAR: Regular rate and rhythm, sinus rhythm . No murmurs rubs or gallops. RESPIRATORY: Air entry equal bilaterally no wheezes or crackles GASTROINTESTINAL: Abdomen morbidly obese with large pannus. Bowel sounds are present. There is pitting abdominal wall edema . : Christianson in place. MUSCULOSKELETAL: Extremities without clubbing, cyanosis. There is 2+ edema BLE. NEUROLOGICAL: Alert awake oriented follows commands in all extremities Urinary Catheter: Yes Assessment to: Continue Date of Insertion: Jun 13, 2016 A/P Assessment and Plan NEURO: Acute encephalopathy secondary to hypercapnia and sepsis Peripheral neuropathy Anxiety Discontinue all sedation Hold Neurontin as this has caused depressed mental status in the past SSRI on hold. Hold Xanax 0.25 mg po q6 hours prn anxiety Holding Melatonin 2.5 mg per tube qhs RESP: Acute hypercapnic and hypoxemic respiratory failure-resolved Obesity hypoventilation syndrome Lung metastases from breast cancer primary MRSA pneumonia Intubated in ED with Glidescope with Grade III/IV Cormack Lehane. Extubated 06/20, tolerating well 06/13 VQ scan-indeterminate, patient started on therapeutic Lovenox 06/14 DuoNeb every 6 hours scheduled and PRN EzPAP, Acapella, IS 06/13 Solumedrol 125 mg IV in the ED. continue [address] Giuliana Sarmiento as per below CV: Uncontrolled Hypertension Chronic systolic heart failure History of paroxysmal atrial fibrillation (not on chronic anticoagulation, currently in sinus rhythm) 06/14 2-D echo-ejection fraction 60%, no RWMA Troponin negative. After swallow eval, Continue Coreg. Continue aspirin 81 mg daily IV Labetalol/Hydralazine PRN for SBP >170 GI: Morbid obesity Moderate protein energy malnutrition Abdominal pain Speech therapy consulted for swallow eval today Reportedly had left-sided abdominal tenderness in the emergency department. CT abdomen and pelvis 06/13-anasarca abdomen, right lower lung consolidation, bilateral pleural effusions. Mild right hydronephrosis. Retroperitoneal lymphadenopathy. 6 cm mass in spleen. Continue multivitamin FEN/RENAL: Chronic kidney disease stage III Hyperkalemia-resolved Potassium 6.1 in ED 06/13. Treatment included calcium, glucose, insulin, bicarbonate. Continue to monitor BMP Christianson in place. Monitor intake and output. Monitor electrolytes and replace as needed On lasix 20 mg BID, Given additional 20 mg IV Lasix 06/20. Urine output remains excellent creatinine stable ID: HCAP with MRSA Follow Urinary tract infection Wound lower aspect of right pannus Continue Zyvox and Diflucan (High dose) Sputum culture-MRSA Blood culture-NGTD Previously on minocycline 100 mg by mouth twice a day. Records from [facility], obtained. Infectious disease consulted- Multiple allergies 06/14 Urine culture- C [place] Repeat urine culture 06/16 -C [place] HEME: Adenocarcinoma left breast, multiple lung metastases Chronic iron deficiency anemia h/o nonocclusive DVT peroneal vein 06/06/14 Continue ferrous sulfate 325 mg twice a day VQ indeterminate-therapeutic Lovenox initiated 150 BID 06/13-B/L lower extremity ultrasound -negative ENDO: Type 2 diabetes mellitus with complications Hypoglycemia Medium dose insulin sliding scale at bedside glucose every 4 hours. Hold Lantus 50 units subcutaneous daily at bedtime Glucose monitoring per ICU protocol PROPH: Protonix 40 mg IV daily for stress ulcer prophylaxis. Lovenox empirically 150 BID, started coumadin 06/19/16 and pharmacy to dose ACCESS: Right chest port accessed. 18 gauge PIV's x 2. Level 3 Palliative care medicine is on board. Sister Ms. Kathleen by [phone] (cell ). Mark Perez MD Jun 21, 2016 08:14
[2016-06-21] MEDS ORDERED: LABETALOL HCL 100 MG/20 ML VIAL IV PUSH PRN (08:15)
[2016-06-21] MEDS ORDERED: hydrALAZINE HCL 20 MG/ML VIAL IV PUSH PRN (08:15)
--- NOTE | 2016-06-21 08:24 | RADRPT ---
EXAM DATE/TIME: 06/21/2016 07:19 [place] COMPARISON: CHEST SINGLE AP, June 20, 2016, 5:02. INDICATIONS: Respiratory Disease. MEDICAL HISTORY: Hypertension. Gastroparesis. Carcinoma, breast SURGICAL HISTORY: Cholecystectomy. Port placement ENCOUNTER: Subsequent ACUITY: 1 week PAIN SCORE: 0/10 LOCATION: Bilateral chest FINDINGS: A right subclavian [id number] has its tip in the superior vena cava. A left apical lung nodule is again noted and is unchanged. There is elevation of the right hemidiaphragm which is stable. Scatt ered patchiness is noted within the lung bases that is unchanged. Heart is prominent. Degenerative changes and scoliosis of the thoracolumbar spine are noted. CONCLUSION: 1. Bibasilar patchiness consistent with atelectasis and/or pneumonia. 2. Stable left apical nodule. 3. Degenerative changes and scoliosis of the thoracolumbar spine. 4. Elevation of the right hemidiaphragm. 5. Cardiomegaly. Scout Rollins MD on June 21, 2016 at 8:13 Board Certified Radiologist. This report was verified electronically.
[2016-06-21 08:55] LABS: SCAN/DIFF AUTO DIFF CONFIRMED
--- NOTE | 2016-06-21 10:06 | HHI.IDPN ---
Subjective Subjective Remarks Notes reviewed Temps occ 99+ Extubated yesterday Good sats on nasal O2 CCM notes reviewed Not SOB WBC normal Started on solumedrol Antibiotics Zyvox Diflucan Lines Port Past Medical History HTN COPD DM Diabetic peripheral neuropathy chronic kidney disease stage III/IV Obesity hypoventilation syndrome Morbid obesity Gout Paroxysmal atrial fibrillation Recurrent UTI Recurrent pneumonia h/o ESBL Anxiety DVT R peroneal vein 06/06/14 History of fall Dysphagia (noted on nectar thickened liquids diet according to note from 06/09/16 ) Chronic urinary incontinence Allergic rhinitis Left breast adenocarcinoma. Last chemotherapy February 2016 ? 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 CT brain negative. Past Surgical History Lithotripsy Gastric bypass Left breast lumpectomy and lymph node biopsy Open cholecystectomy Allergies: Coded Allergies: Percocet (Unverified Allergy, Severe, Nausea/Vomiting, 06/13/16) Codeine (Unverified Allergy, Mild, Nausea/Vomiting, 06/13/16) Lortab (Unverified Allergy, Mild, Nausea/Vomiting, 06/13/16) Bactrim (Unverified Allergy, Unknown, 06/13/16) Ciprofloxacin (Unverified Allergy, Unknown, 06/13/16) Hydrocodone (Unverified Allergy, Unknown, 06/13/16) Levaquin (Unverified Allergy, Unknown, 06/13/16) Penicillin (Verified Allergy, Unknown, rash, 06/14/16) Has taken Keflex in past with no problem Quinolones (Unverified Allergy, Unknown, 06/13/16) Sulfa (Unverified Allergy, Unknown, 06/13/16) *MDRO Multi-Drug Resistant Organism (Verified Adverse Reaction, Unknown, ) MRSA (sputum)-06/14/16 Objective . Vital Signs Date Time Temp Pulse Resp B/P Pulse Ox O2 Delivery O2 Flow Rate FiO2 06/21/16 08:38 98 Nasal Cannula 2.00 06/21/16 06:00 84 06/21/16 04:10 100 35 06/21/16 04:00 81 06/21/16 04:00 99.2 81 18 160/79 95 06/21/16 02:00 81 06/21/16 00:09 100 35 06/21/16 00:00 99.4 75 18 145/76 96 06/21/16 00:00 75 06/20/16 22:00 83 06/20/16 21:41 100 35 06/20/16 21:30 96 Nasal Cannula 2.00 06/20/16 20:00 81 06/20/16 20:00 99.1 81 15 160/71 96 06/20/16 18:00 85 06/20/16 16:00 99.3 79 14 164/69 99 06/20/16 16:00 79 06/20/16 14:00 77 06/20/16 13:20 99.2 77 22 151/82 96 06/20/16 12:20 100 Venturi Mask 6 50 06/20/16 12:20 99 Venturi Mask 6.00 50 06/20/16 12:00 30 06/20/16 12:00 80 06/20/16 11:55 99 30 06/20/16 06/20/16 06/21/16 15:00 23:00 07:00 Intake Total 320 ml 40 ml 322 ml Output Total 2200 ml 1300 ml 1600 ml Balance -1880 ml -1260 ml -1278 ml Intake IV Total 320 ml 40 ml 322 ml Output Urine Total 2000 ml 1200 ml 1500 ml Stool Total 200 ml 100 ml 100 ml . Laboratory Tests Test 06/20/16 06/21/16 06:00 06:00 White Blood Count 9.4 TH/MM3 8.3 TH/MM3 Red Blood Count 2.74 MIL/MM3 2.89 MIL/MM3 Hemoglobin 8.5 GM/DL 8.6 GM/DL Hematocrit 25.7 % 27.5 % Mean Corpuscular Volume 93.8 FL 94.9 FL Mean Corpuscular Hemoglobin 31.1 PG 29.8 PG Mean Corpuscular Hemoglobin 33.2 % 31.4 % Concent Red Cell Distribution Width 20.6 % 20.8 % Platelet Count 302 TH/MM3 276 TH/MM3 Mean Platelet Volume 8.2 FL 8.0 FL Neutrophils (%) (Auto) 66.3 % 88.5 % Lymphocytes (%) (Auto) 19.0 % 9.6 % Monocytes (%) (Auto) 9.0 % 1.2 % Eosinophils (%) (Auto) 4.9 % 0.1 % Basophils (%) (Auto) 0.8 % 0.6 % Neutrophils # (Auto) 6.2 TH/MM3 7.4 TH/MM3 Lymphocytes # (Auto) 1.8 TH/MM3 0.8 TH/MM3 Monocytes # (Auto) 0.8 TH/MM3 0.1 TH/MM3 Eosinophils # (Auto) 0.5 TH/MM3 0.0 TH/MM3 Basophils # (Auto) 0.1 TH/MM3 0.1 TH/MM3 CBC Comment AUTO DIFF AUTO DIFF Differential Comment AUTO DIFF AUTO DIFF CONFIRMED CONFIRMED Platelet Estimate NORMAL Platelet Morphology Comment NORMAL Laboratory Tests Test 06/20/16 06/21/16 06:00 06:00 Sodium Level 141 MEQ/L 138 MEQ/L Potassium Level 4.5 MEQ/L 5.0 MEQ/L Chloride Level 103 MEQ/L 101 MEQ/L Carbon Dioxide Level 28.3 MEQ/L 30.1 MEQ/L Anion Gap 10 MEQ/L 7 MEQ/L Blood Urea Nitrogen 29 MG/DL 27 MG/DL Creatinine 1.84 MG/DL 1.74 MG/DL Estimat Glomerular Filtration 28 ML/MIN 29 ML/MIN Rate Random Glucose 185 MG/DL 272 MG/DL Calcium Level 8.5 MG/DL 8.6 MG/DL Magnesium Level 2.0 MG/DL Total Bilirubin 0.2 MG/DL Aspartate Amino Transf 12 U/L (AST/SGOT) Alanine Aminotransferase 9 U/L (ALT/SGPT) Alkaline Phosphatase 100 U/L Total Protein 7.0 GM/DL Albumin 2.0 GM/DL Imaging Chest X-Ray 06/20/16 06 Signed Impressions: Service Date/Time: Monday, June 20, 2016 05:02 - CONCLUSION: No significant change has occurred. Doni Mccarty MD Chest X-Ray [id number] Signed Impressions: Service Date/Time: Sunday, June 19, 2016 03:39 - CONCLUSION: No significant change has occurred. Doni Mccarty MD Chest X-Ray 06/18/16 06 Signed Impressions: Service Date/Time: Saturday, June 18, 2016 03:18 - CONCLUSION: Stable basilar airspace disease compared with June 15. Endotracheal tube, nasogastric tube in satisfactory position. Christiano Martin MD Last Impressions Chest X-Ray 06/15/16 06 Signed Impressions: Service Date/Time: May 03:49 - CONCLUSION: 1. Increased bilateral symmetric pulmonary opacity likely representing pulmonary edema. Pulmonary consolidation is seen bilaterally in the lower lobes. Masslike density again seen in the left upper lobe. 2. New bilateral pleural effusions. Dimitrios Mccartney MD Head CT 06/14/16 Signed Impressions: Service Date/Time: Tuesday, June 14, 2016 02:48 - CONCLUSION: 1. No acute intracranial findings. 2. Pansinusitis with diffuse air fluid levels indicating acute sinusitis. Dimitrios Mccartney MD Chest CT 06/14/16 Signed Impressions: Service Date/Time: Tuesday, June 14, 2016 02:51 - CONCLUSION: 1. Large area of right lower lung consolidation with air bronchograms. 2. Mild left lung consolidation versus atelectasis with rounded masslike anterior contour in the upper lung. 2 additional left-sided nodules are identified in the mid lung. 3. Small bilateral pleural effusions. 4. Enlarged right paratracheal lymph node. Dimitrios Mccartney MD Lung Scan-V Nuclear Medicine [id number]/13/[id number] Signed Impressions: Service Date/Time: Monday, June 13, 2016 20:49 - CONCLUSION: Indeterminant probability for pulmonary embolism with Large matched perfusion and ventilatory defect corresponding to radiographic abnormality in the right lung base. Adolfo Daniels MD Abdomen/Pelvis CT [id number]/13/[id number] Signed Impressions: Service Date/Time: Tuesday, June 14, 2016 00:05 - CONCLUSION: 1. Right lower lung consolidation and bilateral pleural effusions. 2. Superficial soft tissue edema suggesting anasarca. 3. Perinephric stranding and diffuse urinary bladder wall thickening. Question urinary tract infection. Mild right hydronephrosis. No calculi identified. 4. Nonspecific oval 4.6 cm mass in the spleen. 5. Retroperitoneal lymphadenopathy. Dimitrios Mccartney MD Lower Extremity Ultrasound 06/13/16 Signed Impressions: Service Date/Time: Tuesday, June 14, 2016 00:24 - CONCLUSION: No evidence of lower extremity DVT on the right or left. Dimitrios Mccartney MD Physical Exam GENERAL: Awake, on nasal O2, not in distress SKIN: Cool and dry. No generalized rash HEENT: [place] conjunctiva. No scleral icterus. Moist mucosa NECK: Supple, nontender, short and obese. CARDIOVASCULAR: Regular rate and rhythm without murmurs, gallops, or rubs. RESPIRATORY: Decreased BS at bases GASTROINTESTINAL: Abdomen soft, obese , non-tender, nondistended. No guarding. Bowel sounds are present. MUSCULOSKELETAL: Extremities without clubbing, cyanosis, or edema. or edema noted. No calf tenderness. NEUROLOGICAL: Awake and alert. No Babinski. LINE: Port right upper chest with no evidence of infection : Christianson catheter in place, urine looks clear currently Assessment & Plan Remarks IMPRESSION Respiratory failure, HCAP, with ?pulmonary edema - extubated 06/20 MRSA PNA UTI, prior Hx UTI and ESBL(+) infections - now has low colony count yeast Morbid obesity COPD, likely has KING Multiple Abx allergy - PCN - has taken Keflex without any problem CKD Candiduria RECOMMENDATION Continue Zyvox for HCAP, MRSA coverage - if doing well Will D/C Continue Diflucan Monitor progress Monitor respiratory status Melody Morales MD Jun 21, 2016 10:06
[2016-06-21] MEDS: FERROUS SULFATE 300 MG /5ML UDC PO SCH ×2 (11:46→20:44)
[2016-06-21] MEDS: CHLORHEXIDINE 0.12% (ORAL KIT) 15 ML CUP MT SCH ×2 (11:46→19:20)
[2016-06-21] MEDS: PANTOPRAZOLE SODIUM 40 MG VIAL IV SCH (11:47)
[2016-06-21] MEDS: SODIUM CHLORIDE 0.9% FLUSH 5 ML FLUSH IV FLUSH SCH ×2 (11:47→20:44)
[2016-06-21] MEDS: POLYETHYLENE GLYCOL 17 GM PKG PO SCH (11:48)
[2016-06-21] MEDS: FUROSEMIDE 20 MG/2 ML VIAL IV PUSH SCH ×2 (11:48→20:44)
[2016-06-21] MEDS: ALLOPURINOL 100 MG TAB PO SCH (11:49)
[2016-06-21] MEDS: MULTIVITAMINS/MINERALS THERAPEUTIC TAB PO SCH (11:49)
[2016-06-21] MEDS: BETHANECHOL CHL 10 MG TAB PO SCH (11:49)
[2016-06-21] MEDS: FLUCONAZOLE 200 MG TAB PO SCH (11:49)
[2016-06-21] MEDS: CARVEDILOL 12.5 MG TAB PO SCH ×2 (11:49→17:53)
[2016-06-21] MEDS: ENOXAPARIN SODIUM 150 MG/ML SYRINGE SQ SCH (12:14)
[2016-06-21 13:18] LABS: AUTOMATED NEUTROPHIL # 6.2 TH/MM3 (1.8-7.7); BASOPHIL % 0.2 % (0.0-2.0); HEMATOCRIT 26.2 % (35.0-46.0); LYMPH % 10.1 % (9.0-44.0); LYMPHOCYTE # 0.7 TH/MM3 (1.0-4.8); MEAN CELL VOLUME 93.6 FL (80.0-100.0); MEAN CORPUSCULAR HGB CONC 33.1 % (32.0-36.0); MONO % 2.4 % (0.0-8.0); NEUT % 87.3 % (16.0-70.0); PLATELET COUNT 292 TH/MM3 (150-450); WHITE BLOOD COUNT 7.1 TH/MM3 (4.0-11.0)
[2016-06-21 13:22] LABS: HEMO FLAGS AUTO DIFF
--- NOTE | 2016-06-21 13:52 | HHI.HCPN ---
Reason for visit a. To assist with evaluation and management of symptoms including: dyspnea, pain, b. To assist medical decision maker(s) with: better understanding of current medical conditions; weighing benefits/burdens of medical treatment options; making medical treatment decisions. (Arabella Mcpherson) Subjective/Interval History Ms Vargas is much more awake this morning and able to converse. She does remember my visit from yesterday and the conversation had relative to CODE STATUS, and possibly hospice. She states that she is comfortable without pain. and that her breathing is much improved. She has been advanced to a soft mechanical diet which she is anxious to eat. Her [id number] is at the bedside during our conversation today. Again, reviewed her medical story since admission from the hospital as well as her overall clinical state including the metastatic breast cancer. Once again reviewed. If she were to have respiratory failure again if she would want to be intubated or have a tracheostomy. She clearly indicated that she did not. Inquired if she would want to have chest compressions in the event her heart was to stop, she replied she did not know. In light of the big picture. Discussed with her that she meets criteria for hospice at this time. That she could be followed at [facility] and that her symptoms could be effectively managed there. However, she would not return to the hospital for aggressive measures. I asked if she had some concerns about that. She stated that she did not know. I acknowledged the intensity of the thoughts much less the decisions and reflected that her sister Fern also struggles with making these decisions. That it would help her sister greatly if she could have better clarity as to what she wanted or did not want. Clinically, her vital signs are stable. She is doing well on 2 L of oxygen with no overt dyspnea. She remains on antibiotics for pneumonia and UTI. Hemoglobin remains low at 8.7. Renal function is stable and further labs are pending at this time. Chest x-ray showed some mild improvement. Edema has improved considerably (Arabella Mcpherson) Advance Directives Health Care Surrogate: Copy in medical record (Arabella Mcpherson) Advance Directive Specifics Health Care Surrogate(s): Philomena Kathleen, sister, home phone [phone], cell phone [phone], lives in [facility]. Significant change in goals: 06/21/16 Mrs. Vargas, clearly states today that she does not wish to be intubated in the event of respiratory failure. CODE STATUS changed to alternative indicating compressions, ACLS drugs to be given, etc only (Arabella Mcpherson) Objective Vital Signs Date Time Temp Pulse Resp B/P Pulse Ox O2 Delivery O2 Flow Rate FiO2 06/21/16 08:38 98 Nasal Cannula 2.00 06/21/16 06:00 84 06/21/16 04:10 100 35 06/21/16 04:00 81 06/21/16 04:00 99.2 81 18 160/79 95 06/21/16 02:00 81 06/21/16 00:09 100 35 06/21/16 00:00 99.4 75 18 145/76 96 06/21/16 00:00 75 06/20/16 22:00 83 06/20/16 21:41 100 35 06/20/16 21:30 96 Nasal Cannula 2.00 06/20/16 20:00 81 06/20/16 20:00 99.1 81 15 160/71 96 06/20/16 18:00 85 06/20/16 16:00 99.3 79 14 164/69 99 06/20/16 16:00 79 06/20/16 14:00 77 Intake & Output 06/21/16 06/21/16 07:00 19:00 Intake Total 362 ml Output Total 2900 ml Balance -2538 ml Intake IV Total 362 ml Output Urine Total 2700 ml Stool Total 200 ml Physical Exam CONSTITUTIONAL/GENERAL: This is super morbidly obese woman, in no apparent distress. She is awake, alert and conversant TUBES/LINES/DRAINS: Nasal cannula 2 L , Christianson, IV lines, rectal tube SKIN: No jaundice, rashes, or lesions. Ecchymoses on upper extremities. No wounds seen anteriorly. Skin temperature appropriate. Not diaphoretic. HEAD: Atraumatic. Normocephalic. EYES: Eyes open. Tracking and engaging. No scleral icterus ENT: Hearing appears adequate , Nose without bleeding or purulent drainage. NECK: Trachea midline. No JVD due to body habitus CARDIOVASCULAR: Regular rate and rhythm with murmurs. . Peripheral pulses symmetric. RESPIRATORY/CHEST: Symmetric, unlabored respirations on nasal cannula. Ddiminished breath sounds on right, otherwise clear. GASTROINTESTINAL: Abdomen obese, soft, large pannus, bowel sounds present. Soft edema throughout abdominal wall and right flank GENITOURINARY: Without palpable bladder distension. Christianson catheter in place. MUSCULOSKELETAL: 1+ Soft edema from feet through thigh, . . No mottling or clubbing. LYMPHATICS: No palpable cervical or supraclavicular adenopathy. NEUROLOGICAL: Not on propofol at this time. Not engaging with me nor following commands time of my visit PSYCHIATRIC: Unable to assess (Arabella Mcpherson) Diagnostic Tests Laboratory Laboratory Tests Test 06/18/16 06/19/16 06/19/16 06/19/16 16:50 06:00 11:11 11:55 Stool C. difficile Toxin (PCR) NEGATIVE (NEGATIVE) Stl C. difficile Toxin PRESUMPTIVE Epiderm 027 NEGATIVE (NEGATIVE) White Blood Count 10.0 TH/MM3 (4.0-11.0) Red Blood Count 2.61 MIL/MM3 (4.00-5.30) Hemoglobin 8.0 GM/DL (11.6-15.3) Hematocrit 24.6 % (35.0-46.0) Mean Corpuscular Volume 94.3 FL (80.0-100.0) Mean Corpuscular Hemoglobin 30.6 PG (27.0-34.0) Mean Corpuscular Hemoglobin 32.4 % Concent (32.0-36.0) Red Cell Distribution Width 20.9 % (11.6-17.2) Platelet Count 266 TH/MM3 (150-450) Mean Platelet Volume 8.8 FL (7.0-11.0) Sodium Level 141 MEQ/L (136-145) Potassium Level 5.5 MEQ/L (3.5-5.1) Chloride Level 106 MEQ/L (98-107) Carbon Dioxide Level 25.4 MEQ/L (21.0-32.0) Anion Gap 10 MEQ/L (5-15) Blood Urea Nitrogen 28 MG/DL (7-18) Creatinine 1.71 MG/DL (0.50-1.00) Estimat Glomerular Filtration 30 ML/MIN (>89) Rate Random Glucose 175 MG/DL (74-106) Calcium Level 8.3 MG/DL (8.5-10.1) Phosphorus Level 3.2 MG/DL (2.5-4.9) Magnesium Level 2.0 MG/DL (1.5-2.5) Prothrombin Time 10.9 SEC (9.8-11.6) Prothromb Time International 1.0 RATIO Ratio Blood Gas Puncture Site LT RADIAL Blood Gas Patient Temperature 98.6 Blood Gas HCO3 26 mmol/L (22-26) Blood Gas Base Excess 1.0 mmol/L (-2-2) Blood Gas Oxygen Saturation 93 % (90-100) Arterial Blood pH 7.38 (7.380-7.420) Arterial Blood Partial 44 mmHg (38-42) Pressure CO2 Arterial Blood Partial 89 mmHg Pressure O2 (61-120) Arterial Blood Oxygen Content 11.0 Vol % (12.0-20.0) Arterial Blood 2.3 % (0-4) Carboxyhemoglobin Arterial Blood Methemoglobin 1.3 % (0-2) Blood Gas Hemoglobin 8.3 G/DL (12.0-16.0) Oxygen Delivery Device VENTILATOR Blood Gas Ventilator Setting EPAP 5 IPAP5 Blood Gas Inspired Oxygen 35 % Test 06/20/16 06/20/16 06/21/16 06/21/16 06:00 11:51 06:00 12:25 White Blood Count 9.4 TH/MM3 8.3 TH/MM3 7.1 TH/MM3 (4.0-11.0) (4.0-11.0) (4.0-11.0) Red Blood Count 2.74 MIL/MM3 2.89 MIL/MM3 2.80 MIL/MM3 (4.00-5.30) (4.00-5.30) (4.00-5.30) Hemoglobin 8.5 GM/DL 8.6 GM/DL 8.7 GM/DL (11.6-15.3) (11.6-15.3) (11.6-15.3) Hematocrit 25.7 % 27.5 % 26.2 % (35.0-46.0) (35.0-46.0) (35.0-46.0) Mean Corpuscular Volume 93.8 FL 94.9 FL 93.6 FL (80.0-100.0) (80.0-100.0) (80.0-100.0) Mean Corpuscular Hemoglobin 31.1 PG 29.8 PG 31.0 PG (27.0-34.0) (27.0-34.0) (27.0-34.0) Mean Corpuscular Hemoglobin 33.2 % 31.4 % 33.1 % Concent (32.0-36.0) (32.0-36.0) (32.0-36.0) Red Cell Distribution Width 20.6 % 20.8 % 20.0 % (11.6-17.2) (11.6-17.2) (11.6-17.2) Platelet Count 302 TH/MM3 276 TH/MM3 292 TH/MM3 (150-450) (150-450) (150-450) Mean Platelet Volume 8.2 FL 8.0 FL 7.9 FL (7.0-11.0) (7.0-11.0) (7.0-11.0) Neutrophils (%) (Auto) 66.3 % 88.5 % 87.3 % (16.0-70.0) (16.0-70.0) (16.0-70.0) Lymphocytes (%) (Auto) 19.0 % 9.6 % 10.1 % (9.0-44.0) (9.0-44.0) (9.0-44.0) Monocytes (%) (Auto) 9.0 % (0.0-8.0) 1.2 % (0.0-8.0) 2.4 % (0.0-8.0) Eosinophils (%) (Auto) 4.9 % (0.0-4.0) 0.1 % (0.0-4.0) 0.0 % (0.0-4.0) Basophils (%) (Auto) 0.8 % (0.0-2.0) 0.6 % (0.0-2.0) 0.2 % (0.0-2.0) Neutrophils # (Auto) 6.2 TH/MM3 7.4 TH/MM3 6.2 TH/MM3 (1.8-7.7) (1.8-7.7) (1.8-7.7) Lymphocytes # (Auto) 1.8 TH/MM3 0.8 TH/MM3 0.7 TH/MM3 (1.0-4.8) (1.0-4.8) (1.0-4.8) Monocytes # (Auto) 0.8 TH/MM3 0.1 TH/MM3 0.2 TH/MM3 (0-0.9) (0-0.9) (0-0.9) Eosinophils # (Auto) 0.5 TH/MM3 0.0 TH/MM3 0.0 TH/MM3 (0-0.4) (0-0.4) (0-0.4) Basophils # (Auto) 0.1 TH/MM3 0.1 TH/MM3 0.0 TH/MM3 (0-0.2) (0-0.2) (0-0.2) CBC Comment AUTO DIFF AUTO DIFF AUTO DIFF Differential Comment AUTO DIFF AUTO DIFF CONFIRMED CONFIRMED Platelet Estimate NORMAL (NORMAL) Platelet Morphology Comment NORMAL (NORMAL) Prothrombin Time 10.8 SEC 10.9 SEC (9.8-11.6) (9.8-11.6) Prothromb Time International 1.0 RATIO 1.0 RATIO Ratio Sodium Level 141 MEQ/L 138 MEQ/L (136-145) (136-145) Potassium Level 4.5 MEQ/L 5.0 MEQ/L (3.5-5.1) (3.5-5.1) Chloride Level 103 MEQ/L 101 MEQ/L (98-107) (98-107) Carbon Dioxide Level 28.3 MEQ/L 30.1 MEQ/L (21.0-32.0) (21.0-32.0) Anion Gap 10 MEQ/L (5-15) 7 MEQ/L (5-15) Blood Urea Nitrogen 29 MG/DL (7-18) 27 MG/DL (7-18) Creatinine 1.84 MG/DL 1.74 MG/DL (0.50-1.00) (0.50-1.00) Estimat Glomerular Filtration 28 ML/MIN (>89) 29 ML/MIN (>89) Rate Random Glucose 185 MG/DL 272 MG/DL (74-106) (74-106) Calcium Level 8.5 MG/DL 8.6 MG/DL (8.5-10.1) (8.5-10.1) Magnesium Level 2.0 MG/DL (1.5-2.5) Total Bilirubin 0.2 MG/DL (0.2-1.0) Aspartate Amino Transf 12 U/L (15-37) (AST/SGOT) Alanine Aminotransferase 9 U/L (10-53) (ALT/SGPT) Alkaline Phosphatase 100 U/L (45-117) Total Protein 7.0 GM/DL (6.4-8.2) Albumin 2.0 GM/DL (3.4-5.0) Blood Gas Puncture Site RT RADIAL Blood Gas Patient Temperature 98.6 Blood Gas HCO3 27 mmol/L (22-26) Blood Gas Base Excess 2.7 mmol/L (-2-2) Blood Gas Oxygen Saturation 95 % (90-100) Arterial Blood pH 7.40 (7.380-7.420) Arterial Blood Partial 45 mmHg (38-42) Pressure CO2 Arterial Blood Partial 112 mmHg Pressure O2 (61-120) Arterial Blood Oxygen Content 23.5 Vol % (12.0-20.0) Arterial Blood 1.8 % (0-4) Carboxyhemoglobin Arterial Blood Methemoglobin 1.1 % (0-2) Blood Gas Hemoglobin 17.5 G/DL (12.0-16.0) Oxygen Delivery Device VENTILATOR Blood Gas Ventilator Setting CPAP 5/7/30% Blood Gas Inspired Oxygen 30 % (Arabella Mcpherson) Result Diagram: 06/21/16 1225 06/21/16 0600 Imaging Last 72 hours Impressions Chest X-Ray 06/21/16 0000 Signed Impressions: Service Date/Time: Tuesday, June 21, 2016 07:19 - CONCLUSION: 1. Bibasilar patchiness consistent with atelectasis and/or pneumonia. 2. Stable left apical nodule. 3. Degenerative changes and scoliosis of the thoracolumbar spine. 4. Elevation of the right hemidiaphragm. 5. Cardiomegaly. Scout Rollins MD Chest X-Ray 06/20/16 0600 Signed Impressions: Service Date/Time: Monday, June 20, 2016 05:02 - CONCLUSION: No significant change has occurred. Doni Mccarty MD Chest X-Ray 06/19/16 0600 Signed Impressions: Service Date/Time: Sunday, June 19, 2016 03:39 - CONCLUSION: No significant change has occurred. Doni Mccarty MD Procedures Intubated, 06/13/2016 Extubated to 06/20/16 (Arabella Mcpherson) Assessment and Plan Disease Oriented Problem List: (1) Hypercapnic respiratory failure Comment: Extubated on 06/20/16, now on nasal cannula, tolerating well (2) Sepsis Comment: Remains on antibiotics (3) Anemia Comment: stable (4) Morbid obesity with BMI of 60.0-69.9, adult (5) Diabetes mellitus type 2, insulin dependent (6) Chronic renal disease, stage IV Comment: improving Symptom Scale: (1) Pain 0-10 Scale: 4 Comment: Degenerative disc disease lower spine indicates; pain is adequately managed (2) Dyspnea 0-10 Scale: 3 Comment: Extubated on 06/20/16, denies dyspnea. However, she is super morbidly obese and tends toward hypoventilation syndrome Pertinent Non-Medical Issues Psychosocial: Single female, no children, has been disabled for 2 years. Spiritual: No orthodoxy affiliation Legal: None identified at this time Ethical issues impacting care: Her sister reports that gabapentin will cause her thinking to be skewed. At that she does better and is of clearer mind without the gabapentin. Gabapentin has been discontinued that in the event she is able to provide direction into her care, she would have the opportunity Important Contacts Philomena Del Vallenaya, healthcare surrogate, sister, home phone [phone], cell phone [phone] Prognosis Prognosis is poor. 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 There is also question of abdominal metastasis with retro-peritoneal lymphadenopathy also identified on recent imaging. She essentially has been in the hospital since March of last year Code Status: Alternative Code (patient states she does not wish to be intubated. However, at this time wants to proceed with compressions, ACLS drugs , etc.) Plan Decision Maker:Jes Bradleyeverton, sister, home phone [phone], cell phone [phone], Code Status: Alternate code - DNI - Family Discussion: She has been is disabled since for the last 2 years and a resident of a long-term. She has had repeated hospital admissions due to recurrent urinary tract infections as well as respiratory distress. She has history of cancer of the breast with metastasis and unable to tolerate chemotherapy x 2 occasions. Her UTI's are resistant to many antibiotics. Ongoing decline in her physical health over the last several months. Patient has expressed desire to be full code.. Patient next visit on 06/20/16. She is able to engage in conversation regarding goals of care at this time. She indicates that she would not want to be intubated again nor have a tracheostomy. However, she is unable to decide if she would not want CPR efforts. She also is not able to decide at this time if she would want to elect hospice for comfort measures only Symptoms: Dyspnea - stable on nasal cannula 2 L, pain -DDD lower spine, body habitus and extended bedbound status - effectively managed at this time Palliative care phone number provided - will follow during hospital stay. ( Arabella Mcpherson) Attestation To help prompt me to consider important information that might be impacting today's encounter and assessment, information from prior notes written by myself or my colleagues may have been "brought forward" into today's note. My signature on this note, however, is an attestation that I personally performed the exam, history, and/or decision-making noted today, and, unless otherwise indicated, the interactions with patient, family, and staff as well as the review of records all occurred today. I also attest that the listed assessment and stated plan reflect my best clinical judgment today based on the combination of historical information, prior notes, and today's exam/ interactions. When time spent is documented, it refers only to time spent today by the signer, or if indicated, combined time spent today by collaborating physician/nurse practitioner. (Arabella Mcpherson) Collaborating MD Comments . Chart reviewed. Cased discussed with palliative care [facility]. Above [facility] note reviewed and I concur. . (Marty Strickland MD) Arabella Mcpehrson Jun 21, 2016 13:52 Marty Strickland MD August 28, 2016 14:34
[2016-06-21 13:54] LABS: ALKALINE PHOSPHATASE 93 U/L (45-117); ALT (GPT) 11 U/L (10-53); ANION GAP 8 MEQ/L (5-15); AST (GOT) 18 U/L (15-37); BICARBONATE 29.1 MEQ/L (21.0-32.0); BLOOD UREA NITROGEN 28 MG/DL (7-18); CHLORIDE 101 MEQ/L (98-107); GLOMERULAR FILTRATION RATE 29 ML/MIN (>89); MAGNESIUM 1.9 MG/DL (1.5-2.5); SODIUM (NA) 138 MEQ/L (136-145); TOTAL BILIRUBIN ADULT 0.3 MG/DL (0.2-1.0)
[2016-06-21 14:03] LABS: SCAN/DIFF AUTO DIFF CONFIRMED
[2016-06-21] MEDS ORDERED: WARFARIN SOD 1 MG TAB PO SCH (16:00)
[2016-06-21] MEDS: WARFARIN SOD 3 MG TAB PO SCH (17:39)
--- NOTE | 2016-06-21 18:49 | HHI.PR ---
Subjective Remarks 65 YO Obese Wf with RF, s/p extubation, metastatic Breast ca,Pulm odema,Pn,AF Extubated awake, looks around Sat 92-97 % on NC Feels much better Communicates well, denies sob Tolerates reg meals Objective Vital Signs Vital Signs Date Time Temp Pulse Resp B/P Pulse Ox O2 Delivery O2 Flow Rate FiO2 06/21/16 18:00 85 06/21/16 16:00 81 06/21/16 14:00 80 06/21/16 12:00 87 06/21/16 10:00 85 06/21/16 08:38 98 Nasal Cannula 2.00 06/21/16 08:00 84 06/21/16 06:00 84 06/21/16 04:10 100 35 06/21/16 04:00 81 06/21/16 04:00 99.2 81 18 160/79 95 06/21/16 02:00 81 06/21/16 00:09 100 35 06/21/16 00:00 99.4 75 18 145/76 96 06/21/16 00:00 75 06/20/16 22:00 83 06/20/16 21:41 100 35 06/20/16 21:30 96 Nasal Cannula 2.00 06/20/16 20:00 81 06/20/16 20:00 99.1 81 15 160/71 96 I/O 06/20/16 06/20/16 06/20/16 06/21/16 06/21/16 06/21/16 07:00 15:00 23:00 07:00 15:00 23:00 Intake Total 784 ml 320 ml 40 ml 322 ml Output Total 1600 ml 2200 ml 1300 ml 1600 ml Balance -816 ml -1880 ml -1260 ml -1278 ml Intake IV Total 399 ml 320 ml 40 ml 322 ml Tube Feeding 385 ml Output Urine Total 1300 ml 2000 ml 1200 ml 1500 ml Stool Total 300 ml 200 ml 100 ml 100 ml Result Diagram: 06/21/16 1225 06/21/16 1225 Objective Remarks GENERAL: Obese female, mild sob SKIN: Warm and dry. HEAD: Normocephalic. EYES: No scleral icterus. No injection or drainage. NECK: Supple, trachea midline. No JVD or lymphadenopathy. CARDIOVASCULAR: Regular rate and rhythm without murmurs, gallops, or rubs. RESPIRATORY: Breath sounds equal bilaterally. No accessory muscle use. GASTROINTESTINAL: Abdomen soft, non-tender, nondistended. MUSCULOSKELETAL: No cyanosis, ++ edema. BACK: Nontender without obvious deformity. No CVA tenderness. A/P Assessment and Plan Resp failure, s/p extubation Pulm odema MRSA Pn Metastatic Breast ca Lung nodules AF Pleural effusion PLAN: Cont Abx Zyvox and Diflucan Diurease Lovenox and Coumadin Encourage po Kurtis Giordano MD Jun 21, 2016 18:49
[2016-06-21] MEDS: CHLORHEXIDINE GLUCONATE 2 % 1 PACK (2 CLOTHS) TOP SCH (19:22)
[2016-06-21] MEDS: ONDANSETRON HCL 4 MG/2 ML VIAL IV PRN (20:45)
[2016-06-22] VITALS (19 sets, daily range): BP systolic 120–183; BP diastolic 67–111; PULSE 75–87; RESP 18–22; TEMP 97.9–99.1; O2SAT 96–100
[2016-06-22] MEDS: methylPREDNISolone SOD SUCC 40 MG/1 ML VIAL IV SCH ×4 (00:05→18:00)
[2016-06-22] MEDS: CARVEDILOL 12.5 MG TAB PO SCH ×3 (00:05→17:00)
[2016-06-22] MEDS: ENOXAPARIN SODIUM 150 MG/ML SYRINGE SQ SCH ×2 (00:28→13:00)
[2016-06-22] MEDS: LINEZOLID 600 MG PREMIX 300 ML IV SCH ×2 (01:57→14:00)
[2016-06-22] MEDS: RESP: ALBUTEROL 2.5 MG/IPRATROPIUM 0.5 MG NEB (SCH) NEB ×4 (03:35→22:00)
[2016-06-22 06:42] LABS: AUTOMATED NEUTROPHIL # 11.3 TH/MM3 (1.8-7.7); BASOPHIL % 0.1 % (0.0-2.0); HEMATOCRIT 27.4 % (35.0-46.0); LYMPH % 6.1 % (9.0-44.0); LYMPHOCYTE # 0.8 TH/MM3 (1.0-4.8); MEAN CELL VOLUME 95.1 FL (80.0-100.0); MEAN CORPUSCULAR HEMOGLOBIN 29.8 PG (27.0-34.0); MEAN CORPUSCULAR HGB CONC 31.4 % (32.0-36.0); MONO % 2.1 % (0.0-8.0); NEUT % 91.7 % (16.0-70.0); PLATELET COUNT 288 TH/MM3 (150-450); RED BLOOD COUNT 2.88 MIL/MM3 (4.00-5.30); RED CELL DISTRIBUTION WIDTH 20.3 % (11.6-17.2); WHITE BLOOD COUNT 12.4 TH/MM3 (4.0-11.0)
[2016-06-22 06:49] LABS: HEMO FLAGS AUTO DIFF
[2016-06-22] MEDS: INSULIN NovoLIN REGULAR SUPPLEMENTAL SCALE SQ SCH ×4 (07:00→21:27)
[2016-06-22 07:05] LABS: INTERNATIONAL NORMALIZED RATIO 1.1 RATIO; PROTHROMBIN TIME - PATIENT 11.7 SEC (9.8-11.6)
[2016-06-22 07:32] LABS: ALKALINE PHOSPHATASE 86 U/L (45-117); ALT (GPT) 10 U/L (10-53); ANION GAP 8 MEQ/L (5-15); AST (GOT) 11 U/L (15-37); BICARBONATE 28.7 MEQ/L (21.0-32.0); BLOOD UREA NITROGEN 33 MG/DL (7-18); CHLORIDE 102 MEQ/L (98-107); GLOMERULAR FILTRATION RATE 29 ML/MIN (>89); MAGNESIUM 1.8 MG/DL (1.5-2.5); POTASSIUM 4.5 MEQ/L (3.5-5.1); SODIUM (NA) 139 MEQ/L (136-145); TOTAL BILIRUBIN ADULT 0.2 MG/DL (0.2-1.0)
[2016-06-22] MEDS: CHLORHEXIDINE 0.12% (ORAL KIT) 15 ML CUP MT SCH ×2 (08:00→20:00)
[2016-06-22 08:06] LABS: SCAN/DIFF AUTO DIFF CONFIRMED
[2016-06-22] MEDS: POLYETHYLENE GLYCOL 17 GM PKG PO SCH (09:00)
[2016-06-22] MEDS: PANTOPRAZOLE SODIUM 40 MG VIAL IV SCH (09:55)
[2016-06-22] MEDS: FUROSEMIDE 20 MG/2 ML VIAL IV PUSH SCH ×2 (09:55→21:27)
[2016-06-22] MEDS: SODIUM CHLORIDE 0.9% FLUSH 5 ML FLUSH IV FLUSH SCH ×2 (09:55→21:28)
[2016-06-22] MEDS: BETHANECHOL CHL 10 MG TAB PO SCH (09:56)
[2016-06-22] MEDS: FLUCONAZOLE 200 MG TAB PO SCH (09:56)
[2016-06-22] MEDS: ALLOPURINOL 100 MG TAB PO SCH (09:56)
[2016-06-22] MEDS: FERROUS SULFATE 300 MG /5ML UDC PO SCH ×2 (09:56→21:26)
[2016-06-22] MEDS: MULTIVITAMINS/MINERALS THERAPEUTIC TAB PO SCH (09:56)
--- NOTE | 2016-06-22 13:16 | HHI.IDPN ---
Subjective Subjective Remarks Notes reviewed Temps ok Stable post extubation On nasal O2 Nots SOB WBC higher Started on solumedrol 06/21 Antibiotics Zyvox Diflucan Lines [place] Past Medical History HTN COPD DM Diabetic peripheral neuropathy chronic kidney disease stage III/IV Obesity hypoventilation syndrome Morbid obesity Gout Paroxysmal atrial fibrillation Recurrent UTI Recurrent pneumonia h/o ESBL Anxiety DVT R peroneal vein 06/06/14 History of fall Dysphagia (noted on nectar thickened liquids diet according to note from 06/09/16 ) Chronic urinary incontinence Allergic rhinitis Left breast adenocarcinoma. Last chemotherapy February 2016 ? 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 CT brain negative. Past Surgical History Lithotripsy Gastric bypass Left breast lumpectomy and lymph node biopsy Open cholecystectomy Allergies: Coded Allergies: Percocet (Unverified Allergy, Severe, Nausea/Vomiting, 06/13/16) Codeine (Unverified Allergy, Mild, Nausea/Vomiting, 06/13/16) Lortab (Unverified Allergy, Mild, Nausea/Vomiting, 06/13/16) Bactrim (Unverified Allergy, Unknown, 06/13/16) Ciprofloxacin (Unverified Allergy, Unknown, 06/13/16) Hydrocodone (Unverified Allergy, Unknown, 06/13/16) Levaquin (Unverified Allergy, Unknown, 06/13/16) Penicillin (Verified Allergy, Unknown, rash, 06/14/16) Has taken Keflex in past with no problem Quinolones (Unverified Allergy, Unknown, 06/13/16) Sulfa (Unverified Allergy, Unknown, 06/13/16) *MDRO Multi-Drug Resistant Organism (Verified Adverse Reaction, Unknown, ) MRSA (sputum)-06/14/16 Objective . Vital Signs Date Time Temp Pulse Resp B/P Pulse Ox O2 Delivery O2 Flow Rate FiO2 06/22/16 10:11 96 Nasal Cannula 2.00 06/22/16 10:00 75 06/22/16 08:29 97 BiPAP 35 06/22/16 08:26 97 35 06/22/16 08:00 76 06/22/16 08:00 98.4 76 20 120/68 96 06/22/16 06:20 75 06/22/16 04:00 78 06/22/16 04:00 99.0 78 20 149/68 96 06/22/16 03:35 98 35 06/22/16 02:00 82 06/22/16 00:16 97 35 06/22/16 00:00 99.1 85 18 148/67 97 06/22/16 00:00 85 06/21/16 22:00 91 06/21/16 21:17 96 Nasal Cannula 2.00 06/21/16 20:00 99.2 86 15 153/75 96 06/21/16 20:00 86 06/21/16 18:00 85 06/21/16 16:00 81 06/21/16 16:00 98.4 81 22 172/74 96 06/21/16 14:00 80 06/21/16 06/21/16 06/22/16 15:00 23:00 07:00 Intake Total 190 ml 0 ml 710 ml Output Total 2300 ml 950 ml 1150 ml Balance -2110 ml -950 ml -440 ml Intake Oral 400 ml IV Total 190 ml 0 ml 310 ml Output Urine Total 2000 ml 900 ml 1100 ml Stool Total 300 ml 50 ml 50 ml . Laboratory Tests Test 06/21/16 06/21/16 06/22/16 06:00 12:25 06:00 White Blood Count 8.3 TH/MM3 7.1 TH/MM3 12.4 TH/MM3 Red Blood Count 2.89 MIL/MM3 2.80 MIL/MM3 2.88 MIL/MM3 Hemoglobin 8.6 GM/DL 8.7 GM/DL 8.6 GM/DL Hematocrit 27.5 % 26.2 % 27.4 % Mean Corpuscular Volume 94.9 FL 93.6 FL 95.1 FL Mean Corpuscular Hemoglobin 29.8 PG 31.0 PG 29.8 PG Mean Corpuscular Hemoglobin 31.4 % 33.1 % 31.4 % Concent Red Cell Distribution Width 20.8 % 20.0 % 20.3 % Platelet Count 276 TH/MM3 292 TH/MM3 288 TH/MM3 Mean Platelet Volume 8.0 FL 7.9 FL 7.9 FL Neutrophils (%) (Auto) 88.5 % 87.3 % 91.7 % Lymphocytes (%) (Auto) 9.6 % 10.1 % 6.1 % Monocytes (%) (Auto) 1.2 % 2.4 % 2.1 % Eosinophils (%) (Auto) 0.1 % 0.0 % 0.0 % Basophils (%) (Auto) 0.6 % 0.2 % 0.1 % Neutrophils # (Auto) 7.4 TH/MM3 6.2 TH/MM3 11.3 TH/MM3 Lymphocytes # (Auto) 0.8 TH/MM3 0.7 TH/MM3 0.8 TH/MM3 Monocytes # (Auto) 0.1 TH/MM3 0.2 TH/MM3 0.3 TH/MM3 Eosinophils # (Auto) 0.0 TH/MM3 0.0 TH/MM3 0.0 TH/MM3 Basophils # (Auto) 0.1 TH/MM3 0.0 TH/MM3 0.0 TH/MM3 CBC Comment AUTO DIFF AUTO DIFF AUTO DIFF Differential Comment AUTO DIFF AUTO DIFF AUTO DIFF CONFIRMED CONFIRMED CONFIRMED Laboratory Tests Test 06/21/16 06/21/16 06/22/16 06:00 12:25 06:00 Sodium Level 138 MEQ/L 138 MEQ/L 139 MEQ/L Potassium Level 5.0 MEQ/L 5.0 MEQ/L 4.5 MEQ/L Chloride Level 101 MEQ/L 101 MEQ/L 102 MEQ/L Carbon Dioxide Level 30.1 MEQ/L 29.1 MEQ/L 28.7 MEQ/L Anion Gap 7 MEQ/L 8 MEQ/L 8 MEQ/L Blood Urea Nitrogen 27 MG/DL 28 MG/DL 33 MG/DL Creatinine 1.74 MG/DL 1.74 MG/DL 1.78 MG/DL Estimat Glomerular Filtration 29 ML/MIN 29 ML/MIN 29 ML/MIN Rate Random Glucose 272 MG/DL 316 MG/DL 374 MG/DL Calcium Level 8.6 MG/DL 8.2 MG/DL 9.1 MG/DL Magnesium Level 1.9 MG/DL 1.8 MG/DL Total Bilirubin 0.3 MG/DL 0.2 MG/DL Aspartate Amino Transf 18 U/L 11 U/L (AST/SGOT) Alanine Aminotransferase 11 U/L 10 U/L (ALT/SGPT) Alkaline Phosphatase 93 U/L 86 U/L Total Protein 7.4 GM/DL 7.4 GM/DL Albumin 2.1 GM/DL 2.2 GM/DL Imaging Chest X-Ray 06/20/16 0600 Signed Impressions: Service Date/Time: Monday, June 20, 2016 05:02 - CONCLUSION: No significant change has occurred. Doni Mccarty MD Chest X-Ray 06/19/16 06 Signed Impressions: Service Date/Time: Sunday, June 19, 2016 03:39 - CONCLUSION: No significant change has occurred. Doni Mccarty MD Chest X-Ray 06/18/16 06 Signed Impressions: Service Date/Time: Saturday, June 18, 2016 03:18 - CONCLUSION: Stable basilar airspace disease compared with June 15. Endotracheal tube, nasogastric tube in satisfactory position. Christiano Martin MD Last Impressions Chest X-Ray 06/15/16 06 Signed Impressions: Service Date/Time: May 03:49 - CONCLUSION: 1. Increased bilateral symmetric pulmonary opacity likely representing pulmonary edema. Pulmonary consolidation is seen bilaterally in the lower lobes. Masslike density again seen in the left upper lobe. 2. New bilateral pleural effusions. Dimitrios Mccartney MD Head CT 06/14/16 0000 Signed Impressions: Service Date/Time: Tuesday, June 14, 2016 02:48 - CONCLUSION: 1. No acute intracranial findings. 2. Pansinusitis with diffuse air fluid levels indicating acute sinusitis. Dimitrios Mccartney MD Chest CT 06/14/16 0000 Signed Impressions: Service Date/Time: Tuesday, June 14, 2016 02:51 - CONCLUSION: 1. Large area of right lower lung consolidation with air bronchograms. 2. Mild left lung consolidation versus atelectasis with rounded masslike anterior contour in the upper lung. 2 additional left-sided nodules are identified in the mid lung. 3. Small bilateral pleural effusions. 4. Enlarged right paratracheal lymph node. Dimitrios Mccartney MD Lung Scan- Nuclear Medicine 06/13/161745 Signed Impressions: Service Date/Time: Monday, June 13, 2016 20:49 - CONCLUSION: Indeterminant probability for pulmonary embolism with Large matched perfusion and ventilatory defect corresponding to radiographic abnormality in the right lung base. Adolfo Daniels MD Abdomen/Pelvis CT 06/13/161745 Signed Impressions: Service Date/Time: Tuesday, June 14, 2016 00:05 - CONCLUSION: 1. Right lower lung consolidation and bilateral pleural effusions. 2. Superficial soft tissue edema suggesting anasarca. 3. Perinephric stranding and diffuse urinary bladder wall thickening. Question urinary tract infection. Mild right hydronephrosis. No calculi identified. 4. Nonspecific oval 4.6 cm mass in the spleen. 5. Retroperitoneal lymphadenopathy. Dimitrios Mccartney MD Lower Extremity Ultrasound 06/13/16 0000 Signed Impressions: Service Date/Time: Tuesday, June 14, 2016 00:24 - CONCLUSION: No evidence of lower extremity DVT on the right or left. Dimitrios Mccartney MD Physical Exam GENERAL: Awake, on nasal O2, not in distress SKIN: Cool and dry. No generalized rash HEENT: [place] conjunctiva. No scleral icterus. Moist mucosa NECK: Supple, nontender, short and obese. CARDIOVASCULAR: Regular rate and rhythm without murmurs, gallops, or rubs. RESPIRATORY: Decreased BS at bases GASTROINTESTINAL: Abdomen soft, obese , non-tender, nondistended. No guarding. Bowel sounds are present. MUSCULOSKELETAL: Extremities without clubbing, cyanosis, or edema. or edema noted. No calf tenderness. NEUROLOGICAL: Awake and alert. No Babinski. LINE: Port right upper chest with no evidence of infection : Christianson catheter in place, urine looks clear currently Assessment & Plan Remarks IMPRESSION Respiratory failure, HCAP, with ?pulmonary edema - extubated 06/20, doing well MRSA PNA, doing well UTI, prior Hx UTI and ESBL(+) infections - now has low colony count yeast Morbid obesity COPD, likely has KING Multiple Abx allergy - PCN - has taken Keflex without any problem CKD Candiduria RECOMMENDATION Stop Zyvox Continue Diflucan - to finish 06/26 Monitor progress Monitor respiratory status Melody Morales MD Jun 22, 2016 13:16
--- NOTE | 2016-06-22 13:38 | HHI.HCPN ---
Reason for visit a. To assist with evaluation and management of symptoms including: dyspnea, pain, b. To assist medical decision maker(s) with: better understanding of current medical conditions; weighing benefits/burdens of medical treatment options; making medical treatment decisions. (Arabella Mcpherson) Subjective/Interval History Ms Vargas is much clearer today and conversant. She is noted to have her oxygen off at this time and her saturations run between 87 and 91. She tells me she wants to go back to sleep and does not want to talk. April is doing relatively well. Her appetite is good. She is bedridden. There was an elevation in white blood cells today, chemistries are normalized and renal function is stable. She remains on antibiotics for urosepsis and pneumonia I asked her if she remembered our conversation from yesterday. She indicated that she did state we talked about hospice. I reiterated further as to the services and benefits hospice could provide her at the halfway. And asked her if she is something she would like. She indicated that she that she would. I further clarified that they would provide symptom management, treatment, edema, treat infections, but that she would not come back to the hospital if she were to have failure of her heart or lungs. I again asked her if that is something that she would want and again she indicated that she would. I talked with her sister, Philomena Roberts regarding hospice and felt that she should at least speak with the admissions team to learn about the program and services provided. She is scheduled to meet with him later tonight. Philomena Roberts is going to speak with her sister this evening as well as with the hospice team. (Arabella Mcpherson) Advance Directives Health Care Surrogate: Copy in medical record (Arabella Mcpherson) Advance Directive Specifics Health Care Surrogate(s): Philomena Kathleen, sister, home phone [phone], cell phone [phone], lives in [facility]. (Arabella Mcpherson) Objective Vital Signs Date Time Temp Pulse Resp B/P Pulse Ox O2 Delivery O2 Flow Rate FiO2 06/22/16 10:11 96 Nasal Cannula 2.00 06/22/16 10:00 75 3/23/17 08:29 97 BiPAP 35 06/22/16 08:26 97 35 06/22/16 08:00 76 06/22/16 08:00 98.4 76 20 120/68 96 06/22/16 06:20 75 06/22/16 04:00 78 06/22/16 04:00 99.0 78 20 149/68 96 06/22/16 03:35 98 35 06/22/16 02:00 82 06/22/16 00:16 97 35 06/22/16 00:00 99.1 85 18 148/67 97 06/22/16 00:00 85 06/21/16 22:00 91 06/21/16 21:17 96 Nasal Cannula 2.00 06/21/16 20:00 99.2 86 15 153/75 96 06/21/16 20:00 86 06/21/16 18:00 85 06/21/16 16:00 81 06/21/16 16:00 98.4 81 22 172/74 96 06/21/16 14:00 80 Intake & Output 06/22/16 06/22/16 07:00 19:00 Intake Total 710 ml Output Total 2100 ml Balance -1390 ml Intake Oral 400 ml IV Total 310 ml Output Urine Total 2000 ml Stool Total 100 ml Physical Exam CONSTITUTIONAL/GENERAL: This is super morbidly obese woman, in no apparent distress. She is awake, alert and conversant TUBES/LINES/DRAINS: Nasal cannula 2 L , Christianson, IV lines, rectal tube SKIN: No jaundice, rashes, or lesions. Ecchymoses on upper extremities. No wounds seen anteriorly. Skin temperature appropriate. Not diaphoretic. HEAD: Atraumatic. Normocephalic. EYES: Eyes open. Tracking and engaging. No scleral icterus ENT: Hearing appears adequate , Nose without bleeding or purulent drainage. NECK: Trachea midline. No JVD due to body habitus CARDIOVASCULAR: Regular rate and rhythm with murmurs. . Peripheral pulses symmetric. RESPIRATORY/CHEST: Symmetric, unlabored respirations on nasal cannula. Ddiminished breath sounds on right, otherwise clear. GASTROINTESTINAL: Abdomen obese, soft, large pannus, bowel sounds present. Soft edema throughout abdominal wall and right flank GENITOURINARY: Without palpable bladder distension. Christianson catheter in place. MUSCULOSKELETAL: 1+ Soft edema from feet through thigh, . . No mottling or clubbing. LYMPHATICS: No palpable cervical or supraclavicular adenopathy. NEUROLOGICAL: Awake, alert, oriented, able to follow commands, has recall of conversations. She is able to move her extremities to the limits of her ability PSYCHIATRIC: Does not appear to have anxiety, depression, agitation. (Arabella Mcpherson) Diagnostic Tests Laboratory Laboratory Tests Test 06/20/16 06/20/16 06/21/16 06/21/16 06:00 11:51 06:00 12:25 White Blood Count 9.4 TH/MM3 8.3 TH/MM3 7.1 TH/MM3 (4.0-11.0) (4.0-11.0) (4.0-11.0) Red Blood Count 2.74 MIL/MM3 2.89 MIL/MM3 2.80 MIL/MM3 (4.00-5.30) (4.00-5.30) (4.00-5.30) Hemoglobin 8.5 GM/DL 8.6 GM/DL 8.7 GM/DL (11.6-15.3) (11.6-15.3) (11.6-15.3) Hematocrit 25.7 % 27.5 % 26.2 % (35.0-46.0) (35.0-46.0) (35.0-46.0) Mean Corpuscular Volume 93.8 FL 94.9 FL 93.6 FL (80.0-100.0) (80.0-100.0) (80.0-100.0) Mean Corpuscular Hemoglobin 31.1 PG 29.8 PG 31.0 PG (27.0-34.0) (27.0-34.0) (27.0-34.0) Mean Corpuscular Hemoglobin 33.2 % 31.4 % 33.1 % Concent (32.0-36.0) (32.0-36.0) (32.0-36.0) Red Cell Distribution Width 20.6 % 20.8 % 20.0 % (11.6-17.2) (11.6-17.2) (11.6-17.2) Platelet Count 302 TH/MM3 276 TH/MM3 292 TH/MM3 (150-450) (150-450) (150-450) Mean Platelet Volume 8.2 FL 8.0 FL 7.9 FL (7.0-11.0) (7.0-11.0) (7.0-11.0) Neutrophils (%) (Auto) 66.3 % 88.5 % 87.3 % (16.0-70.0) (16.0-70.0) (16.0-70.0) Lymphocytes (%) (Auto) 19.0 % 9.6 % 10.1 % (9.0-44.0) (9.0-44.0) (9.0-44.0) Monocytes (%) (Auto) 9.0 % (0.0-8.0) 1.2 % (0.0-8.0) 2.4 % (0.0-8.0) Eosinophils (%) (Auto) 4.9 % (0.0-4.0) 0.1 % (0.0-4.0) 0.0 % (0.0-4.0) Basophils (%) (Auto) 0.8 % (0.0-2.0) 0.6 % (0.0-2.0) 0.2 % (0.0-2.0) Neutrophils # (Auto) 6.2 TH/MM3 7.4 TH/MM3 6.2 TH/MM3 (1.8-7.7) (1.8-7.7) (1.8-7.7) Lymphocytes # (Auto) 1.8 TH/MM3 0.8 TH/MM3 0.7 TH/MM3 (1.0-4.8) (1.0-4.8) (1.0-4.8) Monocytes # (Auto) 0.8 TH/MM3 0.1 TH/MM3 0.2 TH/MM3 (0-0.9) (0-0.9) (0-0.9) Eosinophils # (Auto) 0.5 TH/MM3 0.0 TH/MM3 0.0 TH/MM3 (0-0.4) (0-0.4) (0-0.4) Basophils # (Auto) 0.1 TH/MM3 0.1 TH/MM3 0.0 TH/MM3 (0-0.2) (0-0.2) (0-0.2) CBC Comment AUTO DIFF AUTO DIFF AUTO DIFF Differential Comment AUTO DIFF AUTO DIFF AUTO DIFF CONFIRMED CONFIRMED CONFIRMED Platelet Estimate NORMAL (NORMAL) Platelet Morphology Comment NORMAL (NORMAL) Prothrombin Time 10.8 SEC 10.9 SEC (9.8-11.6) (9.8-11.6) Prothromb Time International 1.0 RATIO 1.0 RATIO Ratio Sodium Level 141 MEQ/L 138 MEQ/L 138 MEQ/L (136-145) (136-145) (136-145) Potassium Level 4.5 MEQ/L 5.0 MEQ/L 5.0 MEQ/L (3.5-5.1) (3.5-5.1) (3.5-5.1) Chloride Level 103 MEQ/L 101 MEQ/L 101 MEQ/L (98-107) (98-107) (98-107) Carbon Dioxide Level 28.3 MEQ/L 30.1 MEQ/L 29.1 MEQ/L (21.0-32.0) (21.0-32.0) (21.0-32.0) Anion Gap 10 MEQ/L (5-15) 7 MEQ/L (5-15) 8 MEQ/L (5-15) Blood Urea Nitrogen 29 MG/DL (7-18) 27 MG/DL (7-18) 28 MG/DL (7-18) Creatinine 1.84 MG/DL 1.74 MG/DL 1.74 MG/DL (0.50-1.00) (0.50-1.00) (0.50-1.00) Estimat Glomerular Filtration 28 ML/MIN (>89) 29 ML/MIN (>89) 29 ML/MIN (>89) Rate Random Glucose 185 MG/DL 272 MG/DL 316 MG/DL (74-106) (74-106) (74-106) Calcium Level 8.5 MG/DL 8.6 MG/DL 8.2 MG/DL (8.5-10.1) (8.5-10.1) (8.5-10.1) Magnesium Level 2.0 MG/DL 1.9 MG/DL (1.5-2.5) (1.5-2.5) Total Bilirubin 0.2 MG/DL 0.3 MG/DL (0.2-1.0) (0.2-1.0) Aspartate Amino Transf 12 U/L (15-37) 18 U/L (15-37) (AST/SGOT) Alanine Aminotransferase 9 U/L (10-53) 11 U/L (10-53) (ALT/SGPT) Alkaline Phosphatase 100 U/L 93 U/L (45-117) (45-117) Total Protein 7.0 GM/DL 7.4 GM/DL (6.4-8.2) (6.4-8.2) Albumin 2.0 GM/DL 2.1 GM/DL (3.4-5.0) (3.4-5.0) Blood Gas Puncture Site RT RADIAL Blood Gas Patient Temperature 98.6 Blood Gas HCO3 27 mmol/L (22-26) Blood Gas Base Excess 2.7 mmol/L (-2-2) Blood Gas Oxygen Saturation 95 % (90-100) Arterial Blood pH 7.40 (7.380-7.420) Arterial Blood Partial 45 mmHg (38-42) Pressure CO2 Arterial Blood Partial 112 mmHg Pressure O2 (61-120) Arterial Blood Oxygen Content 23.5 Vol % (12.0-20.0) Arterial Blood 1.8 % (0-4) Carboxyhemoglobin Arterial Blood Methemoglobin 1.1 % (0-2) Blood Gas Hemoglobin 17.5 G/DL (12.0-16.0) Oxygen Delivery Device VENTILATOR Blood Gas Ventilator Setting CPAP 57/30% Blood Gas Inspired Oxygen 30 % Test 06/22/16 06:00 White Blood Count 12.4 TH/MM3 (4.0-11.0) Red Blood Count 2.88 MIL/MM3 (4.00-5.30) Hemoglobin 8.6 GM/DL (11.6-15.3) Hematocrit 27.4 % (35.0-46.0) Mean Corpuscular Volume 95.1 FL (80.0-100.0) Mean Corpuscular Hemoglobin 29.8 PG (27.0-34.0) Mean Corpuscular Hemoglobin 31.4 % Concent (32.0-36.0) Red Cell Distribution Width 20.3 % (11.6-17.2) Platelet Count 288 TH/MM3 (150-450) Mean Platelet Volume 7.9 FL (7.0-11.0) Neutrophils (%) (Auto) 91.7 % (16.0-70.0) Lymphocytes (%) (Auto) 6.1 % (9.0-44.0) Monocytes (%) (Auto) 2.1 % (0.0-8.0) Eosinophils (%) (Auto) 0.0 % (0.0-4.0) Basophils (%) (Auto) 0.1 % (0.0-2.0) Neutrophils # (Auto) 11.3 TH/MM3 (1.8-7.7) Lymphocytes # (Auto) 0.8 TH/MM3 (1.0-4.8) Monocytes # (Auto) 0.3 TH/MM3 (0-0.9) Eosinophils # (Auto) 0.0 TH/MM3 (0-0.4) Basophils # (Auto) 0.0 TH/MM3 (0-0.2) CBC Comment AUTO DIFF Differential Comment AUTO DIFF CONFIRMED Prothrombin Time 11.7 SEC (9.8-11.6) Prothromb Time International 1.1 RATIO Ratio Sodium Level 139 MEQ/L (136-145) Potassium Level 4.5 MEQ/L (3.5-5.1) Chloride Level 102 MEQ/L (98-107) Carbon Dioxide Level 28.7 MEQ/L (21.0-32.0) Anion Gap 8 MEQ/L (5-15) Blood Urea Nitrogen 33 MG/DL (7-18) Creatinine 1.78 MG/DL (0.50-1.00) Estimat Glomerular Filtration 29 ML/MIN (>89) Rate Random Glucose 374 MG/DL (74-106) Calcium Level 9.1 MG/DL (8.5-10.1) Magnesium Level 1.8 MG/DL (1.5-2.5) Total Bilirubin 0.2 MG/DL (0.2-1.0) Aspartate Amino Transf 11 U/L (15-37) (AST/SGOT) Alanine Aminotransferase 10 U/L (10-53) (ALT/SGPT) Alkaline Phosphatase 86 U/L (45-117) Total Protein 7.4 GM/DL (6.4-8.2) Albumin 2.2 GM/DL (3.4-5.0) (Arabella Mcpherson) Result Diagram: 06/22/16 0600 06/22/16 0600 Procedures Intubated, 06/13/2016 Extubated to 06/20/16 (Arabella Mcpherson) Assessment and Plan Disease Oriented Problem List: (1) Hypercapnic respiratory failure Comment: Extubated on 06/20/16, now on nasal cannula, tolerating well (2) Sepsis Comment: Remains on antibiotics (3) Anemia Comment: stable (4) Morbid obesity with BMI of 60.0-69.9, adult (5) Diabetes mellitus type 2, insulin dependent (6) Chronic renal disease, stage IV Comment: improving Symptom Scale: (1) Pain 0-10 Scale: 4 Comment: Degenerative disc disease lower spine indicates; pain is adequately managed (2) Dyspnea 0-10 Scale: 3 Comment: Extubated on 06/20/16, denies dyspnea. However, she is super morbidly obese and tends toward hypoventilation syndrome. She does not feel short of breath and oxygen saturation is running in the high eighties Pertinent Non-Medical Issues Psychosocial: Single female, no children, has been disabled for 2 years. Spiritual: No spiritism affiliation Legal: None identified at this time Ethical issues impacting care: Her sister reports that gabapentin will cause her thinking to be skewed. At that she does better and is of clearer mind without the gabapentin. Gabapentin has been discontinued that in the event she is able to provide direction into her care, she would have the opportunity Important Contacts Philomena Kathleen, healthcare surrogate, sister, home phone [phone], cell phone [phone] Prognosis Prognosis is guarded. 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 There is also question of abdominal metastasis with retro-peritoneal lymphadenopathy also identified on recent imaging. She essentially has been in the hospital since March of last year Code Status: Alternative Code (patient states she does not wish to be intubated. However, at this time wants to proceed with compressions, ACLS drugs , etc.) Plan Decision Maker:Philomena Kathleen, sister, home phone [phone], cell phone [phone], Code Status: Alternate code - DNI - Family Discussion: Spoke with her sister by phone as well as with patient. Discussed hospice benefits. If that were to be elected. Philomena Boudreaux will meet with hospice admissions this evening and she will have further conversation with her sister this evening as well . She has history of cancer of the breast with metastasis and unable to tolerate chemotherapy x 2 occasions. She has been is disabled since for the last 2 years and a resident of a halfway. She has had repeated hospital admissions due to recurrent urinary tract infections as well as respiratory distress. Ongoing decline in her physical health over the last several months. She is able to engage in conversation regarding goals of care at this time. She indicates that she would not want to be intubated again nor have a tracheostomy. However, she is unable to decide if she would not want CPR efforts. April indicates she would want hospice at the halfway Symptoms: Dyspnea - stable on nasal cannula 2 L, pain -DDD lower spine, body habitus and extended bedbound status - effectively managed at this time Palliative care phone number provided - will follow during hospital stay. ( Arabella Mcpherson) Attestation To help prompt me to consider important information that might be impacting today's encounter and assessment, information from prior notes written by myself or my colleagues may have been "brought forward" into today's note. My signature on this note, however, is an attestation that I personally performed the exam, history, and/or decision-making noted today, and, unless otherwise indicated, the interactions with patient, family, and staff as well as the review of records all occurred today. I also attest that the listed assessment and stated plan reflect my best clinical judgment today based on the combination of historical information, prior notes, and today's exam/ interactions. When time spent is documented, it refers only to time spent today by the signer, or if indicated, combined time spent today by collaborating physician/nurse practitioner. (Arabella Mcpherson) Collaborating MD Comments . Chart reviewed. Cased discussed with palliative care RUBBER THREAD SPOOLER. Above RUBBER THREAD SPOOLER note reviewed and I concur. . (Marty Strickland MD) Arabella Mcpherson Jun 22, 2016 13:38 Marty Strickland MD August 28, 2016 14:37
[2016-06-22] MEDS: WARFARIN SOD 3 MG TAB PO SCH (15:23)
[2016-06-22] MEDS ORDERED: WARFARIN SOD 2 MG TAB PO SCH (16:00)
--- NOTE | 2016-06-22 18:50 | HHI.PR ---
Subjective Remarks 65 YO Obese Wf with RF, s/p extubation, metastatic Breast ca,Pulm odema,Pn,AF Extubated awake, looks around Sat 92-97 % on NC Feels much better Tolerates reg meals family at BS Objective Vital Signs Vital Signs Date Time Temp Pulse Resp B/P Pulse Ox O2 Delivery O2 Flow Rate FiO2 06/22/16 18:18 75 06/22/16 16:00 98.0 80 20 183/111 99 06/22/16 16:00 82 06/22/16 14:28 75 06/22/16 12:00 82 06/22/16 12:00 97.9 82 18 166/70 99 06/22/16 10:11 96 Nasal Cannula 2.00 06/22/16 10:00 75 06/22/16 08:29 97 BiPAP 35 06/22/16 08:26 97 35 06/22/16 08:00 76 06/22/16 08:00 98.4 76 20 120/68 96 06/22/16 06:20 75 06/22/16 04:00 78 06/22/16 04:00 99.0 78 20 149/68 96 06/22/16 03:35 98 35 06/22/16 02:00 82 06/22/16 00:16 97 35 06/22/16 00:00 99.1 85 18 148/67 97 06/22/16 00:00 85 06/21/16 22:00 91 06/21/16 21:17 96 Nasal Cannula 2.00 06/21/16 20:00 99.2 86 15 153/75 96 06/21/16 20:00 86 I/O 06/21/16 06/21/16 06/21/16 06/22/16 06/22/16 06/22/16 07:00 15:00 23:00 07:00 15:00 23:00 Intake Total 322 ml 190 ml 0 ml 710 ml 540 ml Output Total 1600 ml 2300 ml 950 ml 1150 ml 700 ml Balance -1278 ml -2110 ml -950 ml -440 ml -160 ml Intake Oral 400 ml 240 ml IV Total 322 ml 190 ml 0 ml 310 ml 300 ml Output Urine Total 1500 ml 2000 ml 900 ml 1100 ml 700 ml Stool Total 100 ml 300 ml 50 ml 50 ml Result Diagram: 06/22/16 0606/22/16 0600 Objective Remarks GENERAL: Obese female, mild sob SKIN: Warm and dry. HEAD: Normocephalic. EYES: No scleral icterus. No injection or drainage. NECK: Supple, trachea midline. No JVD or lymphadenopathy. CARDIOVASCULAR: Regular rate and rhythm without murmurs, gallops, or rubs. RESPIRATORY: Breath sounds equal bilaterally. No accessory muscle use. GASTROINTESTINAL: Abdomen soft, non-tender, nondistended. MUSCULOSKELETAL: No cyanosis, ++ edema. BACK: Nontender without obvious deformity. No CVA tenderness. A/P Assessment and Plan Resp failure, s/p extubation Pulm odema MRSA Pn Metastatic Breast ca Lung nodules AF Pleural effusion PLAN: Cont Abx Zyvox and Diflucan Diurease Lovenox and Coumadin Encourage po Hospice evaluating pt Kurtis Giordano MD Jun 22, 2016 18:50
[2016-06-22] MEDS ORDERED: INSULIN DETEMIR 100 UNITS/ML VIAL SQ SCH (23:00)
[2016-06-22] MEDS ORDERED: INSULIN HUMAN REGULAR 1,000 UNITS/10 ML VIAL IVP ONE (23:15)
--- NOTE | 2016-06-22 23:16 | HHI.PR ---
Subjective Remarks patient seen this morning around 10 AM. She denies any chest pain or shortness of breath. Denies any nausea or vomiting. Objective Vital Signs Date Time Temp Pulse Resp B/P Pulse Ox O2 Delivery O2 Flow Rate FiO2 06/22/16 19:42 99 Nasal Cannula 2.00 06/22/16 18:18 75 06/22/16 16:00 98.0 80 20 183/111 99 06/22/16 16:00 82 06/22/16 14:28 75 06/22/16 12:00 82 06/22/16 12:00 97.9 82 18 166/70 99 06/22/16 10:11 96 Nasal Cannula 2.00 06/22/16 10:00 75 06/22/16 08:29 97 BiPAP 35 06/22/16 08:26 97 35 06/22/16 08:00 76 06/22/16 08:00 98.4 76 20 120/68 96 06/22/16 06:20 75 06/22/16 04:00 78 06/22/16 04:00 99.0 78 20 149/68 96 06/22/16 03:35 98 35 06/22/16 02:00 82 06/22/16 00:16 97 35 06/22/16 00:00 99.1 85 18 148/67 97 06/22/16 00:00 85 I/O 06/21/16 06/21/16 06/21/16 06/22/16 06/22/16 06/22/16 07:00 15:00 23:00 07:00 15:00 23:00 Intake Total 322 ml 190 ml 0 ml 710 ml 540 ml Output Total 1600 ml 2300 ml 950 ml 1150 ml 700 ml Balance -1278 ml -2110 ml -950 ml -440 ml -160 ml Intake Oral 400 ml 240 ml IV Total 322 ml 190 ml 0 ml 310 ml 300 ml Output Urine Total 1500 ml 2000 ml 900 ml 1100 ml 700 ml Stool Total 100 ml 300 ml 50 ml 50 ml Result Diagram: 06/22/16 0600 06/22/162014 Imaging Last Impressions Chest X-Ray 06/21/16 0000 Signed Impressions: Service Date/Time: Tuesday, June 21, 2016 07:19 - CONCLUSION: 1. Bibasilar patchiness consistent with atelectasis and/or pneumonia. 2. Stable left apical nodule. 3. Degenerative changes and scoliosis of the thoracolumbar spine. 4. Elevation of the right hemidiaphragm. 5. Cardiomegaly. Scout Rollins MD Head CT 06/14/16 Signed Impressions: Service Date/Time: Tuesday, June 14, 2016 02:48 - CONCLUSION: 1. No acute intracranial findings. 2. Pansinusitis with diffuse air fluid levels indicating acute sinusitis. Dimitrios Mccartney MD Chest CT 06/14/16 Signed Impressions: Service Date/Time: Tuesday, June 14, 2016 02:51 - CONCLUSION: 1. Large area of right lower lung consolidation with air bronchograms. 2. Mild left lung consolidation versus atelectasis with rounded masslike anterior contour in the upper lung. 2 additional left-sided nodules are identified in the mid lung. 3. Small bilateral pleural effusions. 4. Enlarged right paratracheal lymph node. Dimitrios Mccartney MD Lung Scan- Nuclear Medicine 06/13/161745 Signed Impressions: Service Date/Time: Monday, June 13, 2016 20:49 - CONCLUSION: Indeterminant probability for pulmonary embolism with Large matched perfusion and ventilatory defect corresponding to radiographic abnormality in the right lung base. Adolfo Daniels MD Abdomen/Pelvis CT 06/13/161745 Signed Impressions: Service Date/Time: Tuesday, June 14, 2016 00:05 - CONCLUSION: 1. Right lower lung consolidation and bilateral pleural effusions. 2. Superficial soft tissue edema suggesting anasarca. 3. Perinephric stranding and diffuse urinary bladder wall thickening. Question urinary tract infection. Mild right hydronephrosis. No calculi identified. 4. Nonspecific oval 4.6 cm mass in the spleen. 5. Retroperitoneal lymphadenopathy. Dimitrios Mccartney MD Lower Extremity Ultrasound 06/13/16 Signed Impressions: Service Date/Time: Tuesday, June 14, 2016 00:24 - CONCLUSION: No evidence of lower extremity DVT on the right or left. Dimitrios Mccartney MD Objective Remarks GENERAL: patient lying in bed. Appears comfortable. SKIN: Warm and dry. HEAD: Normocephalic. EYES: No scleral icterus. No injection or drainage. NECK: Supple, trachea midline. No JVD or lymphadenopathy. CARDIOVASCULAR: Regular rate and rhythm without murmurs, gallops, or rubs. RESPIRATORY: Breath sounds equal bilaterally. No accessory muscle use. GASTROINTESTINAL: Abdomen soft, non-tender, nondistended. MUSCULOSKELETAL: No cyanosis, or edema. BACK: Nontender without obvious deformity. No CVA tenderness. A/P Assessment and Plan NEURO: //Acute encephalopathy secondary to hypercapnia and sepsis //Peripheral neuropathy //Anxiety -Avoid sedating medications. -Continue tube Hold Neurontin as this has caused depressed mental status in the past -SSRI on hold. Hold Xanax 0.25 mg po q6 hours prn anxiety = encephalopathy appears to be improved. Continue to monitor. Avoid sedating or altering medications. RESP: //Acute hypercapnic and hypoxemic respiratory failure-resolved //Obesity hypoventilation syndrome //Lung metastases from breast cancer primary //MRSA pneumonia Intubated in ED with Glidescope with Grade III/IV Cormack Lehane. Extubated 06/20 , tolerating well 06/13 VQ scan-indeterminate, patient started on therapeutic Lovenox 06/14 DuoNeb every 6 hours scheduled and PRN EzPAP, Acapella, IS = Very status improving. Pulmonology following. Continue steroids, nebs and antibiotics as per pulmonology. CV: //Uncontrolled Hypertension //Chronic systolic heart failure //History of paroxysmal atrial fibrillation (not on chronic anticoagulation, currently in sinus rhythm) -06/14 2-D echo-ejection fraction 60%, no RWMA -Troponin negative. -Continue Coreg. Continue aspirin 81 mg daily -IV Labetalol/Hydralazine PRN for SBP >170 =Continue to monitor blood pressure and fluid status. Adjust medications as necessary. GI: //Morbid obesity //Moderate protein energy malnutrition //Abdominal pain. Malignancy related. Controlled. Speech therapy consulted for swallow eval today Reportedly had left-sided abdominal tenderness in the emergency department. CT abdomen and pelvis 06/13-anasarca abdomen, right lower lung consolidation, bilateral pleural effusions. Mild right hydronephrosis. Retroperitoneal lymphadenopathy. 6 cm mass in spleen. Continue multivitamin FEN/RENAL: //Chronic kidney disease stage III //Hyperkalemia-resolved Continue to monitor BMP Christianson in place. Monitor intake and output. Monitor electrolytes and replace as needed On lasix 20 mg BID, Given additional 20 mg IV Lasix 06/20. Urine output remains excellent creatinine stable ID: //HCAP with MRSA //Urinary tract infection. Halima glabrata. Diflucan to finish 06/26. //Wound lower aspect of right pannus = Microbiology as above. Infectious disease following. Appreciate assistance. Continue antibiotics as per infectious disease. HEME: //Adenocarcinoma left breast, multiple lung metastases //Chronic iron deficiency anemia //h/o nonocclusive DVT peroneal vein 06/06/14 Continue ferrous sulfate 325 mg twice a day VQ indeterminate-therapeutic Lovenox initiated 150 BID 06/13-B/L lower extremity ultrasound -negative = Transition to warfarin. Subtherapeutic. Lovenox bridge. ENDO: //Type 2 diabetes mellitus with complications //Hypoglycemia on admission. Resolved. //Hyperglycemia -Medium dose insulin sliding scale at bedside glucose every 4 hours. -06/22. Hyperglycemia. Will addLevemir 10 units twice daily, increase sliding scale to moderate. = Continue to monitor glucose, adjust insulin as necessary. PROPH: Protonix 40 mg IV daily for stress ulcer prophylaxis. started coumadin , on Lovenox bridge. And pharmacy to dose ACCESS: Right chest port accessed. 18 gauge PIV's x 2. Discharge Planning hospice has been consulted. Palliative following. . -appreciate case management assistance. Neal Zamora MD Jun 22, 2016 23:16
[2016-06-23] VITALS (17 sets, daily range): BP systolic 57–154; BP diastolic 53–68; PULSE 71–86; RESP 16–20; TEMP 98.3–99.5; O2SAT 94–100
[2016-06-23] MEDS: ENOXAPARIN SODIUM 150 MG/ML SYRINGE SQ SCH ×2 (01:00→13:00)
[2016-06-23] MEDS: CARVEDILOL 12.5 MG TAB PO SCH ×3 (02:23→17:14)
[2016-06-23] MEDS: LINEZOLID 600 MG PREMIX 300 ML IV SCH (02:24)
[2016-06-23] MEDS: RESP: ALBUTEROL 2.5 MG/IPRATROPIUM 0.5 MG NEB (SCH) NEB ×4 (03:43→21:30)
[2016-06-23 03:52] LABS: BASOPHIL % 0.2 % (0.0-2.0); EOSINOPHIL % 0.2 % (0.0-4.0); HEMATOCRIT 26.2 % (35.0-46.0); LYMPH % 12.3 % (9.0-44.0); LYMPHOCYTE # 1.4 TH/MM3 (1.0-4.8); MEAN CELL VOLUME 94.3 FL (80.0-100.0); MEAN CORPUSCULAR HEMOGLOBIN 30.4 PG (27.0-34.0); MEAN CORPUSCULAR HGB CONC 32.2 % (32.0-36.0); MONO % 8.6 % (0.0-8.0); NEUT % 78.7 % (16.0-70.0); PLATELET COUNT 287 TH/MM3 (150-450); RED BLOOD COUNT 2.78 MIL/MM3 (4.00-5.30); RED CELL DISTRIBUTION WIDTH 20.3 % (11.6-17.2); WHITE BLOOD COUNT 11.4 TH/MM3 (4.0-11.0)
[2016-06-23 03:55] LABS: HEMO FLAGS AUTO DIFF
[2016-06-23] MEDS: CHLORHEXIDINE GLUCONATE 2 % 1 PACK (2 CLOTHS) TOP SCH (04:00)
[2016-06-23 04:01] LABS: INTERNATIONAL NORMALIZED RATIO 1.1 RATIO; PROTHROMBIN TIME - PATIENT 12.7 SEC (9.8-11.6)
[2016-06-23 04:34] LABS: BICARBONATE 29.4 MEQ/L (21.0-32.0); MAGNESIUM 1.7 MG/DL (1.5-2.5); POTASSIUM 3.9 MEQ/L (3.5-5.1)
[2016-06-23] MEDS: INSULIN ASPART SUPPLEMENTAL SCALE SQ SCH ×4 (06:29→21:00)
[2016-06-23 07:13] LABS: SCAN/DIFF AUTO DIFF CONFIRMED
[2016-06-23] MEDS: CHLORHEXIDINE 0.12% (ORAL KIT) 15 ML CUP MT SCH ×2 (08:00→20:00)
[2016-06-23] MEDS: methylPREDNISolone SOD SUCC 40 MG/1 ML VIAL IV SCH ×2 (09:00→21:00)
[2016-06-23] MEDS: FERROUS SULFATE 300 MG /5ML UDC PO SCH ×2 (09:00→21:00)
[2016-06-23] MEDS: POLYETHYLENE GLYCOL 17 GM PKG PO SCH (09:00)
[2016-06-23] MEDS: SODIUM CHLORIDE 0.9% FLUSH 5 ML FLUSH IV FLUSH SCH ×2 (09:00→21:00)
[2016-06-23] MEDS: ALLOPURINOL 100 MG TAB PO SCH (09:00)
[2016-06-23] MEDS: INSULIN DETEMIR 100 UNITS/ML VIAL SQ SCH ×2 (09:07→21:00)
[2016-06-23] MEDS: MULTIVITAMINS/MINERALS THERAPEUTIC TAB PO SCH (09:07)
[2016-06-23] MEDS: PANTOPRAZOLE SODIUM 40 MG VIAL IV SCH (09:08)
[2016-06-23] MEDS: BETHANECHOL CHL 10 MG TAB PO SCH (09:08)
[2016-06-23] MEDS: FLUCONAZOLE 200 MG TAB PO SCH (09:08)
[2016-06-23] MEDS: FUROSEMIDE 20 MG/2 ML VIAL IV PUSH SCH (09:08)
--- NOTE | 2016-06-23 09:21 | HHI.IDPN ---
Subjective Subjective Remarks Notes reviewed D/W RN C/O being very weak Temps ok Stable post extubation On nasal O2 Nots SOB WBC better Started on solumedrol 06/21 Antibiotics Zyvox Diflucan Lines Port Past Medical History HTN COPD DM Diabetic peripheral neuropathy chronic kidney disease stage III/IV Obesity hypoventilation syndrome Morbid obesity Gout Paroxysmal atrial fibrillation Recurrent UTI Recurrent pneumonia h/o ESBL Anxiety DVT R peroneal vein 06/06/14 History of fall Dysphagia (noted on nectar thickened liquids diet according to note from 06/09/16 ) Chronic urinary incontinence Allergic rhinitis Left breast adenocarcinoma. Last chemotherapy February 2016 ? 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 CT brain negative. Past Surgical History Lithotripsy Gastric bypass Left breast lumpectomy and lymph node biopsy Open cholecystectomy Allergies: Coded Allergies: Percocet (Unverified Allergy, Severe, Nausea/Vomiting, 06/13/16) Codeine (Unverified Allergy, Mild, Nausea/Vomiting, 06/13/16) Lortab (Unverified Allergy, Mild, Nausea/Vomiting, 06/13/16) Bactrim (Unverified Allergy, Unknown, 06/13/16) Ciprofloxacin (Unverified Allergy, Unknown, 06/13/16) Hydrocodone (Unverified Allergy, Unknown, 06/13/16) Levaquin (Unverified Allergy, Unknown, 06/13/16) Penicillin (Verified Allergy, Unknown, rash, 06/14/16) Has taken Keflex in past with no problem Quinolones (Unverified Allergy, Unknown, 06/13/16) Sulfa (Unverified Allergy, Unknown, 06/13/16) *MDRO Multi-Drug Resistant Organism (Verified Adverse Reaction, Unknown, ) MRSA (sputum)-06/14/16 Objective . Vital Signs Date Time Temp Pulse Resp B/P Pulse Ox O2 Delivery O2 Flow Rate FiO2 06/23/16 08:14 100 Nasal Cannula 2.00 06/23/16 08:00 98.3 74 16 149/65 95 06/23/16 08:00 86 06/23/16 07:53 86 06/23/16 07:00 97 Nasal Cannula 2.00 06/23/16 06:00 74 06/23/16 04:00 98.3 78 16 145/65 95 06/23/16 04:00 78 06/23/16 02:30 97 Nasal Cannula 2.00 06/23/16 02:30 99 Nasal Cannula 2.00 06/23/16 02:00 74 06/23/16 01:16 98 35 06/23/16 00:00 99.5 76 20 154/67 99 06/23/16 00:00 76 06/23/16 00:00 99 Bi-Pap 35 06/22/16 23:45 99 35 06/22/16 22:00 87 06/22/16 20:00 98.9 86 22 183/72 100 06/22/16 20:00 100 Nasal Cannula 4.00 06/22/16 20:00 86 06/22/16 19:42 99 Nasal Cannula 2.00 06/22/16 18:18 75 06/22/16 16:00 98.0 80 20 183/111 99 06/22/16 16:00 82 06/22/16 14:28 75 06/22/16 12:00 82 06/22/16 12:00 97.9 82 18 166/70 99 06/22/16 10:11 96 Nasal Cannula 2.00 06/22/16 10:00 75 06/22/16 06/22/16 06/23/16 15:00 23:00 07:00 Intake Total 540 ml 1145 ml 1096 ml Output Total 700 ml 2160 ml 1000 ml Balance -160 ml -1015 ml 96 ml Intake Oral 240 ml 800 ml 720 ml IV Total 300 ml 345 ml 376 ml Output Urine Total 700 ml 1900 ml 1000 ml Stool Total 260 ml # Bowel Movements 0 . Laboratory Tests Test 06/21/16 06/22/16 06/23/16 12:25 06:00 03:30 White Blood Count 7.1 TH/MM3 12.4 TH/MM3 11.4 TH/MM3 Red Blood Count 2.80 MIL/MM3 2.88 MIL/MM3 2.78 MIL/MM3 Hemoglobin 8.7 GM/DL 8.6 GM/DL 8.4 GM/DL Hematocrit 26.2 % 27.4 % 26.2 % Mean Corpuscular Volume 93.6 FL 95.1 FL 94.3 FL Mean Corpuscular Hemoglobin 31.0 PG 29.8 PG 30.4 PG Mean Corpuscular Hemoglobin 33.1 % 31.4 % 32.2 % Concent Red Cell Distribution Width 20.0 % 20.3 % 20.3 % Platelet Count 292 TH/MM3 288 TH/MM3 287 TH/MM3 Mean Platelet Volume 7.9 FL 7.9 FL 7.4 FL Neutrophils (%) (Auto) 87.3 % 91.7 % 78.7 % Lymphocytes (%) (Auto) 10.1 % 6.1 % 12.3 % Monocytes (%) (Auto) 2.4 % 2.1 % 8.6 % Eosinophils (%) (Auto) 0.0 % 0.0 % 0.2 % Basophils (%) (Auto) 0.2 % 0.1 % 0.2 % Neutrophils # (Auto) 6.2 TH/MM3 11.3 TH/MM3 9.0 TH/MM3 Lymphocytes # (Auto) 0.7 TH/MM3 0.8 TH/MM3 1.4 TH/MM3 Monocytes # (Auto) 0.2 TH/MM3 0.3 TH/MM3 1.0 TH/MM3 Eosinophils # (Auto) 0.0 TH/MM3 0.0 TH/MM3 0.0 TH/MM3 Basophils # (Auto) 0.0 TH/MM3 0.0 TH/MM3 0.0 TH/MM3 CBC Comment AUTO DIFF AUTO DIFF AUTO DIFF Differential Comment AUTO DIFF AUTO DIFF AUTO DIFF CONFIRMED CONFIRMED CONFIRMED Laboratory Tests Test 06/21/16 06/22/16 06/22/16 06/23/16 12:25 06:00 20:15 03:30 Sodium Level 138 MEQ/L 139 MEQ/L 138 MEQ/L Potassium Level 5.0 MEQ/L 4.5 MEQ/L 3.9 MEQ/L Chloride Level 101 MEQ/L 102 MEQ/L 99 MEQ/L Carbon Dioxide Level 29.1 MEQ/L 28.7 MEQ/L 29.4 MEQ/L Anion Gap 8 MEQ/L 8 MEQ/L 10 MEQ/L Blood Urea Nitrogen 28 MG/DL 33 MG/DL 41 MG/DL Creatinine 1.74 MG/DL 1.78 MG/DL 1.88 MG/DL Estimat Glomerular Filtration 29 ML/MIN 29 ML/MIN 27 ML/MIN Rate Random Glucose 316 MG/DL 374 MG/DL 444 MG/DL 351 MG/DL Calcium Level 8.2 MG/DL 9.1 MG/DL 8.6 MG/DL Magnesium Level 1.9 MG/DL 1.8 MG/DL 1.7 MG/DL Total Bilirubin 0.3 MG/DL 0.2 MG/DL Aspartate Amino Transf 18 U/L 11 U/L (AST/SGOT) Alanine Aminotransferase 11 U/L 10 U/L (ALT/SGPT) Alkaline Phosphatase 93 U/L 86 U/L Total Protein 7.4 GM/DL 7.4 GM/DL Albumin 2.1 GM/DL 2.2 GM/DL 2.2 GM/DL Phosphorus Level 3.6 MG/DL Imaging Chest X-Ray 06/20/16599 Signed Impressions: Service Date/Time: Monday, June 20, 2016 05:02 - CONCLUSION: No significant change has occurred. Doni Mccarty MD Chest X-Ray 06/19/16599 Signed Impressions: Service Date/Time: Sunday, June 19, 2016 03:39 - CONCLUSION: No significant change has occurred. Doni Mccarty MD Chest X-Ray 06/18/16599 Signed Impressions: Service Date/Time: Saturday, June 18, 2016 03:18 - CONCLUSION: Stable basilar airspace disease compared with June 15. Endotracheal tube, nasogastric tube in satisfactory position. Christiano Martin MD Last Impressions Chest X-Ray 06/15/16599 Signed Impressions: Service Date/Time: May 03:49 - CONCLUSION: 1. Increased bilateral symmetric pulmonary opacity likely representing pulmonary edema. Pulmonary consolidation is seen bilaterally in the lower lobes. Masslike density again seen in the left upper lobe. 2. New bilateral pleural effusions. Dimitrios Mccartney MD Head CT 06/14/16 0000 Signed Impressions: Service Date/Time: Tuesday, June 14, 2016 02:48 - CONCLUSION: 1. No acute intracranial findings. 2. Pansinusitis with diffuse air fluid levels indicating acute sinusitis. Dimitrios Mccartney MD Chest CT 06/14/16 0000 Signed Impressions: Service Date/Time: Tuesday, June 14, 2016 02:51 - CONCLUSION: 1. Large area of right lower lung consolidation with air bronchograms. 2. Mild left lung consolidation versus atelectasis with rounded masslike anterior contour in the upper lung. 2 additional left-sided nodules are identified in the mid lung. 3. Small bilateral pleural effusions. 4. Enlarged right paratracheal lymph node. Dimitrios Mccartney MD Lung Scan-VQ Nuclear Medicine 06/13/161745 Signed Impressions: Service Date/Time: Monday, June 13, 2016 20:49 - CONCLUSION: Indeterminant probability for pulmonary embolism with Large matched perfusion and ventilatory defect corresponding to radiographic abnormality in the right lung base. Adolfo Daniels MD Abdomen/Pelvis CT 06/13/161745 Signed Impressions: Service Date/Time: Tuesday, June 14, 2016 00:05 - CONCLUSION: 1. Right lower lung consolidation and bilateral pleural effusions. 2. Superficial soft tissue edema suggesting anasarca. 3. Perinephric stranding and diffuse urinary bladder wall thickening. Question urinary tract infection. Mild right hydronephrosis. No calculi identified. 4. Nonspecific oval 4.6 cm mass in the spleen. 5. Retroperitoneal lymphadenopathy. Dimitrios Mccartney MD Lower Extremity Ultrasound 06/13/16 0000 Signed Impressions: Service Date/Time: Tuesday, June 14, 2016 00:24 - CONCLUSION: No evidence of lower extremity DVT on the right or left. Dimitrios Mccartney MD Physical Exam GENERAL: Awake, on nasal O2, not in distress SKIN: Cool and dry. No generalized rash HEENT: Ola conjunctiva. No scleral icterus. Moist mucosa NECK: Supple, nontender, short and obese. CARDIOVASCULAR: Regular rate and rhythm without murmurs, gallops, or rubs. RESPIRATORY: Decreased BS at bases GASTROINTESTINAL: Abdomen soft, obese , non-tender, nondistended. No guarding. Bowel sounds are present. MUSCULOSKELETAL: Extremities without clubbing, cyanosis, or edema. or edema noted. No calf tenderness. NEUROLOGICAL: Awake and alert. No Babinski. LINE: Port right upper chest with no evidence of infection : Christianson catheter in place, urine looks clear currently Assessment & Plan Remarks IMPRESSION Respiratory failure, HCAP, with ?pulmonary edema - extubated 06/20, doing well MRSA PNA, doing well UTI, prior Hx UTI and ESBL(+) infections - now has low colony count yeast Morbid obesity COPD, likely has KING Multiple Abx allergy - PCN - has taken Keflex without any problem CKD Candiduria RECOMMENDATION Stop Zyvox Continue Diflucan - to finish 06/26 Monitor progress Monitor respiratory status Clinically doing well from ID standpoint D/W RN Dr Ben Ann available this weekend if with any ID issue or question Melody Morales MD Jun 23, 2016 09:21
[2016-06-23] MEDS ORDERED: SODIUM CHLORID 0.9% 500 ML INJ 500 ML IV ONE (10:45)
--- NOTE | 2016-06-23 15:29 | HHI.PR ---
Subjective Remarks patient seen this morning around 11 AM. She reports that pain is controlled. She denies any chest pain or shortness of breath. Denies any nausea or vomiting. Says she feels all right. Objective Vital Signs Date Time Temp Pulse Resp B/P Pulse Ox O2 Delivery O2 Flow Rate FiO2 06/23/16 12:00 86 06/23/16 12:00 98.3 71 16 140/63 100 06/23/16 10:00 86 06/23/16 08:14 100 Nasal Cannula 2.00 06/23/16 08:00 98.3 74 16 149/65 95 06/23/16 08:00 86 06/23/16 07:53 86 06/23/16 07:00 97 Nasal Cannula 2.00 06/23/16 06:00 74 06/23/16 04:00 98.3 78 16 145/65 95 06/23/16 04:00 78 06/23/16 02:30 97 Nasal Cannula 2.00 06/23/16 02:30 99 Nasal Cannula 2.00 06/23/16 02:00 74 06/23/16 01:16 98 35 06/23/16 00:00 99.5 76 20 154/67 99 06/23/16 00:00 76 06/23/16 00:00 99 Bi-Pap 35 06/22/16 23:45 99 35 06/22/16 22:00 87 06/22/16 20:00 98.9 86 22 183/72 100 06/22/16 20:00 100 Nasal Cannula 4.00 06/22/16 20:00 86 06/22/16 19:42 99 Nasal Cannula 2.00 06/22/16 18:18 75 06/22/16 16:00 98.0 80 20 183/111 99 06/22/16 16:00 82 I/O 06/22/16 06/22/16 06/22/16 06/23/16 06/23/16 06/23/16 07:00 15:00 23:00 07:00 15:00 23:00 Intake Total 710 ml 540 ml 1145 ml 1096 ml Output Total 1150 ml 700 ml 2160 ml 1000 ml Balance -440 ml -160 ml -1015 ml 96 ml Intake Oral 400 ml 240 ml 800 ml 720 ml IV Total 310 ml 300 ml 345 ml 376 ml Output Urine Total 1100 ml 700 ml 1900 ml 1000 ml Stool Total 50 ml 260 ml # Bowel Movements 0 Result Diagram: 06/23/1632906/23/16329 Objective Remarks GENERAL: patient lying in bed. Appears comfortable. SKIN: Warm and dry. HEAD: Normocephalic. EYES: No scleral icterus. No injection or drainage. NECK: Supple, trachea midline. No JVD. CARDIOVASCULAR: Regular rate and rhythm without murmurs, gallops, or rubs. RESPIRATORY: Breath sounds equal bilaterally. No accessory muscle use. GASTROINTESTINAL: Abdomen soft, non-tender, nondistended. MUSCULOSKELETAL: No cyanosis, or edema. BACK: Nontender without obvious deformity. No CVA tenderness. A/P Assessment and Plan NEURO: //Acute encephalopathy secondary to hypercapnia and sepsis //Peripheral neuropathy //Anxiety -Avoid sedating medications. -Continue tube Hold Neurontin as this has caused depressed mental status in the past -SSRI on hold. Hold Xanax 0.25 mg po q6 hours prn anxiety = encephalopathy appears to be improved. Continue to monitor. Avoid sedating or altering medications. RESP: //Acute hypercapnic and hypoxemic respiratory failure-resolved //Obesity hypoventilation syndrome //Lung metastases from breast cancer primary //MRSA pneumonia Intubated in ED with Glidescope with Grade III/IV Cormack Lehane. Extubated 06/20 , tolerating well 06/13 VQ scan-indeterminate, patient started on therapeutic Lovenox 06/14 DuoNeb every 6 hours scheduled and PRN EzPAP, Acapella, IS = Very status improving. Pulmonology following. Continue steroids, nebs and antibiotics as per pulmonology. CV: //Uncontrolled Hypertension //Chronic systolic heart failure //History of paroxysmal atrial fibrillation (not on chronic anticoagulation, currently in sinus rhythm) -06/14 2-D echo-ejection fraction 60%, no RWMA -Troponin negative. -Continue Coreg. Continue aspirin 81 mg daily -IV Labetalol/Hydralazine PRN for SBP >170 =Continue to monitor blood pressure and fluid status. Adjust medications as necessary. GI: //Morbid obesity //Moderate protein energy malnutrition //Abdominal pain. Malignancy related. Controlled. Speech therapy consulted for swallow eval today Reportedly had left-sided abdominal tenderness in the emergency department. CT abdomen and pelvis 06/13-anasarca abdomen, right lower lung consolidation, bilateral pleural effusions. Mild right hydronephrosis. Retroperitoneal lymphadenopathy. 6 cm mass in spleen. Continue multivitamin FEN/RENAL: //Chronic kidney disease stage III //Hyperkalemia-resolved Continue to monitor BMP Christianson in place. Monitor intake and output. Monitor electrolytes and replace as needed -Urine output remains excellent creatinine stable -06/23. Creatinine increased 1.8. Discontinue Lasix. Continue to monitor. ID: //HCAP with MRSA //Urinary tract infection. Halima glabrata. Diflucan to finish 06/26. //Wound lower aspect of right pannus = Microbiology as above.Infectious disease following. Appreciate assistance. Continue antibiotics as per infectious disease. HEME: //Adenocarcinoma left breast, multiple lung metastases //Chronic iron deficiency anemia //h/o nonocclusive DVT peroneal vein 06/06/14 Continue ferrous sulfate 325 mg twice a day VQ indeterminate-therapeutic Lovenox initiated 150 BID 06/13-B/L lower extremity ultrasound -negative = Transition to warfarin. Subtherapeutic. Lovenox bridge. ENDO: //Type 2 diabetes mellitus with complications //Hypoglycemia on admission. Resolved. //Hyperglycemia -Medium dose insulin sliding scale at bedside glucose every 4 hours. -06/22. Hyperglycemia. Will addLevemir 10 units twice daily, increase sliding scale to moderate. -06/23. Hyperglycemia improving slowly. Expect to continue to trend down current regimen. = Continue to monitor glucose, adjust insulin as necessary. PROPH: Protonix 40 mg IV daily for stress ulcer prophylaxis. started coumadin , on Lovenox bridge. And pharmacy to dose ACCESS: Right chest port accessed. 18 gauge PIV's x 2. Discharge Planning Remove rectal tube. Transport to floor hospice has been consulted. Palliative following. . -appreciate case management assistance. Neal Zamora MD Jun 23, 2016 15:29
[2016-06-23] MEDS ORDERED: WARFARIN SOD 3 MG TAB PO SCH (16:00)
[2016-06-23] MEDS: WARFARIN SOD 3 MG TAB PO SCH (16:00)
--- NOTE | 2016-06-23 16:13 | HHI.PR ---
Subjective Remarks 65 YO Obese Wf with RF, s/p extubation, metastatic Breast ca,Pulm odema,Pn,AF Extubated awake, looks around Sat 92-97 % on NC Feels much better Tolerates reg meals Feels much better Objective Vital Signs Vital Signs Date Time Temp Pulse Resp B/P Pulse Ox O2 Delivery O2 Flow Rate FiO2 06/23/16 14:00 86 06/23/16 12:00 86 06/23/16 12:00 98.3 71 16 140/63 100 06/23/16 10:00 86 06/23/16 08:14 100 Nasal Cannula 2.00 06/23/16 08:00 98.3 74 16 149/65 95 06/23/16 08:00 86 06/23/16 07:53 86 06/23/16 07:00 97 Nasal Cannula 2.00 06/23/16 06:00 74 06/23/16 04:00 98.3 78 16 145/65 95 06/23/16 04:00 78 06/23/16 02:30 97 Nasal Cannula 2.00 06/23/16 02:30 99 Nasal Cannula 2.00 06/23/16 02:00 74 06/23/16 01:16 98 35 06/23/16 00:00 99.5 76 20 154/67 99 06/23/16 00:00 76 06/23/16 00:00 99 Bi-Pap 35 06/22/16 23:45 99 35 06/22/16 22:00 87 06/22/16 20:00 98.9 86 22 183/72 100 06/22/16 20:00 100 Nasal Cannula 4.00 06/22/16 20:00 86 06/22/16 19:42 99 Nasal Cannula 2.00 06/22/16 18:18 75 I/O 06/22/16 06/22/16 06/22/16 06/23/16 06/23/16 06/23/16 07:00 15:00 23:00 07:00 15:00 23:00 Intake Total 710 ml 540 ml 1145 ml 1096 ml Output Total 1150 ml 700 ml 2160 ml 1000 ml Balance -440 ml -160 ml -1015 ml 96 ml Intake Oral 400 ml 240 ml 800 ml 720 ml IV Total 310 ml 300 ml 345 ml 376 ml Output Urine Total 1100 ml 700 ml 1900 ml 1000 ml Stool Total 50 ml 260 ml # Bowel Movements 0 Result Diagram: 06/23/16 03306/23/16 033 Objective Remarks GENERAL: Obese female, mild sob SKIN: Warm and dry. HEAD: Normocephalic. EYES: No scleral icterus. No injection or drainage. NECK: Supple, trachea midline. No JVD or lymphadenopathy. CARDIOVASCULAR: Regular rate and rhythm without murmurs, gallops, or rubs. RESPIRATORY: Breath sounds equal bilaterally. No accessory muscle use. GASTROINTESTINAL: Abdomen soft, non-tender, nondistended. MUSCULOSKELETAL: No cyanosis, ++ edema. BACK: Nontender without obvious deformity. No CVA tenderness. A/P Assessment and Plan Resp failure, s/p extubation Pulm odema MRSA Pn Metastatic Breast ca Lung nodules AF Pleural effusion PLAN: Cont Abx Diflucan Diurease Lovenox and Coumadin Encourage po Hospice / Palliative care evaluating pt Stable from pulm standpoint Available prn over weekend. Kurtis Giordano MD Jun 23, 2016 16:13
[2016-06-24] VITALS (11 sets, daily range): BP systolic 158–184; BP diastolic 60–79; PULSE 66–75; RESP 18–20; TEMP 97.8–99.9; O2SAT 93–100
[2016-06-24] MEDS: ENOXAPARIN SODIUM 150 MG/ML SYRINGE SQ SCH ×3 (01:00→23:59)
[2016-06-24] MEDS: CARVEDILOL 12.5 MG TAB PO SCH ×4 (01:17→23:46)
[2016-06-24] MEDS: CHLORHEXIDINE GLUCONATE 2 % 1 PACK (2 CLOTHS) TOP SCH (04:00)
[2016-06-24] MEDS: RESP: ALBUTEROL 2.5 MG/IPRATROPIUM 0.5 MG NEB (SCH) NEB (04:22)
[2016-06-24] MEDS: INSULIN ASPART SUPPLEMENTAL SCALE SQ SCH ×4 (05:58→23:54)
[2016-06-24 07:43] LABS: INTERNATIONAL NORMALIZED RATIO 1.2 RATIO; PROTHROMBIN TIME - PATIENT 12.8 SEC (9.8-11.6)
[2016-06-24] MEDS: CHLORHEXIDINE 0.12% (ORAL KIT) 15 ML CUP MT SCH ×2 (08:00→20:00)
[2016-06-24] MEDS: SODIUM CHLORIDE 0.9% FLUSH 5 ML FLUSH IV FLUSH SCH ×2 (09:00→23:46)
[2016-06-24] MEDS: MULTIVITAMINS/MINERALS THERAPEUTIC TAB PO SCH (09:26)
[2016-06-24] MEDS: methylPREDNISolone SOD SUCC 40 MG/1 ML VIAL IV SCH ×2 (09:26→23:46)
[2016-06-24] MEDS: PANTOPRAZOLE SODIUM 40 MG VIAL IV SCH (09:26)
[2016-06-24] MEDS: ALLOPURINOL 100 MG TAB PO SCH (09:26)
[2016-06-24] MEDS: BETHANECHOL CHL 10 MG TAB PO SCH (09:27)
[2016-06-24] MEDS: FLUCONAZOLE 200 MG TAB PO SCH (09:27)
[2016-06-24] MEDS: FERROUS SULFATE 300 MG /5ML UDC PO SCH ×2 (09:27→23:45)
[2016-06-24] MEDS: POLYETHYLENE GLYCOL 17 GM PKG PO SCH (09:27)
[2016-06-24] MEDS: INSULIN DETEMIR 100 UNITS/ML VIAL SQ SCH ×2 (09:27→23:49)
[2016-06-24 10:56] LABS: AUTOMATED NEUTROPHIL # 8.8 TH/MM3 (1.8-7.7); BASOPHIL % 0.3 % (0.0-2.0); HEMATOCRIT 27.3 % (35.0-46.0); LYMPH % 8.3 % (9.0-44.0); LYMPHOCYTE # 0.8 TH/MM3 (1.0-4.8); MEAN CELL VOLUME 94.1 FL (80.0-100.0); MEAN CORPUSCULAR HEMOGLOBIN 30.4 PG (27.0-34.0); MEAN CORPUSCULAR HGB CONC 32.4 % (32.0-36.0); MONO % 2.2 % (0.0-8.0); NEUT % 89.2 % (16.0-70.0); PLATELET COUNT 298 TH/MM3 (150-450); RED BLOOD COUNT 2.91 MIL/MM3 (4.00-5.30); RED CELL DISTRIBUTION WIDTH 19.8 % (11.6-17.2); WHITE BLOOD COUNT 9.8 TH/MM3 (4.0-11.0)
[2016-06-24 10:59] LABS: HEMO FLAGS AUTO DIFF
[2016-06-24 11:24] LABS: POTASSIUM 4.7 MEQ/L (3.5-5.1)
[2016-06-24 13:34] LABS: BANDS 2 % (0-6); PLATELET ESTIMATE SMEAR NORMAL (NORMAL); PLATELET MORPHOLOGY NORMAL (NORMAL); POLYS (SEG NEUTROPHILS) 90 % (16-70); SCAN/DIFF FINAL DIFF MANUAL; WBC DIFF SAMPLE 100
[2016-06-24] MEDS: cloNIDine HCL 0.1 MG TAB PO PRN (17:02)
[2016-06-24] MEDS: WARFARIN SOD 6 MG TAB PO SCH (17:02)
[2016-06-25] VITALS (11 sets, daily range): BP systolic 156–189; BP diastolic 70–86; PULSE 61–68; RESP 16–21; TEMP 97.4–98.7; O2SAT 92–100
[2016-06-25] MEDS: CHLORHEXIDINE GLUCONATE 2 % 1 PACK (2 CLOTHS) TOP SCH (04:00)
[2016-06-25] MEDS: INSULIN ASPART SUPPLEMENTAL SCALE SQ SCH ×4 (05:42→22:17)
[2016-06-25] MEDS: cloNIDine HCL 0.1 MG TAB PO PRN (06:00)
[2016-06-25 06:40] LABS: INTERNATIONAL NORMALIZED RATIO 1.5 RATIO; PROTHROMBIN TIME - PATIENT 16.3 SEC (9.8-11.6)
--- NOTE | 2016-06-25 07:59 | HHI.PR ---
Subjective Remarks late entry. date of service 06/24/16. patient seen the [facility] on 06/24/16 pt says she is feeling better. Denies any chest pain or shortness of breath. Says fatigue is improving. Objective Vital Signs Date Time Temp Pulse Resp B/P Pulse Ox O2 Delivery O2 Flow Rate FiO2 06/25/16 06:00 68 18 189/74 92 186/82 06/25/16 01:45 97 Nasal Cannula 3.00 06/25/16 00:26 99 35 06/25/16 00:00 Bi-Pap 06/25/16 00:00 98.2 68 16 175/80 96 06/24/16 20:59 Nasal Cannula 2.00 06/24/16 20:02 66 06/24/16 20:00 98.2 71 18 171/72 98 06/24/16 16:00 97.8 72 18 183/79 98 06/24/16 12:00 98.5 73 18 161/60 94 06/24/16 08:00 Nasal Cannula 2.00 06/24/16 08:00 98.5 75 18 158/72 93 I/O 06/24/16 06/24/16 06/24/16 06/25/16 06/25/16 06/25/16 07:00 15:00 23:00 07:00 15:00 23:00 Intake Total 0 ml 720 ml Output Total 750 ml 1100 ml 550 ml Balance -750 ml -380 ml -550 ml Intake Oral 0 ml 720 ml Output Urine Total 750 ml 1100 ml 550 ml # Bowel Movements 0 1 0 Result Diagram: 06/24/16 0650 06/24/16 0650 Objective Remarks GENERAL: patient lying in bed. Appears comfortable.smiling today. SKIN: Warm and dry. HEAD: Normocephalic. EYES: No scleral icterus. No injection or drainage. NECK: Supple, trachea midline. No JVD. CARDIOVASCULAR: Regular rate and rhythm without murmurs, gallops, or rubs. RESPIRATORY: Breath sounds equal bilaterally. No accessory muscle use. GASTROINTESTINAL: Abdomen soft, non-tender, nondistended. MUSCULOSKELETAL: No cyanosis, or edema. BACK: Nontender without obvious deformity. No CVA tenderness. A/P Assessment and Plan 65-year-old female with HTN, DM. MO, recurrent UTIs obesity hypoventilation syndrome, COPD, chronic systolic CHF, CKD stage 3, breast cancer metastatic to lung (discontinued chemotherapy February 2016), who presented from [facility] with hypercapnic respiratory failure, and was intubated after failing BiPAP. She was treated with broad-spectrum antibiotics for multilobar pneumonia as well as treated for hyperkalemia. She completing course of linezolid for treatment of pneumonia with MRSA positive sputum. She received fluconazole 10 day course for treatment of Halima glabrata UTI. Antimicrobials Linezolid Fluconazole 06/15current - complete 06/26 Imipenem. . Discontinued Aztreonam. Single dose on admission. Discontinued Meropenem. Single dose on admission. Discontinued Metronidazole. Single dose on admission. Discontinued Microbiology 06/16 urine culture positive for Halima glabrata 06/14 sputum culture positive for MRSA 06/13 urine culture with Halima glabrata 06/13 blood cultures negative NEURO: //Acute encephalopathy secondary to hypercapnia and sepsis //Peripheral neuropathy //Anxiety -Avoid sedating medications. -Continue tube Hold Neurontin as this has caused depressed mental status in the past -SSRI on hold. Hold Xanax 0.25 mg po q6 hours prn anxiety = encephalopathy appears to be improved. Continue to monitor. Avoid sedating or altering medications. RESP: //Acute hypercapnic and hypoxemic respiratory failure-resolved //Obesity hypoventilation syndrome //Lung metastases from breast cancer primary //MRSA pneumonia Intubated in ED with Glidescope with Grade III/IV Cormack Lehane. Extubated 06/20 , tolerating well 06/13 VQ scan-indeterminate, patient started on therapeutic Lovenox 06/14 DuoNeb every 6 hours scheduled and PRN EzPAP, Acapella, IS = Very status improving. Pulmonology following. Continue steroids, nebs and antibiotics as per pulmonology. CV: //Uncontrolled Hypertension //Chronic systolic heart failure //History of paroxysmal atrial fibrillation (not on chronic anticoagulation, currently in sinus rhythm) -06/14 2-D echo-ejection fraction 60%, no RWMA -Troponin negative. -Continue Coreg. Continue aspirin 81 mg daily -IV Labetalol/Hydralazine PRN for SBP >170 =Continue to monitor blood pressure and fluid status. Adjust medications as necessary. GI: //Morbid obesity //Moderate protein energy malnutrition //Abdominal pain. Malignancy related. Controlled. Speech therapy consulted for swallow eval today Reportedly had left-sided abdominal tenderness in the emergency department. CT abdomen and pelvis 06/13-anasarca abdomen, right lower lung consolidation, bilateral pleural effusions. Mild right hydronephrosis. Retroperitoneal lymphadenopathy. 6 cm mass in spleen. Continue multivitamin FEN/RENAL: //Chronic kidney disease stage III //Hyperkalemia-resolved Continue to monitor BMP Christianson in place. Monitor intake and output. Monitor electrolytes and replace as needed -Urine output remains excellent creatinine stable -06/23. Creatinine increased 1.8. Discontinue Lasix. Continue to monitor. -06/24. Renal function improving. Continue to monitor closely. ID: //HCAP with MRSA //Urinary tract infection. Halima glabrata. Diflucan to finish 06/26. //Wound lower aspect of right pannus = Microbiology as above.Infectious disease following. Appreciate assistance. Continue antibiotics as per infectious disease. -Appreciate infectious disease and pulmonology assistance. HEME: //Adenocarcinoma left breast, multiple lung metastases //Chronic iron deficiency anemia //h/o nonocclusive DVT peroneal vein 06/06/14 Continue ferrous sulfate 325 mg twice a day VQ indeterminate-therapeutic Lovenox initiated 150 BID 06/13-B/L lower extremity ultrasound -negative = Transition to warfarin. Subtherapeutic. Lovenox bridge for now. ENDO: //Type 2 diabetes mellitus with complications //Hypoglycemia on admission. Resolved. //Hyperglycemia -Medium dose insulin sliding scale at bedside glucose every 4 hours. -06/22. Hyperglycemia. Will addLevemir 10 units twice daily, increase sliding scale to moderate. -06/23. Hyperglycemia improving slowly. Expect to continue to trend down current regimen. = Continue to monitor glucose, adjust insulin as necessary. PROPH: Protonix 40 mg IV daily for stress ulcer prophylaxis. started coumadin , on Lovenox bridge. And pharmacy to dose ACCESS: Right chest port accessed. 18 gauge PIV's x 2. Discharge Planning hospice has been consulted. Palliative following. -appreciate case management assistance. -possible discharge to SNF with hospice Neal Zamora MD Jun 25, 2016 07:59
[2016-06-25] MEDS: CHLORHEXIDINE 0.12% (ORAL KIT) 15 ML CUP MT SCH ×2 (08:00→20:00)
[2016-06-25] MEDS: SODIUM CHLORIDE 0.9% FLUSH 5 ML FLUSH IV FLUSH SCH ×2 (09:00→22:17)
[2016-06-25] MEDS: MULTIVITAMINS/MINERALS THERAPEUTIC TAB PO SCH (10:04)
[2016-06-25] MEDS: FLUCONAZOLE 200 MG TAB PO SCH (10:04)
[2016-06-25] MEDS: BETHANECHOL CHL 10 MG TAB PO SCH (10:05)
[2016-06-25] MEDS: ALLOPURINOL 100 MG TAB PO SCH (10:05)
[2016-06-25] MEDS: CARVEDILOL 12.5 MG TAB PO SCH ×2 (10:05→16:40)
[2016-06-25] MEDS: PANTOPRAZOLE SODIUM 40 MG VIAL IV SCH (10:05)
[2016-06-25] MEDS: methylPREDNISolone SOD SUCC 40 MG/1 ML VIAL IV SCH (10:05)
[2016-06-25] MEDS: FERROUS SULFATE 300 MG /5ML UDC PO SCH ×2 (10:05→22:14)
[2016-06-25] MEDS: POLYETHYLENE GLYCOL 17 GM PKG PO SCH (10:06)
[2016-06-25] MEDS: INSULIN DETEMIR 100 UNITS/ML VIAL SQ SCH ×2 (10:06→22:16)
[2016-06-25 10:37] LABS: AUTOMATED NEUTROPHIL # 10.1 TH/MM3 (1.8-7.7); HEMATOCRIT 28.8 % (35.0-46.0); LYMPH % 8.9 % (9.0-44.0); MEAN CELL VOLUME 93.4 FL (80.0-100.0); MEAN CORPUSCULAR HEMOGLOBIN 30.5 PG (27.0-34.0); MEAN CORPUSCULAR HGB CONC 32.7 % (32.0-36.0); MONO % 4.1 % (0.0-8.0); PLATELET COUNT 272 TH/MM3 (150-450); RED BLOOD COUNT 3.09 MIL/MM3 (4.00-5.30); RED CELL DISTRIBUTION WIDTH 20.1 % (11.6-17.2); WHITE BLOOD COUNT 11.6 TH/MM3 (4.0-11.0)
[2016-06-25 10:38] LABS: HEMO FLAGS AUTO DIFF
[2016-06-25 10:55] LABS: BICARBONATE 30.4 MEQ/L (21.0-32.0); POTASSIUM 4.6 MEQ/L (3.5-5.1)
[2016-06-25] MEDS: ENOXAPARIN SODIUM 150 MG/ML SYRINGE SQ SCH (11:37)
[2016-06-25 13:46] LABS: SCAN/DIFF AUTO DIFF CONFIRMED
[2016-06-25] MEDS ORDERED: ISOSORBIDE MONONITRATE 30 MG TAB PO ONE (16:15)
[2016-06-25] MEDS: WARFARIN SOD 6 MG TAB PO SCH (16:40)
[2016-06-25] MEDS: GABAPENTIN 100 MG CAP PO SCH (22:00)
[2016-06-25] MEDS: predniSONE 20 MG TAB PO SCH (22:13)
--- NOTE | 2016-06-25 23:38 | HHI.PR ---
Subjective Remarks patient seen this morning around 11:30 AM. Says she is comfortable. Denies any chest pain or shortness of breath. Objective Vital Signs Date Time Temp Pulse Resp B/P Pulse Ox O2 Delivery O2 Flow Rate FiO2 06/25/16 20:00 97.9 65 18 159/74 100 06/25/16 17:46 98 Nasal Cannula 2.00 06/25/16 16:00 97.4 61 20 156/70 99 06/25/16 12:00 97.7 63 21 189/86 98 06/25/16 09:00 Nasal Cannula 2.00 06/25/16 09:00 67 06/25/16 08:00 98.7 68 21 179/81 95 06/25/16 06:00 68 18 189/74 92 186/82 06/25/16 01:45 97 Nasal Cannula 3.00 06/25/16 00:26 99 35 06/25/16 00:00 Bi-Pap 06/25/16 00:00 98.2 68 16 175/80 96 I/O 06/24/16 06/24/16 06/24/16 06/25/16 06/25/16 06/25/16 07:00 15:00 23:00 07:00 15:00 23:00 Intake Total 0 ml 720 ml 240 ml Output Total 750 ml 1100 ml 550 ml 1550 ml Balance -750 ml -380 ml -550 ml -1310 ml Intake Oral 0 ml 720 ml 240 ml Output Urine Total 750 ml 1100 ml 550 ml 1550 ml # Bowel Movements 0 1 0 Result Diagram: 06/25/16 1005 06/25/16 1005 Objective Remarks GENERAL: patient lying in bed. Appears comfortable.smiling again today. SKIN: Warm and dry. HEAD: Normocephalic. EYES: No scleral icterus. No injection or drainage. NECK: Supple, trachea midline. No JVD. CARDIOVASCULAR: Regular rate and rhythm without murmurs, gallops, or rubs. RESPIRATORY: Breath sounds equal bilaterally. No accessory muscle use. GASTROINTESTINAL: Abdomen soft, non-tender, nondistended. MUSCULOSKELETAL: No cyanosis, or edema. BACK: Nontender without obvious deformity. No CVA tenderness. A/P Assessment and Plan 65-year-old female with HTN, DM. MO, recurrent UTIs obesity hypoventilation syndrome, COPD, chronic systolic CHF, CKD stage 3, breast cancer metastatic to lung (discontinued chemotherapy February 2016), who presented from [facility] with hypercapnic respiratory failure, and was intubated after failing BiPAP. She was treated with broad-spectrum antibiotics for multilobar pneumonia as well as treated for hyperkalemia. She completing course of linezolid for treatment of pneumonia with MRSA positive sputum. She received fluconazole 10 day course for treatment of Halima glabrata UTI. Antimicrobials Linezolid Fluconazole 06/15current - complete 06/26 Imipenem. . Discontinued Aztreonam. Single dose on admission. Discontinued Meropenem. Single dose on admission. Discontinued Metronidazole. Single dose on admission. Discontinued Microbiology 06/16 urine culture positive for Halima glabrata 06/14 sputum culture positive for MRSA 06/13 urine culture with Halima glabrata 06/13 blood cultures negative NEURO: //Acute encephalopathy secondary to hypercapnia and sepsis //Peripheral neuropathy //Anxiety -Avoid sedating medications. -Continue tube Hold Neurontin as this has caused depressed mental status in the past -SSRI on hold. Hold Xanax 0.25 mg po q6 hours prn anxiety = encephalopathy appears to be improved. Continue to monitor. Avoid sedating or altering medications. RESP: //Acute hypercapnic and hypoxemic respiratory failure-resolved //Obesity hypoventilation syndrome //Lung metastases from breast cancer primary //MRSA pneumonia Intubated in ED with Glidescope with Grade III/IV Cormack Lehane. Extubated 06/20 , tolerating well 06/13 VQ scan-indeterminate, patient started on therapeutic Lovenox 06/14 DuoNeb every 6 hours scheduled and PRN EzPAP, Acapella, IS = Very status improving. Pulmonology following. Continue steroids, nebs and antibiotics as per pulmonology. CV: //Uncontrolled Hypertension //Chronic systolic heart failure //History of paroxysmal atrial fibrillation (not on chronic anticoagulation, currently in sinus rhythm) -06/14 2-D echo-ejection fraction 60%, no RWMA -Troponin negative. -Continue Coreg. Continue aspirin 81 mg daily -IV Labetalol/Hydralazine PRN for SBP >170 06/25 Blood pressure high, which is likely secondary to improved infection. Restart Imdur. =Continue to monitor blood pressure and fluid status. Adjust medications as necessary. GI: //Morbid obesity //Moderate protein energy malnutrition //Abdominal pain. Malignancy related. Controlled. Speech therapy consulted for swallow eval today Reportedly had left-sided abdominal tenderness in the emergency department. CT abdomen and pelvis 06/13-anasarca abdomen, right lower lung consolidation, bilateral pleural effusions. Mild right hydronephrosis. Retroperitoneal lymphadenopathy. 6 cm mass in spleen. Continue multivitamin FEN/RENAL: //Chronic kidney disease stage III //Hyperkalemia-resolved Continue to monitor BMP Christianson in place. Monitor intake and output. Monitor electrolytes and replace as needed -Urine output remains excellent creatinine stable -06/23. Creatinine increased 1.8. Discontinue Lasix. Continue to monitor. -06/24. Renal function improving. Continue to monitor closely. ID: //HCAP with MRSA //Urinary tract infection. Halima glabrata. Diflucan to finish 06/26. //Wound lower aspect of right pannus = Microbiology as above.Infectious disease following. Appreciate assistance. Continue antibiotics as per infectious disease. -Appreciate infectious disease and pulmonology assistance. HEME: //Adenocarcinoma left breast, multiple lung metastases //Chronic iron deficiency anemia //h/o nonocclusive DVT peroneal vein 06/06/14 Continue ferrous sulfate 325 mg twice a day VQ indeterminate-therapeutic Lovenox initiated 150 BID 06/13-B/L lower extremity ultrasound -negative = Transition to warfarin. Subtherapeutic. Lovenox bridge for now. ENDO: //Type 2 diabetes mellitus with complications //Hypoglycemia on admission. Resolved. //Hyperglycemia -Medium dose insulin sliding scale at bedside glucose every 4 hours. -06/22. Hyperglycemia. Will addLevemir 10 units twice daily, increase sliding scale to moderate. -06/23. Hyperglycemia improving slowly. Expect to continue to trend down current regimen. = Continue to monitor glucose, adjust insulin as necessary. PROPH: Protonix 40 mg IV daily for stress ulcer prophylaxis. started coumadin , on Lovenox bridge. And pharmacy to dose ACCESS: Right chest port accessed. 18 gauge PIV's x 2. Discharge Planning hospice has been consulted. Palliative following. -appreciate case management assistance. -possible discharge to SNF with hospice Nela Zamora MD Jun 25, 2016 23:38
[2016-06-26] VITALS: BP 132/63; PULSE 67; RESP 18; TEMP 97.7; O2SAT 100
[2016-06-26] MEDS: CARVEDILOL 12.5 MG TAB PO SCH ×2 (00:36→10:27)
[2016-06-26] MEDS: ENOXAPARIN SODIUM 150 MG/ML SYRINGE SQ SCH ×2 (00:37→13:00)
[2016-06-26 01:30] VITALS: O2SAT 100
[2016-06-26 04:00] VITALS: BP 145/70; PULSE 63; RESP 18; TEMP 97.4; O2SAT 100
[2016-06-26] MEDS: CHLORHEXIDINE GLUCONATE 2 % 1 PACK (2 CLOTHS) TOP SCH (04:00)
[2016-06-26] MEDS: GABAPENTIN 100 MG CAP PO SCH ×2 (06:00→13:32)
[2016-06-26] MEDS: INSULIN ASPART SUPPLEMENTAL SCALE SQ SCH ×2 (06:02→11:00)
[2016-06-26 06:50] LABS: INTERNATIONAL NORMALIZED RATIO 1.8 RATIO; PROTHROMBIN TIME - PATIENT 20.3 SEC (9.8-11.6)
[2016-06-26 08:00] VITALS: PULSE 86
[2016-06-26 08:28] VITALS: BP 142/66; PULSE 66; RESP 18; TEMP 98.8; O2SAT 98
[2016-06-26] MEDS ORDERED: FUROSEMIDE 40 MG TAB PO SCH (09:00)
[2016-06-26] MEDS ORDERED: ISOSORBIDE MONONITRATE 30 MG TAB PO SCH (09:00)
[2016-06-26] MEDS: PANTOPRAZOLE SODIUM 40 MG VIAL IV SCH (09:06)
[2016-06-26] MEDS: SODIUM CHLORIDE 0.9% FLUSH 5 ML FLUSH IV FLUSH SCH (09:06)
[2016-06-26] MEDS: ALLOPURINOL 100 MG TAB PO SCH (10:26)
[2016-06-26] MEDS: predniSONE 20 MG TAB PO SCH (10:26)
[2016-06-26] MEDS: BETHANECHOL CHL 10 MG TAB PO SCH (10:26)
[2016-06-26] MEDS: MULTIVITAMINS/MINERALS THERAPEUTIC TAB PO SCH (10:26)
[2016-06-26] MEDS: FERROUS SULFATE 300 MG /5ML UDC PO SCH (10:26)
[2016-06-26] MEDS: INSULIN DETEMIR 100 UNITS/ML VIAL SQ SCH (10:27)
[2016-06-26] MEDS: POLYETHYLENE GLYCOL 17 GM PKG PO SCH (10:32)
[2016-06-26 12:36] VITALS: BP 159/74; PULSE 64; RESP 18; TEMP 97.8; O2SAT 97
--- NOTE | 2016-06-26 12:45 | HHI.IDPN ---
Subjective Subjective Remarks Notes reviewed Temps ok Stable pulmonary deluca On nasal O2 Nots SOB Antibiotics Diflucan - to finish today [place] Past Medical History HTN COPD DM Diabetic peripheral neuropathy chronic kidney disease stage III/IV Obesity hypoventilation syndrome Morbid obesity Gout Paroxysmal atrial fibrillation Recurrent UTI Recurrent pneumonia h/o ESBL Anxiety DVT R peroneal vein 06/06/14 History of fall Dysphagia (noted on nectar thickened liquids diet according to note from 06/09/16 ) Chronic urinary incontinence Allergic rhinitis Left breast adenocarcinoma. Last chemotherapy February 2016 ? 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 CT brain negative. Past Surgical History Lithotripsy Gastric bypass Left breast lumpectomy and lymph node biopsy Open cholecystectomy Allergies: Coded Allergies: Percocet (Unverified Allergy, Severe, Nausea/Vomiting, 06/13/16) Codeine (Unverified Allergy, Mild, Nausea/Vomiting, 06/13/16) Lortab (Unverified Allergy, Mild, Nausea/Vomiting, 06/13/16) Bactrim (Unverified Allergy, Unknown, 06/13/16) Ciprofloxacin (Unverified Allergy, Unknown, 06/13/16) Hydrocodone (Unverified Allergy, Unknown, 06/13/16) Levaquin (Unverified Allergy, Unknown, 06/13/16) Penicillin (Verified Allergy, Unknown, rash, 06/14/16) Has taken Keflex in past with no problem Quinolones (Unverified Allergy, Unknown, 06/13/16) Sulfa (Unverified Allergy, Unknown, 06/13/16) *MDRO Multi-Drug Resistant Organism (Verified Adverse Reaction, Unknown, ) MRSA (sputum)-06/14/16 Objective . Vital Signs Date Time Temp Pulse Resp B/P Pulse Ox O2 Delivery O2 Flow Rate FiO2 06/26/16 12:36 97.8 64 18 159/74 97 06/26/16 08:28 98.8 66 18 142/66 98 06/26/16 04:00 97.4 63 18 145/70 100 06/26/16 01:30 100 35 06/26/16 00:00 97.7 67 18 132/63 100 06/25/16 22:15 Nasal Cannula 2.00 06/25/16 20:15 64 06/25/16 20:00 97.9 65 18 159/74 100 06/25/16 17:46 98 Nasal Cannula 2.00 06/25/16 16:00 97.4 61 20 156/70 99 06/25/16 06/25/16 06/26/16 15:00 23:00 07:00 Intake Total 240 ml 480 ml 360 ml Output Total 1550 ml 300 ml 500 ml Balance -1310 ml 180 ml -140 ml Intake Oral 240 ml 480 ml 360 ml Output Urine Total 1550 ml 300 ml 500 ml # Bowel Movements 0 1 . Laboratory Tests Test 06/25/16 10:05 White Blood Count 11.6 TH/MM3 Red Blood Count 3.09 MIL/MM3 Hemoglobin 9.4 GM/DL Hematocrit 28.8 % Mean Corpuscular Volume 93.4 FL Mean Corpuscular Hemoglobin 30.5 PG Mean Corpuscular Hemoglobin 32.7 % Concent Red Cell Distribution Width 20.1 % Platelet Count 272 TH/MM3 Mean Platelet Volume 7.6 FL Neutrophils (%) (Auto) 87.0 % Lymphocytes (%) (Auto) 8.9 % Monocytes (%) (Auto) 4.1 % Eosinophils (%) (Auto) 0.0 % Basophils (%) (Auto) 0.0 % Neutrophils # (Auto) 10.1 TH/MM3 Lymphocytes # (Auto) 1.0 TH/MM3 Monocytes # (Auto) 0.5 TH/MM3 Eosinophils # (Auto) 0.0 TH/MM3 Basophils # (Auto) 0.0 TH/MM3 CBC Comment AUTO DIFF Differential Comment AUTO DIFF CONFIRMED Laboratory Tests Test 06/25/16 10:05 Sodium Level 136 MEQ/L Potassium Level 4.6 MEQ/L Chloride Level 100 MEQ/L Carbon Dioxide Level 30.4 MEQ/L Anion Gap 6 MEQ/L Blood Urea Nitrogen 39 MG/DL Creatinine 1.40 MG/DL Estimat Glomerular Filtration 38 ML/MIN Rate Random Glucose 309 MG/DL Calcium Level 8.8 MG/DL Imaging Chest X-Ray 06/20/16 0600 Signed Impressions: Service Date/Time: Monday, June 20, 2016 05:02 - CONCLUSION: No significant change has occurred. Doni Mccarty MD Chest X-Ray 06/19/16 0600 Signed Impressions: Service Date/Time: Sunday, June 19, 2016 03:39 - CONCLUSION: No significant change has occurred. Doni Mccarty MD Chest X-Ray 06/18/16 0600 Signed Impressions: Service Date/Time: Saturday, June 18, 2016 03:18 - CONCLUSION: Stable basilar airspace disease compared with June 15. Endotracheal tube, nasogastric tube in satisfactory position. Christiano Martin MD Last Impressions Chest X-Ray 06/15/16 0600 Signed Impressions: Service Date/Time: May 03:49 - CONCLUSION: 1. Increased bilateral symmetric pulmonary opacity likely representing pulmonary edema. Pulmonary consolidation is seen bilaterally in the lower lobes. Masslike density again seen in the left upper lobe. 2. New bilateral pleural effusions. Dimitrios Mccartney MD Head CT 06/14/16 0000 Signed Impressions: Service Date/Time: Tuesday, June 14, 2016 02:48 - CONCLUSION: 1. No acute intracranial findings. 2. Pansinusitis with diffuse air fluid levels indicating acute sinusitis. Dimitrios Mccartney MD Chest CT 06/14/16 0000 Signed Impressions: Service Date/Time: Tuesday, June 14, 2016 02:51 - CONCLUSION: 1. Large area of right lower lung consolidation with air bronchograms. 2. Mild left lung consolidation versus atelectasis with rounded masslike anterior contour in the upper lung. 2 additional left-sided nodules are identified in the mid lung. 3. Small bilateral pleural effusions. 4. Enlarged right paratracheal lymph node. Dimitrios Mccartney MD Lung Scan- Nuclear Medicine [id number] Signed Impressions: Service Date/Time: Monday, June 13, 2016 20:49 - CONCLUSION: Indeterminant probability for pulmonary embolism with Large matched perfusion and ventilatory defect corresponding to radiographic abnormality in the right lung base. Adolfo Daniels MD Abdomen/Pelvis CT [id number] Signed Impressions: Service Date/Time: Tuesday, June 14, 2016 00:05 - CONCLUSION: 1. Right lower lung consolidation and bilateral pleural effusions. 2. Superficial soft tissue edema suggesting anasarca. 3. Perinephric stranding and diffuse urinary bladder wall thickening. Question urinary tract infection. Mild right hydronephrosis. No calculi identified. 4. Nonspecific oval 4.6 cm mass in the spleen. 5. Retroperitoneal lymphadenopathy. Dimitrios Mccartney MD Lower Extremity Ultrasound 06/13/16 0000 Signed Impressions: Service Date/Time: Tuesday, June 14, 2016 00:24 - CONCLUSION: No evidence of lower extremity DVT on the right or left. Dimitrios Mccartney MD Physical Exam GENERAL: Awake, on nasal O2, not in distress SKIN: Cool and dry. No generalized rash HEENT: [place] conjunctiva. No scleral icterus. Moist mucosa NECK: Supple, nontender, short and obese. CARDIOVASCULAR: Regular rate and rhythm without murmurs, gallops, or rubs. RESPIRATORY: Decreased BS at bases GASTROINTESTINAL: Abdomen soft, obese , non-tender, nondistended. No guarding. MUSCULOSKELETAL: Extremities without clubbing, cyanosis, or edema. or edema noted. No calf tenderness. NEUROLOGICAL: Awake and alert. No Babinski. LINE: Port right upper chest with no evidence of infection : Christianson catheter in place, urine looks clear currently Assessment & Plan Remarks IMPRESSION Respiratory failure, HCAP, with ?pulmonary edema - extubated 06/20, doing well MRSA PNA, doing well UTI, prior Hx UTI and ESBL(+) infections - now has low colony count yeast Morbid obesity COPD, likely has KING Multiple Abx allergy - PCN - has taken Keflex without any problem CKD Candiduria RECOMMENDATION Clinically doing well from ID standpoint S/P Rx MRSA PNA Finished Diflucan today I will be available prn Please reconsult if with new ID issue or question Melody Morales MD Jun 26, 2016 12:45
--- NOTE | 2016-06-26 13:36 | HHI.PR ---
Subjective Remarks pt says she is feeling well. no cp or sob. no n/v. no pain. Objective Vital Signs Date Time Temp Pulse Resp B/P Pulse Ox O2 Delivery O2 Flow Rate FiO2 06/26/16 12:36 97.8 64 18 159/74 97 06/26/16 08:28 98.8 66 18 142/66 98 06/26/16 04:00 97.4 63 18 145/70 100 06/26/16 01:30 100 35 06/26/16 00:00 97.7 67 18 132/63 100 06/25/16 22:15 Nasal Cannula 2.00 06/25/16 20:15 64 06/25/16 20:00 97.9 65 18 159/74 100 06/25/16 17:46 98 Nasal Cannula 2.00 06/25/16 16:00 97.4 61 20 156/70 99 I/O 06/25/16 06/25/16 06/25/16 06/26/16 06/26/16 06/26/16 07:00 15:00 23:00 07:00 15:00 23:00 Intake Total 240 ml 480 ml 360 ml Output Total 1550 ml 300 ml 500 ml Balance -1310 ml 180 ml -140 ml Intake Oral 240 ml 480 ml 360 ml Output Urine Total 1550 ml 300 ml 500 ml # Bowel Movements 0 1 Result Diagram: 06/25/16 1005 06/25/16 1005 Objective Remarks GENERAL: patient lying in bed. Appears comfortable.aaox3 SKIN: Warm and dry. HEAD: Normocephalic. EYES: No scleral icterus. No injection or drainage. NECK: Supple, trachea midline. No JVD. CARDIOVASCULAR: Regular rate and rhythm without murmurs, gallops, or rubs. RESPIRATORY: Breath sounds equal bilaterally. No accessory muscle use. GASTROINTESTINAL: Abdomen soft, non-tender, nondistended. MUSCULOSKELETAL: No cyanosis, or edema. BACK: Nontender without obvious deformity. No CVA tenderness. A/P Assessment and Plan 65-year-old female with HTN, DM. MO, recurrent UTIs obesity hypoventilation syndrome, COPD, chronic systolic CHF, CKD stage 3, breast cancer metastatic to lung (discontinued chemotherapy February 2016), who presented from [facility] with hypercapnic respiratory failure, and was intubated after failing BiPAP. She was treated with broad-spectrum antibiotics for multilobar pneumonia as well as treated for hyperkalemia. She completing course of linezolid for treatment of pneumonia with MRSA positive sputum. She received fluconazole 10 day course for treatment of Halima glabrata UTI. She also had creatinine 2.07 is around baseline on admission, however decreased to 1.4 by discharge. Patient was extubated 06/20, continue to improve, feeling well by day of discharge. Patient with continued weakness. Palliative care was consulted, family opted for hospice consult as well. Patient will discharge to SNF with hospice following. Antimicrobials Linezolid Fluconazole 06/15current - complete 06/26 Imipenem. . Discontinued Aztreonam. Single dose on admission. Discontinued Meropenem. Single dose on admission. Discontinued Metronidazole. Single dose on admission. Discontinued Microbiology 06/16 urine culture positive for Halima glabrata 06/14 sputum culture positive for MRSA 06/13 urine culture with Halima glabrata 06/13 blood cultures negative NEURO: //Acute encephalopathy secondary to hypercapnia and sepsis //Peripheral neuropathy //Anxiety -Avoid sedating medications. -Continue tube Hold Neurontin as this has caused depressed mental status in the past -SSRI on hold. Hold Xanax 0.25 mg po q6 hours prn anxiety = encephalopathy appears to be improved. Continue to monitor. Due to Avoid sedating or altering medications. RESP: //Acute hypercapnic and hypoxemic respiratory failure-resolved //Obesity hypoventilation syndrome //Lung metastases from breast cancer primary //MRSA pneumonia Intubated in ED with Glidescope with Grade III/IV Cormack Lehane. Extubated 06/20 , tolerating well 06/13 VQ scan-indeterminate, patient started on therapeutic Lovenox 06/14 DuoNeb every 6 hours scheduled and PRN EzPAP, Acapella, IS = Very status much improved.. Appreciate pulmonology assistance. Patient has completed antibiotics. Taper steroids. CV: //Uncontrolled Hypertension //Chronic systolic heart failure //History of paroxysmal atrial fibrillation (not on chronic anticoagulation, currently in sinus rhythm) -06/14 2-D echo-ejection fraction 60%, no RWMA -Troponin negative. -Continue Coreg. Continue aspirin 81 mg daily -IV Labetalol/Hydralazine PRN for SBP >170 06/25 Blood pressure high, which is likely secondary to improved infection. Restart Imdur. = Nidhi blood pressure medications were held on admission, however blood pressure subsequently increased, and they have been added back. GI: //Morbid obesity //Moderate protein energy malnutrition //Abdominal pain. Malignancy related. Controlled. Speech therapy consulted for swallow eval today Reportedly had left-sided abdominal tenderness in the emergency department. CT abdomen and pelvis 06/13-anasarca abdomen, right lower lung consolidation, bilateral pleural effusions. Mild right hydronephrosis. Retroperitoneal lymphadenopathy. 6 cm mass in spleen. Continue multivitamin FEN/RENAL: //Chronic kidney disease stage III //Hyperkalemia-resolved Continue to monitor BMP Christianson in place. Monitor intake and output. Monitor electrolytes and replace as needed -Urine output remains excellent creatinine stable -06/23. Creatinine increased 1.8. Discontinue Lasix. Continue to monitor. -06/24. Renal function improving. Continue to monitor closely. ID: //HCAP with MRSA //Urinary tract infection. Halima glabrata. Diflucan to finish 06/26. //Wound lower aspect of right pannus = Microbiology as above.Infectious disease following. Appreciate assistance. Continue antibiotics as per infectious disease. -Appreciate infectious disease and pulmonology assistance. HEME: //Adenocarcinoma left breast, multiple lung metastases //Chronic iron deficiency anemia //h/o nonocclusive DVT peroneal vein 06/06/14 Continue ferrous sulfate 325 mg twice a day VQ indeterminate-therapeutic Lovenox initiated 150 BID 06/13-B/L lower extremity ultrasound -negative = Transition to warfarin. Still Subtherapeutic. Continue Lovenox bridge for now. ENDO: //Type 2 diabetes mellitus with complications //Hypoglycemia on admission. Resolved. //Hyperglycemia -Medium dose insulin sliding scale at bedside glucose every 4 hours. -06/22. Hyperglycemia. Will addLevemir 10 units twice daily, increase sliding scale to moderate. -06/23. Hyperglycemia improving slowly. Expect to continue to trend down current regimen. = Continue to monitor glucose, adjust insulin as necessary. PROPH: Protonix 40 mg IV daily for stress ulcer prophylaxis. started coumadin , on Lovenox bridge. And pharmacy to dose ACCESS: Right chest port accessed. 18 gauge PIV's x 2. Discharge Planning -possible discharge to SNF with hospice Neal Zamora MD Jun 26, 2016 13:36
[2016-06-26] MEDS ORDERED: PRED20 PO (13:46)
[2016-06-26] MEDS ORDERED: COUM6TAB PO (13:46)
[2016-06-26] MEDS ORDERED: NOVOLOGSS SQ (13:46)
[2016-06-26] MEDS ORDERED: ENOX150P SQ (13:46)
[2016-06-26] MEDS ORDERED: LEVEMIR SQ (13:46)
[2016-06-26] MEDS ORDERED: CLON.1 PO (13:46)
--- NOTE | 2016-06-26 13:49 | HHI.DS ---
Discharge Summary Admission Date Jun 13, 2016 at 19:16 Discharge Date: Jun 26, 2016 Admitting Diagnosis acute respiratory failure, UTI, possible pneumonia (1) Diabetes ICD Code: E11.9 (2) Morbid obesity with BMI of 60.0-69.9, adult ICD Code: E66.01 (3) Hypercapnic respiratory failure ICD Code: J96.92 (4) poor nutritional intake (5) Diabetes mellitus type 2, insulin dependent ICD Code: E11.9 (6) Chronic renal disease, stage IV ICD Code: N18.4 (7) Breast cancer ICD Code: C50.919 Procedures Intubation, extubation Brief History - From Admission 65-year-old female with past medical history of hypertension, diabetes , morbid obesity with obesity hypoventilation syndrome, COPD, chronic systolic heart failure, chronic kidney disease stage III, adenocarcinoma of breast metastatic to lung who presents to [facility] emergency department from [facility] with respiratory distress and lethargy. She was found to be in hypercapnic respiratory failure with pH 7.24/PaCO2 57/PA O2 of 118/bicarbonate 24 on 4 L nasal cannula. She was placed on BiPAP 12 over 5 with 35%. Repeat ABG demonstrated no significant improvement. Dr. aCrl discussed with patient' s sister who stated patient was full code and so she was intubated in the emergency department with Grade III/IV view with Glidescope following sedation with ketamine and rocuronium. Chest x-ray demonstrated bilateral vascular congestion. There is also a right lower lobe opacity, right upper lobe opacity , and left upper lobe opacity. She was treated empirically in the emergency department with aztreonam, Flagyl, vancomycin. Urinalysis was remarkable for a UTI. She had a potassium of 6.1. She was treated with I called 50 mEq, calcium gluconate 2 g, insulin 10 units IV and dextrose. Apparently patient also had some left-sided abdominal pain for which Dr. Carl has ordered CT abdomen. VQ scan has also been ordered. Patient's sister states that April has a history of left breast adenocarcinoma which she underwent lumpectomy and lymph node resections. She states she underwent chemotherapy at that time which was poorly tolerated and that she was admitted after chemo every time because "all of her systems would shut down". She states that about 6-8 months ago she was found to have multiple lung mets. She states that chemotherapy was initiated but she was not able to tolerate and therefore she discontinued chemotherapy in February of 2016. She was under the care of Dr. Som Cam at [facility]. She states that for 2-3 years she has been having recurrent urinary tract infections. She states that she has been in and out of the hospital "every other week" in March 2016 due to recurrent urinary tract infections. There has been a history of MDRO and her chart indicates that she has a history of UTI positive for ESBL. Patient was reportedly was admitted to [facility] from April 02 to April 29. During this time she was treated for urinary tract infection. She also had altered mental status and respiratory failure requiring mechanical ventilation for approximately 4 days. She was discharged back to [facility] where she resided for 2-3 weeks until she was again hospitalized for CHF, pneumonia, urinary tract infection. She did not require mechanical ventilation on this admission. Her sister states she has been back at [facility] for about a week. CBC/BMP: 06/25/16 1005 06/25/16 1005 Significant Findings Laboratory Tests Test 06/24/16 06/25/16 06/25/16 06/26/16 06:50 05:47 10:05 06:23 Red Blood Count 2.91 MIL/MM3 3.09 MIL/MM3 (4.00-5.30) (4.00-5.30) Hemoglobin 8.8 GM/DL 9.4 GM/DL (11.6-15.3) (11.6-15.3) Hematocrit 27.3 % 28.8 % (35.0-46.0) (35.0-46.0) Red Cell Distribution Width 19.8 % 20.1 % (11.6-17.2) (11.6-17.2) Neutrophils (%) (Auto) 89.2 % 87.0 % (16.0-70.0) (16.0-70.0) Lymphocytes (%) (Auto) 8.3 % 8.9 % (9.0-44.0) (9.0-44.0) Neutrophils # (Auto) 8.8 TH/MM3 10.1 TH/MM3 (1.8-7.7) (1.8-7.7) Lymphocytes # (Auto) 0.8 TH/MM3 (1.0-4.8) Neutrophils % (Manual) 90 % (16-70) Lymphocytes % 4 % (9-44) Neutrophils # (Manual) 9.0 TH/MM3 (1.8-7.7) Prothrombin Time 12.8 SEC 16.3 SEC 20.3 SEC (9.8-11.6) (9.8-11.6) (9.8-11.6) Blood Urea Nitrogen 40 MG/DL (7-18) 39 MG/DL (7-18) Creatinine 1.47 MG/DL 1.40 MG/DL (0.50-1.00) (0.50-1.00) Estimat Glomerular Filtration 36 ML/MIN (>89) 38 ML/MIN (>89) Rate Random Glucose 281 MG/DL 309 MG/DL (74-106) (74-106) White Blood Count 11.6 TH/MM3 (4.0-11.0) Imaging Last Impressions Chest X-Ray 06/21/16 0000 Signed Impressions: Service Date/Time: Tuesday, June 21, 2016 07:19 - CONCLUSION: 1. Bibasilar patchiness consistent with atelectasis and/or pneumonia. 2. Stable left apical nodule. 3. Degenerative changes and scoliosis of the thoracolumbar spine. 4. Elevation of the right hemidiaphragm. 5. Cardiomegaly. Scout Rollins MD Head CT 06/14/16 0000 Signed Impressions: Service Date/Time: Tuesday, June 14, 2016 02:48 - CONCLUSION: 1. No acute intracranial findings. 2. Pansinusitis with diffuse air fluid levels indicating acute sinusitis. Dimitrios Mccartney MD Chest CT 06/14/16 0000 Signed Impressions: Service Date/Time: Tuesday, June 14, 2016 02:51 - CONCLUSION: 1. Large area of right lower lung consolidation with air bronchograms. 2. Mild left lung consolidation versus atelectasis with rounded masslike anterior contour in the upper lung. 2 additional left-sided nodules are identified in the mid lung. 3. Small bilateral pleural effusions. 4. Enlarged right paratracheal lymph node. Dimitrios Mccartney MD Lung Scan-VQ Nuclear Medicine [id number] Signed Impressions: Service Date/Time: Monday, June 13, 2016 20:49 - CONCLUSION: Indeterminant probability for pulmonary embolism with Large matched perfusion and ventilatory defect corresponding to radiographic abnormality in the right lung base. Adolfo Daniels MD Abdomen/Pelvis CT [id number] Signed Impressions: Service Date/Time: Tuesday, June 14, 2016 00:05 - CONCLUSION: 1. Right lower lung consolidation and bilateral pleural effusions. 2. Superficial soft tissue edema suggesting anasarca. 3. Perinephric stranding and diffuse urinary bladder wall thickening. Question urinary tract infection. Mild right hydronephrosis. No calculi identified. 4. Nonspecific oval 4.6 cm mass in the spleen. 5. Retroperitoneal lymphadenopathy. Dimitrios Mccartney MD Lower Extremity Ultrasound 06/13/16 0000 Signed Impressions: Service Date/Time: Tuesday, June 14, 2016 00:24 - CONCLUSION: No evidence of lower extremity DVT on the right or left. Dimitrios Mccartney MD Hospital Course 65-year-old female with HTN, DM. MO, recurrent UTIs obesity hypoventilation syndrome, COPD, chronic systolic CHF, CKD stage 3, breast cancer metastatic to lung (discontinued chemotherapy February 2016), who presented from [facility] with hypercapnic respiratory failure, and was intubated after failing BiPAP. She was treated with broad-spectrum antibiotics for multilobar pneumonia as well as treated for hyperkalemia. She completing course of linezolid for treatment of pneumonia with MRSA positive sputum. She received fluconazole 10 day course for treatment of Halima glabrata UTI. She also had creatinine 2.07 is around baseline on admission, however decreased to 1.4 by discharge. Patient was extubated 06/20, continue to improve, feeling well by day of discharge. Patient with continued weakness. Palliative care was consulted, family opted for hospice consult as well. Patient will discharge to SNF with hospice following. Patient also found to have DVT of the upper extremity, for which she was placed on warfarin, with Lovenox bridge; Lovenox can be discontinued when INR is therapeutic for 2 consecutive days. Blood sugar was elevated in 300s on IV steroids, however upon transition to by mouth prednisone much improved. Expect to continue to improve as prednisone is tapered. Antimicrobials Linezolid Fluconazole 06/15current - complete 06/26 Imipenem. /18. Discontinued Aztreonam. Single dose on admission. Discontinued Meropenem. Single dose on admission. Discontinued Metronidazole. Single dose on admission. Discontinued Microbiology 06/16 urine culture positive for Halima glabrata 06/14 sputum culture positive for MRSA 06/13 urine culture with Halima glabrata 06/13 blood cultures negative NEURO: //Acute encephalopathy secondary to hypercapnia and sepsis //Peripheral neuropathy //Anxiety -Avoid sedating medications. -Continue tube Hold Neurontin as this has caused depressed mental status in the past -SSRI on hold. Hold Xanax 0.25 mg po q6 hours prn anxiety = encephalopathy appears to be improved. Continue to monitor. Due to Avoid sedating or altering medications. RESP: //Acute hypercapnic and hypoxemic respiratory failure-resolved //Obesity hypoventilation syndrome //Lung metastases from breast cancer primary //MRSA pneumonia Intubated in ED with Glidescope with Grade III/IV Cormack Lehane. Extubated 06/20 , tolerating well 06/13 VQ scan-indeterminate, patient started on therapeutic Lovenox 06/14 DuoNeb every 6 hours scheduled and PRN EzPAP, Acapella, IS = Very status much improved.. Appreciate pulmonology assistance. Patient has completed antibiotics. Taper steroids. CV: //Uncontrolled Hypertension //Chronic systolic heart failure //History of paroxysmal atrial fibrillation (not on chronic anticoagulation, currently in sinus rhythm) -06/14 2-D echo-ejection fraction 60%, no RWMA -Troponin negative. -Continue Coreg. Continue aspirin 81 mg daily -IV Labetalol/Hydralazine PRN for SBP >170 06/25 Blood pressure high, which is likely secondary to improved infection. Restart Imdur. = Nidhi blood pressure medications were held on admission, however blood pressure subsequently increased, and they have been added back. GI: //Morbid obesity //Moderate protein energy malnutrition //Abdominal pain. Malignancy related. Controlled. Speech therapy consulted for swallow eval today Reportedly had left-sided abdominal tenderness in the emergency department. CT abdomen and pelvis 06/13-anasarca abdomen, right lower lung consolidation, bilateral pleural effusions. Mild right hydronephrosis. Retroperitoneal lymphadenopathy. 6 cm mass in spleen. Continue multivitamin FEN/RENAL: //Chronic kidney disease stage III //Hyperkalemia-resolved Continue to monitor BMP Christianson in place. Monitor intake and output. Monitor electrolytes and replace as needed -Urine output remains excellent creatinine stable -06/23. Creatinine increased 1.8. Discontinue Lasix. Continue to monitor. -06/24. Renal function improving. Continue to monitor closely. ID: //HCAP with MRSA //Urinary tract infection. Halima glabrata. Diflucan to finish 06/26. //Wound lower aspect of right pannus = Microbiology as above.Infectious disease following. Appreciate assistance. Continue antibiotics as per infectious disease. -Appreciate infectious disease and pulmonology assistance. HEME: //Adenocarcinoma left breast, multiple lung metastases //Chronic iron deficiency anemia //h/o nonocclusive DVT peroneal vein 06/06/14 Continue ferrous sulfate 325 mg twice a day VQ indeterminate-therapeutic Lovenox initiated 150 BID 06/13-B/L lower extremity ultrasound -negative = Transition to warfarin. Still Subtherapeutic. Continue Lovenox bridge for now. ENDO: //Type 2 diabetes mellitus with complications //Hypoglycemia on admission. Resolved. //Hyperglycemia -Medium dose insulin sliding scale at bedside glucose every 4 hours. -06/22. Hyperglycemia. Will addLevemir 10 units twice daily, increase sliding scale to moderate. -06/23. Hyperglycemia improving slowly. Expect to continue to trend down current regimen. = Continue to monitor glucose, adjust insulin as necessary. PROPH: Protonix 40 mg IV daily for stress ulcer prophylaxis. started coumadin , on Lovenox bridge. And pharmacy to dose ACCESS: Right chest port accessed. 18 gauge PIV's x 2. Pt Condition on Discharge: Good Discharge Disposition: Discharge to SNF Discharge Time: > 30 minutes Discharge Instructions DIET: Follow Instructions for: Diabetic Diet Speech Therapy-Diet Recommends: Honey Thickened Liquids, Mechanical Soft, Chopped Meat w/Gravy Follow up Referrals: PCP Follow-up with Hospice New Medications: Clonidine (Catapres) 0.1 Mg Tab 0.1 MG PO Q6H PRN SBP> OR = 180, DBP> OR = 100 Days 30 TAB Enoxaparin Inj (Lovenox Inj) 150 Mg/Ml Syr 150 MG SQ Q12H discontinue when INR is therapeutic BRIDGING #6 INJECTION Insulin Aspart Inj (Novolog Inj) 100 Unit/Ml Inj 1 INJECTION SQ ACHS SLIDING SCALE Blood Sugar Management Days 30 INJECTION Insulin Detemir Inj (Levemir Inj) 1,000 unit/ 10 ML Vial 12 UNITS SQ Q12HR Blood Sugar Management Days 30 INJECTION Prednisone (Prednisone) 20 Mg Tab 20 MG PO DAILY Take 20 mg daily for 2 days, then 10 mg daily for 2 days, then stop COPD #3 TAB Warfarin (Coumadin) 6 Mg Tab 6 MG PO DAILY@1600 DVT Days 30 TAB Continued Medications: Allopurinol (Allopurinol) 100 Mg Tab 100 MG PO DAILY Gout #[address] (Aspirin DR) 81 Mg Tabdr 81 MG PO DAILY CHEST PAIN Ref 0 TAB Bethanechol (Bethanechol) 10 Mg Tab 10 MG PO DAILY URINARY SPASMS Ref 0 TAB Carvedilol (Carvedilol) 25 Mg Tab 25 MG PO TID #60 Ref 0 TAB Ergocalciferol (Drisdol) 50,000 Unit Cap 05523 UNITS PO WEEKLY ON SUNDAYS Nutritional Supplement #30 Ref 0 CAP Ferrous Sulfate (Ferrous Sulfate) 325 Mg Tab 325 MG PO BID Nutritional Supplement #30 Ref 0 TAB Fluoxetine (Fluoxetine) 20 Mg Tab 20 MG PO DAILY Anxiety #30 Ref 0 TAB Furosemide (Lasix) 40 Mg Tab 40 MG PO DAILY CHF #30 Ref 0 TAB Gabapentin (Gabapentin) 100 Mg Cap 200 MG PO Q8HR NEUROPATHY #90 Ref 0 CAP Glucagon Inj (Glucagon Inj) 1 Mg/Ml Inj 1 MG SQ ONCE PRN Per Hypoglycemic Protocol #1 Ref 0 VIAL Ipratropium-Albuterol Neb (Duoneb) 0.5-2.5 Mg/3 Ml Neb 1 NEBULE INH Q8HR NEB PRN SHORTNESS OF BREATH #90 Ref 0 NEBULE Isosorbide Mononitrate ER (Isosorbide Mononitrate ER) 30 Mg Thomas 30 MG PO DAILY Prevent Chest Pain #30 Ref 0 TAB Multiple Vitamins W/ Minerals (Thera-M) 1 Tab 1 TAB PO DAILY Nutritional Supplement Ref 0 TAB Nystatin Topical (Nystatin Topical) 100,000 Unit/Gm Pow 1 APPLIC TOP Q8HR PRN FUNGAL RASH Pantoprazole (Pantoprazole) 40 Mg Tab 40 MG PO DAILY GERD #30 Ref 0 TAB Polyethylene Glycol 3350 Powder (Miralax Powder) 17 Gm Powd 17 GM PO DAILY Mix and dissolve one measuring cap-ful (17 grams) in water or juice. Constipation #1 Ref 0 BOTTLE Sucralfate (Sucralfate) 1 Gm Tab 1 GM PO ACHS on empty stomach IRRITABLE BOWEL #120 Ref 0 TAB Discontinued Medications: Alprazolam (Alprazolam) 0.25 Mg Tab 0.25 MG PO Q6H ANXIETY/AGITATION Ref 0 TAB Cetirizine (Cetirizine) 10 Mg Tab 10 MG PO DAILY PRN ALLERGIES Ref 0 TAB Fluconazole (Fluconazole) 200 Mg Tab 200 MG PO DAILY Infection Ref 0 TAB Insulin Glargine Inj (Lantus Inj) 1,000 Unit/10 Ml Vial 50 UNITS SQ HS Blood Sugar Management Ref 0 VIAL Insulin Lispro (Human) Inj (Humalog Inj) 1,000 Unit/10 Ml Vial 10 UNITS SQ TIDAC Max dose at bedtime:( )units; sugars< 70,(0)units; sugars 150 -199,(1)unit; sugars 200-249,(3)units; sugars 250-299,(5)units; sugars 300-349,( 7)units; sugars more than 349,(9)units. Blood Sugar Management #1 Ref 0 VIAL Insulin Lispro (Human) Inj (Humalog Inj) 1,000 Unit/10 Ml Vial 2-10 UNITS SQ ACHS If sugars 0-69,(0)units;give 120ml OJ & glucagom 1 mg im per protocol and recheck in one hour; sugars 70-149 = (0)150-199,(2)units; sugars 200-249,(4)units; sugars 250-299,(6)units;sugars 300-349,(8)units; sugars 350-399,(10)units; 400 + give 10 units and call Blood Sugar Management #1 Ref 0 VIAL Melatonin (Melatonin) 1 Mg Tab 1 MG PO HS PRN INSOMNIA Minocycline (Minocycline) 100 Mg Cap 100 MG PO BID BACTERIAL INFECTION Ref 0 CAP Potassium Chloride Microencaps (Klor-Con M20) 20 Meq Tab 20 MEQ PO DAILY chf #30 Ref 0 TAB Neal Zamora MD Jun 26, 2016 13:49
[2016-06-26] MEDS: WARFARIN SOD 6 MG TAB PO SCH (15:48)
== END 2016-06-26 17:27 | DRG 870 ==
LOC: NEPE 15:45 → NEDA 19:16 → HIMN 06-14 00:20 → N04B 06-24 02:03
PROVIDERS: ADMIT Internal Medicine; ATTEND Internal Medicine
PROC: 5A1955Z Respiratory Ventilation, Greater than 96 Consecutive Hours (ICD-10-PCS; principal; 2016-06-13)
PROC: 0BH17EZ Insertion of Endotracheal Airway into Trachea, Via Natural or Artificial Opening (ICD-10-PCS; 2016-06-13)
DX: A41.02 Sepsis due to Methicillin resistant Staphylococcus aureus (principal); J96.21 Acute and chronic respiratory failure with hypoxia; G93.49 Other encephalopathy; J15.212 Pneumonia due to Methicillin resistant Staphylococcus aureus; E44.0 Moderate protein-calorie malnutrition; I13.0 Hypertensive heart and chronic kidney disease with heart failure and stage 1 through stage 4 chronic kidney disease, or unspecified chronic kidney disease; J44.0 Chronic obstructive pulmonary disease with (acute) lower respiratory infection; C77.1 Secondary and unspecified malignant neoplasm of intrathoracic lymph nodes; E87.2 Acidosis; I50.22 Chronic systolic (congestive) heart failure; C77.2 Secondary and unspecified malignant neoplasm of intra-abdominal lymph nodes; J96.22 Acute and chronic respiratory failure with hypercapnia; C78.02 Secondary malignant neoplasm of left lung; C78.01 Secondary malignant neoplasm of right lung; Z68.44 Body mass index [BMI] 60.0-69.9, adult; E66.2 Morbid (severe) obesity with alveolar hypoventilation; B37.49 Other urogenital candidiasis; I69.354 Hemiplegia and hemiparesis following cerebral infarction affecting left non-dominant side; N13.30 Unspecified hydronephrosis; N18.4 Chronic kidney disease, stage 4 (severe); I82.629 Acute embolism and thrombosis of deep veins of unspecified upper extremity; R13.10 Dysphagia, unspecified; E11.22 Type 2 diabetes mellitus with diabetic chronic kidney disease; E11.42 Type 2 diabetes mellitus with diabetic polyneuropathy; E87.5 Hyperkalemia; D50.9 Iron deficiency anemia, unspecified; R19.7 Diarrhea, unspecified; M10.9 Gout, unspecified; I48.0 Paroxysmal atrial fibrillation; R32 Unspecified urinary incontinence; J30.9 Allergic rhinitis, unspecified; E11.649 Type 2 diabetes mellitus with hypoglycemia without coma; R40.2423 Glasgow coma scale score 9-12, at hospital admission; E11.65 Type 2 diabetes mellitus with hyperglycemia; F41.9 Anxiety disorder, unspecified; Y95 Nosocomial condition; Z74.01 Bed confinement status; Z79.4 Long term (current) use of insulin; Z85.3 Personal history of malignant neoplasm of breast; Z86.718 Personal history of other venous thrombosis and embolism; Z87.891 Personal history of nicotine dependence; Z88.0 Allergy status to penicillin; Z88.1 Allergy status to other antibiotic agents; Z88.2 Allergy status to sulfonamides; Z88.5 Allergy status to narcotic agent; Z92.21 Personal history of antineoplastic chemotherapy; Z98.84 Bariatric surgery status
CPT/HCPCS: 31500; 36600; 51702; 70450; 71010; 71250; 74176; 76937; 78582; 80048; 80053; 80069; 80202; 81001; 82805; 82947; 82948; 83605; 83690; 83735; 83880; 84100; 84132; 84484; 85007; 85025; 85027; 85379; 85610; 85730; 87040; 87070; 87077; 87086; 87186; 87205; 87493; 87641; 93005; 93306; 93970; 94002; 94003; 94150; 94640; 94664; 94667; 96374; 96375; 99292; A9540; A9567; C9113; J0360; J0610; J0743; J1642; J1644; J1650; J1815; J1885; J1940; J2020; J2185; J2405; J2920; J3010; J3370; J3475; J7040; J7050; J7512